=== PATIENT | female | born 1940 | race Caucasian/White ===

== ENCOUNTER 2021-05-01 20:17 | Inpatient (IN) | payer BC ==
[2021-05-01] MEDS ORDERED: CEFTRIAXONE 1000 MG/VIAL ONE (20:39)
[2021-05-01] MEDS ORDERED: NA CHLORIDE 0.9% 50 ML ONE (20:39)
[2021-05-01] MEDS ORDERED: NA CHLORIDE 0.9% 0 ML ONE (20:39)
[2021-05-01] MEDS ORDERED: NA CHLORIDE 0.9% 1,000 ML ONE ×2 (20:39→22:07)
[2021-05-01 20:43] LABS: Urine Blood Negative (Negative); Urine Glucose Negative (Negative); Urine Protein 2+ (Negative); Urine pH 7.5 (5.0-7.0)
[2021-05-01] MEDS ORDERED: ACETAMINOPHEN 650MG/RECT SUPP PR ONE (20:53)
[2021-05-01 20:54] LABS: Protime INR 1.33
[2021-05-01] MEDS ORDERED: ACETAMINOPHEN 325 MG/SUPP PR ONE (20:54)
[2021-05-01 20:59] LABS: Lymphocytes % 14.3 % (15.3-44.8)
[2021-05-01 21:04] LABS: Absolute Lymphocytes (CBC) 2.9 K/uL (0.7-4.9); Hematocrit 29.6 % (36.0-45.0); RBC Red Blood Cell Count 2.79 M/uL (3.86-4.86)
[2021-05-01 21:07] LABS: MPV 9.1 fL (7.6-11.3)
[2021-05-01 21:27] LABS: Platelet Estimate ADEQ
[2021-05-01 21:28] LABS: Blood Morphology Comment NOTED (NOT SEEN); Macrocytosis 1+; Polychromasia SLIGHT
[2021-05-01 21:32] LABS: ALT/SGPT 29 U/L (12-78); AST/SGOT 35 U/L (15-37); Albumin 2.2 g/dL (3.4-5.0); Alkaline Phosphatase 99 U/L (45-117); Amylase 49 U/L (25-115); BUN Blood Urea Nitrogen 70 mg/dL (7-18); Bicarbonate 26 mmol/L (21-32); Bilirubin Direct 0.2 mg/dL (0-0.2); Bilirubin Total 0.5 mg/dL (0.2-1.0); Creatine Phosphokinase 76 U/L (26-192); Glucose Level 99 mg/dL (74-106); Lipase 97 U/L (73-393); Protein, Total 6.4 g/dL (6.4-8.2); Troponin (Emerg Dept Use Only) 0.15 ng/mL (0.0-0.045)
[2021-05-01 21:33] LABS: CKMB Creatine Kinase MB < 1.0 ng/mL (1.0-3.6); Potassium 5.6 mmol/L (3.5-5.1); Sodium Level 173 mmol/L (136-145)
[2021-05-01 21:38] LABS: Urine Amorphous Sediment 3+ /HPF (NONE SEEN); Urine Bacteria <20 /HPF (<20); Urine RBC <5 /HPF (NONE SEEN)
--- NOTE | 2021-05-01 21:39 | RAD REPORT ---
EXAM DESCRIPTION: Manolo Single View05/01/2021 9:15 pm CLINICAL HISTORY: Fever COMPARISON: none FINDINGS: Mild left lung opacities. Right lung appears clear of acute infiltrate. The heart is normal size IMPRESSION: Mild left lung opacities probably mild pneumonia
[2021-05-01 21:46] LABS: SARS-COV-2 RT PCR NEGATIVE (NEGATIVE)
[2021-05-01] MEDS ORDERED: AZITHROMYCIN 500 MG INJ IVPB ONE (22:06)
[2021-05-01] MEDS ORDERED: NA CHLORIDE 0.9% 250 ML ONE ×2 (22:07→23:12)
--- NOTE | 2021-05-01 23:21 | ER ---
Nurse's Notes [facility] Name: Hattie Deras Age: 80 yrs Sex: Female : 1940 Arrival Date: 05/01/2021 Time: 20:22 Bed 4 Private MD: Diagnosis: Sepsis, unspecified organism;Pneumonia, unspecified organism;Dehydration;Hyperosmolality and hypernatremia;Hyperkalemia;Acute kidney failure, unspecified Presentation: 05/01 20:25 Chief complaint: EMS states: " She came from home, family has reported she has had a tw5 temp and for the past several days she has not eating or drinking . Coronavirus screen: Vaccine status: Patient reports being unvaccinated. Ebola Screen: Patient negative for fever greater than or equal to 101.5 degrees Fahrenheit, and additional compatible Ebola Virus Disease symptoms Patient denies exposure to infectious person. Patient denies travel to an Ebola-affected area in the 21 days before illness onset. Initial Sepsis Screen: Does the patient meet any 2 criteria? RR > 20 per min. Temp <36.0*C (96.8*F)) or > 38.3*C (100.9*F). Systolic BP < 90 mmHg. Altered Mental Status. Does the patient have a suspected source of infection? No. Patient's initial sepsis screen is negative. If YES to both, name of provider notified: Nathan Marti MD. Risk Assessment: Do you want to hurt yourself or someone else? Unable to obtain. Onset of symptoms is unknown. 20:25 Method Of Arrival: EMS: [facility] tw5 20:25 Acuity: JOSEP 3 tw5 Triage Assessment: 20:25 General: Appears ill, Behavior is quiet. Pain: Unable to use pain scale. Patient tw5 appears confused, to be moaning, withdrawn. Historical: - Allergies: 20:44 PENICILLINS; tw5 - Home Meds: 20:44 gabapentin 300 mg oral cap 1 cap 3 times per day [Active]; memantine 10 mg oral tab 1 tw5 tab 2 times per day [Active]; donepezil 10 mg oral tab 1 tab once daily [Active]; trazodone 100 mg Oral tab 1 tab 4 x daily [Active]; promethazine 25 mg Oral tab 1 tab once daily [Active]; ondansetron HCl 4 mg Oral tab 1 tab 4 times per day [Active]; sumatriptan succinate 25 mg oral tab 1 tab [Active]; - PMHx: 20:44 Dementia; Irritable bowel syndrome; TIA; Neuropathy; Sleep apnea; GERD; Migraine; tw5 - Immunization history:: Adult Immunizations unknown. - Social history:: Smoking status: unknown. Screenin/20 00:47 Abuse screen: Denies threats or abuse. Denies injuries from another. Nutritional tw5 screening: Difficulty chewing/swallowing? Yes. Tuberculosis screening: Never had TB. Fall Risk Secondary diagnosis (15 points). Assessment: 05/01 20:28 Pain: Noted to be moaning, resistant to movement. Neuro: Level of Consciousness is tw5 lethargic. Cardiovascular:. Respiratory: Airway is patent Trachea midline Respiratory effort is shallow, Respiratory pattern is tachypnea. : Urine is clear. Derm: Skin is fragile, is thin, with poor turgor Skin is dry, Skin is normal, Skin temperature is hot. 20:31 Cardiovascular: Edema is 2+ to right wrist, right hand, right fingers, left wrist, left tw5 hand and left fingers. Musculoskeletal:. 21:36 General: Denny Deras cell- [phone] Shainakurt Deras [phone]. tw5 21:37 Reassessment: Patient states symptoms have improved. tw5 23:18 Reassessment: Patient appears in no apparent distress at this time. No changes from tw5 previously documented assessment. Patient states symptoms have improved. Neuro: Level of Consciousness is lethargic. 05/02 01:03 Reassessment: Patient appears in no apparent distress at this time. No changes from tw5 previously documented assessment. Vital Signs: 05/01 20:24 BP 91 / 54; Pulse 154; Resp 24; Temp 102.2(R); Pulse Ox 94% on R/A; Weight 45.36 kg; tw5 Height 5 ft. 2 in. (157.48 cm); 21:30 BP 118 / 68; Pulse 140; Resp 23 S; Pulse Ox 92% on R/A; as6 21:37 BP 108 / 59; Pulse 137; Resp 21; Pulse Ox 93% on R/A; tw5 23:16 BP 114 / 63; Pulse 128; Resp 28 S; Pulse Ox 95% on R/A; as6 23:18 BP 114 / 63; Pulse 127; Resp 38; Temp 99.3; Pulse Ox 95% on R/A; tw5 05/02 01:03 BP 121 / 75; Pulse 127; Resp 23; Pulse Ox 95% on R/A; tw5 05/01 20:24 Body Mass Index 18.29 (45.36 kg, 157.48 cm) tw5 ED Course: 05/01 20:22 Patient arrived in ED. tt3 20:23 Abran Mata NP is PHCP. pm1 20:23 Nathan Marti MD is Attending Physician. pm1 20:24 Radha Calderón is Primary Nurse. tw5 20:25 Arm band placed on Patient placed in an exam room, on a stretcher, on oxygen, on tw5 quality assurance monitor final, on pulse oximetry. 20:27 Triage completed. tw5 20:28 Patient has correct armband on for positive identification. Placed in gown. Bed in low tw5 position. Call light in reach. Side rails up X 1. equipment monitor phototypesetting on. Pulse ox on. NIBP on. Door closed. Noise minimized. Moved to private room. Verbal reassurance given. 20:28 Cox cath inserted, using sterile technique, 16 Fr., by fl, balloon inflated, to tw5 gravity drainage, urine specimen collected. Inserted saline lock: 22 gauge in right hand, using aseptic technique. Blood collected. 20:49 CBC with Automated Diff Sent. tw 20:49 Blood Culture Sent. 20:49 Basic Metabolic Panel Sent. 20:49 Amylase Sent. tw 20:49 COVID-19/FLU A+B (Document "Date of Onset" if Symptomatic) Sent. tw 20:49 Amylase, Serum Sent. 20:49 Basic Metabolic Panel Sent. tw 20:49 Blood Culture Adult (2) Sent. 20:49 Ckmb Sent. 20:49 LFT's Sent. 20:49 Lactate Sent. 20:50 CBC with Diff Sent. 20:50 Lipase Sent. tw 20:50 Procalcitonin Sent. 20:50 Protime (+inr) Sent. 20:50 Ptt, Activated Sent. 20:50 Troponin (emerg Dept Use Only) Sent. tw5 20:50 Urine Microscopic Only Sent. tw5 20:50 CPK Sent. tw5 21:15 Chest Single View XRAY In Process Unspecified. EDMS 22:45 CT Head Brain wo Cont In Process Unspecified. EDMS 23:18 Wound care: to stage two. Dressing applied over wound. tw5 23:19 Kirby Krueger PA is Hospitalizing Provider. pm1 05/02 00:09 Hospitalizing Provider role handed off by Kirby Krueger PA 00:09 Jose Burrows is Hospitalizing Provider. mw 00:47 No provider procedures requiring assistance completed. Patient admitted, IV remains in tw5 place. Administered Medications: 05/01 20:38 CANCELLED (Physician Discretion): Rocephin (cefTRIAXone) 50 mg/kg IV at calculated rate pm1 once; Given slow IV push per pharmacy instructions 20:43 Drug: NS 0.9% (30 ml/kg) 30 ml/kg Route: IV; Rate: bolus; Site: right hand; tw5 20:49 Drug: Rocephin (cefTRIAXone) 1 grams Route: IV; Rate: calculated rate; Site: right hand;tw5 23:25 Follow up: Response: No adverse reaction; IV Status: Completed infusion tw5 20:59 Drug: Tylenol Suppository 650 mg Route: NV; as6 23:25 Follow up: Response: No adverse reaction; Temperature is decreased tw5 20:59 Drug: Tylenol Suppository 325 mg Route: NV; as6 23:24 Follow up: Response: No adverse reaction; Temperature is decreased tw5 22:14 Drug: AZITHromycin 500 mg Route: IVPB; Infused Over: 1 hrs; Site: right hand; as6 23:26 Follow up: Response: No adverse reaction; IV Status: Completed infusion tw5 Outcome: 23:19 Decision to Hospitalize by Provider. pm1 05/02 00:33 Admitted to ICU Report called to Attempted to call report to Cee was told nurse lucas was currently busy and to call back in 10 min 00:46 Admitted to ICU via stretcher, room 1, on monitor, with chart, Report called to kimberlee Mike RN 00:48 Condition: improved tw5 01:04 Patient left the ED. tw5 Signatures: Dispatcher [employer] Mary Ann Bright RN RN Abran Mata, PLATING ENGINEER PLATING ENGINEER pm1 Dae Kent tt3 Radha Calderón tw5 Igor Forte, DARINEL RN as6
--- NOTE | 2021-05-01 23:21 | EDPHYS ---
Physician Documentation [facility] Name: Hattie Quevedo Age: 80 yrs Sex: Female : 1940 Arrival Date: 05/01/2021 Time: 20:22 Bed 4 Private MD: ED Physician Nathan Marti HPI: 05/01 20:34 This 80 yrs old Female presents to ER via EMS with complaints of Altered Mental Status. pm1 20:34 The patient presents with Decreased appetite. Not eating or drinking for the past two pm1 days. Onset: The symptoms/episode began/occurred 2 day(s) ago. Possible causes: unknown, Family told EMS suspect UTI. 20:34 Associated signs and symptoms: Pertinent positives: Fever. Current symptoms: In the pm1 emergency department the patient's symptoms have worsened. Patient's baseline: Patient bed bound. Per family to EMS patient is close to her baseline mental status but is not wanting to eat or drink. The patient has not recently seen a physician, has moved here from [place] and has been going to urgent care clinics for prescriptions. Historical: - Allergies: 20:44 PENICILLINS; tw5 - Home Meds: 20:44 gabapentin 300 mg oral cap 1 cap 3 times per day [Active]; memantine 10 mg oral tab 1 tw5 tab 2 times per day [Active]; donepezil 10 mg oral tab 1 tab once daily [Active]; trazodone 100 mg Oral tab 1 tab 4 x daily [Active]; promethazine 25 mg Oral tab 1 tab once daily [Active]; ondansetron HCl 4 mg Oral tab 1 tab 4 times per day [Active]; sumatriptan succinate 25 mg oral tab 1 tab [Active]; - PMHx: 20:44 Dementia; Irritable bowel syndrome; TIA; Neuropathy; Sleep apnea; GERD; Migraine; tw5 - Immunization history:: Adult Immunizations unknown. - Social history:: Smoking status: unknown. ROS: 20:34 Neck: Negative for injury, pain, and swelling, Cardiovascular: Negative for chest pain, pm1 palpitations, and edema. 20:34 Respiratory: Negative for shortness of breath, cough, wheezing, and pleuritic chest pain, Abdomen/GI: Negative for abdominal pain, nausea, vomiting, diarrhea, and constipation, Back: Negative for injury and pain. 20:34 MS/Extremity: Negative for injury and deformity, Skin: Negative for injury, rash, and discoloration. 20:34 Constitutional: Positive for fever, poor PO intake. 20:34 : Positive for decreased urination. 20:34 Neuro: Positive for altered mental status. 20:34 All other systems are negative. 20:34 Unable to obtain ROS due to baseline dementia, information obtained from EMS. Exam: 20:34 Head/Face: Normocephalic, atraumatic. pm1 20:34 Skin: Warm, dry with normal turgor. Normal color with no rashes, no lesions, and no evidence of cellulitis. 20:34 Constitutional: The patient appears well developed, well groomed, febrile, obviously ill. 20:34 Eyes: Exam is negative for acute changes, Periorbital structures: no acute changes. 20:34 ENT: Mouth: Lips: dry, Oral mucosa: pink and intact, dry. 20:34 Cardiovascular: Rate: tachycardic, actual rate is 151 bpm, Rhythm: regular, Pulses: no pulse deficits are appreciated, Heart sounds: normal, normal S1and S2, Edema: mild edema present to left hand greater than right. 20:34 Respiratory: Respirations: tachypnea, that is mild, Breath sounds: are clear throughout. 20:34 Abdomen/GI: Palpation: abdomen is soft and non-tender, in all quadrants. 20:34 Skin: Appearance: normal except for affected area, abscess, not appreciated, cellulitis, is not appreciated, lesion(s), located on the stage twobed sore present to coccyx. No cellulitis present. No drainage, discharge, or redness present. Vital Signs: 20:24 BP 91 / 54; Pulse 154; Resp 24; Temp 102.2(R); Pulse Ox 94% on R/A; Weight 45.36 kg; tw5 Height 5 ft. 2 in. (157.48 cm); 21:30 BP 118 / 68; Pulse 140; Resp 23 S; Pulse Ox 92% on R/A; as6 21:37 BP 108 / 59; Pulse 137; Resp 21; Pulse Ox 93% on R/A; tw5 23:16 BP 114 / 63; Pulse 128; Resp 28 S; Pulse Ox 95% on R/A; as6 23:18 BP 114 / 63; Pulse 127; Resp 38; Temp 99.3; Pulse Ox 95% on R/A; tw5 05/02 01:03 BP 121 / 75; Pulse 127; Resp 23; Pulse Ox 95% on R/A; tw5 05/01 20:24 Body Mass Index 18.29 (45.36 kg, 157.48 cm) tw5 MDM: 05/01 20:23 Patient medically screened. pm1 23:17 Physician consultation: Kirby DESOUZA was called at 23:17, regarding admission, pm1 patient's condition, and will see patient in ED, shortly. 05/02 00:20 Data reviewed: vital signs. Data interpreted: Pulse oximetry: on room air is 95 %. pm1 Interpretation: normal. 05/01 20:25 Order name: Amylase, Serum pm1 05/01 20:25 Order name: Basic Metabolic Panel pm1 05/01 20:25 Order name: Blood Culture Adult (2) pm1 05/01 20:25 Order name: CBC with Diff pm1 05/01 20:25 Order name: CPK; Complete Time: 00:45 pm1 05/01 20:25 Order name: Ckmb; Complete Time: 00:45 pm1 05/01 20:25 Order name: LFT's; Complete Time: 00:45 pm1 05/01 20:25 Order name: Lactate; Complete Time: 21:35 pm1 05/01 20:25 Order name: Lipase; Complete Time: 00:45 pm1 05/01 20:25 Order name: Procalcitonin; Complete Time: 23:14 pm1 05/01 20:25 Order name: Protime (+inr); Complete Time: 21:18 pm1 05/01 20:25 Order name: Ptt, Activated; Complete Time: 21:18 pm1 05/01 20:25 Order name: Troponin (emerg Dept Use Only); Complete Time: 00:45 pm1 05/01 20:25 Order name: Urine Microscopic Only; Complete Time: 21:40 pm1 05/01 20:25 Order name: Chest Single View XRAY; Complete Time: 21:40 pm1 05/01 20:25 Order name: COVID-19/FLU A+B (Document "Date of Onset" if Symptomatic); Complete Time: pm1 22:08 05/01 20:25 Order name: Amylase; Complete Time: 00:45 EDMS 05/01 20:25 Order name: Basic Metabolic Panel; Complete Time: 00:45 EDMS 05/01 20:25 Order name: Blood Culture EDMS 05/01 20:25 Order name: CBC with Automated Diff; Complete Time: 21:35 EDMS 05/01 20:43 Order name: Urine Dipstick-Ancillary; Complete Time: 20:47 EDMS 05/01 20:56 Order name: Glucose, Ancillary Testing; Complete Time: 20:57 EDMS 05/01 21:27 Order name: Manual Differential; Complete Time: 21:35 EDMS 05/01 22:09 Order name: CT Head Brain wo Cont pm1 05/02 00:00 Order name: Magnesium EDMS 05/02 00:01 Order name: Phosphorus EDMS 05/02 00:24 Order name: Phosphorus; Complete Time: 00:45 EDMS 05/02 00:24 Order name: Magnesium; Complete Time: 00:45 EDMS 05/02 00:53 Order name: Lactate Sepsis 2 HR Follow-up EDMS 05/01 20:25 Order name: Accucheck; Complete Time: 20:42 pm1 05/01 20:25 Order name: Cardiac monitoring; Complete Time: 20:42 pm1 05/01 20:25 Order name: EKG - Nurse/Tech; Complete Time: 20:43 pm1 05/01 20:25 Order name: IV Saline Lock - Large Bore; Complete Time: 20:42 pm1 05/01 20:25 Order name: Labs collected and sent; Complete Time: 20:42 pm1 05/01 20:25 Order name: O2 Per Protocol; Complete Time: 20:42 pm1 05/01 20:25 Order name: O2 Sat Monitoring; Complete Time: 20:42 pm1 05/01 20:25 Order name: Urine Dipstick-Ancillary (obtain specimen); Complete Time: 20:43 pm1 05/01 23:53 Order name: CONS Physician Consult EDMS Administered Medications: 05/01 20:38 CANCELLED (Physician Discretion): Rocephin (cefTRIAXone) 50 mg/kg IV at calculated rate pm1 once; Given slow IV push per pharmacy instructions 20:43 Drug: NS 0.9% (30 ml/kg) 30 ml/kg Route: IV; Rate: bolus; Site: right hand; tw5 20:49 Drug: Rocephin (cefTRIAXone) 1 grams Route: IV; Rate: calculated rate; Site: right hand;tw5 23:25 Follow up: Response: No adverse reaction; IV Status: Completed infusion tw5 20:59 Drug: Tylenol Suppository 650 mg Route: HI; as6 23:25 Follow up: Response: No adverse reaction; Temperature is decreased tw5 20:59 Drug: Tylenol Suppository 325 mg Route: HI; as6 23:24 Follow up: Response: No adverse reaction; Temperature is decreased tw5 22:14 Drug: AZITHromycin 500 mg Route: IVPB; Infused Over: 1 hrs; Site: right hand; as6 23:26 Follow up: Response: No adverse reaction; IV Status: Completed infusion tw5 Disposition: 05/02 04:02 Co-signature as Attending Physician, Nathan Marti MD. [email or web address] Disposition Summary: 05/01/21 23:19 Hospitalization Ordered Hospitalization Status: Inpatient Admission pm1 Condition: Stable pm1 Problem: new pm1 Symptoms: have improved pm1 Bed/Room Type: Standard pm1 Provider: Jose Brurows(05/02/21 00:09) Location: Intensive Care Unit(05/02/21 00:09) Room Assignment: 1-(05/02/21 00:09) Diagnosis - Sepsis, unspecified organism pm1 - Pneumonia, unspecified organism pm1 - Dehydration pm1 - Hyperosmolality and hypernatremia pm1 - Hyperkalemia pm1 - Acute kidney failure, unspecified pm1 Forms: - Medication Reconciliation Form pm1 - SBAR form pm1 Signatures: Dispatcher [employer] EDDC Mary Ann Stubbs RN RN Abran Mata NP REAMER HAND pm1 Nathan Marti MD MD 7 Radha Calderón 5 Igor Forte RN RN as6 Corrections: (The following items were deleted from the chart) 05/01 20:38 20:37 Rocephin (cefTRIAXone) 50 mg/kg IV at calculated rate once; Given slow IV push pm1 per pharmacy instructions ordered. pm1 23:20 23:19 Intensive Care Unit pm1 pm1 23:20 23:19 pm1 pm1 05/02 00:09 05/01 23:19 Kirby Krueger pm1 05/02 00:05/01 23:20 Telemetry/MedSurg ([facility]) pm1 mw 05/02 00:05/01 23:20 pm1
[2021-05-01] MEDS ORDERED: THIAMINE 200 MG/2 ML INJ IVP ONE (23:56)
--- NOTE | 2021-05-02 00:05 | P.PN ---
Date of Service: 05/01/21 I received phone call on Ms Deras 80F w/ dementia admitted for sepsis 2/2 PNAj w/ GENTRY, hypernatremia, hyperK, & hypercalcemia. Wt. 45.3 kgs. Total body water 20.3L. Free water deficit 4.9L. Insensible water loss 0.5L/d. Urine water loss at least 0.5L/d. Full code. Recs: 1. Give Thiamine 100 mg IV stat 2. Start D5W gtt 90 cc/hr 3. F/u urinalysis, urine chem, upcr, renal us, iPTH, 25OHD, cpk, cultures 4. Indwelling fierro 5. Antibiotics per primary team Full consult tomorrow c/o Dr. Garner.
[2021-05-02 00:23] LABS: Magnesium 3.3 mg/dL (1.8-2.4); Phosphorus 2.2 mg/dL (2.5-4.9)
[2021-05-02] MEDS ORDERED: IPRATROPIUM BROM 0.5MG/2.5ML NEB PRN (01:23)
[2021-05-02] MEDS ORDERED: ALBUTEROL 2.5 MG/3 ML NEB SOL NEB PRN (01:23)
[2021-05-02] MEDS ORDERED: ONDANSETRON 4 MG/2 ML VIAL IV PRN (01:23)
[2021-05-02] MEDS ORDERED: ACETAMINOPHEN 650MG/RECT SUPP PR PRN (01:23)
[2021-05-02 02:00] LABS: Arterial Blood Carboxyhemoglob 1.6 % (0-1.5); Blood Gas Oxyhemoglobin 93.7 % (94-97); Blood O2 Saturation 96.3 % (92-98.5)
[2021-05-02] MEDS ORDERED: VANCOMYCIN 1 GM in NA CHLORIDE 0.9% 500 ML IVPB ONE (02:00)
[2021-05-02] MEDS: D5W 1,000 ML IV SCH ×3 (02:12→16:28)
[2021-05-02] MEDS: HEPARIN 5000 UNIT/ML 1 ML VIAL SQ SCH ×3 (02:14→16:29)
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
[2021-05-02 05:05] LABS: Absolute Lymphocytes (CBC) 1.4 K/uL (0.7-4.9); Hematocrit 26.1 % (36.0-45.0); Lymphocytes % 9.1 % (15.3-44.8); MPV 9.6 fL (7.6-11.3); RBC Red Blood Cell Count 2.44 M/uL (3.86-4.86)
[2021-05-02 05:34] LABS: Albumin 1.8 g/dL (3.4-5.0); Bilirubin Total 0.3 mg/dL (0.2-1.0); Phosphorus 1.6 mg/dL (2.5-4.9); Potassium 5.5 mmol/L (3.5-5.1); Protein, Total 5.4 g/dL (6.4-8.2)
[2021-05-02 05:36] LABS: Troponin I 6.43 ng/mL (0.0-0.045)
[2021-05-02 05:51] LABS: Ferritin 1265.9 ng/mL (8-388)
[2021-05-02] MEDS ORDERED: SODIUM PHOSPHATE 15 MM in NA CHLORIDE 0.9% 250 ML IV ONE (08:00)
--- NOTE | 2021-05-02 08:07 | RAD REPORT ---
EXAM DESCRIPTION: US - Renal Ultrasound-Complete - 05/02/2021 1:02 am CLINICAL HISTORY: arely/CKD, assess for hydronephrosis, CKD changes COMPARISON: No comparisons FINDINGS: Both kidneys are normal in size, shape and echotexture. The right kidney measures 9.3 cm. No hydronephrosis, focal mass or perinephric fluid. The left kidney measures 7.7 cm. No hydronephrosis, focal mass or perinephric fluid. The bladder is decompressed via Cox catheter. IMPRESSION: No evidence of hydronephrosis.
--- NOTE | 2021-05-02 08:10 | EKG ---
Test Date: 2021-05-01 Test Time: 20:44:18 Commercial Maintenance Technician: EMILIA MEASUREMENT RESULTS: Intervals: Rate: 151 TN: 128 QRSD: 72 QT: 256 QTc: 405 [place]: P: 71 TN: 128 QRS: 52 T: 89 INTERPRETIVE STATEMENTS: Sinus tachycardia Nonspecific ST and T wave abnormality Abnormal ECG No previous ECG available for comparison Electronically Signed On 05-02-21 08:08:46 SEAFOOD SPECIALIST by Lee Rose
[2021-05-02] MEDS ORDERED: CEFEPIME 1 GM in NA CHLORIDE 0.9% 100 ML IV SCH (09:00)
--- NOTE | 2021-05-02 10:56 | P.PN ---
Subjective Date of Service: 05/02/21 Chief Complaint: pneumonia Patient is arousable but mute. Blood pressure stable. Sodium level significantly elevated. Afebrile. Physical Examination - Vital Signs Temperature: 97.8 F Blood Pressure: 116/73 Pulse: 99 Respirations: 13 Pulse Ox (%): 99 - Physical Exam General: In no apparent distress, Confused HEENT: PERRLA, Sclerae nonicteric Neck: JVD not distended Respiratory: Clear to auscultation bilaterally, Normal air movement Cardiovascular: Normal S1 S2, Other (Tachycardia), Edema (1+ bilateral lower extremity edema) Capillary refill: <2 Seconds Gastrointestinal: Soft and benign, Non-distended, No tenderness Musculoskeletal: No tenderness, No warmth Integumentary: No cyanosis Neurological: Other (Confused), Dementia - Studies Laboratory Data (last 24 hrs) 05/02/21 00:00: Phosphorus Cancelled, Magnesium Cancelled 05/01/21 20:39: PT 15.3 H, INR 1.33, APTT 34.6 05/01/21 20:39: WBC 20.00 H, Hgb 9.2 L, Hct 29.6 L, Plt Count 161 05/01/21 20:39: Sodium 173 H*, Potassium 5.6 H*, BUN 70 H, Creatinine 4.11 H, Glucose 99, Phosphorus 2.2 L, Magnesium 3.3 H, Total Bilirubin 0.5, AST 35, ALT 29, Alkaline Phosphatase 99, Amylase 49, Lipase 97 Microbiology Data (last 24 hrs): 05/01/21 20:39 Blood - Blood Anaerobic Blood Culture - Final 05/01/21 20:48 Blood - Blood Anaerobic Blood Culture - Final Assessment And Plan - Current Problems (Diagnosis) (1) Acute metabolic encephalopathy Current Visit: Yes Status: Acute (2) Dysphagia Current Visit: Yes Status: Acute (3) Dehydration Current Visit: Yes Status: Acute (4) Hypernatremia Current Visit: Yes Status: Acute (5) Pneumonia Current Visit: Yes Status: Acute Qualifiers: Pneumonia type: due to unspecified organism Laterality: unspecified laterality Lung location: unspecified part of lung Qualified Code(s): J18.9 - Pneumonia, unspecified organism (6) Dementia Current Visit: Yes Status: Chronic Qualifiers: Dementia type: unspecified type Dementia behavioral disturbance: without behavioral disturbance Qualified Code(s): F03.90 - Unspecified dementia without behavioral disturbance (7) Severe sepsis Current Visit: Yes Status: Acute (8) Elevated troponin Current Visit: Yes Status: Acute - Plan Continue to treat hypernatremia with D5 water. I suspect aspiration pneumonia. Will change antibiotics to IV Levaquin and Zosyn. Discontinue vancomycin. UA with no significant evidence of UTI. Follow cultures. Speech therapy to evaluate once patient is more awake and able to obey commands. Drop in hemoglobin is likely dilutional. Patient quite dehydrated from poor oral intake. GENTRY likely prerenal. Serum creatinine is trending down with IV D5 infusion. Monitor BMP Nephrology input appreciated. Elevated troponin could be secondary to sepsis. Troponin continue to trend up. Will cover with heparin drip. Cardiology consult.
--- NOTE | 2021-05-02 11:11 | RAD REPORT ---
EXAM DESCRIPTION: CT - Head Brain Wo Cont - 05/02/2021 6:56 am CLINICAL HISTORY: MENTAL STATUS CHANGE COMPARISON: None. TECHNIQUE: Axial unenhanced CT imaging of the brain. Reformatted coronal and sagittal images obtaine d. This examination was performed according to our departmental dose optimization program, which include s automated exposure control, adjustment of the mA and/or kV according to patient size and/or use of iterative reconstruction technique. FINDINGS: Moderate prominence of the ventricles and sulci due to cortical volume loss. Moderate decr eased attenuation of the white matter due to chronic microvascular ischemic change. No intracranial b leed, edema, mass or midline shift. No evidence of acute large territorial infarction or hyperdense v essel. Unremarkable cerebellum and vermis. Fourth ventricle is midline. Prepontine cisterns are not e ffaced. Normal sella contents. Intraorbital contents appear normal. Clear paranasal sinuses. Mastoid air cells are clear bilaterally . The skull base, imaged facial bones and calvarium are intact. Normal scalp soft tissues. IMPRESSION: Moderate senescent brain changes. No intracranial acute finding. Electronically signed by: Shaila Jimenes DO 05/01/2021 10:55 PM [facility] Due to temporary technical issues with the PACS/Fluency reporting system, reports are being signed by the in house radiologist without review as a courtesy to ensure prompt reporting. The interpreting r adiologist is fully responsible for the content of the report.
[2021-05-02 14:20] LABS: UR PROTEIN 225.3 mg/dL (<11.9); Urine Protein/Creatinine Ratio 1.77 ratio (<0.15)
--- NOTE | 2021-05-02 14:21 | ECHO ---
HEIGHT: 5 ft 2 in WEIGHT: 133 lb 0 oz DATE OF STUDY: 05/02/[address]: Kirby Krueger 2-DIMENSIONAL: YES M.MODE: YES DOPPLER: YES COLOR FLOW: YES TDS: YES PORTABLE: DEFINITY: BUBBLE STUDY: DIAGNOSIS: ELEVATED TROPONIN CARDIAC HISTORY: CATHERIZATION: NO SURGERY: NO PROSTHETIC VALVE: NO PACEMAKER: NO MEASUREMENTS (cm) DIASTOLIC (NORMALS) SYSTOLIC (NORMALS) IVSd 0.8 (0.6-1.2) LA Diam 2.8 (1.9-4.0) LVEF 50-55% LVIDd 4.9 (3.5-5.7) LVIDs 3.4 (2.0-3.5) %FS 32% LVPWd 1.0 (0.6-1.2) Ao Diam 2.6 (2.0-3.7) 2 DIMENSIONAL ASSESSMENT: RIGHT ATRIUM: NORMAL LEFT ATRIUM: NORMAL RIGHT VENTRICLE: NORMAL LEFT VENTRICLE: NORMAL TRICUSPID VALVE: MILD TRICUSPID REGURGITATION MITRAL VALVE: MILD MITRAL REGURGITATION PULMONIC VALVE: NORMAL AORTIC VALVE: NORMAL PERICARDIAL EFFUSION: SMALL AORTIC ROOT: NORMAL LEFT VENTRICULAR WALL MOTION: NORMAL DOPPLER/COLOR FLOW: SEE BELOW COMMENTS: LOW NORMAL LEFT VENTRICULAR EJECTION FRACTION 50-55%. MILD TO MODERATE MITRAL REGURGITATION. MILD TRICUSPID REGURGITATION. SMALL PERICARDIAL EFFUSION. TECHNOLOGIST: PRISCILLA LUNA
[2021-05-02] MEDS ORDERED: levoFLOXacin 750 MG TAB PO ONE (15:00)
[2021-05-02] MEDS ORDERED: Levofloxacin 750mg IV 750 MG/150 ML BAG IV ONE (16:00)
[2021-05-02] MEDS ORDERED: HEPARIN/D5W 25,000 UNIT/500 ML BAG IV SCH (18:00)
[2021-05-02] MEDS: PIPER TAZO 3.375 GM in NA CHLORIDE 0.9% 100 ML IV SCH (21:03)
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
[2021-05-03 05:50] LABS: Absolute Lymphocytes (CBC) 0.9 K/uL (0.7-4.9); Hematocrit 24.3 % (36.0-45.0); Lymphocytes % 15.1 % (15.3-44.8); MPV 9.1 fL (7.6-11.3); RBC Red Blood Cell Count 2.37 M/uL (3.86-4.86)
[2021-05-03 06:11] LABS: Albumin 1.5 g/dL (3.4-5.0); Bilirubin Total 0.3 mg/dL (0.2-1.0); Protein, Total 4.9 g/dL (6.4-8.2); Thyroid Stimulating Hormone 1.15 uIU/mL (0.360-3.740)
--- NOTE | 2021-05-03 06:11 | P.PN ---
Date of Service: 05/03/21 Subjective: Nursing reports no acute events overnight. No significant change in clinical status Patient to verbal stimuli, seems to try to mumble some words, incoherent ROS: unable to be obtained Physical exam GEN: opens eyes to verbal stimuli HEENT: Normal conjunctiva, sclera anicteric CV: Regular rate and rhythm, no edema Pulm: Nonlabored respirations on room air ABD: Soft, nontender, nondistended MSK: No joint tenderness Neuro: confused/dementia, does not follow commands Problem List Acute metabolic encephalopathy secondary to hypernatremia, infection Dysphagia Dehydration severe Hypernatremia Pneumonia, suspect aspiration Dementia Severe sepsis secondary to pneumonia NSTEMI Hypernatremia slowly improving, nephrology managing, continue D5 on Zosyn and Levaquin for suspected aspiration pneumonia source of her infection. UA negative Initial blood culture growing coag negative staph, repeat culture ordered today Speech therapy to evaluate once patient is more awake and able to obey commands. Drop in hemoglobin is likely dilutional. Patient quite dehydrated from poor oral intake. GENTRY likely prerenal, creatinine improving with IV fluids NSTEMI -elevated troponin could be secondary to sepsis, possible IL started on heparin drip 05/02. Cardiology consulted patient listed as full code had brief discussion with son over phone. It seems patient has been deteriorating over the last year or 2 She has not been oriented/without decision-making capacity for at least the last year Briefly reviewed CODE STATUS, and how aggressive family would want to be. If they have thought about PEG tube son will try to leave work early today and discuss further when he visits. Time Spent Managing Pts Care (In Minutes): 35
[2021-05-03] MEDS: PIPER TAZO 3.375 GM in NA CHLORIDE 0.9% 100 ML IV SCH ×2 (08:38→21:12)
[2021-05-03] MEDS: D5W 1,000 ML IV SCH ×2 (08:38→20:13)
--- NOTE | 2021-05-03 11:57 | CON ---
Date of Consultation: 05/03/2021 Reason For Consultation: Elevated troponin. History Of Present Illness: This is a 80-year-old female with advanced dementia, very much has total dependent care, has history of TIA in the past. The patient is not being able to swallow and eat, a nd she has been aspirating and getting weak. Her mental status completely altered, so decided to gwen ng her to the emergency room where she was found to be severely dehydrated with acute renal failure a nd troponin was elevated. The patient is not awake to get further story. Past Medical History: As outlined above in the HPI. Medications: Penicillin. Family History: No premature coronary artery disease or cancer. Social History: No reported smoking. Does not drink or use any drugs. Review of Systems: All systems reviewed and negative except for what mentioned in HPI. Physical Examination: Vital Signs: Reviewed. Head and Neck: Pupils reactive to light. No JVD. Neck: Supple. No thyroid enlargement. Lungs: Clear to auscultation bilaterally. No rhonchi, rales, or crackles. No accessory muscle use. Heart: Regular rate and rhythm. No extra sounds. Abdomen: Soft, nontender. Bowel sounds positive. Extremities: No clubbing or cyanosis. Skin: No rash. Neurologic: She is lethargic and not responding. Lymph Nodes: No cervical or axillary lymphadenopathy. Investigations: Her troponin was 13.2. Creatinine is 2.98 and sodium on arrival was 173. Assessment And Recommendations: Non-ST elevation myocardial infarction in a different setting, thus the patient will need a coronary angiogram; however, the patient has advanced dementia and she is tot co care and she has advanced acute renal failure due to severe dehydration, I had a long discussion w ith her daughter and recommended palliative care and conservative measures only. The daughter agreed . An echo was reviewed and her ejection fraction is normal. Once the blood pressure allows, place t he patient on beta-yong and low-dose KAMLESH inhibitor and start on aspirin. Continue Lovenox for now and also load with 300 mg of Plavix and then 75 mg daily afterwards to keep on aspirin, Plavix, beta -yong, and high-dose statin and we will plan only for a conservative medical management due to adv anced end-stage dementia and acute kidney injury as well. SR/MODL Voice ID: [id number] Report ID: [id number]
--- NOTE | 2021-05-03 15:53 | RAD REPORT ---
EXAM DESCRIPTION: RAD - Chest Single View - 05/03/2021 3:46 pm CLINICAL HISTORY: confirm dobhoff placement COMPARISON: Chest Single View dated 05/01/2021 FINDINGS: Interval placement of a weighted feeding tube. The tip of the tube terminates in the left lung. Nonspecific gaseous distention of the small bowel and colon. IMPRESSION: Weighted feeding tube terminates in the left lung base and and needs to be repositioned prior to use.Communicated with Dr. Ballard by Dr. Rodriguez at [id number] on 05/03/21
[2021-05-03] MEDS: MEDIHONEY 44 ML TOPICAL TUBE TOP SCH (17:06)
[2021-05-03 17:56] LABS: Potassium 3.6 mmol/L (3.5-5.1)
[2021-05-03] MEDS ORDERED: D5W 1,000 ML IV SCH (21:22)
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
[2021-05-04] MEDS ORDERED: VANCOMYCIN 1 GM in NA CHLORIDE 0.9% 250 ML IVPB SCH (02:00)
[2021-05-04 05:43] LABS: Absolute Lymphocytes (CBC) 1.3 K/uL (0.7-4.9); Hematocrit 18.5 % (36.0-45.0); Lymphocytes % 26.5 % (15.3-44.8); MPV 8.8 fL (7.6-11.3); RBC Red Blood Cell Count 1.82 M/uL (3.86-4.86)
[2021-05-04 05:59] LABS: Albumin 1.3 g/dL (3.4-5.0); Bilirubin Total 0.3 mg/dL (0.2-1.0); Magnesium 2.2 mg/dL (1.8-2.4); Potassium 3.2 mmol/L (3.5-5.1); Protein, Total 4.3 g/dL (6.4-8.2)
[2021-05-04] MEDS ORDERED: ACETAMINOPHEN 500 MG TAB PO ONE (06:13)
[2021-05-04] MEDS ORDERED: DIPHENHYDRAMINE 50 MG/ML VIAL IV ONE (06:13)
--- NOTE | 2021-05-04 06:20 | P.PN ---
Date of Service: 05/04/21 Subjective: Patient awake this morning, responded "no" when asked if in pain. Patient tearful and crying Unable to understand what she tried to say Hemoglobin down to 6.0, no evidence of bleeding ROS: unable to be obtained Physical exam GEN: opens eyes to verbal stimuli, tearful HEENT: Normal conjunctiva, sclera anicteric CV: Regular rate and rhythm, no edema Pulm: Nonlabored respirations on room air ABD: Soft, nontender, nondistended Skin: pale, ecchymosis scattered on b/l arms Neuro: confused/dementia, does not follow commands Problem List Acute metabolic encephalopathy secondary to hypernatremia, infection Dysphagia, aspiration Dehydration severe Hypernatremia Severe sepsis secondary to pneumonia Pneumonia, suspect aspiration Dementia NSTEMI Hypernatremia slowly improving, nephrology managing, continue D5 on Zosyn and Levaquin for suspected aspiration pneumonia source of her infection. UA negative Initial blood culture growing coag negative staph, repeat culture pending ID consulted, recommend merrem/vanc Hemoglobin continues to decrease, multifactorial, dilutional, blood draws, GENTRY and poor nutrition. Has been on heparin drip since 05/02 for NSTEMI, increases risk for possible GI bleed, patient without abdominal pain, no bowel movements GENTRY likely prerenal, creatinine improving with IV fluids NSTEMI -cardiology consulted, will need a cardiac catheterization, however pat ient is not a good candidate, recommends palliative care/hospice started on heparin drip 05/02. Cardiology consulted Has been having ongoing conversations with patient's son over the last 2 days. Patient sent state after further discussion with family, patient is to be made DNR She has not been oriented/without decision-making capacity for at least the last year Currently, family want to proceed with blood transfusion, with hopes for more improvement and stability, for potential palliative PEG tube, and possibly home with hospice Time Spent Managing Pts Care (In Minutes): 35
[2021-05-04] MEDS: PIPER TAZO 3.375 GM in NA CHLORIDE 0.9% 100 ML IV SCH ×2 (09:00→09:23)
[2021-05-04] MEDS: MEDIHONEY 44 ML TOPICAL TUBE TOP SCH (09:23)
[2021-05-04] MEDS ORDERED: NA CHLORIDE 0.9% 500 ML ONE (09:28)
[2021-05-04] MEDS ORDERED: ACETAMINOPHEN 650MG/RECT SUPP PR ONE (09:48)
[2021-05-04] MEDS: D5W 1,000 ML IV SCH ×3 (10:45→22:36)
[2021-05-04] MEDS ORDERED: METHYLPREDNISOLONE 125 MG INJ IV ONE (11:00)
--- NOTE | 2021-05-04 11:23 | P.CNS ---
Date of Consult: 05/04/21 Chief Complaint: pneumonia History of Present Illness: The patient is a 80-year-old female with a past medical history of end-stage dementia, irritable bowel syndrome, history of TIA, and kidney disease who is brought into the emergency department secondary to fever, decreased food and fluid intake, and altered mental status. Patient severely altered at bedside, as such all history obtained via chart review and patient's daughter who was present at bedside. Per the daughter the patient has been declining i condition with inability to swallow. States that a few days prior to admission the patient vomited and in inhaled some of her vomit. Infectious disease has been consulted to monitor the patient's antibiotic regimen. Blood cultures obtained on 05/01 growing Staph hominis in both aerobic bottles, repeat blood cultures obtained on 05/03 show no growth at @24hr. Patient with severe sepsis on admission with a T-max of 102.2, lactic acidosis, tachycardia, leukocytosis, and soft blood pressures. WBC now down trending, patient empirically placed on Zosyn and Levaquin. Antibiotics adjusted due to blood culture reports. Allergies Penicillins Adverse Reaction (Verified 05/02/21 00:34) Hives/Rash Home Medications: Donepezil HCl [Aricept] 10 mg PO DAILY 05/02/21 Gabapentin 300 mg PO TID 05/02/21 Memantine HCl [Namenda] 10 mg PO BID 05/02/21 Ondansetron HCl [Zofran] 4 mg PO QID 05/02/21 Promethazine Tab [Phenergan] 25 mg PO DAILY 05/02/21 SUMAtriptan succinate [Sumatriptan Succinate] 25 mg PO DAILY 05/02/21 Trazodone HCl 100 mg PO QID 05/02/21 - Past Medical/Surgical History Diabetic: No -: end stage dementia -: gerd -: tia -: neuropathy -: IBS -: migraine - Social History Smoking Status: Unknown if ever smoked Alcohol use: No CD- Drugs: No Caffeine use: No Place of Residence: Home Review of Systems 10-point ROS is otherwise unremarkable Physical Examination Temp Pulse Resp BP Pulse Ox 97.4 F 85 18 111/58 L 96 05/04/21 08:00 05/04/21 08:00 05/04/21 08:00 05/04/21 08:00 05/04/21 08:00 General: Other (Altered mental status) HEENT: Other (Dry mucosal membrane) Neck: JVD not distended Respiratory: Other (Diminished) Cardiovascular: No edema, Normal S1 S2 Gastrointestinal: Normal bowel sounds, Soft and benign, Non-distended Integumentary: Pressure ulcer (Sacral stage II in) Conclusions/Impression: Antibiotics: Vancomycin Start: 05/04 Indication: Bacteremia Meropenem start: 05/04 Indication: Aspiration pneumonia Assessment/plan Bacteremia Blood cultures obtained on 05/01 growing methicillin-resistant Staph hominis in both a aerobic bottles. Repeat cultures obtained on 05/03 show no growth @24hr. Recommend treating with IV vancomycin for 2 weeks following negative blood culture report. Vancomycin trough goal 12-17. Patient has a KI, continue to monitor renal function closely. Recommend daily BMPs. Aspiration pneumonia Patient has possible aspiration event she a few days prior to admission. Chest x-ray showed left lung pneumonia. Continue meropenem. Stage II sacral ulcer Continue current wound care, currently utilizing [facility]. Protein caloric malnutrition Severe malnutrition, recommend supplemental protein intake. Anemia Continue to monitor H&H. -medical management per primary team Plan of care discussed with Dr. Downing Thank you for consultation
--- NOTE | 2021-05-04 12:10 | P.PN ---
Subjective Date of Service: 05/04/21 Chief Complaint: pneumonia Patient is a 80-year-old woman with end-stage dementia, history of TIA. She was brought to the emergency room because of fever, decreased p.o. intake, decline in mental status, although she has underlying dementia. Nephrology follows for GENTRY , and hypernatremia Today Na and cr slowly improving Hb down to 6.0 , pt had transfusion reaction PRBC transfusion aborted and heparin stopped overall poor prognosis \ Physical Examination: General: Lethargic , NAD , thin ,pale neck: supple, no elevated JVD Heart: RRR, normal S1,2 no murmur or rub chest CTAB, no rales or whezes Abdomen: soft , NT ext : no edema Ap GENTRY due to dehydration cr slowly improving cont IVF Hypernatremia due to dehydration Cont D5W Acute anemia heparin on hold pt had transfusion reaction PRBC transfusion aborted and heparin stopped NSTMI heparin on hold due to acute anemia Advanced dementia Cont supportive care Pt with overall poor prognosis Physical Examination - Vital Signs Temperature: 97.4 F Blood Pressure: 111/58 Pulse: 85 Respirations: 18 Pulse Ox (%): 96 - Studies Microbiology Data (last 24 hrs): 05/01/21 20:39 Blood - Blood Aerobic Blood Culture - Final Staphylococcus Hominis 05/01/21 20:39 Blood - Blood Blood Culture Gram Stain - Final 05/01/21 20:39 Blood - Blood Anaerobic Blood Culture - Final
[2021-05-04] MEDS: Meropenem 500 MG in NA CHLORIDE 0.9% 100 ML IV SCH ×2 (12:35→23:30)
[2021-05-04] MEDS: VANCOMYCIN 1.25 GM in NA CHLORIDE 0.9% 250 ML IVPB SCH (12:36)
[2021-05-04] MEDS ORDERED: NA CHLORIDE 0.9% 500 ML IV ONE (13:00)
[2021-05-04] MEDS ORDERED: levoFLOXacin 500 MG TAB PO SCH (15:00)
[2021-05-04] MEDS ORDERED: Levofloxacin500mg IV 500 MG/100 ML BAG IV SCH (16:00)
[2021-05-05] MEDS ORDERED: KCL 20 MEQ/100 mL IVPB 20 MEQ/100 ML BAG IV ONE ×2 (01:00→06:00)
[2021-05-05 04:10] LABS: MPV 8.7 fL (7.6-11.3); RBC Red Blood Cell Count 1.94 M/uL (3.86-4.86)
[2021-05-05 04:26] LABS: Hematocrit 19.2 % (36.0-45.0)
[2021-05-05 04:30] LABS: Potassium 3.2 mmol/L (3.5-5.1)
--- NOTE | 2021-05-05 05:56 | P.PN ---
Date of Service: 05/05/21 Subjective: More awake this morning, able to understand few words she is saying But with much difficulty understanding what she is trying to say. Denies pain ROS: unable to be obtained Physical exam GEN: opens eyes to verbal stimuli, mumbles HEENT: Normal conjunctiva, sclera anicteric CV: Regular rate and rhythm, no edema Pulm: Nonlabored respirations on room air ABD: Soft, nontender, nondistended Skin: pale, ecchymosis scattered on b/l arms Neuro: confused/dementia, does not follow commands Problem List Acute metabolic encephalopathy secondary to hypernatremia, infection Dysphagia, aspiration Dehydration severe Hypernatremia Severe sepsis secondary to pneumonia Pneumonia, suspect aspiration Chronic moderate-severe Dementia NSTEMI Hypernatremia slowly improving, nephrology managing, continue D5 Initially was treated with Zosyn and Levaquin for suspected aspiration pneumonia source of her infection. UA was negative. Blood cultures grew coag negative staph Potential sources being her decubitus ulcer, and she takes Indocin to her skin ID consulted, recommend merrem/vanc - started 03/04 Hemoglobin decreased, multifactorial, dilutional, blood draws, GENTRY and poor nutrition. stable since yesterday Unable to give blood yesterday due to hypotension within 10 minutes of transfusion initiation Steroids given, patient was premedicated with Tylenol/Benadryl yesterday. Will premedicate with Tylenol and steroids again today, will avoid Benadryl this time We will give 250 cc bolus of normal saline to help with blood pressure prior to blood transfusion Heparin drip started on 05/02 for NSTEMI, this was discontinued the morning of 05/04 due to significant anemia, concern for possible bleed GENTRY prerenal, creatinine improving with IV fluids, nephrology following NSTEMI -cardiology consulted, would need a cardiac catheterization, however patient is not a good candidate, recommends palliative care/hospice Has been having ongoing conversations with patient's son over the last 3 days. Patient sent state after further discussion with family, patient made DNR in 05/04 She has not been oriented/without decision-making capacity for at least the last year Currently, family want to proceed with blood transfusion, with hopes for more improvement and stability, for potential palliative PEG tube, and possibly home with hospice Son at the bedside this morning states she spoke few words to him, this was the most he has heard her speak in many months Time Spent Managing Pts Care (In Minutes): 35
[2021-05-05] MEDS: MEDIHONEY 44 ML TOPICAL TUBE TOP SCH (08:55)
[2021-05-05] MEDS ORDERED: METHYLPRED NA SUC 1,000 MG in NA CHLORIDE 0.9% 100 ML IV ONE (10:04)
[2021-05-05] MEDS ORDERED: METHYLPREDNISOLONE 40 MG INJ IV ONE (10:30)
[2021-05-05] MEDS: D5W 1,000 ML IV SCH (10:35)
[2021-05-05] MEDS ORDERED: NA CHLORIDE 0.9% 250 ML IV ONE (11:00)
--- NOTE | 2021-05-05 11:12 | P.PN ---
Subjective Date of Service: 05/05/21 Chief Complaint: pneumonia Patient seen examined at bedside, resting comfortably. Review of Systems 10-point ROS is otherwise unremarkable Physical Examination - Vital Signs Temperature: 97.1 F Blood Pressure: 92/37 Pulse: 83 Respirations: 20 Pulse Ox (%): 96 - Studies Laboratory Last Values WBC 20.00 K/uL (4.3-10.9) H 05/01/21 20:39 RBC 2.79 M/uL (3.86-4.86) L 05/01/21 20:39 Hgb 9.2 g/dL (12.0-15.0) L 05/01/21 20:39 Hct 29.6 % (36.0-45.0) L 05/01/21 20:39 MCV 106.1 fL (80-100) H 05/01/21 20:39 MCH 33.0 pg (27.0-35.0) 05/01/21 20:39 MCHC 31.1 g/dL (32.0-36.0) L 05/01/21 20:39 RDW 16.5 % (12.1-15.2) H 05/01/21 20:39 Plt Count 161 K/uL (152-406) 05/01/21 20:39 MPV 9.1 fL (7.6-11.3) 05/01/21 20:39 Neutrophils % 80.0 % (41.7-73.7) H 05/01/21 20:39 Lymphocytes % 14.3 % (15.3-44.8) L 05/01/21 20:39 Monocytes % 4.9 % (3.3-12.3) 05/01/21 20:39 Eosinophils % 0.4 % (0-4.4) 05/01/21 20:39 Basophils % 0.4 % (0-1.3) 05/01/21 20:39 Absolute Neutrophils 16.0 K/uL (1.8-8.0) H 05/01/21 20:39 Segmented Neutrophils 81 % (40-80) H 05/01/21 20:39 Band Neutrophils 2 % (0-1) H 05/01/21 20:39 Absolute Lymphocytes 2.9 K/uL (0.7-4.9) 05/01/21 20:39 Lymphocytes 15 % (15-42) 05/01/21 20:39 Monocytes 1 % (0-10) 05/01/21 20:39 Absolute Monocytes 1.0 K/uL (0.1-1.3) 05/01/21 20:39 Eosinophils 0 % (0-3) 05/01/21 20:39 Absolute Eosinophils 0.1 K/uL (0-0.5) 05/01/21 20:39 Basophils 1 % (0-1) 05/01/21 20:39 Absolute Basophils 0.1 K/uL (0-0.5) 05/01/21 20:39 Platelet Estimate Adeq 05/01/21 20:39 Clumped Platelets Few 05/01/21 20:39 Polychromasia Slight 05/01/21 20:39 Macrocytosis 1+ 05/01/21 20:39 Morphology Comment Noted (NOT SEEN) 05/01/21 20:39 PT 15.3 SECONDS (9.5-12.5) H 05/01/21 20:39 INR 1.33 05/01/21 20:39 APTT 34.6 SECONDS (24.3-36.9) 05/01/21 20:39 Sodium 173 mmol/L (136-145) H* 05/01/21 20:39 Potassium 5.6 mmol/L (3.5-5.1) H* 05/01/21 20:39 Chloride 143 mmol/L (98-107) H* 05/01/21 20:39 Carbon Dioxide 26 mmol/L (21-32) 05/01/21 20:39 BUN 70 mg/dL (7-18) H 05/01/21 20:39 Creatinine 4.11 mg/dL (0.55-1.3) H 05/01/21 20:39 Estimated GFR 10 mL/min (=/>90) L 05/01/21 20:39 Glucose 99 mg/dL (74-106) 05/01/21 20:39 POC Glucose 83 mg/dL (65-120) 05/01/21 20:38 Lactic Acid 2.0 mmol/L (0.4-2.0) 05/01/21 23:52 Calcium 12.4 mg/dL (8.5-10.1) H* 05/01/21 20:39 Phosphorus Cancelled 05/02/21 00:00 Magnesium Cancelled 05/02/21 00:00 Total Bilirubin 0.5 mg/dL (0.2-1.0) 05/01/21 20:39 Direct Bilirubin 0.2 mg/dL (0-0.2) 05/01/21 20:39 AST 35 U/L (15-37) 05/01/21 20:39 ALT 29 U/L (12-78) 05/01/21 20:39 Alkaline Phosphatase 99 U/L (45-117) 05/01/21 20:39 Creatine Kinase 76 U/L (26-192) 05/01/21 20:39 CK-MB (CK-2) < 1.0 ng/mL (1.0-3.6) L 05/01/21 20:39 Rapid Troponin I 0.15 ng/mL (0.0-0.045) H 05/01/21 20:39 Serum Total Protein 6.4 g/dL (6.4-8.2) 05/01/21 20:39 Albumin 2.2 g/dL (3.4-5.0) L 05/01/21 20:39 Globulin 4.2 g/dL (2.3-3.5) H 05/01/21 20:39 Albumin/Globulin Ratio 0.5 (1.1-1.8) L 05/01/21 20:39 Amylase 49 U/L (25-115) 05/01/21 20:39 Lipase 97 U/L (73-393) 05/01/21 20:39 Procalcitonin 0.91 ng/mL (<0.050) H 05/01/21 20:39 Urine pH 7.5 (5.0-7.0) H 05/01/21 20:40 Ur Specific [place] 1.020 (1.005-1.030) 05/01/21 20:40 Glucose (UA)(Auto) Negative (Negative) 05/01/21 20:40 Urine Ketones Negative (Negative) 05/01/21 20:40 Urine Blood Negative (Negative) 05/01/21 20:40 Urine Nitrite Negative (Negative) 05/01/21 20:40 Ur Leukocyte Esterase Negative (Negative) 05/01/21 20:40 Urine RBC <5 /HPF (NONE SEEN) 05/01/21 20:38 Urine WBC <5 /HPF (<5) 05/01/21 20:38 Ur Squamous Epith Cells <5 /HPF (NONE SEEN) 05/01/21 20:38 Amorphous Sediment 3+ /HPF (NONE SEEN) H 05/01/21 20:38 Urine Bacteria <20 /HPF (<20) 05/01/21 20:38 Urine Culture Reflexed Not needed 05/01/21 20:38 Urine Total Protein 2+ (Negative) H 05/01/21 20:40 Influenza Type A RNA Negative (NEGATIVE) 05/01/21 20:37 Influenza Type B RNA Negative (NEGATIVE) 05/01/21 20:37 SARS-CoV-2 RNA (RT-PCR) Negative (NEGATIVE) 05/01/21 20:37 Microbiology Data (last 24 hrs): 05/01/21 20:48 Blood - Blood Anaerobic Blood Culture - Final 05/01/21 20:39 Blood - Blood Aerobic Blood Culture - Final Staphylococcus Hominis 05/01/21 20:39 Blood - Blood Blood Culture Gram Stain - Final 05/01/21 20:39 Blood - Blood Anaerobic Blood Culture - Final Assessment And Plan - Plan Physical exam: General: Other (Altered mental status) HEENT: Other (Dry mucosal membrane) Neck: JVD not distended Respiratory: Other (Diminished) Cardiovascular: No edema, Normal S1 S2 Gastrointestinal: Normal bowel sounds, Soft and benign, Non-distended Integumentary: Pressure ulcer (Sacral stage II in) Conclusions/Impression: Antibiotics: Vancomycin Start: 05/04 Indication: Bacteremia Meropenem start: 05/04 Indication: Aspiration pneumonia Assessment/plan Bacteremia Blood cultures obtained on 05/01 growing methicillin-resistant Staph hominis in both aerobic bottles. Repeat cultures obtained on 05/03 show no growth @24hr. Recommend treating with IV vancomycin for 2 weeks following negative blood culture report. Vancomycin trough goal 12-17. Patient has GENTRY, continue to monitor renal function closely. Recommend daily BMPs. Aspiration pneumonia Patient has possible aspiration event she a few days prior to admission. Chest x-ray showed left lung pneumonia. Continue meropenem. Stage II sacral ulcer Continue current wound care, currently utilizing [facility]. Avoid direct pressure, reposition patient bed every 2 hr during waking hr. Protein caloric malnutrition Severe malnutrition, recommend supplemental protein intake. Anemia Continue to monitor H&H. -medical management per primary team Plan of care discussed with Dr. Downing Thank you for consultation
[2021-05-05] MEDS: Meropenem 500 MG in NA CHLORIDE 0.9% 100 ML IV SCH (11:48)
[2021-05-05] MEDS ORDERED: NA CHLORIDE 0.9% 250 ML ONE (11:52)
--- NOTE | 2021-05-05 15:32 | P.PN ---
Subjective Date of Service: 05/05/21 Chief Complaint: pneumonia Patient is a 80-year-old woman with end-stage dementia, history of TIA. She was brought to the emergency room because of fever, decreased p.o. intake, decline in mental status, although she has underlying dementia. Nephrology follows for GENTRY , and hypernatremia Today Na and cr slowly improving Hb 6.3 , plan for PRBC hypokalemia , will add KCL to D5W monitor for fluid overload Physical Examination: General: open eyes , not alert or oriented neck: supple, no elevated JVD Heart: RRR, normal S1,2 no murmur or rub chest CTAB, no rales or whezes Abdomen: soft , NT ext : trace uppr extremity edema Ap GENTRY due to dehydration cr slowly improving cont IVF Hypernatremia due to dehydration Cont D5W Hypokalmeia Acute anemia heparin on hold pt had transfusion reaction PRBC transfusion aborted and heparin stopped NSTMI heparin on hold due to acute anemia Advanced dementia Cont supportive care Pt with overall poor prognosis Physical Examination - Vital Signs Temperature: 97.8 F Blood Pressure: 153/65 Pulse: 84 Respirations: 18 Pulse Ox (%): 92 - Studies Microbiology Data (last 24 hrs): 05/01/21 20:48 Blood - Blood Anaerobic Blood Culture - Final
[2021-05-05] MEDS: D5W IV SCH (17:25)
[2021-05-05] MEDS: KCL IV SCH (17:25)
[2021-05-06] MEDS: KCL IV SCH ×2 (02:00→12:21)
[2021-05-06] MEDS: D5W IV SCH ×2 (02:00→12:21)
--- NOTE | 2021-05-06 06:04 | P.PN ---
Date of Service: 05/06/21 Subjective: Patient more awake and alert today. Able to understand her speech much more clearly today, intermittently answers appropriately ROS: Reports some discomfort in her lower back/buttocks Physical exam GEN: Awake, alert, oriented to self only, demented HEENT: Normal conjunctiva, sclera anicteric CV: Regular rate and rhythm, no edema Pulm: Nonlabored respirations on room air ABD: Soft, nontender, nondistended Skin: pale, ecchymosis scattered on b/l arms Neuro: confused/dementia, moves extremities Problem List Acute metabolic encephalopathy secondary to hypernatremia, infection Dysphagia, aspiration Dehydration severe Hypernatremia Severe sepsis secondary to pneumonia Pneumonia, suspect aspiration Chronic moderate-severe Dementia NSTEMI Hypernatremia slowly improving, nephrology managing, continue D5 Initially was treated with Zosyn and Levaquin for suspected aspiration pneumonia source of her infection. UA was negative. Blood cultures grew coag negative staph Potential sources being her decubitus ulcer, and she digs her nails into her skin ID consulted, recommend merrem/vanc - started 03/04 Hemoglobin decreased, multifactorial, dilutional, blood draws, GENTRY and poor nutrition. Initial attempt of blood transfusion led to significant hypotension, drop of SBP by 20-30 mmHg within 10 minutes of initiation Patient was given steroids, and a second attempt was done on 05/05 with good results. Hemoglobin up Patient more awake and alert Heparin drip started on 05/02 for NSTEMI, this was discontinued the morning of 05/04 due to significant anemia, concern for possible bleed GENTRY prerenal, creatinine improving with IV fluids, nephrology following NSTEMI -cardiology consulted, would need a cardiac catheterization, however patient is not a good candidate, recommends palliative care/hospice Has been having ongoing conversations with patient's son Patient made DNR in 05/04 Family stated she has not been oriented/without decision-making capacity for at least the last year Currently, family want to proceed with blood transfusion, with hopes for more improvement and stability, for potential palliative PEG tube, and possibly home with hospice Son at the bedside yesterday - states she spoke few words to him, this was the most he has heard her speak in many months Currently unsure/unlikely of having a surgeon or GI that would perform a PEG tube placement Time Spent Managing Pts Care (In Minutes): 35
[2021-05-06 06:27] LABS: Hematocrit 24.8 % (36.0-45.0); MPV 8.5 fL (7.6-11.3); RBC Red Blood Cell Count 2.62 M/uL (3.86-4.86)
[2021-05-06 06:40] LABS: Potassium 3.3 mmol/L (3.5-5.1)
[2021-05-06] MEDS: KCL 20 MEQ/100 mL IVPB 20 MEQ/100 ML BAG IV SCH ×2 (09:00→11:00)
[2021-05-06] MEDS: MEDIHONEY 44 ML TOPICAL TUBE TOP SCH (09:55)
--- NOTE | 2021-05-06 12:14 | P.PN ---
Subjective Date of Service: 05/06/21 Chief Complaint: pneumonia Patient seen examined at bedside, hemoglobin in kidney function improving. WBC within normal range. Vancomycin trough pending. Afebrile. Review of Systems 10-point ROS is otherwise unremarkable Physical Examination - Vital Signs Temperature: 97.5 F Blood Pressure: 98/58 Pulse: 81 Respirations: 20 Pulse Ox (%): 97 - Studies Laboratory Tests 05/01/21 05/01/21 05/01/21 20:37 20:38 20:38 WBC RBC Hgb Hct MCV MCH MCHC RDW Plt Count MPV Neutrophils % Lymphocytes % Monocytes % Eosinophils % Basophils % Absolute Neutrophils Segmented Neutrophils Band Neutrophils Absolute Lymphocytes Lymphocytes Monocytes Absolute Monocytes Eosinophils Absolute Eosinophils Basophils Absolute Basophils Platelet Estimate Clumped Platelets Polychromasia Macrocytosis Morphology Comment PT INR APTT Sodium Potassium Chloride Carbon Dioxide BUN Creatinine Estimated GFR Glucose POC Glucose 83 Lactic Acid Calcium Phosphorus Magnesium Total Bilirubin Direct Bilirubin AST ALT Alkaline Phosphatase Creatine Kinase CK-MB (CK-2) Rapid Troponin I Serum Total Protein Albumin Globulin Albumin/Globulin Ratio Amylase Lipase Procalcitonin Urine pH Ur Specific [place] Glucose (UA)(Auto) Urine Ketones Urine Blood Urine Nitrite Ur Leukocyte Esterase Urine RBC <5 Urine WBC <5 Ur Squamous Epith Cells <5 Amorphous Sediment 3+ H Urine Bacteria <20 Urine Culture Reflexed Not needed Urine Total Protein Influenza Type A RNA Negative Influenza Type B RNA Negative SARS-CoV-2 RNA (RT-PCR) Negative 05/01/21 05/01/21 05/01/21 20:39 20:39 20:39 WBC 20.00 H RBC 2.79 L Hgb 9.2 L Hct 29.6 L MCV 106.1 H MCH 33.0 MCHC 31.1 L RDW 16.5 H Plt Count 161 MPV 9.1 Neutrophils % 80.0 H Lymphocytes % 14.3 L Monocytes % 4.9 Eosinophils % 0.4 Basophils % 0.4 Absolute Neutrophils 16.0 H Segmented Neutrophils 81 H Band Neutrophils 2 H Absolute Lymphocytes 2.9 Lymphocytes 15 Monocytes 1 Absolute Monocytes 1.0 Eosinophils 0 Absolute Eosinophils 0.1 Basophils 1 Absolute Basophils 0.1 Platelet Estimate Adeq Clumped Platelets Few Polychromasia Slight Macrocytosis 1+ Morphology Comment Noted PT INR APTT Sodium 173 H* Potassium 5.6 H* Chloride 143 H* Carbon Dioxide 26 BUN 70 H Creatinine 4.11 H Estimated GFR 10 L Glucose 99 POC Glucose Lactic Acid 3.4 H Calcium 12.4 H* Phosphorus 2.2 L Magnesium 3.3 H Total Bilirubin 0.5 Direct Bilirubin 0.2 AST 35 ALT 29 Alkaline Phosphatase 99 Creatine Kinase 76 CK-MB (CK-2) < 1.0 L Rapid Troponin I 0.15 H Serum Total Protein 6.4 Albumin 2.2 L Globulin 4.2 H Albumin/Globulin Ratio 0.5 L Amylase 49 Lipase 97 Procalcitonin Urine pH Ur Specific [place] Glucose (UA)(Auto) Urine Ketones Urine Blood Urine Nitrite Ur Leukocyte Esterase Urine RBC Urine WBC Ur Squamous Epith Cells Amorphous Sediment Urine Bacteria Urine Culture Reflexed Urine Total Protein Influenza Type A RNA Influenza Type B RNA SARS-CoV-2 RNA (RT-PCR) 05/01/21 05/01/21 05/01/21 20:39 20:39 20:40 WBC RBC Hgb Hct MCV MCH MCHC RDW Plt Count MPV Neutrophils % Lymphocytes % Monocytes % Eosinophils % Basophils % Absolute Neutrophils Segmented Neutrophils Band Neutrophils Absolute Lymphocytes Lymphocytes Monocytes Absolute Monocytes Eosinophils Absolute Eosinophils Basophils Absolute Basophils Platelet Estimate Clumped Platelets Polychromasia Macrocytosis Morphology Comment PT 15.3 H INR 1.33 APTT 34.6 Sodium Potassium Chloride Carbon Dioxide BUN Creatinine Estimated GFR Glucose POC Glucose Lactic Acid Calcium Phosphorus Magnesium Total Bilirubin Direct Bilirubin AST ALT Alkaline Phosphatase Creatine Kinase CK-MB (CK-2) Rapid Troponin I Serum Total Protein Albumin Globulin Albumin/Globulin Ratio Amylase Lipase Procalcitonin 0.91 H Urine pH 7.5 H Ur Specific [place] 1.020 Glucose (UA)(Auto) Negative Urine Ketones Negative Urine Blood Negative Urine Nitrite Negative Ur Leukocyte Esterase Negative Urine RBC Urine WBC Ur Squamous Epith Cells Amorphous Sediment Urine Bacteria Urine Culture Reflexed Urine Total Protein 2+ H Influenza Type A RNA Influenza Type B RNA SARS-CoV-2 RNA (RT-PCR) 05/01/21 05/02/21 23:52 00:00 WBC RBC Hgb Hct MCV MCH MCHC RDW Plt Count MPV Neutrophils % Lymphocytes % Monocytes % Eosinophils % Basophils % Absolute Neutrophils Segmented Neutrophils Band Neutrophils Absolute Lymphocytes Lymphocytes Monocytes Absolute Monocytes Eosinophils Absolute Eosinophils Basophils Absolute Basophils Platelet Estimate Clumped Platelets Polychromasia Macrocytosis Morphology Comment PT INR APTT Sodium Potassium Chloride Carbon Dioxide BUN Creatinine Estimated GFR Glucose POC Glucose Lactic Acid 2.0 Calcium Phosphorus Cancelled Magnesium Cancelled Total Bilirubin Direct Bilirubin AST ALT Alkaline Phosphatase Creatine Kinase CK-MB (CK-2) Rapid Troponin I Serum Total Protein Albumin Globulin Albumin/Globulin Ratio Amylase Lipase Procalcitonin Urine pH Ur Specific [place] Glucose (UA)(Auto) Urine Ketones Urine Blood Urine Nitrite Ur Leukocyte Esterase Urine RBC Urine WBC Ur Squamous Epith Cells Amorphous Sediment Urine Bacteria Urine Culture Reflexed Urine Total Protein Influenza Type A RNA Influenza Type B RNA SARS-CoV-2 RNA (RT-PCR) Microbiology Data (last 24 hrs): 05/01/21 20:48 Blood - Blood Anaerobic Blood Culture - Final Assessment And Plan - Plan Physical exam: General: Other (Altered mental status) HEENT: Other (Dry mucosal membrane) Neck: JVD not distended Respiratory: Other (Diminished) Cardiovascular: No edema, Normal S1 S2 Gastrointestinal: Normal bowel sounds, Soft and benign, Non-distended Integumentary: Pressure ulcer (Sacral stage II in) Conclusions/Impression: Antibiotics: Vancomycin Start: 05/04 Indication: Bacteremia Meropenem start: 05/04 Indication: Aspiration pneumonia Assessment/plan Bacteremia Blood cultures obtained on 05/01 growing methicillin-resistant Staph hominis in both aerobic bottles. Repeat cultures obtained on 05/03 show no growth @24hr. Recommend treating with IV vancomycin for 2 weeks following negative blood culture report. Vancomycin trough goal 12-17. Patient has GENTRY, continue to monitor renal function closely. Recommend daily BMPs. Aspiration pneumonia Patient has possible aspiration event she a few days prior to admission. Chest x-ray showed left lung pneumonia. Continue meropenem. Stage II sacral ulcer Continue current wound care, currently utilizing [facility]. Avoid direct pressure, reposition patient bed every 2 hr during waking hr. Protein caloric malnutrition Severe malnutrition, recommend supplemental protein intake. Anemia Continue to monitor H&H. -medical management per primary team Plan of care discussed with Dr. Downing Thank you for consultation
[2021-05-06] MEDS: VANCOMYCIN 1.25 GM in NA CHLORIDE 0.9% 250 ML IVPB SCH (12:21)
[2021-05-06] MEDS: Meropenem 500 MG in NA CHLORIDE 0.9% 100 ML IV SCH ×3 (12:22)
[2021-05-06] MEDS ORDERED: NA CHLORIDE 0.9% 250 ML ONE (12:24)
[2021-05-06] MEDS ORDERED: D5W IV SCH (12:45)
[2021-05-06] MEDS ORDERED: KCL IV SCH (12:45)
--- NOTE | 2021-05-06 12:46 | P.PN ---
Subjective Date of Service: 05/06/21 Chief Complaint: pneumonia Patient is a 80-year-old woman with end-stage dementia, history of TIA. She was brought to the emergency room because of fever, decreased p.o. intake, decline in mental status, although she has underlying dementia. Nephrology follows for GENTRY , and hypernatremia Today Na and cr slowly improving more alert will reduce IVF rate K replaced Physical Examination: General: open eyes , alert neck: supple, no elevated JVD Heart: RRR, normal S1,2 no murmur or rub chest CTAB, no rales or whezes Abdomen: soft , NT ext : trace uppr extremity edema Ap GENTRY due to dehydration cr slowly improving cont IVF Hypernatremia due to dehydration Cont D5W Hypokalmeia Acute anemia heparin on hold pt had transfusion reaction PRBC transfusion aborted and heparin stopped NSTMI heparin on hold due to acute anemia Advanced dementia Cont supportive care Staph epidermidis bacteremia started on vacnomycin monitor level Pt with overall poor prognosis Physical Examination - Vital Signs Temperature: 97.5 F Blood Pressure: 98/58 Pulse: 81 Respirations: 20 Pulse Ox (%): 97 - Studies Microbiology Data (last 24 hrs): 05/01/21 20:48 Blood - Blood Anaerobic Blood Culture - Final
[2021-05-06] MEDS ORDERED: ACETAMINOPHEN 500 MG TAB PO ONE (20:34)
[2021-05-07] MEDS: Meropenem 500 MG in NA CHLORIDE 0.9% 100 ML IV SCH (00:52)
[2021-05-07 06:08] LABS: Absolute Lymphocytes (CBC) 1.3 K/uL (0.7-4.9); Hematocrit 25.8 % (36.0-45.0); Lymphocytes % 18.7 % (15.3-44.8); MPV 8.4 fL (7.6-11.3)
[2021-05-07 06:21] LABS: Potassium 3.2 mmol/L (3.5-5.1)
[2021-05-07] MEDS ORDERED: POTASSIUM 25 MEQ EFFERV TAB PO ONE (09:00)
[2021-05-07 09:41] LABS: Platelet Estimate ADEQ
[2021-05-07 09:42] LABS: Anisocytosis 1+; Blood Morphology Comment NOTED (NOT SEEN)
--- NOTE | 2021-05-07 10:16 | P.PN ---
Subjective Date of Service: 05/07/21 Chief Complaint: Severe hypernatremia with non-STEMI Subjective: Improving (Patient is improving alert otherwise nonverbal) Review of Systems is unable to be obtained Physical Examination - Vital Signs Temperature: 98.4 F Blood Pressure: 124/65 Pulse: 92 Respirations: 15 Pulse Ox (%): 97 - Physical Exam General: Alert, Confused, Other Respiratory: Clear to auscultation bilaterally Cardiovascular: No edema, Normal S1 S2 - Studies Microbiology Data (last 24 hrs): 05/01/21 20:48 Blood - Blood Aerobic Blood Culture - Final Staph Epidermidis 05/01/21 20:48 Blood - Blood Blood Culture Gram Stain - Final 05/01/21 20:48 Blood - Blood Anaerobic Blood Culture - Final Assessment & Plan - Problems (Diagnosis) (1) Hypernatremia Current Visit: Yes Status: Acute Plan: Patient is 80 years of age admitted with severe hypernatremia she has now resolved discussed with the patient has end-stage dementia progressively declining not eating and drinking admitted with non-STEMI during admission she is clinically stable currently DNR will request a GI consult for PEG tube vital signs all stable patient was anemic hemoglobin stable DC antibiotic chest x-ray possible aspiration patient has severe microcytic anemia on admission and was transfused will he has underlying GI bleed echocardiogram reviewed low normal ejection fraction consult GI for a PEG tube resume IV fluids patient has been evaluated by speech therapist evidence of active sepsis antibiotics DC'd
[2021-05-07] MEDS ORDERED: D5W 1,000 ML IV SCH (11:00)
--- NOTE | 2021-05-07 13:30 | P.PN ---
Subjective Date of Service: 05/07/21 Chief Complaint: Severe hypernatremia with non-STEMI Patient is a 80-year-old woman with end-stage dementia, history of TIA. She was brought to the emergency room because of fever, decreased p.o. intake, decline in mental status, although she has underlying dementia. Nephrology follows for GENTRY , and hypernatremia Today Na down to 145 K replaced Will add more potassium to IVF Physical Examination: General: open eyes , alert neck: supple, no elevated JVD Heart: RRR, normal S1,2 no murmur or rub chest CTAB, no rales or whezes Abdomen: soft , NT ext : trace uppr extremity edema Ap GENTRY due to dehydration cr slowly improving cont IVF Hypernatremia due to dehydration Cont D5W Hypokalmeia Acute anemia heparin on hold pt had transfusion reaction PRBC transfusion aborted and heparin stopped NSTMI heparin on hold due to acute anemia Advanced dementia with failure to thrive Cont supportive care plan for PEG placement Staph epidermidis bacteremia started on vacnomycin monitor level Pt with overall poor prognosis Physical Examination - Vital Signs Temperature: 98.3 F Blood Pressure: 109/55 Pulse: 94 Respirations: 16 Pulse Ox (%): 97 - Studies Microbiology Data (last 24 hrs): 05/01/21 20:48 Blood - Blood Aerobic Blood Culture - Final Staph Epidermidis 05/01/21 20:48 Blood - Blood Blood Culture Gram Stain - Final 05/01/21 20:48 Blood - Blood Anaerobic Blood Culture - Final
[2021-05-07] MEDS ORDERED: KCL IV SCH ×2 (14:00→15:00)
[2021-05-07] MEDS ORDERED: D5W IV SCH ×2 (14:00→15:00)
[2021-05-07] MEDS ORDERED: FLEET ENEMA ADULT PR ONE (15:18)
[2021-05-07] MEDS: MEDIHONEY 44 ML TOPICAL TUBE TOP SCH (15:35)
[2021-05-08] MEDS: MEDIHONEY 44 ML TOPICAL TUBE TOP SCH (08:25)
[2021-05-08] MEDS ORDERED: FLEET ENEMA ADULT PR PRN (12:52)
--- NOTE | 2021-05-08 12:52 | P.PN ---
Subjective Date of Service: 05/08/21 Chief Complaint: Hyponatremia Subjective: Improving (Patient is improving eating a little bit family members at the bedside) Review of Systems is unable to be obtained Physical Examination - Vital Signs Temperature: 97.4 F Blood Pressure: 126/61 Pulse: 88 Respirations: 22 Pulse Ox (%): 97 - Physical Exam General: Alert Neck: Supple Cardiovascular: No edema, Regular rate/rhythm - Studies Microbiology Data (last 24 hrs): 05/01/21 20:48 Blood - Blood Aerobic Blood Culture - Final Staph Epidermidis 05/01/21 20:48 Blood - Blood Blood Culture Gram Stain - Final 05/01/21 20:48 Blood - Blood Anaerobic Blood Culture - Final Assessment & Plan - Problems (Diagnosis) (1) Dementia Current Visit: Yes Status: Chronic Plan: Patient has end-stage dementia barely eats or drinks GI has been consulted for a PEG tube placement renal function improving continue with IV fluids potassium replacement patient has some fecal impaction yesterday had to use some enemas mi ldly anemic Qualifiers: Dementia type: unspecified type Dementia behavioral disturbance: without behavioral disturbance Qualified Code(s): F03.90 - Unspecified dementia without behavioral disturbance Discharge Plan: Home Plan to discharge in: 48 Hours
[2021-05-08] MEDS: Levofloxacin 750mg IV 750 MG/150 ML BAG IV SCH (16:06)
--- NOTE | 2021-05-09 06:26 | P.PN ---
Date of Service: 05/09/21 Subjective: No acute events overnight. Patient awake/alert, saying few words Still difficult to understand most of the time Scheduled for PEG tube placement today ROS: as noted above, otherwise negative. Difficult to obtain full review of systems Physical exam GEN: Awake, alert, oriented to self only, demented HEENT: Normal conjunctiva, sclera anicteric CV: Regular rate and rhythm, no edema Pulm: Nonlabored respirations on room air ABD: Soft, nontender, nondistended Skin: pale, ecchymosis scattered on b/l arms Neuro: confused/dementia, moves extremities Problem List Acute metabolic encephalopathy secondary to hypernatremia, infection Dysphagia, aspiration Dehydration severe Hypernatremia, resolved Severe sepsis secondary to pneumonia, resolved Acute on chronic anemia Pneumonia, suspect aspiration Chronic moderate-severe Dementia NSTEMI Hypernatremia slowly corrected with D5 and nephrology's assistance Initially was treated with Zosyn and Levaquin for suspected aspiration pneumonia source of her infection. UA negative. Blood cultures grew coag negative staph Potential sources being her decubitus ulcer, and she digs her nails into her skin ID consulted, recommend merrem/vanc - started 03/04, deescalated to Levaquin on 05/08; will discuss again with ID, initial plan is to treat for gram-positive bacteremia. Still waiting on PICC line Hemoglobin now stable, but originally dropped, suspect multifactorial, dilutional, blood draws, GENTRY and poor nutrition. Initial attempt of blood transfusion led to significant hypotension, drop of SBP by 20-30 mmHg within 10 minutes of initiation Patient was given steroids, and a second attempt was done on 05/05 with good results. Patient more awake and alert Heparin drip started on 05/02 for NSTEMI, this was discontinued the morning of 05/04 due to significant anemia, concern for possible bleed GENTRY prerenal, creatinine improving with IV fluids, nephrology following NSTEMI -cardiology consulted, would need a cardiac catheterization, however patient is not a good candidate, recommends palliative care/hospice Patient improving, and scheduled for PEG tube placement today. Consider antiplatelet therapy via PEG tube in the next 1-2 days pending results/functioning PEG tube Dispo: Patient has improved over the last few days, now much more alert and responsive. Speaking few words at a time, which she has not done in many months -1 year according to family Patient made DNR on 05/04. Family stated she has not been oriented/without decision-making capacity for at least the last year Family with hopes for more improvement and stability, for PEG tube placement. Currently planning for home health [id number] insurance, family state no current coverage for home health/palliative care/hospice Will need IV antibiotics and PICC line Time Spent Managing Pts Care (In Minutes): 35
[2021-05-09 06:47] LABS: Phosphorus 2.8 mg/dL (2.5-4.9); Potassium 3.3 mmol/L (3.5-5.1)
[2021-05-09 06:52] LABS: MPV 8.4 fL (7.6-11.3)
[2021-05-09] MEDS ORDERED: propofoL 200 MG/20 ML VIAL IV ONE (07:03)
[2021-05-09] MEDS ORDERED: LIDOCAINE 1% MPF 5 ML VIAL ONE (07:03)
[2021-05-09] MEDS ORDERED: Ringers Lactate 1,000 ML IV ONE (07:06)
--- NOTE | 2021-05-09 07:56 | P.PN ---
Subjective Date of Service: 05/10/21 Chief Complaint: Hyponatremia Subjective: No new changes, Other (Had PEG tube placed today.) Physical Examination - Vital Signs Temperature: 97.3 F Blood Pressure: 127/67 Pulse: 94 Respirations: 17 Pulse Ox (%): 96 - Physical Exam General: Other (appears as her stated age) HEENT: Atraumatic, Normocephalic Neck: Supple, JVD not distended Respiratory: Other (symmetric chest expansion) Cardiovascular: No rubs, No murmurs Gastrointestinal: Soft and benign, No guarding, Other (+PEG) Musculoskeletal: No clubbing Integumentary: No warmth Neurological: Other (nonfocal) Urinary: Other (no bladder distention) External genitalia: Deferred Rectal: Deferred Assessment And Plan - Plan GENTRY due to dehydration serum creatinine improved to 0.9 today plan to remove Cox when she can get out of bed cont IVF Hypernatremia improved Wt. 45.3 kgs. Total body water 20.3L. Free water deficit 4.9L. Insensible water loss 0.5L/d. Urine water loss at least 0.5L/d. Hydration via PEG. needs volume intake 1.5-2 L per day via PEG to maintain normonatremia. Hypokalemia Monitor/replete when necessary Acute anemia S/p pRBC transfusion Monitor H/H NSTEMI Per Cardiology Advanced dementia with failure to thrive Cont supportive care plan for PEG placement Staph epidermidis bacteremia Received abx
[2021-05-09] MEDS: KCL 20 MEQ/100 mL IVPB 20 MEQ/100 ML BAG IV SCH ×2 (08:00→10:34)
--- NOTE | 2021-05-09 08:18 | ENDO RPT ---
[address], [address] EGD WITH PEG PROCEDURE REPORT EXAM DATE: 05/09/2021 PATIENT NAME: Hattie Deras MR #: [id number] BIRTHDATE: 1940 ATTENDING: Andrea Rosado Dr STATUS: inpatient - 7 GREEN ME[employer] GRADER: Octavia Morejon RN and Mana EMERSON INDICATIONS: The patient is a 80 yr old Female here for an EGD with PEG due to malnutrition PROCEDURE PERFORMED: EGD-PEG MEDICATIONS: Per Anesthesia. TOPICAL ANESTHETIC: none CONSENT: The patient understands the risks and benefits of the procedure and understands that these risks include, but are not limited to: sedation, allergic reaction, infection, perforation and/or bleeding. Alternative means of evaluation and treatment include, among others: physical exam, x-rays, and/or surgical intervention. The patient elects to proceed with this endoscopic procedure. DESCRIPTION OF PROCEDURE: During intra-op preparation period all mechanical medical equipment was checked for proper function. Hand hygiene and appropriate measures for infection prevention was taken. After the risks, benefits and alternatives of the procedure were thoroughly explained, Informed consent was verified, confirmed and timeout was successfully executed by the treatment team. The patient was anesthetized with topical anesthesia and the EG-[id number] ([id number]) endoscope was introduced through the mouth and advanced to the second portion of the duodenum. The instrument was slowly withdrawn as the mucosa was fully examined. The upper, middle, and distal third of the esophagus were carefully inspected and no abnormalities were noted. The z-line was well seen at the GEJ. The endoscope was pushed into the fundus which was normal including a retroflexed view. The antrum, first and second part of the duodenum were unremarkable. The stomach was then inflated with air, and by a combination of transillumination and manual palpation, the site for the gastrostomy tube placement was selected and marked on the anterior abdominal wall. The skin of the anterior abdomen was surgically prepped and draped with sterile towels. Utilizing strict sterile technique, the selected site was then anesthetized with 1% xylocaine by injection into the skin and subcutaneous tissue. A 1 cm incision was made through the skin and subcutaneous tissue, and the needle/cannula assembly was then passed through the abdominal wall and through the anterior wall of the stomach, maintaining visualization with the endoscope. A snare device previously placed through the instrument channel was then opened and placed around the cannula, the needle was removed, and the insertion wire was passed through the cannula and into the stomach lumen. The snare was then loosened from the cannula, and repositioned to snare the insertion wire. The snare was then pulled up to the endoscope distal tip, and the scope was then withdrawn bringing with it the snare and insertion wire. The insertion wire was then released from the snare, and the PEG PUSH gastrostomy tube placed over the guidewire. Using the push technique, the tube was then pushed into place over the insertion wire at the abdominal wall end. The tube insertion site was then cleansed once again, and the external bolster was placed over the tube to secure it to the abdominal wall. A sterile dressing was then applied, and the procedure terminated. Retroflexed views revealed no abnormalities. The gastroscope was then slowly withdrawn and removed. ADVERSE EVENT: There were no complications. IMPRESSIONS: 1. Status post 20 Fr percutaneous endoscopic gastrostomy tube 2. Normal EGD RECOMMENDATIONS: begin PEG use in 3 hours REPEAT EXAM: Andrea Rosado Dr eSigned: Andrea Rosado Dr 05/09/2021 8:18 AM cc: Aguila Bedolla CPT CODES: ICD9 CODES: PATIENT NAME: Hattie Deras MR#: [id number]
[2021-05-09] MEDS: MEDIHONEY 44 ML TOPICAL TUBE TOP SCH (08:25)
[2021-05-09] MEDS ORDERED: ACETAMINOPHEN 500 MG TAB FT PRN (11:50)
--- NOTE | 2021-05-09 11:59 | P.PN ---
Subjective Date of Service: 05/09/21 Chief Complaint: Hyponatremia Patient seen examined at bedside, vancomycin and meropenem discontinued over the weekend. Patient was placed on monotherapy Levaquin. Will restart vancomycin, will need to extended 1 additional day as was stopped during the weekend. Patient has tentative end date is 05/19. Review of Systems 10-point ROS is otherwise unremarkable Physical Examination - Vital Signs Temperature: 97.8 F Blood Pressure: 124/58 Pulse: 90 Respirations: 16 Pulse Ox (%): 98 - Studies Laboratory Last Values WBC 20.00 K/uL (4.3-10.9) H 05/01/21 20:39 RBC 2.79 M/uL (3.86-4.86) L 05/01/21 20:39 Hgb 9.2 g/dL (12.0-15.0) L 05/01/21 20:39 Hct 29.6 % (36.0-45.0) L 05/01/21 20:39 MCV 106.1 fL (80-100) H 05/01/21 20:39 MCH 33.0 pg (27.0-35.0) 05/01/21 20:39 MCHC 31.1 g/dL (32.0-36.0) L 05/01/21 20:39 RDW 16.5 % (12.1-15.2) H 05/01/21 20:39 Plt Count 161 K/uL (152-406) 05/01/21 20:39 MPV 9.1 fL (7.6-11.3) 05/01/21 20:39 Neutrophils % 80.0 % (41.7-73.7) H 05/01/21 20:39 Lymphocytes % 14.3 % (15.3-44.8) L 05/01/21 20:39 Monocytes % 4.9 % (3.3-12.3) 05/01/21 20:39 Eosinophils % 0.4 % (0-4.4) 05/01/21 20:39 Basophils % 0.4 % (0-1.3) 05/01/21 20:39 Absolute Neutrophils 16.0 K/uL (1.8-8.0) H 05/01/21 20:39 Segmented Neutrophils 81 % (40-80) H 05/01/21 20:39 Band Neutrophils 2 % (0-1) H 05/01/21 20:39 Absolute Lymphocytes 2.9 K/uL (0.7-4.9) 05/01/21 20:39 Lymphocytes 15 % (15-42) 05/01/21 20:39 Monocytes 1 % (0-10) 05/01/21 20:39 Absolute Monocytes 1.0 K/uL (0.1-1.3) 05/01/21 20:39 Eosinophils 0 % (0-3) 05/01/21 20:39 Absolute Eosinophils 0.1 K/uL (0-0.5) 05/01/21 20:39 Basophils 1 % (0-1) 05/01/21 20:39 Absolute Basophils 0.1 K/uL (0-0.5) 05/01/21 20:39 Platelet Estimate Adeq 05/01/21 20:39 Clumped Platelets Few 05/01/21 20:39 Polychromasia Slight 05/01/21 20:39 Macrocytosis 1+ 05/01/21 20:39 Morphology Comment Noted (NOT SEEN) 05/01/21 20:39 PT 15.3 SECONDS (9.5-12.5) H 05/01/21 20:39 INR 1.33 05/01/21 20:39 APTT 34.6 SECONDS (24.3-36.9) 05/01/21 20:39 Sodium 173 mmol/L (136-145) H* 05/01/21 20:39 Potassium 5.6 mmol/L (3.5-5.1) H* 05/01/21 20:39 Chloride 143 mmol/L (98-107) H* 05/01/21 20:39 Carbon Dioxide 26 mmol/L (21-32) 05/01/21 20:39 BUN 70 mg/dL (7-18) H 05/01/21 20:39 Creatinine 4.11 mg/dL (0.55-1.3) H 05/01/21 20:39 Estimated GFR 10 mL/min (=/>90) L 05/01/21 20:39 Glucose 99 mg/dL (74-106) 05/01/21 20:39 POC Glucose 83 mg/dL (65-120) 05/01/21 20:38 Lactic Acid 2.0 mmol/L (0.4-2.0) 05/01/21 23:52 Calcium 12.4 mg/dL (8.5-10.1) H* 05/01/21 20:39 Phosphorus Cancelled 05/02/21 00:00 Magnesium Cancelled 05/02/21 00:00 Total Bilirubin 0.5 mg/dL (0.2-1.0) 05/01/21 20:39 Direct Bilirubin 0.2 mg/dL (0-0.2) 05/01/21 20:39 AST 35 U/L (15-37) 05/01/21 20:39 ALT 29 U/L (12-78) 05/01/21 20:39 Alkaline Phosphatase 99 U/L (45-117) 05/01/21 20:39 Creatine Kinase 76 U/L (26-192) 05/01/21 20:39 CK-MB (CK-2) < 1.0 ng/mL (1.0-3.6) L 05/01/21 20:39 Rapid Troponin I 0.15 ng/mL (0.0-0.045) H 05/01/21 20:39 Serum Total Protein 6.4 g/dL (6.4-8.2) 05/01/21 20:39 Albumin 2.2 g/dL (3.4-5.0) L 05/01/21 20:39 Globulin 4.2 g/dL (2.3-3.5) H 05/01/21 20:39 Albumin/Globulin Ratio 0.5 (1.1-1.8) L 05/01/21 20:39 Amylase 49 U/L (25-115) 05/01/21 20:39 Lipase 97 U/L (73-393) 05/01/21 20:39 Procalcitonin 0.91 ng/mL (<0.050) H 05/01/21 20:39 Urine pH 7.5 (5.0-7.0) H 05/01/21 20:40 Ur Specific [place] 1.020 (1.005-1.030) 05/01/21 20:40 Glucose (UA)(Auto) Negative (Negative) 05/01/21 20:40 Urine Ketones Negative (Negative) 05/01/21 20:40 Urine Blood Negative (Negative) 12/19/21 20:40 Urine Nitrite Negative (Negative) 05/01/21 20:40 Ur Leukocyte Esterase Negative (Negative) 05/01/21 20:40 Urine RBC <5 /HPF (NONE SEEN) 05/01/21 20:38 Urine WBC <5 /HPF (<5) 05/01/21 20:38 Ur Squamous Epith Cells <5 /HPF (NONE SEEN) 05/01/21 20:38 Amorphous Sediment 3+ /HPF (NONE SEEN) H 05/01/21 20:38 Urine Bacteria <20 /HPF (<20) 05/01/21 20:38 Urine Culture Reflexed Not needed 05/01/21 20:38 Urine Total Protein 2+ (Negative) H 05/01/21 20:40 Influenza Type A RNA Negative (NEGATIVE) 05/01/21 20:37 Influenza Type B RNA Negative (NEGATIVE) 05/01/21 20:37 SARS-CoV-2 RNA (RT-PCR) Negative (NEGATIVE) 05/01/21 20:37 Assessment And Plan - Plan Physical exam: General: Other (Altered mental status) HEENT: Other (Dry mucosal membrane) Neck: JVD not distended Respiratory: Other (Diminished) Cardiovascular: No edema, Normal S1 S2 Gastrointestinal: Normal bowel sounds, Soft and benign, Non-distended Integumentary: Pressure ulcer (Sacral stage II in) Conclusions/Impression: Antibiotics: Vancomycin Start: 05/04 Indication: Bacteremia Meropenem start: 05/04 stop: 05/08 Indication: Aspiration pneumonia Levaquin Start: 05/08 Indication: Pneumonia Assessment/plan Bacteremia Blood cultures obtained on 05/01 growing methicillin-resistant Staph hominis in both aerobic bottles. Repeat cultures obtained on 05/03 show no growth @24hr. Recommend treating with IV vancomycin for 2 weeks following negative blood culture report. Vancomycin trough goal 12-17. Patient has GENTRY, continue to monitor renal function closely. Recommend daily BMPs. PICC line ordered. Aspiration pneumonia Patient has possible aspiration event she a few days prior to admission. Chest x-ray showed left lung pneumonia. Meropenem de escalated to oral Levaquin. Patient without white count/fever. Stage II sacral ulcer Continue current wound care, currently utilizing [facility]. Avoid direct pressure, reposition patient bed every 2 hr during waking hr. Protein caloric malnutrition Severe malnutrition, recommend supplemental protein intake. Anemia Continue to monitor H&H. -medical management per primary team Plan of care discussed with Dr. Downing Thank you for consultation
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
[2021-05-09] MEDS: TRAMADOL HCL 50 MG TAB FT PRN ×2 (12:54→21:58)
[2021-05-09] MEDS ORDERED: JEVITY 1.2 CAL LIQUID 1,000 ML BOT RTH SCH (13:00)
[2021-05-09] MEDS: VANCOMYCIN 1.25 GM in NA CHLORIDE 0.9% 250 ML IVPB SCH (14:41)
[2021-05-09] MEDS ORDERED: DIPHENHYDRAMINE 50 MG/ML VIAL IV STA (16:46)
[2021-05-10 04:12] LABS: Hematocrit 25.8 % (36.0-45.0); MPV 8.7 fL (7.6-11.3)
[2021-05-10 04:32] LABS: Magnesium 2.1 mg/dL (1.8-2.4); Phosphorus 2.6 mg/dL (2.5-4.9); Potassium 3.4 mmol/L (3.5-5.1)
--- NOTE | 2021-05-10 06:49 | P.PN ---
Subjective Date of Service: 05/10/21 Chief Complaint: Hyponatremia Subjective: No new changes, Other (continues to receive PEG tube feeding.) Physical Examination - Vital Signs Temperature: 99 F Blood Pressure: 114/56 Pulse: 99 Respirations: 18 Pulse Ox (%): 95 - Physical Exam General: Other (appears chronically ill) HEENT: Atraumatic, Normocephalic Neck: Supple Respiratory: Diminished, Other (symmetric chest expansion) Cardiovascular: No rubs, No murmurs Gastrointestinal: Soft and benign, Other (PEG tube) Musculoskeletal: No clubbing Integumentary: No warmth Neurological: Normal tone Urinary: Other (no bladder distention) External genitalia: Deferred Rectal: Deferred Assessment And Plan - Plan GENTRY due to dehydration Resolved, serum creatinine 0.8 today Discussed w/ family. They decided to keep indwelling fierro rather than switch to CIC bid. Hydration/nutrition via PEG Monitor renal panel Hypernatremia Resolved Wt. 45.3 kgs. Total body water 20.3L. Free water deficit 4.9L. Insensible water loss 0.5L/d. Urine water loss at least 0.5L/d. Hydration via PEG. needs volume intake 1.5-2 L per day via PEG to maintain normonatremia. Hypokalemia Monitor/replete when necessary Acute anemia S/p pRBC transfusion Monitor H/H NSTEMI Per Cardiology Advanced dementia with failure to thrive Cont supportive care plan for PEG placement Staph epidermidis bacteremia Received abx
[2021-05-10] MEDS ORDERED: POTASSIUM 25 MEQ EFFERV TAB PO ONE (09:00)
[2021-05-10] MEDS: MEDIHONEY 44 ML TOPICAL TUBE TOP SCH (10:18)
--- NOTE | 2021-05-10 11:06 | P.PN ---
Subjective Date of Service: 05/10/21 Chief Complaint: Hyponatremia Patient seen examined at bedside, vancomycin trough pending. Review of Systems 10-point ROS is otherwise unremarkable Physical Examination - Vital Signs Temperature: 98.4 F Blood Pressure: 104/54 Pulse: 91 Respirations: 14 Pulse Ox (%): 98 - Studies Laboratory Last Values WBC 20.00 K/uL (4.3-10.9) H 05/01/21 20:39 RBC 2.79 M/uL (3.86-4.86) L 05/01/21 20:39 Hgb 9.2 g/dL (12.0-15.0) L 05/01/21 20:39 Hct 29.6 % (36.0-45.0) L 05/01/21 20:39 MCV 106.1 fL (80-100) H 05/01/21 20:39 MCH 33.0 pg (27.0-35.0) 05/01/21 20:39 MCHC 31.1 g/dL (32.0-36.0) L 05/01/21 20:39 RDW 16.5 % (12.1-15.2) H 05/01/21 20:39 Plt Count 161 K/uL (152-406) 05/01/21 20:39 MPV 9.1 fL (7.6-11.3) 05/01/21 20:39 Neutrophils % 80.0 % (41.7-73.7) H 05/01/21 20:39 Lymphocytes % 14.3 % (15.3-44.8) L 05/01/21 20:39 Monocytes % 4.9 % (3.3-12.3) 05/01/21 20:39 Eosinophils % 0.4 % (0-4.4) 05/01/21 20:39 Basophils % 0.4 % (0-1.3) 05/01/21 20:39 Absolute Neutrophils 16.0 K/uL (1.8-8.0) H 05/01/21 20:39 Segmented Neutrophils 81 % (40-80) H 05/01/21 20:39 Band Neutrophils 2 % (0-1) H 05/01/21 20:39 Absolute Lymphocytes 2.9 K/uL (0.7-4.9) 05/01/21 20:39 Lymphocytes 15 % (15-42) 05/01/21 20:39 Monocytes 1 % (0-10) 05/01/21 20:39 Absolute Monocytes 1.0 K/uL (0.1-1.3) 05/01/21 20:39 Eosinophils 0 % (0-3) 05/01/21 20:39 Absolute Eosinophils 0.1 K/uL (0-0.5) 05/01/21 20:39 Basophils 1 % (0-1) 05/01/21 20:39 Absolute Basophils 0.1 K/uL (0-0.5) 05/01/21 20:39 Platelet Estimate Adeq 05/01/21 20:39 Clumped Platelets Few 05/01/21 20:39 Polychromasia Slight 05/01/21 20:39 Macrocytosis 1+ 05/01/21 20:39 Morphology Comment Noted (NOT SEEN) 05/01/21 20:39 PT 15.3 SECONDS (9.5-12.5) H 05/01/21 20:39 INR 1.33 05/01/21 20:39 APTT 34.6 SECONDS (24.3-36.9) 05/01/21 20:39 Sodium 173 mmol/L (136-145) H* 05/01/21 20:39 Potassium 5.6 mmol/L (3.5-5.1) H* 05/01/21 20:39 Chloride 143 mmol/L (98-107) H* 05/01/21 20:39 Carbon Dioxide 26 mmol/L (21-32) 05/01/21 20:39 BUN 70 mg/dL (7-18) H 05/01/21 20:39 Creatinine 4.11 mg/dL (0.55-1.3) H 05/01/21 20:39 Estimated GFR 10 mL/min (=/>90) L 05/01/21 20:39 Glucose 99 mg/dL (74-106) 05/01/21 20:39 POC Glucose 83 mg/dL (65-120) 05/01/21 20:38 Lactic Acid 2.0 mmol/L (0.4-2.0) 05/01/21 23:52 Calcium 12.4 mg/dL (8.5-10.1) H* 05/01/21 20:39 Phosphorus Cancelled 05/02/21 00:00 Magnesium Cancelled 05/02/21 00:00 Total Bilirubin 0.5 mg/dL (0.2-1.0) 05/01/21 20:39 Direct Bilirubin 0.2 mg/dL (0-0.2) 05/01/21 20:39 AST 35 U/L (15-37) 05/01/21 20:39 ALT 29 U/L (12-78) 05/01/21 20:39 Alkaline Phosphatase 99 U/L (45-117) 05/01/21 20:39 Creatine Kinase 76 U/L (26-192) 05/01/21 20:39 CK-MB (CK-2) < 1.0 ng/mL (1.0-3.6) L 05/01/21 20:39 Rapid Troponin I 0.15 ng/mL (0.0-0.045) H 05/01/21 20:39 Serum Total Protein 6.4 g/dL (6.4-8.2) 05/01/21 20:39 Albumin 2.2 g/dL (3.4-5.0) L 05/01/21 20:39 Globulin 4.2 g/dL (2.3-3.5) H 05/01/21 20:39 Albumin/Globulin Ratio 0.5 (1.1-1.8) L 05/01/21 20:39 Amylase 49 U/L (25-115) 05/01/21 20:39 Lipase 97 U/L (73-393) 05/01/21 20:39 Procalcitonin 0.91 ng/mL (<0.050) H 05/01/21 20:39 Urine pH 7.5 (5.0-7.0) H 05/01/21 20:40 Ur Specific [place] 1.020 (1.005-1.030) 05/01/21 20:40 Glucose (UA)(Auto) Negative (Negative) 05/01/21 20:40 Urine Ketones Negative (Negative) 05/01/21 20:40 Urine Blood Negative (Negative) 05/01/21 20:40 Urine Nitrite Negative (Negative) 05/01/21 20:40 Ur Leukocyte Esterase Negative (Negative) 05/01/21 20:40 Urine RBC <5 /HPF (NONE SEEN) 05/01/21 20:38 Urine WBC <5 /HPF (<5) 05/01/21 20:38 Ur Squamous Epith Cells <5 /HPF (NONE SEEN) 05/01/21 20:38 Amorphous Sediment 3+ /HPF (NONE SEEN) H 05/01/21 20:38 Urine Bacteria <20 /HPF (<20) 05/01/21 20:38 Urine Culture Reflexed Not needed 05/01/21 20:38 Urine Total Protein 2+ (Negative) H 05/01/21 20:40 Influenza Type A RNA Negative (NEGATIVE) 05/01/21 20:37 Influenza Type B RNA Negative (NEGATIVE) 05/01/21 20:37 SARS-CoV-2 RNA (RT-PCR) Negative (NEGATIVE) 05/01/21 20:37 Assessment And Plan - Plan Physical exam: General: Other (Altered mental status) HEENT: Other (Dry mucosal membrane) Neck: JVD not distended Respiratory: Other (Diminished) Cardiovascular: No edema, Normal S1 S2 Gastrointestinal: Normal bowel sounds, Soft and benign, Non-distended Integumentary: Pressure ulcer (Sacral stage II in) Conclusions/Impression: Antibiotics: Vancomycin Start: 05/04 Indication: Bacteremia Meropenem start: 05/04 stop: 05/08 Indication: Aspiration pneumonia Levaquin Start: 05/08 Indication: Pneumonia Assessment/plan Bacteremia Blood cultures obtained on 05/01 growing methicillin-resistant Staph hominis in both aerobic bottles. Repeat cultures obtained on 05/03 show no growth @24hr. Recommend treating with IV vancomycin for 2 weeks following negative blood culture report. Vancomycin trough goal 12-17. Patient has GENTRY, continue to monitor renal function closely. Recommend daily BMPs. PICC line ordered. Aspiration pneumonia Patient has possible aspiration event she a few days prior to admission. Chest x-ray showed left lung pneumonia. Meropenem de escalated to oral Levaquin. Patient without white count/fever. Stage II sacral ulcer Continue current wound care, currently utilizing [facility]. Avoid direct pressure, reposition patient bed every 2 hr during waking hr. Protein caloric malnutrition Severe malnutrition, PEG tube placed. Anemia Continue to monitor H&H. -medical management per primary team Plan of care discussed with Dr. Downing Thank you for consultation
[2021-05-10] MEDS: Levofloxacin 750mg IV 750 MG/150 ML BAG IV SCH (14:39)
[2021-05-10] MEDS: TRAMADOL HCL 50 MG TAB FT PRN (14:39)
--- NOTE | 2021-05-10 16:53 | P.PN ---
Subjective Date of Service: 05/10/21 Chief Complaint: Hyponatremia Patient is awake. She is tolerating the tube feeding. [id number] reports some loose stools today. Physical Examination - Vital Signs Temperature: 97.9 F Blood Pressure: 107/56 Pulse: 86 Respirations: 14 Pulse Ox (%): 97 Assessment And Plan - Current Problems (Diagnosis) (1) Acute metabolic encephalopathy Current Visit: Yes Status: Acute (2) Dysphagia Current Visit: Yes Status: Acute (3) Dehydration Current Visit: Yes Status: Acute (4) Hypernatremia Current Visit: Yes Status: Acute (5) Pneumonia Current Visit: Yes Status: Acute Qualifiers: Pneumonia type: due to unspecified organism Laterality: unspecified laterality Lung location: unspecified part of lung Qualified Code(s): J18.9 - Pneumonia, unspecified organism (6) Dementia Current Visit: Yes Status: Chronic Qualifiers: Dementia type: unspecified type Dementia behavioral disturbance: without behavioral disturbance Qualified Code(s): F03.90 - Unspecified dementia without behavioral disturbance (7) Severe sepsis Current Visit: Yes Status: Acute (8) Elevated troponin Current Visit: Yes Status: Acute - Plan Physical exam GEN: Awake, alert, oriented to self only, demented HEENT: Normal conjunctiva, sclera anicteric CV: Regular rate and rhythm, no edema Pulm: Clear to auscultation bilaterally ABD: Soft, nontender, nondistended Skin: pale, ecchymosis scattered on b/l arms Neuro: confused/dementia, no focal motor deficit. Problem List Acute metabolic encephalopathy secondary to hypernatremia, infection Dysphagia, aspiration Dehydration severe Hypernatremia, resolved Severe sepsis secondary to pneumonia, resolved Acute on chronic anemia Pneumonia, suspect aspiration Chronic moderate-severe Dementia NSTEMI Plan: Hypernatremia corrected. Aspiration pneumonia treated with IV Levaquin and Zosyn. Patient initially on vancomycin which was discontinued. Blood culture grew staph epidermidis and staph hominis. Patient with a history of decubitus ulcer. Patient seen by infectious disease recommend 2 weeks of IV vancomycin and Levaquin. UA with no significant evidence of UTI. Patient will need a PICC line for outpatient IV antibiotics. Seen by speech who initially recommended mechanical soft diet. Patient with poor oral intake. Significant dehydration for poor oral intake. PEG tube placed per family's choice. Patient now tolerating PEG tube feeding Hemoglobin dropped to 6.0. Patient given blood transfusion. GENTRY likely prerenal. Serum creatinine is trending down with IV D5 infusion. GENTRY resolved with IV fluid. Nephrology assisted with management Elevated troponin could be secondary to sepsis. Troponin continued to trend up. Patient briefly treated with heparin drip. Cardiology recommended medical management. Patient has clinically improved. Family is looking at home health for nursing and PT. Continue PEG tube feeding Continue PT. I am told patient insurance will kick in on 05/14/2021. Patient may have only a couple of more doses of vancomycin after 05/14/21.
[2021-05-10] MEDS ORDERED: SUMATRIPTAN SUCCINATE 25 MG PO SCH (19:39)
[2021-05-10] MEDS: SUMATRIPTAN SUCCI 50 MG TAB PO SCH (20:32)
[2021-05-10] MEDS ORDERED: MORPHINE 2 MG/ML SYR IV ONE (21:51)
[2021-05-11] MEDS: VANCOMYCIN 1.25 GM in NA CHLORIDE 0.9% 250 ML IVPB SCH (02:00)
[2021-05-11] MEDS: JEVITY 1.2 CAL LIQUID 1,000 ML BOT RTH PRN (02:01)
[2021-05-11 05:48] LABS: Hematocrit 25.1 % (36.0-45.0); Lymphocytes % 16.5 % (15.3-44.8); MPV 8.3 fL (7.6-11.3); RBC Red Blood Cell Count 2.59 M/uL (3.86-4.86)
[2021-05-11 06:01] LABS: Potassium 3.9 mmol/L (3.5-5.1)
[2021-05-11] MEDS: SUMATRIPTAN SUCCI 50 MG TAB PO SCH (08:21)
[2021-05-11] MEDS: MEDIHONEY 44 ML TOPICAL TUBE TOP SCH (08:21)
[2021-05-11] MEDS ORDERED: POTASSIUM 25 MEQ EFFERV TAB PO ONE (09:00)
[2021-05-11] MEDS: TRAMADOL HCL 50 MG TAB FT PRN ×2 (11:18→19:36)
--- NOTE | 2021-05-11 12:14 | P.PN ---
Subjective Date of Service: 05/11/21 Chief Complaint: Hyponatremia Patient seen examined at bedside, vancomycin trough obtained on 05/10 within therapeutic range at 16.4. Patient has right arm PICC line placed. Review of Systems 10-point ROS is otherwise unremarkable Physical Examination - Vital Signs Temperature: 98.2 F Blood Pressure: 96/44 Pulse: 88 Respirations: 12 Pulse Ox (%): 97 - Studies Laboratory Last Values WBC 20.00 K/uL (4.3-10.9) H 05/01/21 20:39 RBC 2.79 M/uL (3.86-4.86) L 05/01/21 20:39 Hgb 9.2 g/dL (12.0-15.0) L 05/01/21 20:39 Hct 29.6 % (36.0-45.0) L 05/01/21 20:39 MCV 106.1 fL (80-100) H 05/01/21 20:39 MCH 33.0 pg (27.0-35.0) 05/01/21 20:39 MCHC 31.1 g/dL (32.0-36.0) L 05/01/21 20:39 RDW 16.5 % (12.1-15.2) H 05/01/21 20:39 Plt Count 161 K/uL (152-406) 05/01/21 20:39 MPV 9.1 fL (7.6-11.3) 05/01/21 20:39 Neutrophils % 80.0 % (41.7-73.7) H 05/01/21 20:39 Lymphocytes % 14.3 % (15.3-44.8) L 05/01/21 20:39 Monocytes % 4.9 % (3.3-12.3) 05/01/21 20:39 Eosinophils % 0.4 % (0-4.4) 05/01/21 20:39 Basophils % 0.4 % (0-1.3) 05/01/21 20:39 Absolute Neutrophils 16.0 K/uL (1.8-8.0) H 05/01/21 20:39 Segmented Neutrophils 81 % (40-80) H 05/01/21 20:39 Band Neutrophils 2 % (0-1) H 05/01/21 20:39 Absolute Lymphocytes 2.9 K/uL (0.7-4.9) 05/01/21 20:39 Lymphocytes 15 % (15-42) 05/01/21 20:39 Monocytes 1 % (0-10) 05/01/21 20:39 Absolute Monocytes 1.0 K/uL (0.1-1.3) 05/01/21 20:39 Eosinophils 0 % (0-3) 05/01/21 20:39 Absolute Eosinophils 0.1 K/uL (0-0.5) 05/01/21 20:39 Basophils 1 % (0-1) 05/01/21 20:39 Absolute Basophils 0.1 K/uL (0-0.5) 05/01/21 20:39 Platelet Estimate Adeq 05/01/21 20:39 Clumped Platelets Few 05/01/21 20:39 Polychromasia Slight 05/01/21 20:39 Macrocytosis 1+ 05/01/21 20:39 Morphology Comment Noted (NOT SEEN) 05/01/21 20:39 PT 15.3 SECONDS (9.5-12.5) H 05/01/21 20:39 INR 1.33 05/01/21 20:39 APTT 34.6 SECONDS (24.3-36.9) 05/01/21 20:39 Sodium 173 mmol/L (136-145) H* 05/01/21 20:39 Potassium 5.6 mmol/L (3.5-5.1) H* 05/01/21 20:39 Chloride 143 mmol/L (98-107) H* 05/01/21 20:39 Carbon Dioxide 26 mmol/L (21-32) 05/01/21 20:39 BUN 70 mg/dL (7-18) H 05/01/21 20:39 Creatinine 4.11 mg/dL (0.55-1.3) H 05/01/21 20:39 Estimated GFR 10 mL/min (=/>90) L 05/01/21 20:39 Glucose 99 mg/dL (74-106) 05/01/21 20:39 POC Glucose 83 mg/dL (65-120) 05/01/21 20:38 Lactic Acid 2.0 mmol/L (0.4-2.0) 05/01/21 23:52 Calcium 12.4 mg/dL (8.5-10.1) H* 05/01/21 20:39 Phosphorus Cancelled 05/02/21 00:00 Magnesium Cancelled 05/02/21 00:00 Total Bilirubin 0.5 mg/dL (0.2-1.0) 05/01/21 20:39 Direct Bilirubin 0.2 mg/dL (0-0.2) 05/01/21 20:39 AST 35 U/L (15-37) 05/01/21 20:39 ALT 29 U/L (12-78) 05/01/21 20:39 Alkaline Phosphatase 99 U/L (45-117) 05/01/21 20:39 Creatine Kinase 76 U/L (26-192) 05/01/21 20:39 CK-MB (CK-2) < 1.0 ng/mL (1.0-3.6) L 05/01/21 20:39 Rapid Troponin I 0.15 ng/mL (0.0-0.045) H 05/01/21 20:39 Serum Total Protein 6.4 g/dL (6.4-8.2) 05/01/21 20:39 Albumin 2.2 g/dL (3.4-5.0) L 05/01/21 20:39 Globulin 4.2 g/dL (2.3-3.5) H 05/01/21 20:39 Albumin/Globulin Ratio 0.5 (1.1-1.8) L 05/01/21 20:39 Amylase 49 U/L (25-115) 05/01/21 20:39 Lipase 97 U/L (73-393) 05/01/21 20:39 Procalcitonin 0.91 ng/mL (<0.050) H 05/01/21 20:39 Urine pH 7.5 (5.0-7.0) H 05/01/21 20:40 Ur Specific [place] 1.020 (1.005-1.030) 05/01/21 20:40 Glucose (UA)(Auto) Negative (Negative) 05/01/21 20:40 Urine Ketones Negative (Negative) 05/01/21 20:40 Urine Blood Negative (Negative) 05/01/21 20:40 Urine Nitrite Negative (Negative) 05/01/21 20:40 Ur Leukocyte Esterase Negative (Negative) 05/01/21 20:40 Urine RBC <5 /HPF (NONE SEEN) 05/01/21 20:38 Urine WBC <5 /HPF (<5) 05/01/21 20:38 Ur Squamous Epith Cells <5 /HPF (NONE SEEN) 05/01/21 20:38 Amorphous Sediment 3+ /HPF (NONE SEEN) H 05/01/21 20:38 Urine Bacteria <20 /HPF (<20) 05/01/21 20:38 Urine Culture Reflexed Not needed 05/01/21 20:38 Urine Total Protein 2+ (Negative) H 05/01/21 20:40 Influenza Type A RNA Negative (NEGATIVE) 05/01/21 20:37 Influenza Type B RNA Negative (NEGATIVE) 05/01/21 20:37 SARS-CoV-2 RNA (RT-PCR) Negative (NEGATIVE) 05/01/21 20:37 Assessment And Plan - Plan Physical exam: General: Other (Altered mental status) HEENT: Other (Dry mucosal membrane) Neck: JVD not distended Respiratory: Other (Diminished) Cardiovascular: No edema, Normal S1 S2 Gastrointestinal: Normal bowel sounds, Soft and benign, Non-distended Integumentary: Pressure ulcer (Sacral stage II in) Conclusions/Impression: Antibiotics: Vancomycin Start: 05/04 Indication: Bacteremia Meropenem start: 05/04 stop: 05/08 Indication: Aspiration pneumonia Levaquin Start: 05/08 stop: 05/10 Indication: Pneumonia Assessment/plan Bacteremia Blood cultures obtained on 05/01 growing methicillin-resistant Staph hominis in both aerobic bottles. Repeat cultures obtained on 05/03 show no growth @24hr. Recommend treating with IV vancomycin for 2 weeks following negative blood culture report. Vancomycin trough goal 12-17. Patient has GENTRY, continue to monitor renal function closely. Recommend daily BMPs. PICC line placed to right arm. Aspiration pneumonia Patient has possible aspiration event she a few days prior to admission. Chest x-ray showed left lung pneumonia. Meropenem de escalated to oral Levaquin. Patient has completed course of antibiotics. Stage II sacral ulcer Continue current wound care, currently utilizing [facility]. Avoid direct pressure, reposition patient bed every 2 hr during waking hr. Protein caloric malnutrition Severe malnutrition, PEG tube placed. Anemia Continue to monitor H&H. -medical management per primary team Plan of care discussed with Dr. Downing Thank you for consultation
--- NOTE | 2021-05-11 13:14 | P.PN ---
Subjective Date of Service: 05/11/21 Chief Complaint: Hyponatremia Patient is awake. She is tolerating the tube feeding. No issues overnight. Physical Examination - Vital Signs Temperature: 98.2 F Blood Pressure: 96/44 Pulse: 88 Respirations: 12 Pulse Ox (%): 97 Assessment And Plan - Current Problems (Diagnosis) (1) Acute metabolic encephalopathy Current Visit: Yes Status: Acute (2) Dysphagia Current Visit: Yes Status: Acute (3) Dehydration Current Visit: Yes Status: Acute (4) Hypernatremia Current Visit: Yes Status: Acute (5) Pneumonia Current Visit: Yes Status: Acute Qualifiers: Pneumonia type: due to unspecified organism Laterality: unspecified laterality Lung location: unspecified part of lung Qualified Code(s): J18.9 - Pneumonia, unspecified organism (6) Dementia Current Visit: Yes Status: Chronic Qualifiers: Dementia type: unspecified type Dementia behavioral disturbance: without behavioral disturbance Qualified Code(s): F03.90 - Unspecified dementia without behavioral disturbance (7) Severe sepsis Current Visit: Yes Status: Acute (8) Elevated troponin Current Visit: Yes Status: Acute - Plan Physical exam GEN: Awake, oriented to self only. HEENT: Sclera is anicteric CV: Regular rate and rhythm, no edema Pulm: Clear to auscultation bilaterally ABD: Soft, nontender, nondistended. + PEG Skin: pale, ecchymosis scattered on b/l arms Neuro: dementia, no focal motor deficit. Problem List Acute metabolic encephalopathy secondary to hypernatremia, infection Dysphagia, aspiration Dehydration severe Hypernatremia, resolved Severe sepsis secondary to pneumonia, resolved Acute on chronic anemia Pneumonia, suspect aspiration Chronic moderate-severe Dementia NSTEMI Plan: Hypernatremia corrected. Aspiration pneumonia treated with IV Levaquin and Zosyn. Patient initially on vancomycin which was discontinued. Blood culture grew staph epidermidis and staph hominis. Patient with a history of decubitus ulcer. Patient seen by infectious disease recommend 2 weeks of IV vancomycin and Levaquin. UA with no significant evidence of UTI. PICC line placed for outpatient IV antibiotics. Seen by speech who initially recommended mechanical soft diet. Patient with poor oral intake. Significant dehydration for poor oral intake. PEG tube placed per family's choice. Patient tolerating PEG tube feeding. Consulted dietitian for outpatient tube feeding management Hemoglobin dropped to 6.0. Patient given blood transfusion. GENTRY likely prerenal. Serum creatinine trended down with IV D5 infusion. GENTRY resolved with IV fluid. Nephrology assisted with management Elevated troponin could be secondary to sepsis. Troponin continued to trend up. NSTEMI suspected. Patient briefly treated with heparin drip. Cardiology recommended medical management. Continue aspirin. Patient has clinically improved. Family is looking at home health for nursing and PT. Continue PEG tube feeding Continue PT. I am told patient insurance will kick in on 05/14/2021. Family for now states they are not able to afford the IV antibiotics or the PEG tube feeding. Patient may have only a couple of more doses of vancomycin before 05/14/21. Continue inpatient care. Social service working with family and discussing possibility of discharge before 05/14/2021 if t they cannot afford the antibiotics and PEG tube [id number].
[2021-05-11] MEDS ORDERED: BISACODYL 10 MG RECTAL SUPP PR PRN (13:17)
--- NOTE | 2021-05-11 13:37 | P.PN ---
Subjective Date of Service: 05/11/21 Chief Complaint: Hyponatremia Subjective: No new changes Physical Examination - Vital Signs Temperature: 98.2 F Blood Pressure: 96/44 Pulse: 88 Respirations: 12 Pulse Ox (%): 97 - Physical Exam General: Other (appears chronically ill) HEENT: Atraumatic, Normocephalic Neck: Supple Respiratory: Other (symmetric chest expansion) Cardiovascular: No rubs, No murmurs Gastrointestinal: Soft and benign, Other (+PEG) Musculoskeletal: No clubbing Integumentary: No warmth Neurological: Normal tone Urinary: Fierro catheter External genitalia: Deferred Rectal: Deferred Assessment And Plan - Plan GENTRY due to dehydration Resolved Discussed w/ family. They decided to keep indwelling fierro rather than switch to CIC bid. Hydration/nutrition via PEG Monitor renal panel Hypernatremia Resolved Wt. 45.3 kgs. Total body water 20.3L. Free water deficit 4.9L. Insensible water loss 0.5L/d. Urine water loss at least 0.5L/d. Hydration via PEG. needs volume intake 1.5-2 L per day via PEG to maintain normonatremia. Hypokalemia Improved Monitor/replete when necessary Acute anemia S/p pRBC transfusion Monitor H/H NSTEMI Per Cardiology Advanced dementia with failure to thrive Cont supportive care plan for PEG placement Staph epidermidis bacteremia Received abx
--- NOTE | 2021-05-11 15:22 | RAD REPORT ---
EXAM DESCRIPTION: RAD - Chest Single View - 05/10/2021 10:52 pm CLINICAL HISTORY: Picc placement COMPARISON: None. FINDINGS: Single frontal view of the chest. Tubes and lines: Right arm PICC with tip in the SVC. Leads overlie the chest. Cardiomediastinal silhouette: Atherosclerotic calcification of the thoracic aorta. Heart is not enlar ged. Lungs: Multifocal bilateral airspace opacities. Possible small left pleural effusion. No pneumothorax . Bones: Degenerative change of the spine and shoulders. Upper abdomen: No acute abnormalities. IMPRESSION: 1. Right arm PICC with tip in the SVC. 2. Bilateral airspace opacities. 3. Small left pleural effusion. Electronically signed by: Kevin Bo 05/11/2021 2:50 AM [employer] Due to temporary technical issues with the PACS/Fluency reporting system, reports are being signed by the in house radiologists without review as a courtesy to insure prompt reporting. The interpreting radiologist is fully responsible for the content of the report.
[2021-05-12 04:39] LABS: Potassium 4.2 mmol/L (3.5-5.1)
[2021-05-12 05:47] LABS: Magnesium 2.1 mg/dL (1.8-2.4); Phosphorus 3.1 mg/dL (2.5-4.9)
[2021-05-12] MEDS ORDERED: BISACODYL 10 MG RECTAL SUPP PR ONE (09:26)
[2021-05-12] MEDS: SUMATRIPTAN SUCCI 50 MG TAB PO SCH (10:39)
[2021-05-12] MEDS: MEDIHONEY 44 ML TOPICAL TUBE TOP SCH (10:41)
--- NOTE | 2021-05-12 10:48 | P.PN ---
Subjective Date of Service: 05/12/21 Chief Complaint: Hyponatremia Patient seen examined at bedside, sacral wound dressing being changed by nurse. Review of Systems 10-point ROS is otherwise unremarkable Physical Examination - Vital Signs Temperature: 98.1 F Blood Pressure: 116/59 Pulse: 86 Respirations: 18 Pulse Ox (%): 96 - Studies Laboratory Last Values WBC 20.00 K/uL (4.3-10.9) H 05/01/21 20:39 RBC 2.79 M/uL (3.86-4.86) L 05/01/21 20:39 Hgb 9.2 g/dL (12.0-15.0) L 05/01/21 20:39 Hct 29.6 % (36.0-45.0) L 05/01/21 20:39 MCV 106.1 fL (80-100) H 05/01/21 20:39 MCH 33.0 pg (27.0-35.0) 05/01/21 20:39 MCHC 31.1 g/dL (32.0-36.0) L 05/01/21 20:39 RDW 16.5 % (12.1-15.2) H 05/01/21 20:39 Plt Count 161 K/uL (152-406) 05/01/21 20:39 MPV 9.1 fL (7.6-11.3) 05/01/21 20:39 Neutrophils % 80.0 % (41.7-73.7) H 05/01/21 20:39 Lymphocytes % 14.3 % (15.3-44.8) L 05/01/21 20:39 Monocytes % 4.9 % (3.3-12.3) 05/01/21 20:39 Eosinophils % 0.4 % (0-4.4) 05/01/21 20:39 Basophils % 0.4 % (0-1.3) 05/01/21 20:39 Absolute Neutrophils 16.0 K/uL (1.8-8.0) H 05/01/21 20:39 Segmented Neutrophils 81 % (40-80) H 05/01/21 20:39 Band Neutrophils 2 % (0-1) H 05/01/21 20:39 Absolute Lymphocytes 2.9 K/uL (0.7-4.9) 05/01/21 20:39 Lymphocytes 15 % (15-42) 05/01/21 20:39 Monocytes 1 % (0-10) 05/01/21 20:39 Absolute Monocytes 1.0 K/uL (0.1-1.3) 05/01/21 20:39 Eosinophils 0 % (0-3) 05/01/21 20:39 Absolute Eosinophils 0.1 K/uL (0-0.5) 05/01/21 20:39 Basophils 1 % (0-1) 05/01/21 20:39 Absolute Basophils 0.1 K/uL (0-0.5) 05/01/21 20:39 Platelet Estimate Adeq 05/01/21 20:39 Clumped Platelets Few 05/01/21 20:39 Polychromasia Slight 05/01/21 20:39 Macrocytosis 1+ 05/01/21 20:39 Morphology Comment Noted (NOT SEEN) 05/01/21 20:39 PT 15.3 SECONDS (9.5-12.5) H 05/01/21 20:39 INR 1.33 05/01/21 20:39 APTT 34.6 SECONDS (24.3-36.9) 05/01/21 20:39 Sodium 173 mmol/L (136-145) H* 05/01/21 20:39 Potassium 5.6 mmol/L (3.5-5.1) H* 05/01/21 20:39 Chloride 143 mmol/L (98-107) H* 05/01/21 20:39 Carbon Dioxide 26 mmol/L (21-32) 05/01/21 20:39 BUN 70 mg/dL (7-18) H 05/01/21 20:39 Creatinine 4.11 mg/dL (0.55-1.3) H 05/01/21 20:39 Estimated GFR 10 mL/min (=/>90) L 05/01/21 20:39 Glucose 99 mg/dL (74-106) 05/01/21 20:39 POC Glucose 83 mg/dL (65-120) 05/01/21 20:38 Lactic Acid 2.0 mmol/L (0.4-2.0) 05/01/21 23:52 Calcium 12.4 mg/dL (8.5-10.1) H* 05/01/21 20:39 Phosphorus Cancelled 05/02/21 00:00 Magnesium Cancelled 05/02/21 00:00 Total Bilirubin 0.5 mg/dL (0.2-1.0) 05/01/21 20:39 Direct Bilirubin 0.2 mg/dL (0-0.2) 05/01/21 20:39 AST 35 U/L (15-37) 05/01/21 20:39 ALT 29 U/L (12-78) 05/01/21 20:39 Alkaline Phosphatase 99 U/L (45-117) 05/01/21 20:39 Creatine Kinase 76 U/L (26-192) 05/01/21 20:39 CK-MB (CK-2) < 1.0 ng/mL (1.0-3.6) L 05/01/21 20:39 Rapid Troponin I 0.15 ng/mL (0.0-0.045) H 05/01/21 20:39 Serum Total Protein 6.4 g/dL (6.4-8.2) 05/01/21 20:39 Albumin 2.2 g/dL (3.4-5.0) L 05/01/21 20:39 Globulin 4.2 g/dL (2.3-3.5) H 05/01/21 20:39 Albumin/Globulin Ratio 0.5 (1.1-1.8) L 05/01/21 20:39 Amylase 49 U/L (25-115) 05/01/21 20:39 Lipase 97 U/L (73-393) 05/01/21 20:39 Procalcitonin 0.91 ng/mL (<0.050) H 05/01/21 20:39 Urine pH 7.5 (5.0-7.0) H 05/01/21 20:40 Ur Specific [place] 1.020 (1.005-1.030) 05/01/21 20:40 Glucose (UA)(Auto) Negative (Negative) 05/01/21 20:40 Urine Ketones Negative (Negative) 05/01/21 20:40 Urine Blood Negative (Negative) 05/01/21 20:40 Urine Nitrite Negative (Negative) 05/01/21 20:40 Ur Leukocyte Esterase Negative (Negative) 05/01/21 20:40 Urine RBC <5 /HPF (NONE SEEN) 05/01/21 20:38 Urine WBC <5 /HPF (<5) 05/01/21 20:38 Ur Squamous Epith Cells <5 /HPF (NONE SEEN) 05/01/21 20:38 Amorphous Sediment 3+ /HPF (NONE SEEN) H 05/01/21 20:38 Urine Bacteria <20 /HPF (<20) 05/01/21 20:38 Urine Culture Reflexed Not needed 05/01/21 20:38 Urine Total Protein 2+ (Negative) H 05/01/21 20:40 Influenza Type A RNA Negative (NEGATIVE) 05/01/21 20:37 Influenza Type B RNA Negative (NEGATIVE) 05/01/21 20:37 SARS-CoV-2 RNA (RT-PCR) Negative (NEGATIVE) 05/01/21 20:37 Assessment And Plan - Plan Physical exam: General: Other (Altered mental status) HEENT: Other (Dry mucosal membrane) Neck: JVD not distended Respiratory: Other (Diminished) Cardiovascular: No edema, Normal S1 S2 Gastrointestinal: Normal bowel sounds, Soft and benign, Non-distended Integumentary: Pressure ulcer (Sacral stage II in) Conclusions/Impression: Antibiotics: Vancomycin Start: 05/04 Indication: Bacteremia Meropenem start: 05/04 stop: 05/08 Indication: Aspiration pneumonia Levaquin Start: 05/08 stop: 05/10 Indication: Pneumonia Assessment/plan Bacteremia Blood cultures obtained on 05/01 growing methicillin-resistant Staph hominis in both aerobic bottles. Repeat cultures obtained on 05/03 show no growth @24hr. Recommend treating with IV vancomycin for 2 weeks following negative blood culture report. Vancomycin trough goal 12-17. Patient has GENTRY, continue to monitor renal function closely. Recommend daily BMPs. PICC line placed to right arm. Aspiration pneumonia Patient has possible aspiration event she a few days prior to admission. Chest x-ray showed left lung pneumonia. Meropenem de escalated to oral Levaquin. Patient has completed course of antibiotics. Stage II sacral ulcer Continue current wound care, currently utilizing [employer]. Avoid direct pressure, reposition patient bed every 2 hr during waking hr. Protein caloric malnutrition Severe malnutrition, PEG tube placed. Anemia Continue to monitor H&H. -medical management per primary team Plan of care discussed with Dr. Downing Thank you for consultation
[2021-05-12] MEDS: TRAMADOL HCL 50 MG TAB FT PRN ×2 (11:07→23:02)
[2021-05-12] MEDS: VANCOMYCIN 1.25 GM in NA CHLORIDE 0.9% 250 ML IVPB SCH (12:00)
--- NOTE | 2021-05-12 12:13 | P.PN ---
Subjective Date of Service: 05/12/21 Chief Complaint: Hyponatremia Changes from yesterday She is tolerating the tube feeding. Family reports no bowel movement for 2 days. Physical Examination - Vital Signs Temperature: 98.1 F Blood Pressure: 116/59 Pulse: 86 Respirations: 18 Pulse Ox (%): 96 Assessment And Plan - Current Problems (Diagnosis) (1) Acute metabolic encephalopathy Current Visit: Yes Status: Acute (2) Dysphagia Current Visit: Yes Status: Acute (3) Dehydration Current Visit: Yes Status: Acute (4) Hypernatremia Current Visit: Yes Status: Acute (5) Pneumonia Current Visit: Yes Status: Acute Qualifiers: Pneumonia type: due to unspecified organism Laterality: unspecified laterality Lung location: unspecified part of lung Qualified Code(s): J18.9 - Pneumonia, unspecified organism (6) Dementia Current Visit: Yes Status: Chronic Qualifiers: Dementia type: unspecified type Dementia behavioral disturbance: without behavioral disturbance Qualified Code(s): F03.90 - Unspecified dementia without behavioral disturbance (7) Severe sepsis Current Visit: Yes Status: Acute (8) Elevated troponin Current Visit: Yes Status: Acute - Plan Physical exam GEN: Awake, oriented to self only. HEENT: Sclera is anicteric CV: Regular rate and rhythm, no edema Pulm: Clear to auscultation bilaterally ABD: Soft, nontender, nondistended. + PEG, bowel sounds normal. Neuro: dementia, no focal motor deficit. Problem List Acute metabolic encephalopathy secondary to hypernatremia, infection Dysphagia, aspiration Dehydration severe Hypernatremia, resolved Severe sepsis secondary to pneumonia, resolved Acute on chronic anemia Pneumonia, suspect aspiration Chronic moderate-severe Dementia NSTEMI Plan: Hypernatremia corrected. Aspiration pneumonia treated with IV Levaquin and Zosyn. Patient initially on vancomycin which was discontinued. Blood culture grew staph epidermidis and staph hominis. Patient with a history of decubitus ulcer. Patient seen by infectious disease recommend 2 weeks of IV vancomycin and Levaquin. UA with no significant evidence of UTI. PICC line placed for outpatient IV antibiotics. Seen by speech who initially recommended mechanical soft diet. Patient with poor oral intake. Significant dehydration for poor oral intake. PEG tube placed. Patient tolerating PEG tube feeding. Dietitian input appreciated. Tube feeding goal of 65 mls per hour. Hemoglobin dropped to 6.0. Patient given blood transfusion. GENTRY likely prerenal. Serum creatinine trended down with IV D5 infusion. GENTRY resolved with IV fluid. Nephrology assisted with management Elevated troponin could be secondary to sepsis. Troponin continued to trend up. NSTEMI suspected. Patient briefly treated with heparin drip. Cardiology recommended medical management. Continue aspirin. Patient has clinically improved. Family is looking at [facility] for nursing and PT. Continue PEG tube feeding Continue PT. I am told patient insurance will kick in on 05/14/2021. Family for now states they are not able to afford the IV antibiotics or the PEG tube feeding. Patient may have only a couple of more doses of vancomycin before 05/14/21. Continue inpatient care. Social service working with family and discussing possibility of discharge before 05/14/2021 if they can afford the antibiotics and feeding formula [id number].
[2021-05-12] MEDS: VANCOMYCIN 1 GM in NA CHLORIDE 0.9% 250 ML IVPB SCH (14:06)
[2021-05-12] MEDS: Levofloxacin 750mg IV 750 MG/150 ML BAG IV SCH (15:40)
--- NOTE | 2021-05-13 04:47 | P.PN ---
Subjective Date of Service: 05/13/21 Chief Complaint: Hyponatremia Subjective: No new changes Physical Examination - Vital Signs Temperature: 98 F Blood Pressure: 127/58 Pulse: 99 Respirations: 16 Pulse Ox (%): 97 - Physical Exam General: Other (chronically ill appearing) HEENT: Atraumatic, Normocephalic Neck: Supple, JVD not distended Respiratory: Diminished Cardiovascular: No rubs, No murmurs Gastrointestinal: Soft and benign, No guarding Musculoskeletal: No clubbing Integumentary: No warmth Neurological: Normal tone Urinary: Other (No bladder distention) External genitalia: Deferred Rectal: Deferred Assessment And Plan - Plan GENTRY due to dehydration Resolved Discussed w/ family. They decided to keep indwelling fierro rather than switch to CIC bid. Hydration/nutrition via PEG Monitor renal panel Hypernatremia Resolved Wt. 45.3 kgs. Total body water 20.3L. Free water deficit 4.9L. Insensible water loss 0.5L/d. Urine water loss at least 0.5L/d. Hydration via PEG. needs volume intake 1.5-2 L per day via PEG to maintain normonatremia. Hypokalemia Improved Monitor/replete when necessary Acute anemia S/p pRBC transfusion Monitor H/H NSTEMI Per Cardiology Advanced dementia with failure to thrive Cont supportive care plan for PEG placement Staph epidermidis bacteremia Received abx Dispo Dc to snf/memory care facility
[2021-05-13] MEDS: SUMATRIPTAN SUCCI 50 MG TAB PO SCH (10:37)
[2021-05-13] MEDS: MEDIHONEY 44 ML TOPICAL TUBE TOP SCH (10:38)
--- NOTE | 2021-05-13 10:54 | P.PN ---
Subjective Date of Service: 05/13/21 Chief Complaint: Hyponatremia Patient seen examined at bedside, resting comfortably. Review of Systems 10-point ROS is otherwise unremarkable Physical Examination - Vital Signs Temperature: 97.8 F Blood Pressure: 119/54 Pulse: 94 Respirations: 18 Pulse Ox (%): 97 Assessment And Plan - Plan Physical exam: General: Other (Altered mental status) HEENT: Other (Dry mucosal membrane) Neck: JVD not distended Respiratory: Other (Diminished) Cardiovascular: No edema, Normal S1 S2 Gastrointestinal: Normal bowel sounds, Soft and benign, Non-distended Integumentary: Pressure ulcer (Sacral stage II in) Conclusions/Impression: Antibiotics: Vancomycin Start: 05/04 Indication: Bacteremia Meropenem start: 05/04 stop: 05/08 Indication: Aspiration pneumonia Levaquin Start: 05/08 stop: 05/10 Indication: Pneumonia Assessment/plan Bacteremia Blood cultures obtained on 05/01 growing methicillin-resistant Staph hominis in both aerobic bottles. Repeat cultures obtained on 05/03 show no growth @24hr. Recommend treating with IV vancomycin for 2 weeks following negative blood culture report. Vancomycin trough goal 12-17. Vanco trough on 05/12 within therapeutic range at 17.1 Continue current dose. Patient has GENTRY, continue to monitor renal function closely. Recommend daily BMPs. PICC line placed to right arm. Aspiration pneumonia Patient has possible aspiration event she a few days prior to admission. Chest x-ray showed left lung pneumonia. Meropenem de escalated to oral Levaquin. Patient has completed course of antibiotics. Stage II sacral ulcer Continue current wound care, currently utilizing [employer]. Avoid direct pressure, reposition patient bed every 2 hr during waking hr. Protein caloric malnutrition Severe malnutrition, PEG tube placed. Anemia Continue to monitor H&H. -medical management per primary team Plan of care discussed with Dr. Downing Thank you for consultation
--- NOTE | 2021-05-13 11:55 | P.PN ---
Subjective Date of Service: 05/13/21 Chief Complaint: Hyponatremia Nursing staff report patient had a large bowel movement yesterday. BM described as loose. She is tolerating the tube feeding. Physical Examination - Vital Signs Temperature: 97.8 F Blood Pressure: 119/54 Pulse: 94 Respirations: 18 Pulse Ox (%): 97 Assessment And Plan - Current Problems (Diagnosis) (1) Acute metabolic encephalopathy Current Visit: Yes Status: Acute (2) Dysphagia Current Visit: Yes Status: Acute (3) Dehydration Current Visit: Yes Status: Acute (4) Hypernatremia Current Visit: Yes Status: Acute (5) Pneumonia Current Visit: Yes Status: Acute Qualifiers: Pneumonia type: due to unspecified organism Laterality: unspecified late rality Lung location: unspecified part of lung Qualified Code(s): J18.9 - Pneumonia, unspecified organism (6) Dementia Current Visit: Yes Status: Chronic Qualifiers: Dementia type: unspecified type Dementia behavioral disturbance: without behavioral disturbance Qualified Code(s): F03.90 - Unspecified dementia without behavioral disturbance (7) Severe sepsis Current Visit: Yes Status: Acute (8) Elevated troponin Current Visit: Yes Status: Acute - Plan Physical exam GEN: Awake, oriented to self only. HEENT: Sclera is anicteric CV: Regular rate and rhythm, no edema Pulm: Clear to auscultation bilaterally ABD: Soft, nontender, nondistended. + PEG, bowel sounds normal. Neuro: dementia, no focal motor deficit. Problem List Acute metabolic encephalopathy secondary to hypernatremia, infection Dysphagia, aspiration Dehydration severe Hypernatremia, resolved Severe sepsis secondary to pneumonia, resolved Acute on chronic anemia Pneumonia, suspect aspiration Chronic moderate-severe Dementia NSTEMI Plan: Hypernatremia corrected. Aspiration pneumonia treated with IV Levaquin and Zosyn. Patient initially on vancomycin which was discontinued. Blood culture grew staph epidermidis and staph hominis. Patient with a history of decubitus ulcer. Patient seen by infectious disease recommend 2 weeks of IV vancomycin and Levaquin. Patient to complete antibiotics on May 16. UA with no significant evidence of UTI. PICC line placed for outpatient IV antibiotics. Seen by speech who initially recommended mechanical soft diet. Patient with poor oral intake. Significant dehydration for poor oral intake. PEG tube placed. Patient tolerating PEG tube feeding. Dietitian input appreciated. Tube feeding goal of 65 mls per hour. Hemoglobin dropped to 6.0. Patient given blood transfusion. Posttransfusion hemoglobin is stable at 8. GENTRY likely prerenal. Serum creatinine trended down with IV D5 infusion. GENTRY resolved with IV fluid. Nephrology assisted with management Elevated troponin could be secondary to sepsis. Troponin continued to trend up. NSTEMI suspected. Patient briefly treated with heparin drip. Cardiology recommended medical management. Continue aspirin. Patient has clinically improved. Family is looking at [facility] for nursing and PT. Continue PEG tube feeding Continue PT. I am told patient insurance will kick in on 05/14/2021. Family for now states they are not able to afford the IV antibiotics or the PEG tube feeding. Patient may have only a couple of more doses of vancomycin before 05/14/21. Continue inpatient care.
[2021-05-13] MEDS: Levofloxacin 750mg IV 750 MG/150 ML BAG IV SCH (14:43)
[2021-05-13] MEDS: TRAMADOL HCL 50 MG TAB FT PRN (14:43)
[2021-05-13] MEDS: VANCOMYCIN 1 GM in NA CHLORIDE 0.9% 250 ML IVPB SCH (14:55)
[2021-05-13] MEDS: JEVITY 1.2 CAL LIQUID 1,000 ML BOT RTH PRN (23:47)
--- NOTE | 2021-05-14 06:03 | P.PN ---
Subjective Date of Service: 05/13/21 Chief Complaint: Hyponatremia Subjective: No new changes Physical Examination - Vital Signs Temperature: 97.3 F Blood Pressure: 139/55 Pulse: 100 Respirations: 18 Pulse Ox (%): 98 - Physical Exam General: Other (frail looking) HEENT: Atraumatic, Normocephalic Neck: Supple Respiratory: Clear to auscultation bilaterally Cardiovascular: No rubs, No murmurs Gastrointestinal: Soft and benign, No guarding Musculoskeletal: No clubbing Integumentary: No warmth Neurological: Normal tone Urinary: Fierro catheter External genitalia: Deferred Rectal: Deferred Assessment And Plan - Plan GENTRY due to dehydration Resolved Discussed w/ family. They decided to keep indwelling fierro rather than switch to CIC bid. Hydration/nutrition via PEG Monitor renal panel Hypernatremia Resolved Wt. 45.3 kgs. Total body water 20.3L. Free water deficit 4.9L. Insensible water loss 0.5L/d. Urine water loss at least 0.5L/d. Hydration via PEG. needs volume intake 1.5-2 L per day via PEG to maintain normonatremia. Hypokalemia Resolved Monitor/replete when necessary Acute anemia S/p pRBC transfusion Monitor H/H NSTEMI Per Cardiology Advanced dementia with failure to thrive Cont supportive care Nutrition via PEG feeding Staph epidermidis bacteremia Received abx Dispo Anticipate dc tomorrow to memory care facility
[2021-05-14] MEDS: SUMATRIPTAN SUCCI 50 MG TAB PO SCH (10:59)
[2021-05-14] MEDS: MEDIHONEY 44 ML TOPICAL TUBE TOP SCH (11:00)
--- NOTE | 2021-05-14 11:30 | P.PN ---
Subjective Date of Service: 05/14/21 Chief Complaint: Hyponatremia No issues overnight. Patient is sleeping all the time but easily arousable and occasionally respond appropriately. She is tolerating the tube feeding at goal feeding rate. Physical Examination - Vital Signs Temperature: 97.6 F Blood Pressure: 146/56 Pulse: 118 Respirations: 18 Pulse Ox (%): 97 Assessment And Plan - Current Problems (Diagnosis) (1) Acute metabolic encephalopathy Current Visit: Yes Status: Acute (2) Dysphagia Current Visit: Yes Status: Acute (3) Dehydration Current Visit: Yes Status: Acute (4) Hypernatremia Current Visit: Yes Status: Acute (5) Pneumonia Current Visit: Yes Status: Acute Qualifiers: Pneumonia type: due to unspecified organism Laterality: unspecified laterality Lung location: unspecified part of lung Qualified Code(s): J18.9 - Pneumonia, unspecified organism (6) Dementia Current Visit: Yes Status: Chronic Qualifiers: Dementia type: unspecified type Dementia behavioral disturbance: without behavioral disturbance Qualified Code(s): F03.90 - Unspecified dementia without behavioral disturbance (7) Severe sepsis Current Visit: Yes Status: Acute (8) Elevated troponin Current Visit: Yes Status: Acute - Plan Physical exam GEN: Awake. HEENT: Sclera is anicteric CV: Regular rate and rhythm, no edema Pulm: Clear to auscultation bilaterally ABD: Soft, nontender, nondistended. + PEG, bowel sounds normal. Neuro: dementia, no focal motor deficit. Problem List Acute metabolic encephalopathy secondary to hypernatremia, infection Dysphagia, aspiration Dehydration severe Hypernatremia, resolved Severe sepsis secondary to pneumonia, resolved Acute on chronic anemia Pneumonia, suspect aspiration Chronic moderate-severe Dementia NSTEMI Plan: Hypernatremia corrected. Aspiration pneumonia treated with IV Levaquin and Zosyn. Patient initially on vancomycin which was discontinued. Blood culture grew staph epidermidis and staph hominis. Patient with a history of decubitus ulcer. Patient seen by infectious disease recommend 2 weeks of IV vancomycin and Levaquin. Patient to complete antibiotics on May 16. UA with no significant evidence of UTI. PICC line placed for outpatient IV antibiotics. Continue PEG tube feeding. Patient tolerating PEG tube feeding. Dietitian input appreciated. Currently at tube feeding goal of 65 mls per hour. Hemoglobin dropped to 6.0. Patient given blood transfusion. Posttransfusion hemoglobin is stable at 8. GENTRY likely prerenal. Serum creatinine trended down with IV D5 infusion. GENTRY resolved with IV fluid. Nephrology assisted with management Elevated troponin could be secondary to sepsis. Troponin continued to trend up. NSTEMI suspected. Patient briefly treated with heparin drip. Cardiology recommended medical management. Continue aspirin. Patient has clinically improved. Family is looking at [facility] for nursing and PT. Continue PT. I am told patient insurance will kick in on 05/14/2021. Family for now states they are not able to afford the IV antibiotics or the PEG tube feeding. Continue inpatient care. Possible discharge on Sunday05/16/21.
--- NOTE | 2021-05-14 15:17 | P.PN ---
Subjective Date of Service: 05/14/21 Chief Complaint: Hyponatremia Subjective: No new changes Physical Examination - Vital Signs Temperature: 97.6 F Blood Pressure: 146/56 Pulse: 118 Respirations: 18 Pulse Ox (%): 97 - Physical Exam General: Other (chronically ill appearing) HEENT: Atraumatic, Normocephalic Neck: Supple, JVD not distended Respiratory: Diminished Cardiovascular: No rubs, No murmurs Gastrointestinal: Soft and benign, No guarding Musculoskeletal: No clubbing Integumentary: No warmth Neurological: Normal tone Urinary: Other (no bladder distention) External genitalia: Deferred Rectal: Deferred Assessment And Plan - Plan GENTRY due to dehydration Resolved Cont fierro. Discussed w/ family. They decided to keep indwelling fierro rather than switch to CIC bid. Hydration/nutrition via PEG Monitor renal panel Hypernatremia Resolved Wt. 45.3 kgs. Total body water 20.3L. Free water deficit 4.9L. Insensible water loss 0.5L/d. Urine water loss at least 0.5L/d. Hydration via PEG. Needs volume intake 1.5-2 L per day via PEG to maintain normonatremia. Hypokalemia Resolved Monitor/replete when necessary Acute anemia S/p pRBC transfusion Monitor H/H NSTEMI Per Cardiology Advanced dementia with failure to thrive Cont supportive care Nutrition via PEG feeding Staph epidermidis bacteremia Received abx Dispo Dc plan to memory care facility ongoing
[2021-05-15] MEDS ORDERED: NA CHLORIDE 0.9% 0 ML ONE (02:56)
[2021-05-15] MEDS: VANCOMYCIN 1 GM in NA CHLORIDE 0.9% 250 ML IVPB SCH (03:01)
[2021-05-15 05:40] LABS: Absolute Lymphocytes (CBC) 0.9 K/uL (0.7-4.9); Lymphocytes % 15.5 % (15.3-44.8); MPV 8.4 fL (7.6-11.3); RBC Red Blood Cell Count 2.18 M/uL (3.86-4.86)
[2021-05-15] MEDS: TRAMADOL HCL 50 MG TAB FT PRN (06:26)
--- NOTE | 2021-05-15 08:36 | P.PN ---
Subjective Date of Service: 05/15/21 Chief Complaint: Hyponatremia Subjective: No new changes Physical Examination - Vital Signs Temperature: 98 F Blood Pressure: 127/54 Pulse: 91 Respirations: 18 Pulse Ox (%): 91 - Physical Exam General: Other (frail looking) HEENT: Atraumatic, Normocephalic Neck: Supple Respiratory: Diminished Cardiovascular: No rubs, No murmurs Gastrointestinal: Soft and benign, No guarding Musculoskeletal: No clubbing Integumentary: No warmth Neurological: Normal tone, Dementia Urinary: Other (no bladder distention) External genitalia: Deferred Rectal: Deferred Assessment And Plan - Plan GENTRY due to dehydration Resolved Discussed w/ family. They decided to keep indwelling fierro rather than switch to CIC bid. Hydration/nutrition via PEG Monitor renal panel Hypernatremia Resolved Wt. 45.3 kgs. Total body water 20.3L. Free water deficit 4.9L. Insensible water loss 0.5L/d. Urine water loss at least 0.5L/d. Hydration via PEG. Needs volume intake 1.5-2 L per day via PEG to maintain normonatremia. Hypokalemia KCl po repletion today Acute anemia S/p pRBC transfusion Monitor H/H NSTEMI Per Cardiology Advanced dementia with failure to thrive Cont supportive care plan for PEG placement Staph epidermidis bacteremia Received abx Dispo Dc to snf/memory care facility
[2021-05-15] MEDS ORDERED: POTASSIUM 25 MEQ EFFERV TAB PO ONE (08:37)
[2021-05-15] MEDS: MEDIHONEY 44 ML TOPICAL TUBE TOP SCH (09:00)
[2021-05-15] MEDS: SUMATRIPTAN SUCCI 50 MG TAB PO SCH (10:14)
[2021-05-15] MEDS: JEVITY 1.2 CAL LIQUID 1,000 ML BOT RTH PRN (10:22)
--- NOTE | 2021-05-15 11:17 | P.PN ---
Subjective Date of Service: 05/15/21 Chief Complaint: Hyponatremia No issues overnight. Patient has no complaint. She is awake and appears comfortable. She is tolerating the tube feeding at goal feeding rate. Physical Examination - Vital Signs Temperature: 98 F Blood Pressure: 127/54 Pulse: 91 Respirations: 18 Pulse Ox (%): 91 Assessment And Plan - Current Problems (Diagnosis) (1) Acute metabolic encephalopathy Current Visit: Yes Status: Acute (2) Dysphagia Current Visit: Yes Status: Acute (3) Dehydration Current Visit: Yes Status: Acute (4) Hypernatremia Current Visit: Yes Status: Acute (5) Pneumonia Current Visit: Yes Status: Acute Qualifiers: Pneumonia type: due to unspecified organism Laterality: unspecified laterality Lung location: unspecified part of lung Qualified Code(s): J18.9 - Pneumonia, unspecified organism (6) Dementia Current Visit: Yes Status: Chronic Qualifiers: Dementia type: unspecified type Dementia behavioral disturbance: without behavioral disturbance Qualified Code(s): F03.90 - Unspecified dementia without behavioral disturbance (7) Severe sepsis Current Visit: Yes Status: Acute (8) Elevated troponin Current Visit: Yes Status: Acute - Plan Physical exam GEN: Awake. HEENT: Sclera is anicteric CV: Regular rate and rhythm, no edema Pulm: Clear to auscultation bilaterally ABD: Soft, nontender, nondistended. + PEG, bowel sounds normal. Neuro: dementia, no focal motor deficit. Problem List Acute metabolic encephalopathy secondary to hypernatremia, infection Dysphagia, aspiration Dehydration severe Hypernatremia, resolved Severe sepsis secondary to pneumonia, resolved Acute on chronic anemia Pneumonia, suspect aspiration Chronic moderate-severe Dementia NSTEMI Plan: Hypernatremia corrected. BMP has been stable and unremarkable. Aspiration pneumonia treated with IV Levaquin and Zosyn. Patient initially on vancomycin which was discontinued. Blood culture grew staph epidermidis and staph hominis. Patient with a history of decubitus ulcer. Patient seen by infectious disease recommend 2 weeks of IV vancomycin and Levaquin. Patient to complete antibiotics tomorrow. UA with no significant evidence of UTI. Continue PEG tube feeding. Patient tolerating PEG tube feeding. Dietitian input appreciated. Currently at tube feeding goal of 65 mls per hour. Hemoglobin dropped to 6.0. Patient given blood transfusion. Hemoglobin dropped to 7.1 today. We will repeat H&H today make sure this not spurious. GENTRY likely prerenal. Serum creatinine trended down with IV D5 infusion. GENTRY resolved with IV fluid. IV fluid discontinued. Nephrology assisted with management Elevated troponin could be secondary to sepsis. Troponin continued to trend up. NSTEMI suspected. Patient briefly treated with heparin drip. Cardiology recommended medical management. Continue aspirin. Patient has clinically improved. Family is looking at home health for nursing and PT. Continue PT. I am told patient insurance will kick in on 05/14/2021. Possible discharge in a.m.
[2021-05-15 12:53] LABS: Hematocrit 23.2 % (36.0-45.0)
[2021-05-16] MEDS: JEVITY 1.2 CAL LIQUID 1,000 ML BOT RTH PRN ×2 (04:30→19:44)
[2021-05-16 05:22] LABS: Absolute Lymphocytes (CBC) 0.8 K/uL (0.7-4.9); Lymphocytes % 13.5 % (15.3-44.8); MPV 8.3 fL (7.6-11.3); RBC Red Blood Cell Count 2.27 M/uL (3.86-4.86)
[2021-05-16] MEDS ORDERED: NA CHLORIDE 0.9% 250 ML IV SCH (09:00)
[2021-05-16] MEDS: SUMATRIPTAN SUCCI 50 MG TAB PO SCH (09:22)
[2021-05-16] MEDS: MEDIHONEY 44 ML TOPICAL TUBE TOP SCH (09:23)
--- NOTE | 2021-05-16 10:23 | P.PN ---
Subjective Date of Service: 05/16/21 Chief Complaint: Hyponatremia Patient seen examined at bedside. Vancomycin trough obtained on 05/14 above therapeutic range at 25.9, dose adjusted via pharmacy to Q 36. Repeat trough on 05/15 17.0, additional repeat trough today pending. Review of Systems 10-point ROS is otherwise unremarkable Physical Examination - Vital Signs Temperature: 97.5 F Blood Pressure: 146/71 Pulse: 85 Respirations: 18 Pulse Ox (%): 94 - Studies Laboratory Last Values WBC 20.00 K/uL (4.3-10.9) H 05/01/21 20:39 RBC 2.79 M/uL (3.86-4.86) L 05/01/21 20:39 Hgb 9.2 g/dL (12.0-15.0) L 05/01/21 20:39 Hct 29.6 % (36.0-45.0) L 05/01/21 20:39 MCV 106.1 fL (80-100) H 05/01/21 20:39 MCH 33.0 pg (27.0-35.0) 05/01/21 20:39 MCHC 31.1 g/dL (32.0-36.0) L 05/01/21 20:39 RDW 16.5 % (12.1-15.2) H 05/01/21 20:39 Plt Count 161 K/uL (152-406) 05/01/21 20:39 MPV 9.1 fL (7.6-11.3) 05/01/21 20:39 Neutrophils % 80.0 % (41.7-73.7) H 05/01/21 20:39 Lymphocytes % 14.3 % (15.3-44.8) L 05/01/21 20:39 Monocytes % 4.9 % (3.3-12.3) 05/01/21 20:39 Eosinophils % 0.4 % (0-4.4) 05/01/21 20:39 Basophils % 0.4 % (0-1.3) 05/01/21 20:39 Absolute Neutrophils 16.0 K/uL (1.8-8.0) H 05/01/21 20:39 Segmented Neutrophils 81 % (40-80) H 05/01/21 20:39 Band Neutrophils 2 % (0-1) H 05/01/21 20:39 Absolute Lymphocytes 2.9 K/uL (0.7-4.9) 05/01/21 20:39 Lymphocytes 15 % (15-42) 05/01/21 20:39 Monocytes 1 % (0-10) 05/01/21 20:39 Absolute Monocytes 1.0 K/uL (0.1-1.3) 05/01/21 20:39 Eosinophils 0 % (0-3) 05/01/21 20:39 Absolute Eosinophils 0.1 K/uL (0-0.5) 05/01/21 20:39 Basophils 1 % (0-1) 05/01/21 20:39 Absolute Basophils 0.1 K/uL (0-0.5) 05/01/21 20:39 Platelet Estimate Adeq 05/01/21 20:39 Clumped Platelets Few 05/01/21 20:39 Polychromasia Slight 05/01/21 20:39 Macrocytosis 1+ 05/01/21 20:39 Morphology Comment Noted (NOT SEEN) 05/01/21 20:39 PT 15.3 SECONDS (9.5-12.5) H 05/01/21 20:39 INR 1.33 05/01/21 20:39 APTT 34.6 SECONDS (24.3-36.9) 05/01/21 20:39 Sodium 173 mmol/L (136-145) H* 05/01/21 20:39 Potassium 5.6 mmol/L (3.5-5.1) H* 05/01/21 20:39 Chloride 143 mmol/L (98-107) H* 05/01/21 20:39 Carbon Dioxide 26 mmol/L (21-32) 05/01/21 20:39 BUN 70 mg/dL (7-18) H 05/01/21 20:39 Creatinine 4.11 mg/dL (0.55-1.3) H 05/01/21 20:39 Estimated GFR 10 mL/min (=/>90) L 05/01/21 20:39 Glucose 99 mg/dL (74-106) 05/01/21 20:39 POC Glucose 83 mg/dL (65-120) 05/01/21 20:38 Lactic Acid 2.0 mmol/L (0.4-2.0) 05/01/21 23:52 Calcium 12.4 mg/dL (8.5-10.1) H* 05/01/21 20:39 Phosphorus Cancelled 05/02/21 00:00 Magnesium Cancelled 05/02/21 00:00 Total Bilirubin 0.5 mg/dL (0.2-1.0) 05/01/21 20:39 Direct Bilirubin 0.2 mg/dL (0-0.2) 05/01/21 20:39 AST 35 U/L (15-37) 05/01/21 20:39 ALT 29 U/L (12-78) 05/01/21 20:39 Alkaline Phosphatase 99 U/L (45-117) 05/01/21 20:39 Creatine Kinase 76 U/L (26-192) 05/01/21 20:39 CK-MB (CK-2) < 1.0 ng/mL (1.0-3.6) L 05/01/21 20:39 Rapid Troponin I 0.15 ng/mL (0.0-0.045) H 05/01/21 20:39 Serum Total Protein 6.4 g/dL (6.4-8.2) 05/01/21 20:39 Albumin 2.2 g/dL (3.4-5.0) L 05/01/21 20:39 Globulin 4.2 g/dL (2.3-3.5) H 05/01/21 20:39 Albumin/Globulin Ratio 0.5 (1.1-1.8) L 05/01/21 20:39 Amylase 49 U/L (25-115) 05/01/21 20:39 Lipase 97 U/L (73-393) 05/01/21 20:39 Procalcitonin 0.91 ng/mL (<0.050) H 05/01/21 20:39 Urine pH 7.5 (5.0-7.0) H 05/01/21 20:40 Ur Specific [place] 1.020 (1.005-1.030) 05/01/21 20:40 Glucose (UA)(Auto) Negative (Negative) 05/01/21 20:40 Urine Ketones Negative (Negative) 05/01/21 20:40 Urine Blood Negative (Negative) 05/01/21 20:40 Urine Nitrite Negative (Negative) 05/01/21 20:40 Ur Leukocyte Esterase Negative (Negative) 05/01/21 20:40 Urine RBC <5 /HPF (NONE SEEN) 05/01/21 20:38 Urine WBC <5 /HPF (<5) 05/01/21 20:38 Ur Squamous Epith Cells <5 /HPF (NONE SEEN) 05/01/21 20:38 Amorphous Sediment 3+ /HPF (NONE SEEN) H 05/01/21 20:38 Urine Bacteria <20 /HPF (<20) 05/01/21 20:38 Urine Culture Reflexed Not needed 05/01/21 20:38 Urine Total Protein 2+ (Negative) H 05/01/21 20:40 Influenza Type A RNA Negative (NEGATIVE) 05/01/21 20:37 Influenza Type B RNA Negative (NEGATIVE) 05/01/21 20:37 SARS-CoV-2 RNA (RT-PCR) Negative (NEGATIVE) 05/01/21 20:37 Assessment And Plan - Plan Physical exam: General: Other (Altered mental status) HEENT: Other (Dry mucosal membrane) Neck: JVD not distended Respiratory: Other (Diminished) Cardiovascular: No edema, Normal S1 S2 Gastrointestinal: Normal bowel sounds, Soft and benign, Non-distended Integumentary: Pressure ulcer (Sacral stage II in) Conclusions/Impression: Antibiotics: Vancomycin Start: 05/04 Indication: Bacteremia Meropenem start: 05/04 stop: 05/08 Indication: Aspiration pneumonia Levaquin Start: 05/08 stop: 05/16 Indication: Pneumonia Assessment/plan Bacteremia Blood cultures obtained on 05/01 growing methicillin-resistant Staph hominis and Staph epi in both aerobic bottles. Repeat cultures obtained on 05/03 show no growth @24hr. Recommend treating with IV vancomycin for 2 weeks following negative blood culture report. Vancomycin trough goal 12-17. Vanco trough on 05/15 within therapeutic range at 17.0. Patient has GENTRY, continue to monitor renal function closely. Recommend daily BMPs. PICC line placed to right arm. Aspiration pneumonia Patient has possible aspiration event she a few days prior to admission. Chest x-ray showed left lung pneumonia. Meropenem de escalated to oral Levaquin. Patient has completed course of antibiotics. Antibiotic was restarted for unknown reason, discontinued on 05/16. Stage II sacral ulcer Continue current wound care, currently utilizing Medihoney. Avoid direct pressure, reposition patient bed every 2 hr during waking hr. Protein caloric malnutrition Severe malnutrition, PEG tube placed. Anemia Continue to monitor H&H. -medical management per primary team Plan of care discussed with Dr. Downing Thank you for consultation
[2021-05-16] MEDS ORDERED: NA CHLORIDE 0.9% 250 ML ONE (11:58)
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
[2021-05-16] MEDS: VANCOMYCIN 1 GM in NA CHLORIDE 0.9% 250 ML IVPB SCH (15:47)
--- NOTE | 2021-05-16 17:16 | P.PN ---
Subjective Date of Service: 05/16/21 Chief Complaint: Hyponatremia Subjective: Other (Received bld transfusion today.) Physical Examination - Vital Signs Temperature: 98.8 F Blood Pressure: 138/56 Pulse: 78 Respirations: 18 Pulse Ox (%): 97 - Physical Exam General: Other (Chronically ill appearing) HEENT: Atraumatic, Normocephalic Neck: Supple, JVD not distended Respiratory: Diminished Cardiovascular: No rubs, No murmurs Gastrointestinal: Soft and benign, Other (+PEG) Musculoskeletal: No clubbing Integumentary: No warmth Neurological: Dementia Urinary: Other (No bladder distention) External genitalia: Deferred Rectal: Deferred Assessment And Plan - Plan GENTRY due to dehydration Resolved Discussed w/ family. They decided to keep indwelling fierro rather than switch to CIC bid. Hydration/nutrition via PEG Monitor renal panel Hypernatremia Resolved Wt. 45.3 kgs. Total body water 20.3L. Free water deficit 4.9L. Insensible water loss 0.5L/d. Urine water loss at least 0.5L/d. Hydration via PEG. Needs volume intake 1.5-2 L per day via PEG to maintain normonatremia. Hypokalemia Improved Monitor/replete prn Acute anemia S/p pRBC transfusion; received another pRBC on 05/16/21 Monitor H/H NSTEMI Per Cardiology Advanced dementia with failure to thrive Cont supportive care plan for PEG placement Staph epidermidis bacteremia Received abx Dispo Anticipate dc to home tomorrow
--- NOTE | 2021-05-16 17:24 | P.PN ---
Subjective Date of Service: 05/16/21 Chief Complaint: Hyponatremia Patient has no complaint. She is awake and appears comfortable. She is tolerating the tube feeding at goal feeding rate. Physical Examination - Vital Signs Temperature: 98.8 F Blood Pressure: 138/56 Pulse: 78 Respirations: 18 Pulse Ox (%): 97 Assessment And Plan - Current Problems (Diagnosis) (1) Acute metabolic encephalopathy Current Visit: Yes Status: Acute (2) Dysphagia Current Visit: Yes Status: Acute (3) Dehydration Current Visit: Yes Status: Acute (4) Hypernatremia Current Visit: Yes Status: Acute (5) Pneumonia Current Visit: Yes Status: Acute Qualifiers: Pneumonia type: due to unspecified organism Laterality: unspecified laterality Lung location: unspecified part of lung Qualified Code(s): J18.9 - Pneumonia, unspecified organism (6) Dementia Current Visit: Yes Status: Chronic Qualifiers: Dementia type: unspecified type Dementia behavioral disturbance: without behavioral disturbance Qualified Code(s): F03.90 - Unspecified dementia without behavioral disturbance (7) Severe sepsis Current Visit: Yes Status: Acute (8) Elevated troponin Current Visit: Yes Status: Acute - Plan Physical exam GEN: Awake. HEENT: Sclera is anicteric CV: Regular rate and rhythm, no edema Pulm: Clear to auscultation bilaterally ABD: Soft, nontender, nondistended. + PEG, bowel sounds normal. Neuro: dementia, no focal motor deficit. Problem List Acute metabolic encephalopathy secondary to hypernatremia, infection Dysphagia, aspiration Dehydration severe Hypernatremia, resolved Severe sepsis secondary to pneumonia, resolved Acute on chronic anemia Pneumonia, suspect aspiration Chronic moderate-severe Dementia NSTEMI Plan: Hypernatremia corrected. BMP has been stable and unremarkable. Aspiration pneumonia treated with IV Levaquin and Zosyn. Patient initially on vancomycin which was discontinued. Blood culture grew staph epidermidis and staph hominis. Patient with a history of decubitus ulcer. Patient seen by infectious disease recommend 2 weeks of IV vancomycin and Levaquin. Patient to complete antibiotics tomorrow. UA with no significant evidence of UTI. Continue PEG tube feeding. Patient tolerating PEG tube feeding. Dietitian recommendation noted. Currently at tube feeding goal of 65 mls per hour. Hemoglobin dropped to 6.0. Patient given blood transfusion. Hemoglobin now 7.3 today. Transfuse 1 more unit PRBC. GENTRY likely prerenal. Serum creatinine trended down with IV D5 infusion. GENTRY resolved with IV fluid. IV fluid discontinued. Nephrology assisted with management Elevated troponin could be secondary to sepsis. Troponin continued to trend up. NSTEMI suspected. Patient briefly treated with heparin drip. Cardiology recommended medical management. Continue aspirin. Patient has clinically improved. Family is looking at home health for nursing and PT. Continue PT. Awaiting for feeding formula to be available at home for discharge.
[2021-05-16 19:13] LABS: Hematocrit 25.9 % (36.0-45.0)
[2021-05-17 05:08] LABS: MPV 7.9 fL (7.6-11.3); RBC Red Blood Cell Count 2.96 M/uL (3.86-4.86)
--- NOTE | 2021-05-17 06:05 | P.PN ---
Date of Service: 05/17/21 Subjective: no acute events overnight patient reports some occasional discomfort but unable to elaborate further no nausea/vomiting tolerating tube feeds ROS: as noted above, otherwise negative. Difficult to obtain full review of systems Physical exam GEN: Awake, alert, oriented to self only, demented HEENT: Normal conjunctiva, sclera anicteric CV: Regular rate and rhythm, no edema Pulm: Nonlabored respirations on room air ABD: Soft, nontender, nondistended, PEG tube in place Skin: a few ecchymosis scattered on b/l arms Neuro: confused/dementia, moves extremities Problem List Acute metabolic encephalopathy secondary to hypernatremia, infection; improved Dysphagia, aspiration Dehydration severe Hypernatremia, resolved Severe sepsis secondary to pneumonia, resolved Acute on chronic anemia Pneumonia, suspect aspiration Chronic moderate-severe Dementia NSTEMI Hypernatremia corrected. BMP has been stable and unremarkable. Aspiration pneumonia treated with IV Levaquin and Zosyn. Patient initially on vancomycin which was discontinued. Blood culture grew staph epidermidis and staph hominis. Patient with a history of decubitus ulcer. Patient seen by infectious disease recommend 2 weeks of IV vancomycin and Levaquin. Completed levaquin IV Vanc end date: 05/19, patient did miss 24hrs of antibiotics after ~1 week UA with no significant evidence of UTI Continue PEG tube feeding. Patient tolerating PEG tube feeding. Dietitian recommendation noted. Currently at tube feeding goal of 65 mls per hour. Hemoglobin dropped to 6.0. Patient given blood transfusion. transfused additional 1uPRBC on 05/16 for hgb: 7.3 GENTRY likely prerenal. Serum creatinine trended down with IV D5 infusion. GENTRY resolved with IV fluid. IV fluid discontinued. Nephrology assisted with management Elevated troponin could be secondary to sepsis. Troponin continued to trend up. NSTEMI suspected. Patient briefly treated with heparin drip. Cardiology recommended medical management. hypertensive and tachycardic at times, start beta yong Patient has clinically improved. Family is looking at home health for nursing and PT. Continue PT. Awaiting for feeding formula to be available at home for discharge. last antibiotic dose tomorrow Dispo: dc with home health tomorrow Time Spent Managing Pts Care (In Minutes): 35
[2021-05-17 06:55] VITALS: BMI 27.1
[2021-05-17] MEDS: SUMATRIPTAN SUCCI 50 MG TAB PO SCH (08:52)
[2021-05-17] MEDS: MEDIHONEY 44 ML TOPICAL TUBE TOP SCH (08:52)
[2021-05-17] MEDS: JEVITY 1.2 CAL LIQUID 1,000 ML BOT RTH PRN (08:57)
--- NOTE | 2021-05-17 10:55 | P.PN ---
Subjective Date of Service: 05/17/21 Chief Complaint: Hyponatremia Patient seen examined at bedside. Having watery bowel movements. Dressing to sacral wound changed by me and the nurse. Review of Systems 10-point ROS is otherwise unremarkable Physical Examination - Vital Signs Temperature: 98.7 F Blood Pressure: 161/70 Pulse: 111 Respirations: 16 Pulse Ox (%): 97 - Studies Active Medications Acetaminophen (Acetaminophen 650mg/Rect Supp) 650 mg DC Q6HP PRN PRN Reason: TEMP > 100' F Acetaminophen (Acetaminophen 500 Mg Tab) 500 mg FT Q6H PRN PRN Reason: Pain scale 2-4 (Mild) Bisacodyl (Bisacodyl 10 Mg Rectal Supp) 10 mg DC DAILY PRN PRN Reason: CONSTIPATION Emollient Gel (Medihoney 44 Ml Topical Tube) 1 appl TOP DAILY COUNT INCLUDES THE [facility] Last Admin: 05/17/21 08:52 Dose: 1 hailee Documented by: Potassium Chloride 40 meq/ (Dextrose/Water) 1,100 mls @ 71.739 mls/hr IV .Q10H COUNT INCLUDES THE [facility] Last Admin: 05/09/21 10:36 Dose: 1,100 mls Documented by: Vancomycin HCl 1 gm/ Sodium (Chloride) 250 mls @ 250 mls/hr IVPB Q36H COUNT INCLUDES THE [facility] Stop: 05/19/21 02:01 Last Admin: 05/16/21 15:47 Dose: 250 mls Documented by: Sodium Chloride (Sodium Chloride) 250 mls @ 0 mls/hr IV .Q0M COUNT INCLUDES THE [facility] Metoprolol Tartrate (Metoprolol Tar 25 Mg Tab) 12.5 mg FT BID 6AM 6PM COUNT INCLUDES THE [facility] Ondansetron HCl (Ondansetron 4 Mg/2 Ml Vial) 4 mg IV Q6HP PRN PRN Reason: NAUSEA / VOMITING Sodium Chloride (Flush Normal Saline 10 Ml) 10 ml IV BID COUNT INCLUDES THE [facility] Last Admin: 05/17/21 08:52 Dose: 10 ml Documented by: Sumatriptan Succinate (Sumatriptan Succi 50 Mg Tab) 25 mg PO DAILY COUNT INCLUDES THE [facility] Last Admin: 05/17/21 08:52 Dose: 25 mg Documented by: Tramadol HCl (Tramadol Hcl 50 Mg Tab) 25 mg FT Q8H PRN PRN Reason: Pain scale 5-7 (Moderate) Last Admin: 05/15/21 06:26 Dose: 25 mg Documented by: Assessment And Plan - Plan Physical exam: General: Other (Altered mental status) HEENT: Other (Dry mucosal membrane) Neck: JVD not distended Respiratory: Other (Diminished) Cardiovascular: No edema, Normal S1 S2 Gastrointestinal: Normal bowel sounds, Soft and benign, Non-distended, PEG tube Integumentary: Pressure ulcer (Sacral stage II in) Conclusions/Impression: Antibiotics: Vancomycin Start: 05/04 Indication: Bacteremia Meropenem start: 05/04 stop: 05/08 Indication: Aspiration pneumonia Levaquin Start: 05/08 stop: 05/16 Indication: Pneumonia Assessment/plan Bacteremia Blood cultures obtained on 05/01 growing methicillin-resistant Staph hominis and Staph epi in both aerobic bottles. Repeat cultures obtained on 05/03 show no growth @24hr. Recommend treating with IV vancomycin for 2 weeks following negative blood culture report. Vancomycin trough goal 12-17. Vanco trough on 05/15 within therapeutic range at 17.0. Patient has GENTRY, continue to monitor renal function closely. Recommend daily BMPs. PICC line placed to right arm. Aspiration pneumonia Patient has possible aspiration event she a few days prior to admission. Chest x-ray showed left lung pneumonia. Meropenem de escalated to oral Levaquin. Patient has completed course of antibiotics. Antibiotic was restarted for unknown reason, discontinued on 05/16. Stage II sacral ulcer Continue current wound care, currently utilizing Medihoney. Avoid direct pressure, reposition patient bed every 2 hr during waking hr. Protein caloric malnutrition Severe malnutrition, PEG tube placed. Anemia Continue to monitor H&H. -medical management per primary team Plan of care discussed with Dr. Downing Thank you for consultation
[2021-05-17] MEDS: METOPROLOL TAR 25 MG TAB FT SCH ×2 (11:15→18:15)
--- NOTE | 2021-05-17 11:36 | PN ---
Date of Progress Note: 05/17/2021 Subjective: The patient was admitted with acute kidney injury secondary to prerenal with hypernatrem ia. The patient's after hydration kidney function has been normalized. Physical Examination: Vital Signs: Blood pressure 161/70, pulse of 100, afebrile. Chest: Clear to auscultation. Heart: S1, S2. Regular. Systolic murmur. Abdomen: Soft, nontender. Extremity: No edema. Neuro: No focality. Laboratory Data: WBC 6.6, H and H 9.4/28. Sodium 139, potassium 4, bicarb 27, BUN 16, creatinine 0. 7, calcium 8.2. Assessment And Plan: 1.Acute kidney injury secondary to prerenal/toxic ATN, recovered, resolved. Off IV fluid. We will continue to monitor the patient. 2.Hypernatremia secondary to poor intake. Continue PEG tube feeding. 3.Hypokalemia, has been resolved. 4.Non-ST elevation myocardial infarction as by primary. 5.Advanced dementia. Continue supportive care. The patient planned to be transferred to [facility]. 6.Sacral ulcer, bacteremia, aspiration pneumonia as by ID. We will follow up. The patient started on vancomycin. MADONNA/MADDY Voice ID: [id number] Report ID: [id number]
[2021-05-18] MEDS: VANCOMYCIN 1 GM in NA CHLORIDE 0.9% 250 ML IVPB SCH (02:25)
[2021-05-18] MEDS: METOPROLOL TAR 25 MG TAB FT SCH (05:29)
[2021-05-18] MEDS: JEVITY 1.2 CAL LIQUID 1,000 ML BOT RTH PRN (07:23)
[2021-05-18 09:05] VITALS: BP 160/89; TEMP 97.7
[2021-05-18 09:18] VITALS: O2SAT 97
[2021-05-18] MEDS: SUMATRIPTAN SUCCI 50 MG TAB PO SCH (09:52)
[2021-05-18] MEDS: MEDIHONEY 44 ML TOPICAL TUBE TOP SCH (09:54)
--- NOTE | 2021-05-18 10:33 | PN ---
Date of Progress Note: 05/18/2021 Subjective: The patient was admitted with acute kidney injury, hypernatremia secondary to prerenal d ehydration. The patient had PEG tube placement and started tube feeding. The patient recovered very well. Physical Examination: Vital Signs: Blood pressure 160/89, pulse of 98, afebrile. The patient had good urine output of 250 0. Chest: Clear to auscultation. Heart: S1, S2. Regular. Systolic murmur. Abdomen: Soft. PEG tube. Extremities: No edema. Neuro: The patient confused. No focality. Laboratory Data: WBC 6.6, H and H 9.2/28. Sodium 139, potassium 4, bicarb 27, BUN 16, creatinine 0. 7, GFR 72, calcium 8.2, phosphorus 3.1. Current Medications: The patient on include; 1.Tylenol. 2.Vancomycin. 3.Sumatriptan. 4.Zofran. 5.KCl. Assessment And Plan: 1.Acute kidney injury secondary to prerenal, recovered, resolved. 2.Hypernatremia secondary to depletional poor intake. Currently on PEG tube, recovered, resolved. 3.Hypokalemia, status post supplement, resolved. 4.Non-ST elevation myocardial infarction as by Cardiology and Primary. 5.Advanced dementia, failure to thrive. Continue PEG tube feeding. 6.Sacral ulcer with bacteremia, status post treatment. Continue vancomycin. We will follow up nelli moss MA/MADDY Voice ID: [id number] Report ID: [id number]
--- NOTE | 2021-05-18 11:02 | P.PN ---
Subjective Date of Service: 05/18/21 Chief Complaint: Hyponatremia Patient seen examined at bedside. Resting comfortably. Review of Systems 10-point ROS is otherwise unremarkable Physical Examination - Vital Signs Temperature: 97.7 F Blood Pressure: 160/89 Pulse: 98 Respirations: 20 Pulse Ox (%): 92 - Studies Laboratory Last Values WBC 20.00 K/uL (4.3-10.9) H 05/01/21 20:39 RBC 2.79 M/uL (3.86-4.86) L 05/01/21 20:39 Hgb 9.2 g/dL (12.0-15.0) L 05/01/21 20:39 Hct 29.6 % (36.0-45.0) L 05/01/21 20:39 MCV 106.1 fL (80-100) H 05/01/21 20:39 MCH 33.0 pg (27.0-35.0) 05/01/21 20:39 MCHC 31.1 g/dL (32.0-36.0) L 05/01/21 20:39 RDW 16.5 % (12.1-15.2) H 05/01/21 20:39 Plt Count 161 K/uL (152-406) 05/01/21 20:39 MPV 9.1 fL (7.6-11.3) 05/01/21 20:39 Neutrophils % 80.0 % (41.7-73.7) H 05/01/21 20:39 Lymphocytes % 14.3 % (15.3-44.8) L 05/01/21 20:39 Monocytes % 4.9 % (3.3-12.3) 05/01/21 20:39 Eosinophils % 0.4 % (0-4.4) 05/01/21 20:39 Basophils % 0.4 % (0-1.3) 05/01/21 20:39 Absolute Neutrophils 16.0 K/uL (1.8-8.0) H 05/01/21 20:39 Segmented Neutrophils 81 % (40-80) H 05/01/21 20:39 Band Neutrophils 2 % (0-1) H 05/01/21 20:39 Absolute Lymphocytes 2.9 K/uL (0.7-4.9) 05/01/21 20:39 Lymphocytes 15 % (15-42) 05/01/21 20:39 Monocytes 1 % (0-10) 05/01/21 20:39 Absolute Monocytes 1.0 K/uL (0.1-1.3) 05/01/21 20:39 Eosinophils 0 % (0-3) 05/01/21 20:39 Absolute Eosinophils 0.1 K/uL (0-0.5) 05/01/21 20:39 Basophils 1 % (0-1) 05/01/21 20:39 Absolute Basophils 0.1 K/uL (0-0.5) 05/01/21 20:39 Platelet Estimate Adeq 05/01/21 20:39 Clumped Platelets Few 05/01/21 20:39 Polychromasia Slight 05/01/21 20:39 Macrocytosis 1+ 05/01/21 20:39 Morphology Comment Noted (NOT SEEN) 05/01/21 20:39 PT 15.3 SECONDS (9.5-12.5) H 05/01/21 20:39 INR 1.33 05/01/21 20:39 APTT 34.6 SECONDS (24.3-36.9) 05/01/21 20:39 Sodium 173 mmol/L (136-145) H* 05/01/21 20:39 Potassium 5.6 mmol/L (3.5-5.1) H* 05/01/21 20:39 Chloride 143 mmol/L (98-107) H* 05/01/21 20:39 Carbon Dioxide 26 mmol/L (21-32) 05/01/21 20:39 BUN 70 mg/dL (7-18) H 05/01/21 20:39 Creatinine 4.11 mg/dL (0.55-1.3) H 05/01/21 20:39 Estimated GFR 10 mL/min (=/>90) L 05/01/21 20:39 Glucose 99 mg/dL (74-106) 05/01/21 20:39 POC Glucose 83 mg/dL (65-120) 05/01/21 20:38 Lactic Acid 2.0 mmol/L (0.4-2.0) 05/01/21 23:52 Calcium 12.4 mg/dL (8.5-10.1) H* 05/01/21 20:39 Phosphorus Cancelled 05/02/21 00:00 Magnesium Cancelled 05/02/21 00:00 Total Bilirubin 0.5 mg/dL (0.2-1.0) 05/01/21 20:39 Direct Bilirubin 0.2 mg/dL (0-0.2) 05/01/21 20:39 AST 35 U/L (15-37) 05/01/21 20:39 ALT 29 U/L (12-78) 05/01/21 20:39 Alkaline Phosphatase 99 U/L (45-117) 05/01/21 20:39 Creatine Kinase 76 U/L (26-192) 05/01/21 20:39 CK-MB (CK-2) < 1.0 ng/mL (1.0-3.6) L 05/01/21 20:39 Rapid Troponin I 0.15 ng/mL (0.0-0.045) H 05/01/21 20:39 Serum Total Protein 6.4 g/dL (6.4-8.2) 05/01/21 20:39 Albumin 2.2 g/dL (3.4-5.0) L 05/01/21 20:39 Globulin 4.2 g/dL (2.3-3.5) H 05/01/21 20:39 Albumin/Globulin Ratio 0.5 (1.1-1.8) L 05/01/21 20:39 Amylase 49 U/L (25-115) 05/01/21 20:39 Lipase 97 U/L (73-393) 05/01/21 20:39 Procalcitonin 0.91 ng/mL (<0.050) H 05/01/21 20:39 Urine pH 7.5 (5.0-7.0) H 05/01/21 20:40 Ur Specific [place] 1.020 (1.005-1.030) 05/01/21 20:40 Glucose (UA)(Auto) Negative (Negative) 05/01/21 20:40 Urine Ketones Negative (Negative) 05/01/21 20:40 Urine Blood Negative (Negative) 05/01/21 20:40 Urine Nitrite Negative (Negative) 05/01/21 20:40 Ur Leukocyte Esterase Negative (Negative) 05/01/21 20:40 Urine RBC <5 /HPF (NONE SEEN) 05/01/21 20:38 Urine WBC <5 /HPF (<5) 05/01/21 20:38 Ur Squamous Epith Cells <5 /HPF (NONE SEEN) 05/01/21 20:38 Amorphous Sediment 3+ /HPF (NONE SEEN) H 05/01/21 20:38 Urine Bacteria <20 /HPF (<20) 05/01/21 20:38 Urine Culture Reflexed Not needed 05/01/21 20:38 Urine Total Protein 2+ (Negative) H 05/01/21 20:40 Influenza Type A RNA Negative (NEGATIVE) 05/01/21 20:37 Influenza Type B RNA Negative (NEGATIVE) 05/01/21 20:37 SARS-CoV-2 RNA (RT-PCR) Negative (NEGATIVE) 05/01/21 20:37 Assessment And Plan - Plan Physical exam: General: Other (Altered mental status) HEENT: Other (Dry mucosal membrane) Neck: JVD not distended Respiratory: Other (Diminished) Cardiovascular: No edema, Normal S1 S2 Gastrointestinal: Normal bowel sounds, Soft and benign, Non-distended, PEG tube Integumentary: Pressure ulcer (Sacral stage II in) Conclusions/Impression: Antibiotics: Vancomycin Start: 05/04 Indication: Bacteremia Meropenem start: 05/04 stop: 05/08 Indication: Aspiration pneumonia Levaquin Start: 05/08 stop: 05/16 Indication: Pneumonia Assessment/plan Bacteremia Blood cultures obtained on 05/01 growing methicillin-resistant Staph hominis and Staph epi in both aerobic bottles. Repeat cultures obtained on 05/03 show no growth @24hr. Recommend treating with IV vancomycin for 2 weeks following negative blood culture report. Vancomycin trough goal 12-17. Vanco trough on 05/15 within therapeutic range at 17.0. Patient has GENTRY, continue to monitor renal function closely. Recommend daily BMPs. PICC line placed to right arm. Aspiration pneumonia Patient has possible aspiration event she a few days prior to admission. Chest x-ray showed left lung pneumonia. Meropenem de escalated to oral Levaquin. P atient has completed course of antibiotics. Antibiotic was restarted for unknown reason, discontinued on 05/16. Stage II sacral ulcer Continue current wound care, currently utilizing Medihoney. Avoid direct pressure, reposition patient bed every 2 hr during waking hr. Protein caloric malnutrition Severe malnutrition, PEG tube placed. Anemia Continue to monitor H&H. -medical management per primary team Plan of care discussed with Dr. Downing Thank you for consultation
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
== END 2021-05-18 11:35 | disposition home health service (06) | DRG 871 ==
LOC: ER 20:17 → ERHOLD 05-02 00:03 → 3RD-ICU 05-02 00:53 → 2ND 05-02 13:10
PROVIDERS: ADMIT Internal Medicine; ATTEND Hospitalist
PROC: 30233N1 Transfusion of Nonautologous Red Blood Cells into Peripheral Vein, Percutaneous Approach (ICD-10-PCS; 2021-05-04)
PROC: 0DH63UZ Insertion of Feeding Device into Stomach, Percutaneous Approach (ICD-10-PCS; principal; 2021-05-09 07:30)
PROC: 02HV33Z Insertion of Infusion Device into Superior Vena Cava, Percutaneous Approach (ICD-10-PCS; 2021-05-10)
DX: A41.9 Sepsis, unspecified organism (principal); L89.153 Pressure ulcer of sacral region, stage 3; G93.41 Metabolic encephalopathy; N17.0 Acute kidney failure with tubular necrosis; I21.4 Non-ST elevation (NSTEMI) myocardial infarction; J69.0 Pneumonitis due to inhalation of food and vomit; E43 Unspecified severe protein-calorie malnutrition; E87.0 Hyperosmolality and hypernatremia; K21.9 Gastro-esophageal reflux disease without esophagitis; E86.0 Dehydration; E87.5 Hyperkalemia; F03.90 Unspecified dementia, unspecified severity, without behavioral disturbance, psychotic disturbance, mood disturbance, and anxiety; E83.52 Hypercalcemia; E87.6 Hypokalemia; E83.39 Other disorders of phosphorus metabolism; D64.9 Anemia, unspecified; R13.10 Dysphagia, unspecified; R77.8 Other specified abnormalities of plasma proteins; R62.7 Adult failure to thrive; R65.20 Severe sepsis without septic shock; Z79.899 Other long term (current) drug therapy; Z86.73 Personal history of transient ischemic attack (TIA), and cerebral infarction without residual deficits; Z88.0 Allergy status to penicillin; Z68.27 Body mass index [BMI] 27.0-27.9, adult
CPT/HCPCS: 0240U; 36415; 36430; 36569; 51702; 70450; 71045; 76770; 80048; 80053; 80061; 80076; 80202; 81003; 81015; 82150; 82306; 82550; 82553; 82570; 82607; 82728; 82747; 82805; 82947; 83540; 83605; 83690; 83735; 83880; 83930; 83935; 83970; 84100; 84132; 84134; 84145; 84156; 84295; 84300; 84439; 84443; 84466; 84484; 85014; 85018; 85025; 85027; 85610; 85730; 86850; 86900; 86901; 86922; 87040; 87077; 87186; 87205; 92610; 93005; 93306; 96365; 96366; 96375; 97161; 97164; 99251; 99285; J0456; J0692; J1200; J1644; J2270; J2543; J2704; J2920; J2930; J3370; J3411; J3480; J7030; J7040; J7050; J7120; P9016

== ENCOUNTER 2022-02-17 04:59 | Inpatient (IN) | payer BC, OTHER ==
[2022-02-17] MEDS ORDERED: PANTOPRAZOLE 40 MG INJ ONE (06:39)
[2022-02-17] MEDS ORDERED: ONDANSETRON 4 MG/2 ML VIAL ONE (06:39)
[2022-02-17 06:44] LABS: Absolute Lymphocytes (CBC) 1.3 K/uL (0.7-4.9); Hematocrit 28.1 % (36.0-45.0); Lymphocytes % 9.3 % (15.3-44.8); MCV 96.5 fL (80-100); MPV 7.4 fL (7.6-11.3); RBC Red Blood Cell Count 2.92 M/uL (3.86-4.86)
[2022-02-17 07:06] LABS: Albumin 2.8 g/dL (3.4-5.0); Potassium 4.4 mmol/L (3.5-5.1); Protein, Total 6.6 g/dL (6.4-8.2)
--- NOTE | 2022-02-17 08:05 | EDPHYS ---
Physician Documentation [facility] Name: Hattie Quevedo Age: 81 yrs Sex: Female : 1940 Arrival Date: 02/17/2022 Time: 05:01 Bed 24 Private MD: ED Physician Juanjo Napoles HPI: 02/17 06:04 This 81 yrs old Female presents to ER via EMS with complaints of Hematemesis. ms3 06:04 81-year-old female with past medical history of dementia, GERD, irritable bowel ms3 syndrome, migraine, neuropathy presents via [facility] after family called for patient having 2 episodes of hematemesis. Patient's son states patient is typically alert and oriented x1. Patient is nonverbal during examination and unable to obtain HPI from patient. Patient son states patient is at her baseline.. Historical: - Allergies: 05:09 PENICILLINS; lg3 - Home Meds: 05:23 sumatriptan succinate 25 mg Oral tab 1 tab every 6 hours [Active]; gabapentin 300 mg lg3 Oral cap 1 cap 3 times per day [Active]; carisoprodol 250 mg Oral tab [Active]; promethazine 25 mg Oral tab 1 tab every 4-6 hours [Active]; memantine 10 mg Oral tab 1 tab 2 times per day [Active]; trazodone 50 mg oral tab 1 tab four times a day [Active]; valganciclovir oral [Active]; metoprolol tartrate 25 mg Oral tab 1 tab once daily [Active]; donepezil 10 mg Oral tab 1 tab once daily [Active]; Dulcolax Stool Softener (dss) 100 mg Oral cap [Active]; ondansetron HCl 4 mg Oral tab 1 tab 4 times per day [Active]; - PMHx: 05:09 Dementia; GERD; Irritable bowel syndrome; Migraine; neuropathy; Sleep Apnea; TIA; GI lg3 Bleed; - PSHx: 05:09 g tube; lg3 - Immunization history:: Adult Immunizations unknown. - Social history:: Smoking status: unknown. ROS: 06:04 Unable to obtain ROS due to baseline dementia. ms3 09:10 Constitutional: Negative for fever, chills, and weight loss. kdr Exam: 06:04 Constitutional: This is a well developed, well nourished patient who is awake, alert, ms3 and in no acute distress. Neck: Trachea midline, no cervical lymphadenopathy. Supple, full range of motion without nuchal rigidity, or vertebral point tenderness. No Meningismus. Chest/axilla: Normal chest wall appearance and motion. Nontender with no deformity. Cardiovascular: Regular rate and rhythm with a normal S1 and S2. No gallops, murmurs, or rubs. Normal PMI, no JVD. No pulse deficits. Respiratory: Lungs have equal breath sounds bilaterally, clear to auscultation and percussion. No rales, rhonchi or wheezes noted. No increased work of breathing, no retractions or nasal flaring. Abdomen/GI: Soft, non-tender, with normal bowel sounds. No distension or tympany. No guarding or rebound. No evidence of tenderness throughout. PEG without drainage or surrounding erythema Skin: Warm, dry with normal turgor. Normal color with no rashes, no lesions, and no evidence of cellulitis. Vital Signs: 05:07 BP 132 / 77; Pulse 94; Resp 16 S; Temp 98.7(O); Pulse Ox 98% on R/A; Weight 81.65 kg lg3 (R); Height 5 ft. 6 in. (167.64 cm) (R); 07:00 BP 123 / 71; Pulse 98; Resp 17 S; Pulse Ox 99% on R/A; lg3 05:07 Body Mass Index 29.05 (81.65 kg, 167.64 cm) lg3 MDM: 05:32 Patient medically screened. ms3 06:04 Differential diagnosis: Nonspecific abd pain, gastritis, PUD. ms3 07:13 Transition of care: After a detail discussion of the patient's case, care is ms3 transferred to Juanjo Napoles MD. 08:04 Data reviewed: vital signs, nurses notes, lab test result(s), radiologic studies. kdr Counseling: I had a detailed discussion with the patient and/or guardian regarding: the historical points, exam findings, and any diagnostic results supporting the discharge/admit diagnosis, lab results, radiology results, the need for outpatient follow up. 02/17 05:32 Order name: CBC with Diff ms3 02/17 05:32 Order name: CMP ms3 02/17 05:32 Order name: Urine Microscopic Only ms3 02/17 05:32 Order name: Type And Screen ms3 02/17 06:45 Order name: CBC with Automated Diff; Complete Time: 07:13 EDMS 02/17 07:07 Order name: Comprehensive Metabolic Panel; Complete Time: 07:13 EDMS 02/17 05:32 Order name: IV Saline Lock; Complete Time: 06:37 ms3 02/17 07:55 Order name: Type and Screen; Complete Time: 07:56 EDMS 02/17 07:56 Order name: CT Abd/Pelvis - IV Contrast Only kdr 02/17 08:49 Order name: CT EDMS 02/17 09:51 Order name: SARS RAPID eb 02/17 10:21 Order name: SARS-COV-2 Antigen Rapid EDMS 02/17 05:32 Order name: Labs collected and sent; Complete Time: 06:37 ms3 02/17 06:59 Order name: Cox; Complete Time: 10:21 lg3 Administered Medications: 06:47 Drug: Zofran (Ondansetron) 4 mg Route: IVP; Site: right upper arm; lg3 06:56 Follow up: Response: No adverse reaction lg3 06:47 Drug: ProTONIX (pantoprazole) 40 mg Route: IVP; Site: right upper arm; lg3 06:56 Follow up: Response: No adverse reaction lg3 Disposition Summary: 02/17/22 08:04 Hospitalization Ordered Hospitalization Status: Inpatient Admission kdr Provider: Diomedes Grover kdr Condition: Fair kdr Problem: new kdr Symptoms: are unchanged kdr Bed/Room Type: Standard kdr Location: Telemetry/MedSurg (Inpatient)(02/17/22 12:15) dw Room Assignment: [facility](02/17/22 12:15) dw Diagnosis - Hematemesis kdr Forms: - Medication Reconciliation Form kdr - SBAR form kdr Signatures: Dispatcher [employer] Avis Kaur RN RN Juanjo Crocker MD MD kdr Botello, Elizabeth eb Gibson, Lacie RN RN lg3 Glenn Gann DO DO ms3 Corrections: (The following items were deleted from the chart) 10:05 08:04 Telemetry/MedSurg (Inpatient) kdr eb 10:05 08:04 kdr eb 12:15 10:05 [facility] ER HOLD eb dw 12:15 10:05 ERHOLD- eb dw
--- NOTE | 2022-02-17 08:05 | ER ---
Nurse's Notes [facility] Name: Hattie Quevedo Age: 81 yrs Sex: Female : 1940 Arrival Date: 02/17/2022 Time: 05:01 Bed 24 Private MD: Diagnosis: Hematemesis Presentation: 02/17 05:07 Chief complaint: EMS states: toned out by family for dark coffee ground like emesis. pt lg3 vomited twice around 0400 and had not vomited since. Coronavirus screen: Client denies travel out of the [place] in the last 14 days. At this time, the client does not indicate any symptoms associated with coronavirus-19. Ebola Screen: No symptoms or risks identified at this time. Initial Sepsis Screen: Does the patient meet any 2 criteria? No. Patient's initial sepsis screen is negative. Does the patient have a suspected source of infection? No. Patient's initial sepsis screen is negative. Risk Assessment: Do you want to hurt yourself or someone else? Patient reports no desire to harm self or others. Onset of symptoms was February 17, 2022. 05:07 Method Of Arrival: EMS: [facility] lg3 05:07 Acuity: JOSEP 3 lg3 Triage Assessment: 05:09 General: Appears in no apparent distress. comfortable, Behavior is calm, quiet. Pain: lg3 Denies pain. EENT: blood tinged emesis noted in and around mouth . Neuro: Gutierrez Agitation-Sedation Scale (RASS): 0 - Alert and Calm Level of Consciousness is awake. Cardiovascular: No deficits noted. Denies chest pain, shortness of breath, Capillary refill < 3 seconds Clubbing of nail beds is absent JVD is absent Patient's skin is warm and dry. Respiratory: No deficits noted. Airway is patent Trachea midline Respiratory effort is even, unlabored, Respiratory pattern is regular, symmetrical, Breath sounds are clear bilaterally. GI: Abdomen is round non-distended, g tube noted to center abdomen no oral intake. : No deficits noted. No signs and/or symptoms were reported regarding the genitourinary system. Cox in place to gravity drainage Urine is clear. Derm: No deficits noted. No signs and/or symptoms reported regarding the dermatologic system. Skin is intact, is thin, Skin is dry, Skin is normal, Skin temperature is warm. Musculoskeletal: No deficits noted. Circulation, motion, and sensation intact. Range of motion: limited in all extremities. Historical: - Allergies: 05:09 PENICILLINS; lg3 - Home Meds: 05:23 sumatriptan succinate 25 mg Oral tab 1 tab every 6 hours [Active]; gabapentin 300 mg lg3 Oral cap 1 cap 3 times per day [Active]; carisoprodol 250 mg Oral tab [Active]; promethazine 25 mg Oral tab 1 tab every 4-6 hours [Active]; memantine 10 mg Oral tab 1 tab 2 times per day [Active]; trazodone 50 mg oral tab 1 tab four times a day [Active]; valganciclovir oral [Active]; metoprolol tartrate 25 mg Oral tab 1 tab once daily [Active]; donepezil 10 mg Oral tab 1 tab once daily [Active]; Dulcolax Stool Softener (dss) 100 mg Oral cap [Active]; ondansetron HCl 4 mg Oral tab 1 tab 4 times per day [Active]; - PMHx: 05:09 Dementia; GERD; Irritable bowel syndrome; Migraine; neuropathy; Sleep Apnea; TIA; GI lg3 Bleed; - PSHx: 05:09 g tube; lg3 - Immunization history:: Adult Immunizations unknown. - Social history:: Smoking status: unknown. Screenin:17 Abuse screen: Denies threats or abuse. Denies injuries from another. Nutritional lg3 screening: On NPO diet, jevity 1.2 4X daily. Tuberculosis screening: No symptoms or risk factors identified. Fall Risk No fall in past 12 months (0 pts). Secondary diagnosis (15 points) dementia, impaired mobility, No IV (0 pts). Ambulatory Aid- None/Bed Rest/Nurse Assist (0 pts). Gait- Normal/Bed Rest/Wheelchair (0 pts) Mental Status- Overestimates/Forgets Limitations (15 pts.). Total Beltrán Fall Scale indicates Low Risk Score (25-44 pts). Side Rails Up X 2 Frequent Obs/Assesments occuring Family Present and informed to notify staff if they need to leave bedside As available Patient and Family Educated on Fall Prevention Program and strategies. Assessment: 05:17 General: see triage assessment . lg3 06:47 Reassessment: Patient appears in no apparent distress at this time. No changes from lg3 previously documented assessment. Patient and/or family updated on plan of care and expected duration. Pain level reassessed. Patient is alert, oriented x 3, equal unlabored respirations, skin warm/dry/pink. pt quietly resting with son at bedside. 06:48 General: son: Denny [phone] . lg3 06:48 General: daughter in law: Rosa Isela [phone]. lg3 07:00 Reassessment: RECD REPORT FROM DEANA TENA. 81YO WF P/W HEMATEMESIS AT HOME. CATH bp REPLACEMENT PENDING. Vital Signs: 05:07 BP 132 / 77; Pulse 94; Resp 16 S; Temp 98.7(O); Pulse Ox 98% on R/A; Weight 81.65 kg lg3 (R); Height 5 ft. 6 in. (167.64 cm) (R); 07:00 BP 123 / 71; Pulse 98; Resp 17 S; Pulse Ox 99% on R/A; lg3 05:07 Body Mass Index 29.05 (81.65 kg, 167.64 cm) lg3 ED Course: 05:01 Patient arrived in ED. lg3 05:04 Deana Silver, RN is Primary Nurse. lg3 05:07 Glenn Gann DO is Attending Physician. ms3 05:09 Triage completed. lg3 05:09 Arm band placed on left wrist. lg3 05:17 Patient has correct armband on for positive identification. Placed in gown. Bed in low lg3 position. Call light in reach. Side rails up X2. Client placed on continuous cardiac and pulse oximetry monitoring. NIBP monitoring applied. Door closed. Noise minimized. Warm blanket given. Family accompanied patient. 06:35 Inserted saline lock: 22 gauge in right upper arm, using aseptic technique. ,using kl aseptic technique. 22 diffusic Blood collected. 06:37 Type And Screen Sent. lg3 06:37 CBC with Diff Sent. lg3 06:37 CMP Sent. lg3 07:14 Attending Physician role handed off by Glenn Gann DO ms3 07:14 Juanjo Napoles MD is Attending Physician. ms3 08:03 Diomedes Grover MD is Hospitalizing Provider. kdr 10:19 Cox cath removed intact, balloon deflated. jw7 10:20 Cox cath inserted, using sterile technique, 16 Fr., by vt, balloon inflated, to jw7 gravity drainage, clamped. Administered Medications: 06:47 Drug: Zofran (Ondansetron) 4 mg Route: IVP; Site: right upper arm; lg3 06:56 Follow up: Response: No adverse reaction lg3 06:47 Drug: ProTONIX (pantoprazole) 40 mg Route: IVP; Site: right upper arm; lg3 06:56 Follow up: Response: No adverse reaction lg3 Outcome: 08:04 Decision to Hospitalize by Provider. kdr 14:03 Patient left the ED. zm Signatures: Sabrina Jamison RN DARINEL Juanjo Napoles MD MD kdr Peltier, Brian, RN RN bp Gibson, Lacie, RN RN lg3 Glenn Gann DO DO ms3 Cindy Klein jw7 Katya Grubbs Corrections: (The following items were deleted from the chart) 05:22 05:07 Chief complaint: EMS states: toned out by family for dark coffee ground like lg3 emesis. pt vomited twice around 0400 and had not vomited since. lg3 08:06 07:00 Reassessment: bp bp
--- NOTE | 2022-02-17 08:49 | RAD REPORT ---
EXAM DESCRIPTION: CT - Abdomen Pelvis W Contrast - 02/17/2022 8:29 am CLINICAL HISTORY: Vomiting blood, abdominal pain COMPARISON: No comparisons TECHNIQUE: Biphasic, helical CT imaging of the abdomen and pelvis was performed following 100 ml non -ionic IV contrast. No oral contrast administered. All CT scans are performed using dose optimization technique as appropriate and may include automated exposure control or mA/KV adjustment according to patient size. FINDINGS: Small bilateral pleural effusions are present with partial atelectasis along the posterior aspects of each lower lobe. Distal esophageal wall thickening present but only partially imaged. Asy mmetric mass is not identified. Numerous contrast opacified superficial vessels are on the right shou lder noted. Patient had limited access site in this pattern is believed to be due to the upper arm or chest location of the IV access. Minimal pericardial effusion. The liver, spleen, and pancreas show no suspicious findings. Well filled gallbladder shows slight thi ckening of the wall. Gallstones can be occult. Intrahepatic and extrahepatic biliary tree dilatation are present. Common bile duct is 9 mm. There is some heterogeneity of the bile within the common duct which could indicate the presence of a duct stone. No pancreatic or duodenal mass identified. Symmetric renal function is seen with no hydronephrosis or suspicious renal mass. No pyelonephritis o r acute parenchymal process. Incidental small left renal cyst. No adrenal abnormalities. Urinary blad norman is fully contracted around a Cox catheter. The GE junction is normal in appearance. No abnormal varices seen. There may be a very slight hiatal hernia. Stomach is decompressed. PEG tube is in place. No suspicious findings along the course of the tubing. The gastric wall is not thickened or edematous. Duodenum is unremarkable. No acute small bow el findings. No appendicitis. A large amount of stool is present dilating the rectum to 8.5 cm. There is a large stool volume throughout the entirety of the tortuous colon. A colon mass is not seen. No free air, free fluid or inflammatory stranding. No hernia, mass or bulky lymphadenopathy. Disc and bone degenerative changes are present most notable at T12-L1. No acute finding seen in the s pine. IMPRESSION: Circumferential wall thickening and edema of the distal esophagus only partially imaged. At the GE junction the leger do not appear abnormally thickened and no acute gastric finding seen. PEG tube is in place with no abnormality of the adjacent gastric wall or tissues along the course of the tubing. Intrahepatic and extrahepatic biliary tree dilatation with questionable duct stone. Gallbladder leger appear slightly thickened. Gallstones can be occult on CT imaging. No duodenal or pancreatic obstruc ting mass identifiable. Small bilateral pleural effusions with partial atelectasis of each lower lobe. Large stool volume dilates the rectum to 8.5 cm with a large stool volume filling the entirety of the tortuous and redundant colon.
[2022-02-17 10:21] LABS: SARS-CoV-2 Antigen Rapid Res Negative (Negative)
[2022-02-17] MEDS ORDERED: SODIUM CHLORIDE 0.9% 10ML INJ IV PRN (11:31)
--- NOTE | 2022-02-17 11:39 | P.HP ---
Certification for Inpatient Patient admitted to: Inpatient With expected LOS: >2 Midnights Patient will require the following post-hospital care: None Practitioner: I am a practitioner with admitting privileges, knowledge of patient current condition, hospital course, and medical plan of care. Services: Services provided to patient in accordance with Admission requirements found in Title 42 Section 412.3 of the Code of Federal Regulations Patient History Date of Service: 02/17/22 Primary Care Provider: Lenore Reason for admission: Upper GI Bleed History of Present Illness: Patient was brought to the ER due to 1 episode of coffee ground emesis. The patient is a bedbound [facility] patient. She is non verbal and has a peg tube. Have called the patients son. She has been throwing up for the past few days. However mostly clear fluid. The patient had an episode of coffee grounds last night and he called EMS. She is a dnr/DNI. However the son said he is willing to have blood transfusions and EGD's Allergies Penicillins Adverse Reaction (Verified 05/02/21 00:34) Hives/Rash Home Medications: Donepezil HCl [Aricept] 10 mg PO DAILY 05/02/21 Memantine HCl [Namenda*] 10 mg PO BID 05/02/21 SUMAtriptan succinate [Sumatriptan Succinate] 25 mg PO DAILY 05/02/21 Bisacodyl [Dulcolax*] 10 mg NJ DAILY PRN #30 supp 05/16/21 Jevity 1.2 Sander Liquid 0 ml RTH CONT PRN bot 05/16/21 Medihoney [Medihoney Woundcare Gel*] 1 appl TOP DAILY #1 tube 05/16/21 traMADol HCL [Ultram*] 25 mg FT Q8H PRN #20 tab 05/16/21 Metoprolol Tartrate [Lopressor*] 0.5 tab FT BID 30 Days #30 tab 05/18/21 Tramadol HCl [Ultram] 0.5 tab FT Q8H PRN #20 tablet 05/18/21 - Past Medical/Surgical History Diabetic: No -: end stage dementia -: gerd -: tia -: neuropathy -: IBS -: migraine - Social History Alcohol use: No CD- Drugs: No Caffeine use: No Review of Systems is unable to be obtained Physical Examination - Physical Exam General: Alert, In no apparent distress HEENT: Atraumatic, PERRLA, Mucous membr. moist/pink, EOMI, Sclerae nonicteric Neck: Supple, 2+ carotid pulse no bruit, No LAD, Without JVD or thyroid abnormality Respiratory: Clear to auscultation bilaterally, Normal air movement Cardiovascular: Regular rate/rhythm, Normal S1 S2 Gastrointestinal: Normal bowel sounds, No tenderness Musculoskeletal: No tenderness Integumentary: No rashes Neurological: Normal gait, Normal speech, Normal strength at 5/5 x4 extr, Normal tone, Normal affect Lymphatics: No axilla or inguinal lymphadenopathy - Studies Laboratory Data (last 24 hrs) 02/17/22 06:25: Sodium 138, Potassium 4.4, BUN 42 H, Creatinine 1.15, Glucose 127 H, Total Bilirubin 1.0, AST 202 H, ALT 205 H, Alkaline Phosphatase 108 02/17/22 06:25: WBC 13.90 H, Hgb 9.8 L, Hct 28.1 L, Plt Count 319 Assessment and Plan - Problems (Diagnosis) (1) Upper GI bleed Current Visit: Yes Status: Acute Plan: Have discussed the patient with Dr. Doan. Possible EGD today. Will keep her in house 72 hours. Will monitor her HB daily. Start IV protonix. The son agrees to blood transfusion and egd. (2) Anemia Current Visit: No Status: Acute Plan: monitor her hct and will transfuse as necessary Qualifiers: Anemia type: iron deficiency Iron deficiency anemia type: chronic blood loss Qualified Code(s): D50.0 - Iron deficiency anemia secondary to blood loss (chronic) (3) Dementia Current Visit: No Status: Chronic Plan: Patient is at her baseline. She is mostly peg feeding. Will keep her npo. Will keep her on fall precautions. Qualifiers: Dementia type: unspecified type Dementia severity: severe Dementia behavioral or psychological symptom: without behavioral, psychotic, or mood disturbance or anxiety Qualified Code(s): F03.C0 - Unspecified dementia, severe, without behavioral disturbance, psychotic disturbance, mood disturbance, and anxiety Discharge Plan: Home Plan to discharge in: Greater than 2 days - Advance Directives Does patient have a Living Will: No Does patient have a Durable POA for Healthcare: Yes - Code Status/Comfort Care Code Status Assessed: Yes Code Status: Do Not Attempt Resuscitat Critical Care: No Time Spent Managing Pts Care (In Minutes): 75
[2022-02-17] MEDS ORDERED: Ringers Lactate 1,000 ML IV ONE (13:18)
[2022-02-17] MEDS ORDERED: EPINEPHRINE/PF 1 MG/ML AMP ONE (13:19)
[2022-02-17] MEDS ORDERED: LIDOCAINE 1% MPF 5 ML VIAL ONE (13:44)
[2022-02-17] MEDS ORDERED: ETOMIDATE 20 MG/10 ML VIAL IV ONE (13:44)
[2022-02-17] MEDS ORDERED: propofoL 200 MG/20 ML VIAL IV ONE (13:44)
--- NOTE | 2022-02-17 14:24 | ENDO RPT ---
[address], [address] EGD PROCEDURE REPORT EXAM DATE: 02/17/2022 PATIENT NAME: Hattie Deras MR#: [id number] BIRTHDATE: 1940 ATTENDING: Andrea Rosado Dr STATUS: inpatient - 7 DISC RULER OPERATOR: Akua Jaimes RN, Winnie Elizalde CST, and Rosy Patel RN INDICATIONS: The patient is a 81 yr old Female here for an EGD due to upper G.I. bleeding, hematemesis, and anemia (hgb 9.8) PROCEDURE PERFORMED: EGD with biopsy MEDICATIONS: Per Anesthesia. TOPICAL ANESTHETIC: none CONSENT: The patient understands the risks and benefits of the procedure and understands that these risks include, but are not limited to: sedation, allergic reaction, infection, perforation and/or bleeding. Alternative means of evaluation and treatment include, among others: physical exam, x-rays, and/or surgical intervention. The patient elects to proceed with this endoscopic procedure. DESCRIPTION OF PROCEDURE: During intra-op preparation period all mechanical medical equipment was checked for proper function. Hand hygiene and appropriate measures for infection prevention was taken. Procedure, possible complications, and alternatives including but not limited to the possibility of bleeding, perforation, tear, infection, sepsis, need for surgery, need for blood transfusion, and anesthesia related complications were explained to the patient. After the risks, benefits and alternatives of the procedure were thoroughly explained, Informed consent was verified, confirmed and timeout was successfully executed by the treatment team. The patient was placed in the left lateral position. The patient was anesthetized with topical anesthesia. Through the anesthetized oropharyngeal area, the scope was passed without any difficulty. The [id number] ([id number]) endoscope was introduced through the mouth and advanced to the third portion of the duodenum. Retroflexed views revealed a small hiatal hernia. The gastroscope was then slowly withdrawn and removed. Moderate amount of bile reflux was found in the mid esophagus - suctioned out with endoscope. LA Class D hemorrhagic esophagitis was found in the lower esophagus (tip at 24 cm, GEJ at 37 cm from the gums). Mild stenosis secondary to severe esophagitis was found in the lower esophagus. Old PEG tube bumper was found in the body of the stomach. Nodular mucosa / mild gastritis was found in the body and the antrum of the stomach. Multiple biopsies were obtained and sent to pathology. ADVERSE EVENTS: There were no complications. IMPRESSIONS: 1. Moderate amount of bile reflux to the mid esophagus - suctioned out with endoscope 2. LA class D hemorrhagic esophagitis in the lower esophagus (tip at 24 cm, GEJ at 37 cm from the gums) 3. Mild stenosis secondary to severe esophagitis in the lower esophagus 4. Old PEG tube bumper in the body of the stomach 5. Nodular mucosa / mild gastritis in the body and the antrum of the stomach, s/p biopsies RECOMMENDATIONS: 1. await biopsy results 2. acid suppression therapy (increase PPI to bid dosing) 3. Carafate 1 gm po tid ac 4. anti-reflux regimen REPEAT EXAM: Andrea Rosado Dr eSigned: Andrea Rosado Dr 02/17/2022 2:23 PM cc: Diomedes Grover M.D. CPT CODES: ICD9 CODES: PATIENT NAME: Hattie Deras MR#: [id number]
[2022-02-17 15:34] LABS: RBC Red Blood Cell Count 3.06 M/uL (3.86-4.86)
[2022-02-17] MEDS ORDERED: FLEET ENEMA ADULT PR ONE (16:00)
[2022-02-17 16:15] VITALS: BMI 29.0
[2022-02-17] MEDS: SUCRALFATE 1GM/10ML UCUP PO SCH ×2 (16:52→22:10)
[2022-02-17] MEDS ORDERED: INFLUENZA VACCINE (for 6+ mo) 0.5 ML DOSE IMVAC ONE (18:00)
[2022-02-17] MEDS: D5 0.45 NS 1,000 ML IV SCH (18:52)
--- NOTE | 2022-02-17 21:28 | CON ---
Date of Consultation: 02/17/2022 Reason For Consultation: Upper GI bleed with coffee-ground emesis and anemia. History Of Present Illness: Patient is an 81-year-old white female with history of end-stage dementia, Alzheimer disease, GERD, TIA, neuropathy, irritable bowel syndrome, migraine headaches. Patient presented to the hospital after 1 episode of coffee-ground emesis. In the emergency room, found to be anemic with hemoglobin of 9.8 with MCV of 97. There is only 1 reported episode of coffee- ground emesis as per chart review. The patient is DNR/DNI from group home. Son says she is willing to have blood transfusion and upper endoscopies or any type of endoscopic procedure to assess the source of the bleeding. Past Medical History: Significant for end-stage dementia/Alzheimer disease, gastroesophageal reflux disease, TIA, neuropathy, irritable bowel syndrome, migraine headaches. Medications: Include Aricept, Namenda, Sumatriptan, Dulcolax, Jevity tube feeds, Blanchard, tramadol, metoprolol, Ultram. Allergies: PENICILLIN. Social History: She lives at group home. No tobacco. No alcohol. Family History: Not obtainable from the patient. Physical Examination: Vital Signs: Patient is afebrile, pulse 98, respirations 18, blood pressure 115/55, O2 saturation 100%. General: Elderly female, lying in bed, in no acute distress. HEENT: Normocephalic, atraumatic. Anicteric. Pupils equal, round, and reactive to light. Neck: Supple, though patient has kyphosis with neck protruding forward. Cardiac: Regular rate and rhythm. No gallops or rubs. Abdomen: Positive bowel sounds. Soft, nontender, nondistended. No hepatosplenomegaly. Extremities: No clubbing, cyanosis or edema, though some contracture. The patient has limited movement in bed. Severe dementia prevents her from following commands or answering questions appropriately. Laboratory Data: Patient has a white count of 13.9, hemoglobin 9.8, hematocrit 28.1, MCV of 97, platelet count of 319, polys of 86%, lymphocytes 9%, monocytes 4%. The patient's sodium 138, potassium 4.4, chloride 103, bicarb 29, BUN of 42, creatinine of 1.15, glucose 127, calcium 10.6, total bilirubin 1.0, AST of 202, ALT of 205, alkaline phosphatase 108, total protein 6.6, albumin 2.8. Pre- albumin pending. Serology: COVID-[address] abdomen and pelvis revealed PEG tube in place. Circumferential wall thickening edema of the distal esophagus on the partially image. GE junction leger that appear normal with thickening. Intra and extrahepatic biliary stent shows questionable bile duct dilatation. No duodenal ulcer. Small bilateral pleural effusions and partial atelectasis. Large volume stool, dilated rectum is 8.5 cm, and a tortuous redundant colon. Gallbladder wall appears slightly thickened. Impression: 1. Upper gastrointestinal bleed, coffee-ground emesis, needs investigated with EGD. 2. Anemia secondary to coffee-ground emesis, probably hemoglobin at . 3. Possible esophagitis with circumferential wall thickening in the distal esophagus noted. 4. Possible gallbladder disease with gallbladder wall appearing slightly thickened. There is a questionable duct stone with intra and extrahepatic biliary dilatation noted. 5. A large amount of stool in the rectum dilates to 8.5 cm, large stool volume and a tortuous redundant colon noted. Recommendations: 1. Proceed with EGD to evaluate upper GI bleed. 2. Serial H and H and transfuse p.r.n. 3. PPI therapy. 4. Check HIDA scan. 5. Check MRCP. 6. Enemas & Miralax. KELTON/MADDY Voice ID: [id number] Report ID: [id number] [facility]
[2022-02-17] MEDS: DONEPEZIL HCL 5 MG TAB PO SCH (22:10)
[2022-02-17] MEDS: MEMANTINE HCL 10 MG TABLET PO SCH (22:10)
[2022-02-17] MEDS: POLYETHYL GLY 3350 17 GM/DOSE PO SCH (22:10)
[2022-02-18 06:02] LABS: Absolute Lymphocytes (CBC) 1.1 K/uL (0.7-4.9); Hematocrit 24.3 % (36.0-45.0); Lymphocytes % 12.6 % (15.3-44.8); MCV 96.3 fL (80-100); MPV 7.2 fL (7.6-11.3); RBC Red Blood Cell Count 2.52 M/uL (3.86-4.86)
[2022-02-18 06:27] LABS: Albumin 2.4 g/dL (3.4-5.0); Bilirubin Total 0.4 mg/dL (0.2-1.0); Potassium 3.1 mmol/L (3.5-5.1); Protein, Total 5.7 g/dL (6.4-8.2); Thyroid Stimulating Hormone 1.78 uIU/mL (0.360-3.740)
[2022-02-18] MEDS: D5 0.45 NS 1,000 ML IV SCH ×2 (06:35→18:55)
[2022-02-18] MEDS: SUCRALFATE 1GM/10ML UCUP PO SCH ×4 (07:46→22:19)
[2022-02-18] MEDS: POLYETHYL GLY 3350 17 GM/DOSE PO SCH ×3 (08:09→22:19)
[2022-02-18] MEDS: MEMANTINE HCL 10 MG TABLET PO SCH ×2 (08:09→22:20)
[2022-02-18] MEDS ORDERED: HOME MED 1 EA UNK (Donepezil Hcl [Aricept] 10 MG Tablet) PO SCH (09:00)
[2022-02-18] MEDS: PANTOPRAZOLE 40 MG INJ IVP SCH ×2 (09:00→22:20)
[2022-02-18] MEDS ORDERED: PANTOPRAZOLE 40 MG INJ IVP SCH (09:00)
[2022-02-18] MEDS: JEVITY 1.2 CAL LIQUID 1,000 ML BOT RTH SCH (10:33)
--- NOTE | 2022-02-18 14:44 | P.PN ---
Subjective Date of Service: 02/18/22 Primary Care Provider: Lenore Chief Complaint: Upper GI Bleed Subjective: No new changes Review of Systems is unable to be obtained Physical Examination - Vital Signs Temperature: 97.1 F Blood Pressure: 137/65 Pulse: 86 Respirations: 16 Pulse Ox (%): 98 - Physical Exam General: Demented HEENT: Atraumatic, PERRLA, EOMI Neck: Supple, JVD not distended Respiratory: Clear to auscultation bilaterally, Normal air movement Cardiovascular: Regular rate/rhythm, Normal S1 S2 Gastrointestinal: Normal bowel sounds, No tenderness Musculoskeletal: No tenderness Integumentary: No rashes Neurological: Normal speech, Normal tone, Normal affect Lymphatics: No axilla or inguinal lymphadenopathy Assessment And Plan - Current Problems (Diagnosis) (1) Upper GI bleed Current Visit: Yes Status: Acute Plan: Have discussed the patient with Dr. Doan. Possible EGD today. Will keep her in house 72 hours. Will monitor her HB daily. Start IV protonix. The son agrees to blood transfusion and egd. 02/18 esophagitis with hemorage. Will continue PPI and carfate. ok to feed per Dr. Doan (2) Anemia Current Visit: No Status: Acute Plan: monitor her hct and will transfuse as necessary 10 Has fallen. Will continue to monitor. If continues to fall. Will transfuse Qualifiers: Anemia type: iron deficiency Iron deficiency anemia type: chronic blood loss Qualified Code(s): D50.0 - Iron deficiency anemia secondary to blood loss (chronic) (3) Dementia Current Visit: No Status: Chronic Plan: Patient is at her baseline. She is mostly peg feeding. Will keep her npo. Will keep her on fall precautions. Qualifiers: Dementia type: unspecified type Dementia severity: severe Dementia behavioral or psychological symptom: without behavioral, psychotic, or mood disturbance or anxiety Qualified Code(s): F03.C0 - Unspecified dementia, severe, without behavioral disturbance, psychotic disturbance, mood disturbance, and anxiety Discharge Plan: Home Plan to discharge in: 48 Hours - Code Status/Comfort Care Code Status Assessed: No Physician Review: Patient Assessed, Agree with Above Assessment and Plan Critical Care: No Time Spent Managing PTS Care (In Minutes): 25
[2022-02-18] MEDS: DONEPEZIL HCL 5 MG TAB PO SCH (22:20)
[2022-02-19] MEDS: D5 0.45 NS 1,000 ML IV SCH (05:45)
[2022-02-19] MEDS: JEVITY 1.2 CAL LIQUID 1,000 ML BOT RTH SCH ×2 (05:47→22:38)
[2022-02-19 06:58] LABS: Absolute Lymphocytes (CBC) 0.9 K/uL (0.7-4.9); Hematocrit 26.8 % (36.0-45.0); Lymphocytes % 9.7 % (15.3-44.8); MCV 97.1 fL (80-100); MPV 7.9 fL (7.6-11.3); RBC Red Blood Cell Count 2.76 M/uL (3.86-4.86)
[2022-02-19 07:04] LABS: Albumin 2.5 g/dL (3.4-5.0); Bilirubin Total 0.3 mg/dL (0.2-1.0)
[2022-02-19] MEDS: SUCRALFATE 1GM/10ML UCUP PO SCH ×4 (07:42→22:36)
[2022-02-19] MEDS: MEMANTINE HCL 10 MG TABLET PO SCH ×2 (08:32→22:37)
[2022-02-19] MEDS: POLYETHYL GLY 3350 17 GM/DOSE PO SCH ×3 (08:32→22:36)
[2022-02-19] MEDS: PANTOPRAZOLE 40 MG INJ IVP SCH ×2 (08:52→22:36)
--- NOTE | 2022-02-19 11:16 | P.PN ---
Subjective Date of Service: 02/19/22 Primary Care Provider: Lenore Chief Complaint: Upper GI Bleed Subjective: No new changes Review of Systems is unable to be obtained Physical Examination - Vital Signs Temperature: 97.5 F Blood Pressure: 125/57 Pulse: 106 Respirations: 16 Pulse Ox (%): 99 - Physical Exam General: Demented HEENT: Atraumatic, PERRLA, EOMI Neck: Supple, JVD not distended Respiratory: Clear to auscultation bilaterally, Normal air movement Cardiovascular: Regular rate/rhythm, Normal S1 S2 Gastrointestinal: Normal bowel sounds, No tenderness Musculoskeletal: No tenderness Integumentary: No rashes Neurological: Normal speech, Normal tone, Normal affect Lymphatics: No axilla or inguinal lymphadenopathy Assessment And Plan - Current Problems (Diagnosis) (1) Upper GI bleed Current Visit: Yes Status: Acute Plan: Have discussed the patient with Dr. Doan. Possible EGD today. Will keep her in house 72 hours. Will monitor her HB daily. Start IV protonix. The son agrees to blood transfusion and egd. 02/19 Patient hb is stable improved to 9.2 Will continue monitoring hb. Have discussed with son and daughter in law for 15 min (2) Anemia Current Visit: No Status: Acute Plan: monitor her hct and will transfuse as necessary 02/19 improving Qualifiers: Anemia type: iron deficiency Iron deficiency anemia type: chronic blood loss Qualified Code(s): D50.0 - Iron deficiency anemia secondary to blood loss (chronic) (3) Dementia Current Visit: No Status: Chronic Plan: Patient is at her baseline. She is mostly peg feeding. Will keep her npo. Will keep her on fall precautions. Qualifiers: Dementia type: unspecified type Dementia severity: severe Dementia behavioral or psychological symptom: without behavioral, psychotic, or mood disturbance or anxiety Qualified Code(s): F03.C0 - Unspecified dementia, severe, without behavioral disturbance, psychotic disturbance, mood disturbance, and anxiety Discharge Plan: Home Plan to discharge in: 24 Hours - Code Status/Comfort Care Code Status Assessed: No Physician Review: Patient Assessed, Agree with Above Assessment and Plan Critical Care: No Time Spent Managing PTS Care (In Minutes): 30
[2022-02-19] MEDS ORDERED: POTASSIUM 25 MEQ EFFERV TAB PO ONE (13:00)
[2022-02-19] MEDS: DONEPEZIL HCL 5 MG TAB PO SCH (22:37)
[2022-02-20 06:48] LABS: Hematocrit 25.4 % (36.0-45.0); Lymphocytes % 11.7 % (15.3-44.8); MCV 96.9 fL (80-100); MPV 7.5 fL (7.6-11.3); RBC Red Blood Cell Count 2.62 M/uL (3.86-4.86)
[2022-02-20 07:02] LABS: Albumin 2.6 g/dL (3.4-5.0); Bilirubin Total 0.3 mg/dL (0.2-1.0); Potassium 3.4 mmol/L (3.5-5.1); Protein, Total 6.1 g/dL (6.4-8.2)
[2022-02-20] MEDS ORDERED: POTASSIUM 25 MEQ EFFERV TAB PO ONE (07:27)
[2022-02-20] MEDS: SUCRALFATE 1GM/10ML UCUP PO SCH ×2 (08:45→11:44)
[2022-02-20] MEDS: MEMANTINE HCL 10 MG TABLET PO SCH (08:45)
[2022-02-20] MEDS: PANTOPRAZOLE 40 MG INJ IVP SCH (08:45)
[2022-02-20] MEDS: POLYETHYL GLY 3350 17 GM/DOSE PO SCH ×2 (08:45→14:00)
[2022-02-20 10:01] VITALS: O2SAT 98
--- NOTE | 2022-02-20 12:05 | P.DS ---
Admission Date: 02/17/22 Discharge Date: 02/20/22 Primary Care Provider: Lenore Disposition: ROUTINE DISCHARGE Discharge Condition: GOOD Reason for Admission: Upper GI Bleed - Problems (1) Upper GI bleed Current Visit: Yes Status: Acute (2) Anemia Current Visit: No Status: Acute Qualifiers: Anemia type: iron deficiency Iron deficiency anemia type: chronic blood loss Qualified Code(s): D50.0 - Iron deficiency anemia secondary to blood loss (chronic) (3) Dementia Current Visit: No Status: Chronic Qualifiers: Dementia type: unspecified type Dementia severity: severe Dementia behavioral or psychological symptom: without behavioral, psychotic, or mood disturbance or anxiety Qualified Code(s): F03.C0 - Unspecified dementia, severe, without behavioral disturbance, psychotic disturbance, mood disturbance, and anxiety Brief History of Present Illness: Patient was brought to the ER due to 1 episode of coffee ground emesis. The patient is a bedbound [facility] patient. She is non verbal and has a peg tube. Have called the patients son. She has been throwing up for the past few days. However mostly clear fluid. The patient had an episode of coffee grounds last night and he called EMS. She is a dnr/DNI. However the son said he is willing to have blood transfusions and EGD's Hospital Course: Patient was admitted and had a scope done. She has esophageal ulcer. Dr. Doan did the procedure She was not able to sit still for an MRCP. The patient HB was stable for the last 3 days. Will discharge her home. She can follow up with Dr. Doan for follow up care and if they want the peg tube replaced. Thank you for allowing me to take part in her care. Vital Signs/Physical Exam: Temp Pulse Resp BP Pulse Ox 97.1 F 100 H 16 120/62 98 02/20/22 08:00 02/20/22 08:00 02/20/22 08:00 02/20/22 08:00 02/20/22 08:00 General: Demented HEENT: Atraumatic, PERRLA, EOMI Neck: Supple, JVD not distended Respiratory: Clear to auscultation bilaterally, Normal air movement Cardiovascular: Regular rate/rhythm, Normal S1 S2 Gastrointestinal: Normal bowel sounds, No tenderness Musculoskeletal: No tenderness Integumentary: No rashes Neurological: Normal speech, Normal tone, Normal affect Lymphatics: No axilla or inguinal lymphadenopathy Laboratory Data at Discharge: WBC 8.10 K/uL (4.3-10.9) 02/20/22 06:20 Hgb 8.9 g/dL (12.0-15.0) L 02/20/22 06:20 Hct 25.4 % (36.0-45.0) L 02/20/22 06:20 Plt Count 315 K/uL (152-406) 02/20/22 06:20 Sodium 142 mmol/L (136-145) 02/20/22 06:20 Potassium 3.4 mmol/L (3.5-5.1) L 02/20/22 06:20 BUN 23 mg/dL (7-18) H 02/20/22 06:20 Creatinine 0.86 mg/dL (0.55-1.3) 02/20/22 06:20 Glucose 126 mg/dL (74-106) H 02/20/22 06:20 Total Bilirubin 0.3 mg/dL (0.2-1.0) 02/20/22 06:20 AST 51 U/L (15-37) H 02/20/22 06:20 ALT 126 U/L (12-78) H 02/20/22 06:20 Alkaline Phosphatase 102 U/L (45-117) 02/20/22 06:20 Home Medications: Donepezil HCl [Aricept] 10 mg PO DAILY 05/02/21 Memantine HCl [Namenda*] 10 mg PO BID 05/02/21 SUMAtriptan succinate [Sumatriptan Succinate] 25 mg PO DAILY 05/02/21 Bisacodyl [Dulcolax*] 10 mg [place] DAILY PRN #30 supp 05/16/21 Jevity 1.2 Sander Liquid 0 ml RTH CONT PRN bot 05/16/21 Medihoney [Medihoney Woundcare Gel*] 1 appl TOP DAILY #1 tube 05/16/21 traMADol HCL [Ultram*] 25 mg FT Q8H PRN #20 tab 05/16/21 Metoprolol Tartrate [Lopressor*] 0.5 tab FT BID 30 Days #30 tab 05/18/21 Tramadol HCl [Ultram] 0.5 tab FT Q8H PRN #20 tablet 05/18/21 Pantoprazole Sodium [Protonix] 40 mg PO DAILY 90 Days #90 tab 02/20/22 Sucralfate [Carafate*] 1 ml PO TID* 30 Days #900 ml 02/20/22 New Medications: Sucralfate [Carafate*] 1 ml PO TID* 30 Days #900 ml Pantoprazole Sodium [Protonix] 40 mg PO DAILY 90 Days #90 tab Activity: Fall precautions Followup: Andrea Rosado MD [ASSOCIATE-ACTIVE - CAN ADMIT] - 1-2 Weeks Diomedes Grover MD [Primary Care Provider] - 1 Week Physician Review: Patient Assessed, Agree with Above Assessment and Plan Time spent managing pt's care (in minutes): 30
[2022-02-20 13:28] VITALS: BP 139/61; TEMP 98.5
== END 2022-02-20 15:21 | disposition home or self-care (01) | DRG 382 ==
LOC: SUPCPDRO 04:59 → ER 04:59 → ERHOLD 09:55 → 4TH 13:47
PROVIDERS: ADMIT Internal Medicine; ATTEND Internal Medicine
PROC: 0DB78ZX Excision of Stomach, Pylorus, Via Natural or Artificial Opening Endoscopic, Diagnostic (ICD-10-PCS; principal; 2022-02-17 14:00)
DX: K22.11 Ulcer of esophagus with bleeding (principal); K21.01 Gastro-esophageal reflux disease with esophagitis, with bleeding; K29.70 Gastritis, unspecified, without bleeding; D50.0 Iron deficiency anemia secondary to blood loss (chronic); G30.9 Alzheimer's disease, unspecified; F02.80 Dementia in other diseases classified elsewhere, unspecified severity, without behavioral disturbance, psychotic disturbance, mood disturbance, and anxiety; Z66 Do not resuscitate; Z88.0 Allergy status to penicillin; Z74.01 Bed confinement status; Z86.73 Personal history of transient ischemic attack (TIA), and cerebral infarction without residual deficits; Z79.899 Other long term (current) drug therapy; Z20.822 Contact with and (suspected) exposure to COVID-19
CPT/HCPCS: 36415; 51702; 74177; 80053; 82947; 84132; 84134; 84443; 85014; 85025; 85044; 86850; 86900; 86901; 87811; 88305; 88312; 96374; 96375; 99284; C9113; J0171; J2001; J2405; J2704; J7120; J7799; Q9967

== ENCOUNTER 2022-06-05 19:12 | Inpatient (IN) | payer OTHER ==
[2022-06-05 20:09] LABS: Urine Blood 3+ (Negative); Urine Glucose Negative (Negative); Urine Protein 2+ (Negative); Urine Specific Gravity 1.015 (1.005-1.030); Urine pH 7.5 (5.0-7.0)
[2022-06-05 20:17] LABS: Calcium Oxalate Crystals- Ur Few /HPF (None Seen); Urine Bacteria 20-50 /HPF (<20); Urine Mucus Slight /HPF (None Seen); Urine RBC >50 /HPF (None Seen); Urine WBC Clump Occasional /HPF (None Seen)
[2022-06-05 21:11] LABS: Absolute Lymphocytes (CBC) 1.6 K/uL (0.7-4.9); Hematocrit 27.6 % (36.0-45.0); Lymphocytes % 12.3 % (15.3-44.8); MCV 90.2 fL (80-100); MPV 7.4 fL (7.6-11.3); Protime INR 1.46; RBC Red Blood Cell Count 3.07 M/uL (3.86-4.86)
[2022-06-05 21:21] LABS: SARS-COV-2 RT PCR NEGATIVE (NEGATIVE)
[2022-06-05 21:30] LABS: Magnesium 2.5 mg/dL (1.6-2.4); Potassium 4.3 mmol/L (3.5-5.1)
--- NOTE | 2022-06-05 21:38 | RAD REPORT ---
EXAM DESCRIPTION: RAD - Chest Single View - 06/05/2022 8:17 pm CLINICAL HISTORY: COUGH COMPARISON: Portable 03/10/2021 TECHNIQUE: AP portable chest image was obtained 06/05/2022 8:17 pm . FINDINGS: Lungs are parotid, accentuated by shallow inspiration. No peripheral mass or consolidation . Chronic lung pattern could mask interstitial edema or infiltrate. Heart and vasculature are normal. No measurable pleural effusion and no pneumothorax. No acute bony abnormality seen. No acute aortic findings suspected. IMPRESSION: Chronic interstitial lung pattern. Severity of chronic pattern could mask superimposed edema or infiltrate.
[2022-06-05] MEDS ORDERED: NA CHLORIDE 0.9% 500 ML ONE ×3 (21:48→23:54)
--- NOTE | 2022-06-05 22:38 | ER ---
Nurse's Notes [facility] Name: Hattie Quevedo Age: 81 yrs Sex: Female : 1940 Arrival Date: 06/05/2022 Time: 19:14 Bed 16 Private MD: Diagnosis: UTI/ Urinary tract infection, site not specified;Severe sepsis with septic shock Presentation: 06/05 19:15 Chief complaint: EMS states: called out for cough, fever, decreased urine output. pt as6 has hx of uti. Onset of symptoms was June 04, 2022. 19:15 Method Of Arrival: EMS: [facility] as6 19:25 Coronavirus screen: At this time, the client does not indicate any symptoms associated as6 with coronavirus-19. Ebola Screen: No symptoms or risks identified at this time. Initial Sepsis Screen: Does the patient meet any 2 criteria? No. Patient's initial sepsis screen is negative. Does the patient have a suspected source of infection? No. Patient's initial sepsis screen is negative. Risk Assessment: Do you want to hurt yourself or someone else? Patient reports no desire to harm self or others. 19:25 Acuity: JOSEP 3 as6 Historical: - Allergies: 20:47 PENICILLINS; as6 - Home Meds: 20:47 trazodone 50 mg Oral tab 1 tab four times a day [Active]; promethazine 25 mg Oral tab 1 as6 tab once daily [Active]; donepezil 10 mg Oral tab 1 tab once daily [Active]; memantine 10 mg Oral tab 1 tab 2 times per day [Active]; metoprolol tartrate 25 mg Oral tab 1 tab once daily [Active]; gabapentin 300 mg Oral cap 1 cap 3 times per day [Active]; pantoprazole 40 mg oral grps 1 packet once daily [Active]; - PMHx: 20:47 Dementia; TIA; Sleep Apnea; neuropathy; Migraine; Irritable bowel syndrome; GI Bleed; as6 GERD; - PSHx: 20:47 g tube; as6 - Immunization history:: Adult Immunizations up to date. - Social history:: Smoking status: Patient denies any tobacco usage or history of. Screenin:27 [facility] ED Fall Risk Assessment (Adult) Score/Fall Risk Level 0 - 2 = Low Risk. Abuse as6 screen: Denies threats or abuse. Denies injuries from another. Nutritional screening: No deficits noted. Tuberculosis screening: No symptoms or risk factors identified. Assessment: 19:20 General: Appears unkempt, Behavior is calm, quiet. General: Reports fever for. Pain: as6 Unable to use pain scale. Patient is disoriented. FLACC scale score is 1 out of 10. Neuro: Level of Consciousness is awake, Oriented to none pt opens eyes to verbal stimuli. family reports pt is at baseline . Respiratory: Respiratory effort is even, unlabored, Respiratory pattern is regular, symmetrical, Parent/caregiver reports the patient having cough that is. GI: PEG tube. : Cox in place. Musculoskeletal: pt contracted. 21:33 General: family at bedside . as6 21:45 General: provider aware of low BP. as6 Vital Signs: 19:24 BP 102 / 51; Pulse 87; Resp 18 S; Temp 98.8(A); Pulse Ox 100% on R/A; Weight 81.65 kg; as6 20:30 BP 111 / 85; Pulse 70; Resp 17 S; Pulse Ox 99% on R/A; as6 21:33 BP 95 / 39; Pulse 64; Resp 18 S; Temp 97.6(A); Pulse Ox 100% on R/A; as6 22:00 BP 120 / 42; Pulse 70; Resp 17 S; Pulse Ox 100% on R/A; as6 22:30 BP 81 / 42; Pulse 56; Resp 20 S; Pulse Ox 99% on R/A; as6 22:58 BP 82 / 45; Pulse 54; Resp 21 S; Pulse Ox 99% on R/A; as6 23:07 BP 96 / 56; Pulse 76; Resp 14 S; Pulse Ox 100% on R/A; as6 24 00:00 BP 109 / 59; Pulse 78; Resp 12 S; Pulse Ox 100% on R/A; as6 00:45 BP 106 / 47; Pulse 71; Resp 21 S; Pulse Ox 99% on R/A; as6 02:00 BP 119 / 52; Pulse 82; Resp 14 S; Pulse Ox 100% on R/A; as6 ED Course: 06/05 19:14 Patient arrived in ED. mw2 19:15 Igor Forte, RN is Primary Nurse. as6 19:15 Arm band placed on. as6 19:16 Krish Bennett PA is PHCP. cp 19:16 Javi Ballard MD is Attending Physician. cp 19:25 Triage completed. as6 19:40 Inserted saline lock: 22 gauge in right hand, using aseptic technique. Maintain EMS IV. as6 Dressing intact. Site clean \T\ dry. Gauge \T\ site: 18g right forearm . 20:19 XRAY Chest (1 view) In Process Unspecified. EDMS 21:27 Placed in gown. Bed in low position. Call light in reach. Side rails up X2. Client as6 placed on continuous cardiac and pulse oximetry monitoring. NIBP monitoring applied. 22:38 Diomedes Grover MD is Hospitalizing Provider. cp 06/06 02:24 No provider procedures requiring assistance completed. Patient admitted, IV remains in as6 place. Administered Medications: 06/05 21:50 Drug: NS 0.9% 500 ml Route: IV; Rate: bolus; Site: right forearm; as6 06/06 02:25 Follow up: Response: No adverse reaction; IV Status: Completed infusion; IV Intake: as6 500ml 06/05 23:06 Drug: Rocephin (cefTRIAXone) 1 grams Route: IV; Rate: calculated rate; Site: right as6 forearm; 06/06 02:25 Follow up: Response: No adverse reaction; IV Status: Completed infusion; IV Intake: [id number] 06/05 23:06 Drug: NS 0.9% 500 ml Route: IV; Rate: bolus; Site: right forearm; as6 06/06 02:26 Follow up: Response: No adverse reaction; IV Status: Completed infusion; IV Intake: as6 500ml 06/05 23:55 Drug: NS 0.9% 620 ml Route: IV; Rate: bolus; Site: right forearm; as6 06/06 02:26 Follow up: Response: No adverse reaction; IV Status: Completed infusion; IV Intake: as6 620ml Medication: 06/05 21:27 VIS not applicable for this client. as6 Intake: 06/06 02:25 IV: 500ml; Total: 500ml. 02:25 IV: 50ml; Total: 550ml. 02:26 IV: 500ml; Total: 1050ml. as6 02:26 IV: 620ml; Total: 1670ml. as6 Outcome: 06/05 22:38 Decision to Hospitalize by Provider. jermain 06/06 02:25 Admitted to ER Hold. Please see [facility] for further documentation. as6 Condition: stable Instructed on the need for admit. 14:34 Patient left the ED. db Signatures: Dispatcher [employer] EDMS Krish Bennett PA PA cp Gatti, MyKena mw2 Igor Forte RN RN as6 Rocio Bustillo RN RN db
--- NOTE | 2022-06-05 22:38 | EDPHYS ---
Physician Documentation [facility] Name: Hattie Quevedo Age: 81 yrs Sex: Female : 1940 Arrival Date: 06/05/2022 Time: 19:14 Bed 16 Private MD: ED Physician Javi Ballard HPI: 06/05 19:30 This 81 yrs old Female presents to ER via EMS with complaints of Cough, Fever. cp 19:30 The patient reports fever, not measured (subjective). cp 19:30 Onset: The symptoms/episode began/occurred today. Associated signs and symptoms: cp Pertinent positives: cough, Pertinent negatives: altered mental status, diarrhea, vomiting. Severity of symptoms: in the emergency department the symptoms are unchanged despite home interventions. Unable to obtain HPI due to baseline dementia. Patient lives at home with son who called EMS due to concern for fever, cough and possible UTI. Historical: - Allergies: 20:47 PENICILLINS; as6 - Home Meds: 20:47 trazodone 50 mg Oral tab 1 tab four times a day [Active]; promethazine 25 mg Oral tab 1 as6 tab once daily [Active]; donepezil 10 mg Oral tab 1 tab once daily [Active]; memantine 10 mg Oral tab 1 tab 2 times per day [Active]; metoprolol tartrate 25 mg Oral tab 1 tab once daily [Active]; gabapentin 300 mg Oral cap 1 cap 3 times per day [Active]; pantoprazole 40 mg oral grps 1 packet once daily [Active]; - PMHx: 20:47 Dementia; TIA; Sleep Apnea; neuropathy; Migraine; Irritable bowel syndrome; GI Bleed; as6 GERD; - PSHx: 20:47 g tube; as6 - Immunization history:: Adult Immunizations up to date. - Social history:: Smoking status: Patient denies any tobacco usage or history of. ROS: 19:35 Constitutional: Negative for fever. cp 19:35 Respiratory: Positive for cough. 19:35 Neuro: Negative for altered mental status. 19:35 Unable to obtain ROS due to baseline dementia. Exam: 19:40 Constitutional: The patient appears in no acute distress, non-diaphoretic, non-toxic, cp well developed, well nourished. 19:40 Head/Face: Normocephalic, atraumatic. cp 19:40 Eyes: Pupils: equal, round, and reactive to light and accomodation, Conjunctiva: normal, no exudate, no injection, Sclera: no appreciated abnormality, Lids and lashes: appear normal, bilaterally. 19:40 ENT: External ear(s): are unremarkable, Nose: is normal, Mouth: Lips: dry, Oral mucosa: dry, Posterior pharynx: is normal, airway is patent, no erythema, no exudate. 19:40 Neck: ROM/movement: is normal, is supple, no meningismus, no nuchal rigidity. 19:40 Chest/axilla: Inspection: normal. 19:40 Cardiovascular: Rate: normal, Rhythm: regular, Edema: is not appreciated, JVD: is not appreciated. 19:40 Respiratory: the patient does not display signs of respiratory distress, Respirations: labored breathing, is not present, shallow respirations, that is mild, Breath sounds: bronchial sounds, that are mild, are heard diffusely, stridor, is not appreciated, + upper airway congestion. wheezing: is not appreciated. 19:40 Abdomen/GI: Inspection: abdomen appears normal, Palpation: abdomen is soft and non-tender, in all quadrants. 19:40 Skin: cellulitis, is not appreciated, no rash present. 19:40 Neuro: Orientation: no acute changes, per EMS, Mentation: no acute changes, per EMS, Motor: the patient is contracted. 20:08 ECG was reviewed by the Attending Physician. cp Vital Signs: 19:24 BP 102 / 51; Pulse 87; Resp 18 S; Temp 98.8(A); Pulse Ox 100% on R/A; Weight 81.65 kg; as6 20:30 BP 111 / 85; Pulse 70; Resp 17 S; Pulse Ox 99% on R/A; as6 21:33 BP 95 / 39; Pulse 64; Resp 18 S; Temp 97.6(A); Pulse Ox 100% on R/A; as6 22:00 BP 120 / 42; Pulse 70; Resp 17 S; Pulse Ox 100% on R/A; as6 22:30 BP 81 / 42; Pulse 56; Resp 20 S; Pulse Ox 99% on R/A; as6 22:58 BP 82 / 45; Pulse 54; Resp 21 S; Pulse Ox 99% on R/A; as6 23:07 BP 96 / 56; Pulse 76; Resp 14 S; Pulse Ox 100% on R/A; as6 24 00:00 BP 109 / 59; Pulse 78; Resp 12 S; Pulse Ox 100% on R/A; as6 00:45 BP 106 / 47; Pulse 71; Resp 21 S; Pulse Ox 99% on R/A; as6 02:00 BP 119 / 52; Pulse 82; Resp 14 S; Pulse Ox 100% on R/A; as6 MDM: 06/05 19:18 Patient medically screened. cp 23:49 ED course: Patient meets criteria for severe sepsis with septic shock. A) Infection cp source: urine, SIRS criteria: WBC >13, Respiratory rate of 21, Hypotensive with 2 documented readings of systolic pressure < 90. Due to elevated BNP and concern for CHF will give total fluid of 20 cc/kg. 23:50 Data reviewed: vital signs, nurses notes, lab test result(s), EKG, radiologic studies, cp plain films, I have discussed the patient's presentation/case with the attending Emergency Department Physician;. 23:50 Consideration of Admission/Observation Patient was admitted/placed on observation. cp Management of patient was discussed with the following: Primary Care Provider: DR Grover who will admit after discussing patient. Test considered but Not performed: Other Details CT head. Historians other than the Patient: EMS: provides initial HPI. Daughter/Son: son provides additional HPI. Care significantly affected by the following chronic conditions: dementia. 06/06 00:20 Post IV fluid administration reassessment for Sepsis: Client not prescribed the 30 cp mL/kg IVF due to: Amount of IVF prescribed: 1620 Sepsis focused reassessment complete. Focused Assessment performed: June 06, 2022 at 00:20 Heart: Regular rate/rhythm noted. Lungs: Noted to be clear bilaterally. Current vital signs reviewed: Yes. 06/05 19:25 Order name: Basic Metabolic Panel; Complete Time: 21:38 cp 06/05 21:38 Interpretation: Normal except: NA 131; GLUC 136; BUN 27; CRE 1.33; GFR 40. cp 06/05 19:25 Order name: CBC with Diff; Complete Time: 21:38 cp 06/05 21:38 Interpretation: Normal except: WBC 13.20; RBC 3.07; HGB 9.4; HCT 27.6; MPV 7.4; JEREL% cp 77.8; LYM% 12.3; NEUT A 10.3. 06/05 19:25 Order name: Magnesium; Complete Time: 21:38 cp 06/05 19:25 Order name: NT PRO-BNP; Complete Time: 21:38 cp 06/05 19:25 Order name: PT-INR; Complete Time: 21:38 cp 06/05 19:25 Order name: Troponin HS; Complete Time: 21:38 cp 06/05 19:25 Order name: COVID-19/FLU A+B; Complete Time: 21:38 cp 06/05 19:25 Order name: Strep; Complete Time: 21:38 cp 06/05 19:25 Order name: Urine Microscopic Only; Complete Time: 21:38 06/05 21:40 Interpretation: Normal except: UWBC >50; URBC >50; UBACT 20-50; UWBC Clump Occasional. 06/05 19:25 Order name: Lactate w/ 2H reflex if indic.; Complete Time: 21:38 06/05 20:10 Order name: Urine Dipstick-Ancillary; Complete Time: 21:38 [facility] 06/05 20:20 Order name: Urine Culture [facility] 06/05 21:02 Order name: Throat Culture [facility] 06/05 22:37 Order name: Blood Culture Adult (2) 06/05 19:25 Order name: XRAY Chest (1 view); Complete Time: 21:39 06/05 19:25 Order name: EKG; Complete Time: 19:26 06/05 19:25 Order name: Cardiac monitoring; Complete Time: 20:26 06/05 19:25 Order name: EKG - Nurse/Tech; Complete Time: 20:26 06/05 19:25 Order name: IV Saline Lock; Complete Time: 20:26 06/05 19:25 Order name: Labs collected and sent; Complete Time: 21:06 06/06 01:15 Order name: Basic Metabolic Panel [facility] 06/06 01:15 Order name: Basic Metabolic Panel [facility] 06/06 01:15 Order name: Basic Metabolic Panel [facility] 06/06 01:15 Order name: CBC with Automated Diff [facility] 06/06 01:15 Order name: CBC with Automated Diff [facility] 01/24 01:15 Order name: CBC with Automated Diff [facility] 06/05 19:25 Order name: O2 Per Protocol; Complete Time: 20:26 cp 06/05 19:25 Order name: O2 Sat Monitoring; Complete Time: 20: cp 06/05 19:25 Order name: Urine Dipstick-Ancillary (obtain specimen); Complete Time: 20:26 cp EC/23 20:08 Rate is 71 beats/min. Rhythm is regular. WA interval is normal. QRS interval is normal. cp QT interval is normal. Interpreted by me. Reviewed by me. Administered Medications: 21:50 Drug: NS 0.9% 500 ml Route: IV; Rate: bolus; Site: right forearm; as06/06 02:25 Follow up: Response: No adverse reaction; IV Status: Completed infusion; IV Intake: as6 500ml 06/05 23:06 Drug: Rocephin (cefTRIAXone) 1 grams Route: IV; Rate: calculated rate; Site: right as6 forearm; 06/06 02:25 Follow up: Response: No adverse reaction; IV Status: Completed infusion; IV Intake: [id number] 06/05 23:06 Drug: NS 0.9% 500 ml Route: IV; Rate: bolus; Site: right forearm; as6 06/06 02:26 Follow up: Response: No adverse reaction; IV Status: Completed infusion; IV Intake: as6 500ml 06/05 23:55 Drug: NS 0.9% 620 ml Route: IV; Rate: bolus; Site: right forearm; as6 06/06 02:26 Follow up: Response: No adverse reaction; IV Status: Completed infusion; IV Intake: as6 620ml Disposition: 22:23 Co-signature as Attending Physician, Javi Ballard MD I reviewed the patient's care rn provided by the Advanced Practice Provider and agree with the diagnosis and treatment plan. Disposition Summary: 06/05/22 22:38 Hospitalization Ordered Provider: Diomedes Grover cp Condition: Stable cp Problem: new cp Symptoms: have improved cp Bed/Room Type: Standard cp Hospitalization Status: Inpatient Admission(06/05/22 23:49) cp Location: Telemetry/MedSurg (Inpatient)(06/06/22 13:39) bd Room Assignment: 428(06/06/22 14:20) ss Diagnosis - UTI/ Urinary tract infection, site not specified cp - Severe sepsis with septic shock cp Forms: - Medication Reconciliation Form cp - SBAR form cp Signatures: Dispatcher [employer] EDMS Meredith Bird bd Javi Ballard MD MD rn Smirch, Shelby, RN RN Krish Egan PA PA cp Rhonda Alvarenga RN RN cg Igor Forte RN RN as6 Corrections: (The following items were deleted from the chart) 06/05 23:49 22:38 Observation cp cp 23:49 22:38 Telemetry/MedSurg (observation) cp cp 23:49 22:38 cp cp 06/06 01:32 06/05 23:49 Telemetry/MedSurg (Inpatient) cp cg 06/06 01:32 06/05 23:49 cp cg 06/06 03:06 06/05 19:50 This 81 yrs old Female presents to ER via EMS with complaints of Cough, cp Fever. cp 06/06 13:39 01:32 [facility] ER HOLD cg bd 13:39 01:32 ERHOLD- cg bd 14:20 13:39 422 bd ss 06/07 05:19 05:17 Constitutional: Negative for fever, cp cp 05:19 05:17 Respiratory: Positive for cough, cp cp 05:19 05:17 Neuro: Negative for altered mental status, cp cp 05:19 05:17 Unable to obtain ROS due to baseline dementia, cp cp 05:30 06/06 00:20 Post IV fluid administration reassessment for Sepsis: Client not prescribed cp the 30 mL/kg IVF due to: Amount of IVF prescribed: 1620 Sepsis focused reassessment complete. Focused Assessment performed: June 06, 2022 at 00:20 Current vital signs reviewed: Yes. Neuro: Neurological examination improved from previous exam. cp
[2022-06-05] MEDS ORDERED: CEFTRIAXONE 1000 MG/VIAL ONE (22:46)
[2022-06-05] MEDS ORDERED: NA CHLORIDE 0.9% 50 ML IV ONE (22:47)
[2022-06-05] MEDS ORDERED: NA CHLORIDE 0.9% 100 ML IV ONE (23:54)
[2022-06-06] MEDS ORDERED: ONDANSETRON 4 MG/2 ML VIAL IV PRN (01:09)
[2022-06-06] MEDS: NA CHLORIDE 0.9% 1,000 ML IV SCH ×3 (02:00→20:42)
[2022-06-06 02:20] VITALS: BMI 29.9
[2022-06-06 03:27] LABS: Absolute Lymphocytes (CBC) 0.9 K/uL (0.7-4.9); Hematocrit 32.7 % (36.0-45.0); Lymphocytes % 10.6 % (15.3-44.8); MCV 90.6 fL (80-100); MPV 7.2 fL (7.6-11.3); RBC Red Blood Cell Count 3.61 M/uL (3.86-4.86)
[2022-06-06 03:31] LABS: Potassium 4.3 mmol/L (3.5-5.1)
[2022-06-06] MEDS ORDERED: NA CHLORIDE 0.9% 1,000 ML ONE (04:53)
[2022-06-06] MEDS: CEFTRIAXONE 1,000 MG in NA CHLORIDE 0.9% 50 ML IVPB SCH ×2 (09:00→21:39)
--- NOTE | 2022-06-06 09:01 | P.HP ---
Certification for Inpatient Patient admitted to: Inpatient With expected LOS: <2 Midnights Patient will require the following post-hospital care: Home Health Services Practitioner: I am a practitioner with admitting privileges, knowledge of patient current condition, hospital course, and medical plan of care. Services: Services provided to patient in accordance with Admission requirements found in Title 42 Section 412.3 of the Code of Federal Regulations Patient History Date of Service: 06/06/22 Primary Care Provider: Lenore Reason for admission: uti, delirium History of Present Illness: Patient is a homebound patient of mine. She has severe dementia and is bed bound. Patient was becoming more confused. her son brought her to the ER. Was found to have a uti. She was kept for safety. She is non verbal and the family is not at the bedside. Allergies Penicillins Adverse Reaction (Verified 05/02/21 00:34) Hives/Rash Home Medications: Donepezil HCl [Aricept] 10 mg PO DAILY 05/02/21 Memantine HCl [Namenda*] 10 mg PO BID 05/02/21 SUMAtriptan succinate [Sumatriptan Succinate] 25 mg PO PRN PRN 05/02/21 Pantoprazole Sodium [Protonix] 40 mg PO DAILY 90 Days #90 tab 02/20/22 Sucralfate [Carafate*] 1 ml PO TID* 30 Days #900 ml 02/20/22 Gabapentin 300 mg PO TID 06/06/22 Metoprolol Tartrate [Lopressor*] 1 tab FT DAILY 06/06/22 Promethazine HCl 25 mg FT BEDTIME 06/06/22 Trazodone [Desyrel*] 1 tab .ROUTE QID 06/06/22 - Past Medical/Surgical History Diabetic: No -: TIA -: [place] -: GERD -: IBS -: DVT -: DEMENTIA -: - Social History Smoking Status: Never smoker Alcohol use: No CD- Drugs: No Caffeine use: No Review of Systems is unable to be obtained Physical Examination - Vital Signs Temperature: 98.3 F Blood Pressure: 143/62 Pulse: 92 Respirations: 13 Pulse Ox (%): 100 - Physical Exam General: Alert, In no apparent distress HEENT: Atraumatic, PERRLA, Mucous membr. moist/pink, EOMI, Sclerae nonicteric Neck: Supple, 2+ carotid pulse no bruit, No LAD, Without JVD or thyroid abnormality Respiratory: Clear to auscultation bilaterally, Normal air movement Cardiovascular: Regular rate/rhythm, Normal S1 S2 Gastrointestinal: Normal bowel sounds, No tenderness Musculoskeletal: No tenderness Integumentary: No rashes Neurological: Normal gait, Normal speech, Normal strength at 5/5 x4 extr, Normal tone, Normal affect Lymphatics: No axilla or inguinal lymphadenopathy - Studies Laboratory Data (last 24 hrs) 06/05/22 20:52: PT 16.1 H, INR 1.46 06/05/22 20:52: WBC 13.20 H, Hgb 9.4 L, Hct 27.6 L, Plt Count 199 06/05/22 20:52: Sodium 131 L, Potassium 4.3, BUN 27 H, Creatinine 1.33 H, Glucose 136 H, Magnesium 2.5 H Microbiology Data (last 24 hrs): 06/05/22 23:43 Blood - Blood Anaerobic Blood Culture - Final 06/05/22 23:03 Blood - Blood Anaerobic Blood Culture - Final 06/05/22 20:25 Throat Group A Streptococcus Rapid Screen - Final Assessment and Plan - Problems (Diagnosis) (1) UTI (urinary tract infection) Current Visit: Yes Status: Acute Plan: will continue ceftriaxone. Keep her for cultures pending. We most likely will get those in 48hrs and we can discharge her on the appropriate antibiotics. Qualifiers: Urinary tract infection type: acute cystitis Hematuria presence: without hematuria Qualified Code(s): N30.00 - Acute cystitis without hematuria (2) Dementia Current Visit: No Status: Chronic Plan: Patient is bed bound. I believe she is on peg feeding. Will restart her medications. Qualifiers: Dementia type: Alzheimer's Alzheimer's disease onset: late onset Dementia severity: severe Dementia behavioral or psychological symptom: without behavioral, psychotic, or mood disturbance or anxiety Qualified Code(s): G30.1 - Alzheimer's disease with late onset; F02.C0 - Dementia in other diseases classified elsewhere, severe, without behavioral disturbance, psychotic disturbance, mood disturbance, and anxiety Discharge Plan: Home Plan to discharge in: 48 Hours - Advance Directives Does patient have a Living Will: No Does patient have a Durable POA for Healthcare: No - Code Status/Comfort Care Code Status Assessed: No Physician Review: Patient Assessed, Agree with Above Assessment and Plan Critical Care: No Time Spent Managing Pts Care (In Minutes): 40
[2022-06-06] MEDS ORDERED: NA CHLORIDE 0.9% 50 ML IV ONE (09:11)
[2022-06-06] MEDS ORDERED: CEFTRIAXONE 1000 MG/VIAL ONE (09:11)
--- NOTE | 2022-06-06 12:26 | EKG ---
Test Date: 2022-06-05 Test Time: 20:02:48 Lead Database Developer: MEASUREMENT RESULTS: Intervals: Rate: 71 WI: 158 QRSD: 82 QT: 376 QTc: 408 [place]: P: 41 WI: 158 QRS: 1 T: 26 INTERPRETIVE STATEMENTS: Normal sinus rhythm Cannot rule out Anterior infarct, age undetermined Abnormal ECG Compared to ECG 05/01/2021 20:44:18 Myocardial infarct finding now present Sinus tachycardia no longer present ST (T wave) deviation no longer present Electronically Signed On 06-06-22 12:24:48 PATTERNATOR by Jesús Akbar
[2022-06-06] MEDS: JEVITY 1.2 CAL LIQUID 1,000 ML BOT FT PRN (13:33)
[2022-06-06] MEDS: TRAZODONE 50 MG TABLET FT SCH ×3 (15:09→21:39)
[2022-06-06] MEDS: GABAPENTIN 300 MG CAP PO SCH ×2 (15:09→21:39)
[2022-06-06] MEDS: DONEPEZIL HCL 5 MG TAB PO SCH (21:39)
[2022-06-06] MEDS: PROMETHAZINE 25 MG TABLET FT SCH (21:39)
[2022-06-06] MEDS: MEMANTINE HCL 10 MG TABLET PO SCH (21:39)
[2022-06-07 04:15] LABS: Absolute Lymphocytes (CBC) 0.9 K/uL (0.7-4.9); Hematocrit 28.3 % (36.0-45.0); Lymphocytes % 12.4 % (15.3-44.8); MCV 90.3 fL (80-100); MPV 7.4 fL (7.6-11.3); RBC Red Blood Cell Count 3.13 M/uL (3.86-4.86)
[2022-06-07 04:36] LABS: Potassium 3.6 mmol/L (3.5-5.1)
[2022-06-07] MEDS: CEFTRIAXONE 1,000 MG in NA CHLORIDE 0.9% 50 ML IVPB SCH ×2 (07:51→21:43)
[2022-06-07] MEDS: TRAZODONE 50 MG TABLET FT SCH ×4 (07:52→21:43)
[2022-06-07] MEDS: PANTOPRAZOLE 40MG TABLET PO SCH (07:52)
[2022-06-07] MEDS: MEMANTINE HCL 10 MG TABLET PO SCH ×2 (07:52→21:43)
[2022-06-07] MEDS: GABAPENTIN 300 MG CAP PO SCH ×3 (07:52→21:43)
[2022-06-07] MEDS: METOPROLOL TAR 25 MG TAB FT SCH (07:52)
--- NOTE | 2022-06-07 08:23 | P.PN ---
Subjective Date of Service: 06/07/22 Primary Care Provider: Lenore Chief Complaint: uti, delirium Subjective: Improving (resting comfortable.) Review of Systems is unable to be obtained Physical Examination - Vital Signs Temperature: 97.1 F Blood Pressure: 135/60 Pulse: 109 Respirations: 17 Pulse Ox (%): 97 - Physical Exam General: Alert, In no apparent distress HEENT: Atraumatic, PERRLA, EOMI Neck: Supple, JVD not distended Respiratory: Clear to auscultation bilaterally, Normal air movement Cardiovascular: Regular rate/rhythm, Normal S1 S2 Gastrointestinal: Normal bowel sounds, No tenderness Musculoskeletal: No tenderness Integumentary: No rashes Neurological: Normal speech, Normal tone, Normal affect Lymphatics: No axilla or inguinal lymphadenopathy - Studies Microbiology Data (last 24 hrs): 06/05/22 23:43 Blood - Blood Anaerobic Blood Culture - Final 06/05/22 23:03 Blood - Blood Anaerobic Blood Culture - Final Assessment And Plan - Current Problems (Diagnosis) (1) UTI (urinary tract infection) Current Visit: Yes Status: Acute Plan: will continue ceftriaxone. Keep her for cultures pending. We most likely will get those in 48hrs and we can discharge her on the appropriate antibiotics. 06/07 awaiting culture report so we can send her home on the appropriate antibiotic Qualifiers: Urinary tract infection type: acute cystitis Hematuria presence: without hematuria Qualified Code(s): N30.00 - Acute cystitis without hematuria (2) Dementia Current Visit: No Status: Chronic Plan: Patient is bed bound. I believe she is on peg feeding. Will restart her medications. Qualifiers: Dementia type: Alzheimer's Alzheimer's disease onset: late onset Dementia severity: severe Dementia behavioral or psychological symptom: without behavioral, psychotic, or mood disturbance or anxiety Qualified Code(s): G30.1 - Alzheimer's disease with late onset; F02.C0 - Dementia in other diseases classified elsewhere, severe, without behavioral disturbance, psychotic disturbance, mood disturbance, and anxiety Discharge Plan: Home Plan to discharge in: 24 Hours - Code Status/Comfort Care Code Status Assessed: No Physician Review: Patient Assessed, Agree with Above Assessment and Plan Critical Care: No Time Spent Managing PTS Care (In Minutes): 20
[2022-06-07] MEDS: NA CHLORIDE 0.9% 1,000 ML IV SCH ×2 (11:41→18:00)
[2022-06-07] MEDS: JEVITY 1.2 CAL LIQUID 1,000 ML BOT FT PRN (12:25)
[2022-06-07] MEDS: DONEPEZIL HCL 5 MG TAB PO SCH (21:43)
[2022-06-07] MEDS: PROMETHAZINE 25 MG TABLET FT SCH (21:43)
[2022-06-08] MEDS: NA CHLORIDE 0.9% 1,000 ML IV SCH ×3 (02:02→17:07)
[2022-06-08] MEDS: JEVITY 1.2 CAL LIQUID 1,000 ML BOT FT PRN ×2 (04:05→17:37)
[2022-06-08] MEDS: GABAPENTIN 300 MG CAP PO SCH ×3 (08:05→21:07)
[2022-06-08] MEDS: CEFTRIAXONE 1,000 MG in NA CHLORIDE 0.9% 50 ML IVPB SCH (08:05)
[2022-06-08] MEDS: PANTOPRAZOLE 40MG TABLET PO SCH (08:06)
[2022-06-08] MEDS: TRAZODONE 50 MG TABLET FT SCH ×4 (08:06→21:07)
[2022-06-08] MEDS: METOPROLOL TAR 25 MG TAB FT SCH (08:06)
[2022-06-08] MEDS: MEMANTINE HCL 10 MG TABLET PO SCH ×2 (08:06→21:07)
--- NOTE | 2022-06-08 08:58 | P.PN ---
Subjective Date of Service: 06/08/22 Primary Care Provider: Lenore Chief Complaint: uti, delirium Subjective: No new changes Review of Systems is unable to be obtained Physical Examination - Vital Signs Temperature: 97.1 F Blood Pressure: 150/65 Pulse: 102 Respirations: 19 Pulse Ox (%): 97 - Physical Exam General: Demented HEENT: Atraumatic, PERRLA, EOMI Neck: Supple, JVD not distended Respiratory: Clear to auscultation bilaterally, Normal air movement Cardiovascular: Regular rate/rhythm, Normal S1 S2 Gastrointestinal: Normal bowel sounds, No tenderness Musculoskeletal: No tenderness Integumentary: No rashes Neurological: Normal speech, Normal tone, Normal affect Lymphatics: No axilla or inguinal lymphadenopathy - Studies Microbiology Data (last 24 hrs): 06/05/22 20:00 Clean Catch Urine [place] Count - Final >100,000 CFU/ML. 06/05/22 20:00 Clean Catch Urine - Final Pseudomonas Aeruginosa 06/05/22 20:25 Throat Culture & Sensitivity - Final NORMAL UPPER RESPIRATORY AMINA GROWN. Assessment And Plan - Current Problems (Diagnosis) (1) UTI (urinary tract infection) Current Visit: Yes Status: Acute Plan: will continue ceftriaxone. Keep her for cultures pending. We most likely will get those in 48hrs and we can discharge her on the appropriate antibiotics. 06/08 Has MDR pseudomonoas. Will need a picc line and 5 days of antibiotics. She was on ceftriaxone. Qualifiers: Urinary tract infection type: acute cystitis Hematuria presence: without hematuria Qualified Code(s): N30.00 - Acute cystitis without hematuria (2) Dementia Current Visit: No Status: Chronic Plan: Patient is bed bound. I believe she is on peg feeding. Will restart her medications. Qualifiers: Dementia type: Alzheimer's Alzheimer's disease onset: late onset Dementia severity: severe Dementia behavioral or psychological symptom: without behavioral, psychotic, or mood disturbance or anxiety Qualified Code(s): G30.1 - Alzheimer's disease with late onset; F02.C0 - Dementia in other diseases classified elsewhere, severe, without behavioral disturbance, psychotic disturbance, mood disturbance, and anxiety Discharge Plan: Home Plan to discharge in: 24 Hours - Code Status/Comfort Care Code Status Assessed: No Physician Review: Patient Assessed, Agree with Above Assessment and Plan Critical Care: No Time Spent Managing PTS Care (In Minutes): 25
[2022-06-08] MEDS: CEFEPIME 2 GM in NA CHLORIDE 0.9% 100 ML IV SCH ×2 (10:19→21:09)
[2022-06-08] MEDS: DONEPEZIL HCL 5 MG TAB PO SCH (21:08)
[2022-06-08] MEDS: PROMETHAZINE 25 MG TABLET FT SCH (21:08)
--- NOTE | 2022-06-09 08:13 | P.PN ---
Subjective Date of Service: 06/09/22 Primary Care Provider: Lenore Chief Complaint: uti, delirium Subjective: No new changes Review of Systems is unable to be obtained Physical Examination - Vital Signs Temperature: 97.4 F Blood Pressure: 112/58 Pulse: 114 Respirations: 18 Pulse Ox (%): 97 - Physical Exam General: Alert, In no apparent distress HEENT: Atraumatic, PERRLA, EOMI Neck: Supple, JVD not distended Respiratory: Clear to auscultation bilaterally, Normal air movement Cardiovascular: Regular rate/rhythm, Normal S1 S2 Gastrointestinal: Normal bowel sounds, No tenderness Musculoskeletal: No tenderness Integumentary: No rashes Neurological: Normal speech, Normal tone, Normal affect Lymphatics: No axilla or inguinal lymphadenopathy - Studies Microbiology Data (last 24 hrs): 06/05/22 20:00 Clean Catch Urine [place] Count - Final >100,000 CFU/ML. 06/05/22 20:00 Clean Catch Urine - Final Pseudomonas Aeruginosa Assessment And Plan - Current Problems (Diagnosis) (1) UTI (urinary tract infection) Current Visit: Yes Status: Acute Plan: will continue ceftriaxone. Keep her for cultures pending. We most likely will get those in 48hrs and we can discharge her on the appropriate antibiotics. 06/09 Has MDR pseudomonoas. Will need a picc line and 5 days of antibiotics. She is on cefepime Qualifiers: Urinary tract infection type: acute cystitis Hematuria presence: without hematuria Qualified Code(s): N30.00 - Acute cystitis without hematuria (2) Dementia Current Visit: No Status: Chronic Plan: Patient is bed bound. I believe she is on peg feeding. Will restart her medications. Qualifiers: Dementia type: Alzheimer's Alzheimer's disease onset: late onset Dementia severity: severe Dementia behavioral or psychological symptom: without behavioral, psychotic, or mood disturbance or anxiety Qualified Code(s): G30.1 - Alzheimer's disease with late onset; F02.C0 - Dementia in other diseases classified elsewhere, severe, without behavioral disturbance, psychotic disturbance, mood disturbance, and anxiety Discharge Plan: Home Plan to discharge in: 24 Hours - Code Status/Comfort Care Code Status Assessed: No Physician Review: Patient Assessed, Agree with Above Assessment and Plan Critical Care: No Time Spent Managing PTS Care (In Minutes): 20
[2022-06-09] MEDS: TRAZODONE 50 MG TABLET FT SCH ×4 (08:55→20:40)
[2022-06-09] MEDS: CEFEPIME 2 GM in NA CHLORIDE 0.9% 100 ML IV SCH ×2 (08:55→20:39)
[2022-06-09] MEDS: GABAPENTIN 300 MG CAP PO SCH ×3 (08:55→20:40)
[2022-06-09] MEDS: MEMANTINE HCL 10 MG TABLET PO SCH ×2 (08:55→20:40)
[2022-06-09] MEDS: PANTOPRAZOLE 40MG TABLET PO SCH (08:56)
[2022-06-09] MEDS: NA CHLORIDE 0.9% 1,000 ML IV SCH ×2 (08:58→10:00)
[2022-06-09] MEDS: JEVITY 1.2 CAL LIQUID 1,000 ML BOT FT PRN (13:44)
[2022-06-09] MEDS: PROMETHAZINE 25 MG TABLET FT SCH (20:40)
[2022-06-09] MEDS: DONEPEZIL HCL 5 MG TAB PO SCH (20:40)
[2022-06-10] MEDS: NA CHLORIDE 0.9% 1,000 ML IV SCH ×2 (01:07→12:09)
[2022-06-10] MEDS ORDERED: METOPROLOL XL 25 MG TAB PO SCH (06:00)
[2022-06-10] MEDS: JEVITY 1.2 CAL LIQUID 1,000 ML BOT RTH SCH (06:08)
[2022-06-10] MEDS: GABAPENTIN 300 MG CAP PO SCH ×3 (08:25→20:18)
[2022-06-10] MEDS: TRAZODONE 50 MG TABLET FT SCH ×4 (08:25→20:18)
[2022-06-10] MEDS: METOPROLOL TAR 50 MG TAB PO SCH (08:25)
[2022-06-10] MEDS: MEMANTINE HCL 10 MG TABLET PO SCH ×2 (08:25→20:18)
[2022-06-10] MEDS: PANTOPRAZOLE 40MG TABLET PO SCH (08:26)
[2022-06-10] MEDS: CEFEPIME 2 GM in NA CHLORIDE 0.9% 100 ML IV SCH ×2 (08:30→20:16)
--- NOTE | 2022-06-10 10:22 | P.PN ---
Subjective Date of Service: 06/10/22 Primary Care Provider: Lenore Chief Complaint: uti, delirium Subjective: No new changes Review of Systems is unable to be obtained Physical Examination - Vital Signs Temperature: 98 F Blood Pressure: 139/90 Pulse: 120 Respirations: 20 Pulse Ox (%): 98 - Physical Exam General: Alert, In no apparent distress HEENT: Atraumatic, PERRLA, EOMI Neck: Supple, JVD not distended Respiratory: Clear to auscultation bilaterally, Normal air movement Cardiovascular: Regular rate/rhythm, Normal S1 S2 Gastrointestinal: Normal bowel sounds, No tenderness Musculoskeletal: No tenderness Integumentary: No rashes Neurological: Normal speech, Normal tone, Normal affect Lymphatics: No axilla or inguinal lymphadenopathy Assessment And Plan - Current Problems (Diagnosis) (1) UTI (urinary tract infection) Current Visit: Yes Status: Acute Plan: will continue ceftriaxone. Keep her for cultures pending. We most likely will get those in 48hrs and we can discharge her on the appropriate antibiotics. 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 Will need a picc line and 5 days of antibiotics. She is on cefepime would be on till Qualifiers: Urinary tract infection type: acute cystitis Hematuria presence: without hematuria Qualified Code(s): N30.00 - Acute cystitis without hematuria (2) Dementia Current Visit: No Status: Chronic Plan: Patient is bed bound. I believe she is on peg feeding. Will restart her medications. Qualifiers: Dementia type: Alzheimer's Alzheimer's disease onset: late onset Dementia severity: severe Dementia behavioral or psychological symptom: without behavioral, psychotic, or mood disturbance or anxiety Qualified Code(s): G30.1 - Alzheimer's disease with late onset; F02.C0 - Dementia in other diseases classified elsewhere, severe, without behavioral disturbance, psychotic disturbance, mood disturbance, and anxiety Discharge Plan: Home Plan to discharge in: 24 Hours - Code Status/Comfort Care Code Status Assessed: No Physician Review: Patient Assessed, Agree with Above Assessment and Plan Critical Care: No Time Spent Managing PTS Care (In Minutes): 20
[2022-06-10] MEDS: PROMETHAZINE 25 MG TABLET FT SCH (20:18)
[2022-06-10] MEDS: DONEPEZIL HCL 5 MG TAB PO SCH (20:18)
[2022-06-11] MEDS: JEVITY 1.2 CAL LIQUID 1,000 ML BOT RTH SCH (01:07)
[2022-06-11] MEDS: NA CHLORIDE 0.9% 1,000 ML IV SCH ×2 (03:25→15:20)
[2022-06-11] MEDS: TRAZODONE 50 MG TABLET FT SCH ×4 (08:38→21:09)
[2022-06-11] MEDS: METOPROLOL TAR 50 MG TAB PO SCH (08:38)
[2022-06-11] MEDS: GABAPENTIN 300 MG CAP PO SCH ×3 (08:38→21:10)
[2022-06-11] MEDS: CEFEPIME 2 GM in NA CHLORIDE 0.9% 100 ML IV SCH ×2 (08:38→21:08)
[2022-06-11] MEDS: MEMANTINE HCL 10 MG TABLET PO SCH ×2 (08:38→21:09)
[2022-06-11] MEDS: PANTOPRAZOLE 40MG TABLET PO SCH (08:53)
--- NOTE | 2022-06-11 12:14 | P.PN ---
Subjective Date of Service: 06/11/22 Primary Care Provider: Lenore Chief Complaint: uti, delirium Subjective: No new changes Review of Systems is unable to be obtained Physical Examination - Vital Signs Temperature: 97.7 F Blood Pressure: 117/55 Pulse: 102 Respirations: 20 Pulse Ox (%): 98 - Physical Exam General: Demented HEENT: Atraumatic, PERRLA, EOMI Neck: Supple, JVD not distended Respiratory: Clear to auscultation bilaterally, Normal air movement Cardiovascular: Regular rate/rhythm, Normal S1 S2 Gastrointestinal: Normal bowel sounds, No tenderness Musculoskeletal: No tenderness Integumentary: No rashes Neurological: Normal speech, Normal tone, Normal affect Lymphatics: No axilla or inguinal lymphadenopathy - Studies Microbiology Data (last 24 hrs): 06/05/22 23:43 Blood - Blood Aerobic Blood Culture - Final No growth in 5 days. 06/05/22 23:43 Blood - Blood Anaerobic Blood Culture - Final 06/05/22 23:03 Blood - Blood Aerobic Blood Culture - Final No growth in 5 days. 06/05/22 23:03 Blood - Blood Anaerobic Blood Culture - Final Assessment And Plan - Current Problems (Diagnosis) (1) UTI (urinary tract infection) Current Visit: Yes Status: Acute Plan: will continue ceftriaxone. Keep her for cultures pending. We most likely will get those in 48hrs and we can discharge her on the appropriate antibiotics. 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 Will need a picc line and 5 days of antibiotics. She is on cefepime would be on till Qualifiers: Urinary tract infection type: acute cystitis Hematuria presence: without hematuria Qualified Code(s): N30.00 - Acute cystitis without hematuria (2) Dementia Current Visit: No Status: Chronic Plan: Patient is bed bound. I believe she is on peg feeding. Will restart her medications. Qualifiers: Dementia type: Alzheimer's Alzheimer's disease onset: late onset Dementia severity: severe Dementia behavioral or psychological symptom: without behavioral, psychotic, or mood disturbance or anxiety Qualified Code(s): G30.1 - Alzheimer's disease with late onset; F02.C0 - Dementia in other diseases classified elsewhere, severe, without behavioral disturbance, psychotic disturbance, mood disturbance, and anxiety Discharge Plan: Home Plan to discharge in: 48 Hours - Code Status/Comfort Care Code Status Assessed: No Physician Review: Patient Assessed, Agree with Above Assessment and Plan Critical Care: No Time Spent Managing PTS Care (In Minutes): 20
--- NOTE | 2022-06-11 20:19 | RAD REPORT ---
EXAM DESCRIPTION: RAD - Chest Single View - 06/10/2022 12:45 am CLINICAL HISTORY: The patient is 81 years old and is Female; PICC placement TECHNIQUE: Frontal view of the chest. COMPARISON: No relevant prior studies available. FINDINGS: Lungs: Prominent interstitial markings suggestive of interstitial edema. Left hemidiaphr agm is obscured which can be seen with left pleural effusion, as well as left lower lobe consolidatio n or atelectasis. Pleural space: Blunting of the left costophrenic angle which may indicate left pleural effusion. Heart: Unremarkable. Mediastinum: Unremarkable. Bones/joints: Osteopenia. Tubes, lines and devices: Right PICC with tip in the SVC. IMPRESSION: 1. Prominent interstitial markings suggestive of interstitial edema. Left hemidiaphrag m is obscured which can be seen with left pleural effusion, as well as left lower lobe consolidation or atelectasis. 2. Blunting of the left costophrenic angle which may indicate left pleural effusion. Electronically signed by: Suresh Joshi MD 06/10/2022 1:11 AM BROADCAST CHECKER Due to temporary technical issues with the PACS/Fluency reporting system, reports are being signed by the in house radiologists without review as a courtesy to insure prompt reporting. The interpreting radiologist is fully responsible for the content of the report.
[2022-06-11] MEDS: DONEPEZIL HCL 5 MG TAB PO SCH (21:10)
[2022-06-11] MEDS: PROMETHAZINE 25 MG TABLET FT SCH (21:10)
--- NOTE | 2022-06-12 08:13 | P.PN ---
Subjective Date of Service: 06/12/22 Primary Care Provider: Lenore Chief Complaint: uti, delirium Subjective: No new changes Review of Systems is unable to be obtained Physical Examination - Vital Signs Temperature: 97 F Blood Pressure: 140/72 Pulse: 101 Respirations: 18 Pulse Ox (%): 96 - Physical Exam General: Alert, In no apparent distress HEENT: Atraumatic, PERRLA, EOMI Neck: Supple, JVD not distended Respiratory: Clear to auscultation bilaterally, Normal air movement Cardiovascular: Regular rate/rhythm, Normal S1 S2 Gastrointestinal: Normal bowel sounds, No tenderness Musculoskeletal: No tenderness Integumentary: No rashes Neurological: Normal speech, Normal tone, Normal affect Lymphatics: No axilla or inguinal lymphadenopathy Assessment And Plan - Current Problems (Diagnosis) (1) UTI (urinary tract infection) Current Visit: Yes Status: Acute Plan: will continue ceftriaxone. Keep her for cultures pending. We most likely will get those in 48hrs and we can discharge her on the appropriate antibiotics. 06/12 Has MDR pseudomonoas. Will need a picc line and 5 days of antibiotics. She is on cefepime would be on till , which is tomorrow Qualifiers: Urinary tract infection type: acute cystitis Hematuria presence: without hematuria Qualified Code(s): N30.00 - Acute cystitis without hematuria (2) Dementia Current Visit: No Status: Chronic Plan: Patient is bed bound. I believe she is on peg feeding. Will restart her medications. Qualifiers: Dementia type: Alzheimer's Alzheimer's disease onset: late onset Dementia severity: severe Dementia behavioral or psychological symptom: without behavioral, psychotic, or mood disturbance or anxiety Qualified Code(s): G30.1 - Alzheimer's disease with late onset; F02.C0 - Dementia in other diseases classified elsewhere, severe, without behavioral disturbance, psychotic disturbance, mood disturbance, and anxiety Discharge Plan: Home Plan to discharge in: 24 Hours - Code Status/Comfort Care Code Status Assessed: No Physician Review: Patient Assessed, Agree with Above Assessment and Plan Critical Care: No Time Spent Managing PTS Care (In Minutes): 20
[2022-06-12] MEDS: CEFEPIME 2 GM in NA CHLORIDE 0.9% 100 ML IV SCH ×2 (09:00→21:24)
[2022-06-12] MEDS: PANTOPRAZOLE 40MG TABLET PO SCH (10:15)
[2022-06-12] MEDS: METOPROLOL TAR 50 MG TAB PO SCH (10:15)
[2022-06-12] MEDS: TRAZODONE 50 MG TABLET FT SCH ×4 (10:15→21:25)
[2022-06-12] MEDS: GABAPENTIN 300 MG CAP PO SCH ×3 (10:15→21:25)
[2022-06-12] MEDS: MEMANTINE HCL 10 MG TABLET PO SCH ×2 (10:16→21:25)
[2022-06-12] MEDS: NA CHLORIDE 0.9% 1,000 ML IV SCH (18:00)
[2022-06-12] MEDS: PROMETHAZINE 25 MG TABLET FT SCH (21:25)
[2022-06-12] MEDS: DONEPEZIL HCL 5 MG TAB PO SCH (21:25)
[2022-06-13] MEDS: NA CHLORIDE 0.9% 1,000 ML IV SCH (05:10)
[2022-06-13 06:01] VITALS: O2SAT 98
--- NOTE | 2022-06-13 08:09 | P.DS ---
Admission Date: 06/06/22 Discharge Date: 06/13/22 Primary Care Provider: Lenore Disposition: ROUTINE DISCHARGE Discharge Condition: GOOD Reason for Admission: uti, delirium - Problems (1) UTI (urinary tract infection) Current Visit: Yes Status: Acute Qualifiers: Urinary tract infection type: acute cystitis Hematuria presence: without hematuria Qualified Code(s): N30.00 - Acute cystitis without hematuria (2) Dementia Current Visit: No Status: Chronic Qualifiers: Dementia type: Alzheimer's Alzheimer's disease onset: late onset Dementia severity: severe Dementia behavioral or psychological symptom: without behavioral, psychotic, or mood disturbance or anxiety Qualified Code(s): G30.1 - Alzheimer's disease with late onset; F02.C0 - Dementia in other diseases classified elsewhere, severe, without behavioral disturbance, psychotic disturbance, mood disturbance, and anxiety Brief History of Present Illness: Patient is a homebound patient of mine. She has severe dementia and is bed bound. Patient was becoming more confused. her son brought her to the ER. Was found to have a uti. She was kept for safety. She is non verbal and the family is not at the bedside. Hospital Course: Patient presented with uti. Micro showed pseudomonas which was multidrug resistant. We put in a picc line. Gave her 5 days of iv meropenem. The patient has no clinical signs of uti or confusion. She will discharged home without antibiotics. Follow up in a week. Vital Signs/Physical Exam: Temp Pulse Resp BP Pulse Ox 98.2 F 96 H 18 156/69 H 99 06/13/22 04:00 06/13/22 04:00 06/13/22 04:00 06/13/22 04:00 06/13/22 04:00 General: Alert, In no apparent distress HEENT: Atraumatic, PERRLA, EOMI Neck: Supple, JVD not distended Respiratory: Clear to auscultation bilaterally, Normal air movement Cardiovascular: Regular rate/rhythm, Normal S1 S2 Gastrointestinal: Normal bowel sounds, No tenderness Musculoskeletal: No tenderness Integumentary: No rashes Neurological: Normal speech, Normal tone, Normal affect Lymphatics: No axilla or inguinal lymphadenopathy Laboratory Data at Discharge: WBC 6.90 K/uL (4.3-10.9) 06/07/22 03:40 Hgb 9.7 g/dL (12.0-15.0) L D 06/07/22 03:40 Hct 28.3 % (36.0-45.0) L 06/07/22 03:40 Plt Count 203 K/uL (152-406) D 06/07/22 03:40 PT 16.1 SECONDS (9.5-12.5) H 06/05/22 20:52 INR 1.46 06/05/22 20:52 Sodium 143 mmol/L (136-145) D 06/07/22 03:40 Potassium 3.6 mmol/L (3.5-5.1) D 06/07/22 03:40 BUN 20 mg/dL (7-18) H 06/07/22 03:40 Creatinine 0.80 mg/dL (0.55-1.02) 06/07/22 03:40 Glucose 169 mg/dL (74-106) H 06/07/22 03:40 Magnesium 2.5 mg/dL (1.6-2.4) H 06/05/22 20:52 Home Medications: Donepezil HCl [Aricept] 10 mg PO DAILY 05/02/21 Memantine HCl [Namenda*] 10 mg PO BID 05/02/21 SUMAtriptan succinate [Sumatriptan Succinate] 25 mg PO PRN PRN 05/02/21 Pantoprazole Sodium [Protonix] 40 mg PO DAILY 90 Days #90 tab 02/20/22 Sucralfate [Carafate*] 1 ml PO TID* 30 Days #900 ml 02/20/22 Gabapentin 300 mg PO TID 06/06/22 Metoprolol Tartrate [Lopressor*] 1 tab FT DAILY 06/06/22 Promethazine HCl 25 mg FT BEDTIME 06/06/22 Trazodone [Desyrel*] 1 tab .ROUTE QID 06/06/22 Diet: feeding Followup: Diomedes Grover MD [Primary Care Provider] - 1 Week (telehealth) Time spent managing pt's care (in minutes): 20
[2022-06-13] MEDS ORDERED: CEFEPIME 2 GM in NA CHLORIDE 0.9% 100 ML IV SCH (09:00)
[2022-06-13 09:09] VITALS: BP 133/63; TEMP 97.2
[2022-06-13] MEDS: TRAZODONE 50 MG TABLET FT SCH (09:27)
[2022-06-13] MEDS: METOPROLOL TAR 50 MG TAB PO SCH (09:27)
[2022-06-13] MEDS: GABAPENTIN 300 MG CAP PO SCH (09:27)
[2022-06-13] MEDS: PANTOPRAZOLE 40MG TABLET PO SCH (09:27)
[2022-06-13] MEDS: MEMANTINE HCL 10 MG TABLET PO SCH (09:27)
== END 2022-06-13 10:56 | disposition home or self-care (01) | DRG 690 ==
LOC: ER 19:12 → ERHOLD 06-06 01:00 → 4TH 06-06 14:13
PROVIDERS: ADMIT Internal Medicine; ATTEND Internal Medicine
PROC: 02HV33Z Insertion of Infusion Device into Superior Vena Cava, Percutaneous Approach (ICD-10-PCS; principal; 2022-06-10)
DX: N30.90 Cystitis, unspecified without hematuria (principal); R65.10 Systemic inflammatory response syndrome (SIRS) of non-infectious origin without acute organ dysfunction; F05 Delirium due to known physiological condition; Z16.30 Resistance to unspecified antimicrobial drugs; K21.9 Gastro-esophageal reflux disease without esophagitis; G30.1 Alzheimer's disease with late onset; F02.80 Dementia in other diseases classified elsewhere, unspecified severity, without behavioral disturbance, psychotic disturbance, mood disturbance, and anxiety; B96.5 Pseudomonas (aeruginosa) (mallei) (pseudomallei) as the cause of diseases classified elsewhere; I25.2 Old myocardial infarction; Z88.0 Allergy status to penicillin; Z74.01 Bed confinement status; Z86.73 Personal history of transient ischemic attack (TIA), and cerebral infarction without residual deficits; Z79.899 Other long term (current) drug therapy; Z20.822 Contact with and (suspected) exposure to COVID-19
CPT/HCPCS: 0240U; 36415; 71045; 80048; 81003; 81015; 83605; 83735; 83880; 84484; 85025; 85610; 87040; 87070; 87077; 87081; 87086; 87088; 87186; 93005; 96361; 96365; 96366; 99285; J0692; J7030; J7040; Q0169

== ENCOUNTER 2024-04-06 15:59 | Inpatient (IN) | payer OTHER ==
--- NOTE | 2024-04-06 16:57 | RAD REPORT ---
EXAMINATION: ONE VIEW CHEST XR CLINICAL INDICATION: COUGH TECHNIQUE: Frontal chest projection is submitted. Examination is limited by patient positioning and t echnique. COMPARISON: 06/10/2022 FINDINGS: The lungs are well inflated and clear. The heart is upper limit of normal in size. Lung apices obscur ed by the patient's chin.
[2024-04-06 17:12] LABS: SARS-CoV-2 Antigen CONTROL BLUE LINE VIS/BG OK; SARS-CoV-2 Antigen Rapid Res Negative (Negative)
[2024-04-06 17:17] LABS: Albumin 1.8 g/dL (3.4-5.0); Albumin/Globulin Ratio 0.6 (1.1-1.8); Alkaline Phosphatase 64 U/L (45-117); Anion Gap 11.5 mEq/L (5.0-15.0); BUN Blood Urea Nitrogen 27 mg/dL (7-18); Bicarbonate 20 mEq/L (21-32); Bilirubin Total 0.8 mg/dL (0.2-1.0); Globulin 3.1 g/dL (2.3-3.5); Glomerular Filtration Rate 46 ml/min (=/>90); Glucose Level 110 mg/dL (74-106); Protein, Total 4.9 g/dL (6.4-8.2)
[2024-04-06 17:25] LABS: PT Prothrombin Time 13.8 SECONDS (9.4-12.5); PTT, Activated Partial Thromb 28.4 SECONDS (24.3-36.9); Protime INR 1.24
[2024-04-06 17:38] LABS: ALT/SGPT < 14 U/L (13-56); AST/SGOT 20 U/L (15-37)
[2024-04-06] MEDS ORDERED: CEFTRIAXONE 1000 MG/VIAL ONE (17:38)
[2024-04-06] MEDS ORDERED: NA CHLORIDE 0.9% 2,000 ML ONE (17:39)
[2024-04-06] MEDS ORDERED: ACETAMINOPHEN 160 MG/5 ML UCUP ONE (17:39)
[2024-04-06 17:40] LABS: Sodium Level 114 mEq/L (136-145)
[2024-04-06 17:44] LABS: Absolute Lymphocytes (CBC) 0.9 K/uL (0.7-4.9); Absolute Monocytes 1.5 K/uL (0.1-1.3); Absolute Neutrophil 32.6 K/uL (1.8-8.0); Basophils % 0.1 % (0-1.3); Hematocrit 29.7 % (36.0-45.0); Lymphocytes % 2.5 % (15.3-44.8); MCH 32.2 pg (27.0-35.0); MCHC 33.6 g/dL (32.0-36.0); MCV 95.9 fL (80-100); MPV 7.3 fL (7.6-11.3); Monocytes % 4.2 % (3.3-12.3); Neutrophils % 93.2 % (41.7-73.7); Platelets 226 thou/uL (152-406); Red Cell Distribution Width 14.1 % (12.1-15.2)
[2024-04-06] MEDS ORDERED: OSELTAMIVIR 75 MG CAP PO ONE (17:48)
[2024-04-06 18:28] LABS: Platelet Estimate ADEQ; White Blood Cell Scan OK (OK)
[2024-04-06 18:29] LABS: Blood Morphology Comment NOT SEEN (NOT SEEN)
[2024-04-06 19:02] LABS: Specific Gravity 1.011 (1.005-1.030); Sqamous Epithelial <5 /HPF (None Seen); Urine Bacteria <20 /HPF (<20); Urine Bilirubin NEGATIVE (Negative); Urine Blood 2+ (Negative); Urine Clarity Extremely Turbid (Clear); Urine Color Yellow (Yellow); Urine Crystals Unidentified Few /HPF (None Seen); Urine Culture Reflex Order REFLEXED; Urine Glucose NEGATIVE (Negative); Urine Ketones NEGATIVE (Negative); Urine Microscopic Reflex YN ORDER UMIC; Urine Nitrite NEGATIVE (Negative); Urine Protein 1+ (Negative); Urine RBC 21-50 /HPF (None Seen); Urine Urobilinogen Normal (Normal); Urine WBC >50 /HPF (<5); Urine WBC Clump Moderate /HPF (None Seen); Urine Yeast (Budding) Moderate /HPF (None Seen); Urine pH 6.5 (5.0-7.0)
--- NOTE | 2024-04-06 19:03 | RAD REPORT ---
EXAMINATION: CT ABDOMEN AND PELVIS WITH CONTRAST CLINICAL INDICATION: ABD PAIN TECHNIQUE: CT abdomen and pelvis was performed, after the administration of IV contrast[facility] Axial, sagittal and coronal reconstructions were obtained. One or more of the following dose reduction techniques were used: Automated exposure control, adjustment of the mA and k V according to patient size, and iterative reconstruction. Unless otherwise specified, incidental findings do not require dedicated imaging follow-up. COMPARISON: 02/17/2022 FINDINGS: LOWER CHEST: Mild atelectasis in the left lower lobe with small left pleural effusion. LIVER: Normal in size and contour. No focal lesion. Grossly unremarkable gallbladder. SPLEEN: Normal size. No focal lesion. PANCREAS: No mass, ductal dilation, or phi-pancreatic fluid. ADRENALS: Normal; no mass. KIDNEYS: There is a urinary catheter in the urinary bladder. The catheter appears to extend into the distal left ureter resulting in mild to moderate left-sided hydronephrosis. The urinary bladder is thickened with mild air noted. GASTROINTESTINAL TRACT: No evidence of free air, significant intra-abdominal free fluid, bowel obstru ction or abscess. APPENDIX: Appendix not visualized, but no inflammatory changes in region of appendix. LYMPH NODES: No lymphadenopathy. MUSCULOSKELETAL: Mild degenerative change T12-L1. ADDITIONAL FINDINGS: Gastrostomy tube. IMPRESSION: The urinary catheter traverses the bladder and its tip is in the distal left ureter. This appears to result in a mild left-sided obstructive uropathy. Recommend repositioning. Mild atelectasis/infiltrate left base with small left pleural effusion.
--- NOTE | 2024-04-06 19:09 | RAD REPORT ---
EXAMINATION: CT CHEST WITHOUT CONTRAST CLINICAL INDICATION: FLU TECHNIQUE: Routine CT scan of the chest without intravenous contrast. One or more of the following do se reduction techniques were used: Automated exposure control, adjustment of the mA and/or kV according to patient size, and/or iterative reconstruction. Unless otherwise specified, incidental fi ndings do not require dedicated imaging follow-up. COMPARISON: No prior exam. FINDINGS: LOWER NECK: Visualized thyroid gland and soft tissues are normal. LUNGS: Mild atelectasis/infiltrate in the left lung base. The lungs are otherwise clear. PLEURA: No pleural effusion. No pneumothorax. . MEDIASTINUM AND LYMPH NODES: No mediastinal mass or fluid collection. Normal size mediastinal, hilar, and axillary lymph nodes. OSSEOUS STRUCTURES AND CHEST WALL: Intact. UPPER ABDOMEN: No significant abnormalities. IMPRESSION: Small left pleural effusion with mild atelectasis or infiltrate in the left base. Examination limited by lack of IV contrast.
--- NOTE | 2024-04-06 19:21 | ER ---
Nurse's Notes [facility] Name: Hattie Quevedo Age: 83 yrs Sex: Female : 1940 Arrival Date: 04/06/2024 Time: 15:59 Bed 2 Private MD: Diagnosis: Severe sepsis without septic shock;UTI/ Urinary tract infection, site not specified;Influenza due to identified novel influenza A virus Presentation: 04/06 16:17 Chief complaint: EMS states: toned out for difficulty breathing. Crackles to bilateral me1 lung bases. Son reports poor urinary output for the past 24 hours. Patient does have a fierro with about 150 ml in the drainage bag that is the past 24 hours output per son. Coronavirus screen: Vaccine status: Patient reports being unvaccinated. Ebola Screen: No symptoms or risks identified at this time. Initial Sepsis Screen: Does the patient meet any 2 criteria?. Risk Assessment: Do you want to hurt yourself or someone else? Patient reports no desire to harm self or others. Onset of symptoms was April 06, 2024. 16:17 Method Of Arrival: EMS: [facility] 16:17 Acuity: JOSEP 3 me1 23:26 Initial Sepsis Screen: Does the patient have a suspected source of infection?. dd2 Triage Assessment: 16:21 General: Appears ill, well groomed, well developed, well nourished, Behavior is calm, me1 cooperative, appropriate for age. Pain: Unable to use pain scale. Does not appear to understand pain scale. EENT: No signs and/or symptoms were reported regarding the EENT system. Neuro: Level of Consciousness is awake, alert, confused, Oriented to unable to determine as patient is nonverbal at this time. Cardiovascular: Patient's skin is warm and dry. Respiratory: Reports shortness of breath at rest on exertion Airway is patent Respiratory effort is even, unlabored, Respiratory pattern is regular, symmetrical, Breath sounds with crackles bilaterally. Onset: The symptoms/episode began/occurred yesterday, the patient has moderate shortness of breath. GI: No signs and/or symptoms were reported involving the gastrointestinal system. : No signs and/or symptoms were reported regarding the genitourinary system. Derm: Skin is fragile, is thin, Skin is pale. Musculoskeletal: Range of motion: limited in all extremities, contractures to all extremities. Historical: - Allergies: 16:21 PENICILLINS; me1 - PMHx: 16:21 Dementia; GERD; GI Bleed; Irritable bowel syndrome; Migraine; neuropathy; Sleep Apnea; me1 TIA; - PSHx: 16:21 g tube; me1 - Immunization history:: Adult Immunizations up to date. - Infectious Disease History:: Denies. - Social history:: Smoking status: Patient denies any tobacco usage or history of. Screenin:24 [facility] ED Fall Risk Assessment (Adult) History of falling in the last 3 months, me1 including since admission No falls in past 3 months (0 pts) Confusion or Disorientation Yes (5 pts) Intoxicated or Sedated No (0 pts) Impaired Gait Yes (1 pt) Mobility Assist Device Used Yes (1 pt) Altered Elimination Yes (1 pt) Score/Fall Risk Level 0 - 2 = Low Risk Maintained a safe environment, Provided non-skid footwear, Hourly rounding (assess needs \T\ fall precautionary measures) done. Abuse screen: Denies threats or abuse. Nutritional screening: No deficits noted. Tuberculosis screening: No symptoms or risk factors identified. Assessment: 16:24 General: See triage assessment. . Cardiovascular:. me1 20:00 Reassessment: BP 78/41, MD Yudi notified. Continue to pressure bag IV fluids and dd2 recheck BP per MD. 22:23 Reassessment: REPORT CALLED TO [facility] ICU. dd2 23:25 Cardiovascular:. dd2 Vital Signs: 16:17 BP 95 / 61; Pulse 77; Resp 18; Temp 100.4(A); Pulse Ox 99% ; Weight 64.86 kg; Height 5 me1 ft. 3 in. ; 16:53 BP 106 / 46; ec2 17:00 BP 98 / 51; Pulse 78; Resp 18; Pulse Ox 100% on R/A; me1 17:11 BP 98 / 51; ec2 18:00 BP 111 / 55; Pulse 93; Resp 17; Pulse Ox 100% on R/A; me1 18:20 BP 111 / 55; Pulse 97; ec2 19:04 Temp 99.2(A); me1 19:23 BP 91 / 42; Pulse 80; Resp 15; Pulse Ox 100% on R/A; dd2 19:54 BP 78 / 41; Pulse 75; Resp 16; Pulse Ox 99% on R/A; dd2 20:00 BP 103 / 74; Pulse 92; Resp 16; Pulse Ox 98% ; dd2 20:06 BP 105 / 53; ec2 20:55 BP 82 / 41; Pulse 85; Resp 15; Pulse Ox 99% ; dd2 21:19 BP 78 / 38; Pulse 78; Resp 15; Pulse Ox 99% ; dd2 21:30 BP 121 / 79; Pulse 84; Resp 16; Temp 98.8; Pulse Ox 100% ; dd2 22:00 BP 138 / 58; Pulse 94; Resp 16; Pulse Ox 100% on R/A; dd2 22:30 BP 128 / 73; Pulse 89; Resp 16; Pulse Ox 100% ; dd2 16:17 Body Mass Index 25.33 (64.86 kg, 160.02 cm) ok1 ED Course: 16:12 Patient arrived in ED. eb 16:12 Manish Bagley MD is Attending Physician. ec2 16:17 Ayanna Michel, DARINEL is Primary Nurse. me1 16:21 Triage completed. me1 16:21 Arm band placed on Patient placed in an exam room. me1 16:24 Patient has correct armband on for positive identification. Bed in low position. Call ok1 light in reach. Side rails up X2. Provided Education on: POC. Verbalized understanding. . Client placed on continuous cardiac and pulse oximetry monitoring. NIBP monitoring applied. pet technologist on. Pulse ox on. NIBP on. 16:24 No provider procedures requiring assistance completed. me1 16:32 SARS RAPID Sent. me1 16:33 Influenza Screen (a \T\ B) Sent. me1 16:33 COVID swab sent to lab. Flu and/or RSV swab sent to lab. me1 16:38 Chest Single View XRAY In Process Unspecified. EDMS 17:15 Lab(s) recollected, by me, sent to lab. Inserted saline lock: 22 gauge in left ,using cm10 aseptic technique. Ankle Blood collected. Flushed with 10 mL NS. 17:20 First set of blood cultures drawn by me, Second set of blood cultures drawn by me. me1 17:21 Blood Culture Adult (2) Sent. me1 17:21 CBC with Diff Sent. me1 17:21 CMP Sent. me1 17:21 Lactate w/ 2H reflex if indic. Sent. me1 17:21 Protime (+inr) Sent. me1 17:21 Ptt, Activated Sent. me1 17:25 Warm blanket given. am7 17:45 Inserted saline lock: 22 gauge in right upper arm, using aseptic technique. me1 18:44 CT Abd/Pelvis - IV Contrast Only In Process Unspecified. EDMS 18:47 Thorax Wo Con In Process Unspecified. EDMS 18:54 Urinalysis w/ reflexes Sent. me1 18:55 Urine collected: Fierro catheter specimen, cloudy, fierro changed by home health on me1 Sunday. Changed drainage bag before collecting specimen per Dr Bagley's instruction. 19:20 Prince Mcnamara MD is Hospitalizing Provider. ec2 19:53 Osmolality, Serum Sent. dd2 20:34 Fierro cath inserted, using sterile technique, 16 Fr., by ok, balloon inflated. dd2 20:58 Inserted saline lock: 22 gauge in right forearm, using aseptic technique. Blood dd2 collected. Flushed with 10 mL NS. 21:07 Inserted saline lock: 22 gauge in right antecubital area, using aseptic technique. vc1 Blood collected. Flushed with 10 mL NS. 21:31 Attending Physician role handed off by Manish Bagley MD rt 21:31 Benny Chaves MD is Attending Physician. rt 22:12 Assisted provider with central line placement. Set up central line tray. Triple lumen dd2 line placed in right femoral. Line placed by Benny Chaves MD Placement verified by blood return, Dressed with Tegaderm, Patient tolerated well. 23:24 Patient admitted, IV remains in place. dd2 Administered Medications: 17:45 Drug: NS 0.9% IV (30 ml/kg) 30 ml/kg IV at bolus once; Sepsis Protocol; to be given as me1 a bolus over 90 minutes {Note: left ankle.} Route: IV; Rate: bolus; Site: Other; 19:15 Follow up: IV Status: Completed infusion; IV Intake: 2000ml dd2 18:00 CANCELLED (not availabee): tamiflususpension 60 mg PO once me1 18:00 Drug: Oseltamivir PO 75 mg PO once; per peg Route: Feeding Tube; me1 18:49 Follow up: Response: No adverse reaction me1 18:01 Drug: Rocephin IV 1 grams IV at calculated rate once; Given slow IV push per pharmacy me1 instructions {Note: left ankle.} Route: IV; Rate: calculated rate; Site: Other; 18:03 Follow up: Response: No adverse reaction; IV Status: Completed infusion me1 18:01 Drug: Tylenol Feeding Tube 15 mg/kg Feeding Tube once; not to exceed 1,000 milligrams me1 Route: Feeding Tube; 20:58 Drug: NS 0.9% IV 1000 ml IV at 125 ml/hr continuous Route: IV; Rate: 125 ml/hr; Site: dd2 right forearm; 21:13 Follow up: Response: No adverse reaction dd2 22:54 Follow up: IV Status: Infusion continued upon admission dd2 Medication: 16:24 VIS not applicable for this client. me1 Intake: 19:15 IV: 2000ml; Total: 2000ml. dd2 Outcome: 19:20 Decision to Hospitalize by Provider. ec2 23:24 Admitted to ICU dd2 23:24 Admitted to ICU accompanied by nurse, accompanied by tech, via stretcher, room 8, on monitor, with chart, 23:24 Condition: stable 23:24 Instructed on the need for admit, 23:31 Patient left the ED. dd2 Signatures: Dispatcher [employer] Jaylin Lazar Vanessa, RN RN vc1 Benny Chaves MD MD rt Niya Grubbs RN RN cm10 Ayanna Michel RN RN me1 Manish Bagley MD MD ec2 FRANCIS MOISE RN RN dd2 Martha Amaya am7
--- NOTE | 2024-04-06 19:21 | EDPHYS ---
Physician Documentation [facility] Name: Hattie Quevedo Age: 83 yrs Sex: Female : 1940 Arrival Date: 04/06/2024 Time: 15:59 Bed 2 Private MD: ED Physician Benny Chaves HPI: 04/06 16:13 This 83 yrs old Female presents to ER via Unassigned with complaints of AMS. ec2 16:13 Patient with history of dementia arrives today with decline in mental status. Patient ec2 is minimally active and has been worsening the past several days. . Historical: - Allergies: 16:21 PENICILLINS; me1 - PMHx: 16:21 Dementia; GERD; GI Bleed; Irritable bowel syndrome; Migraine; neuropathy; Sleep Apnea; me1 TIA; - PSHx: 16:21 g tube; me1 - Immunization history:: Adult Immunizations up to date. - Infectious Disease History:: Denies. - Social history:: Smoking status: Patient denies any tobacco usage or history of. ROS: 16:14 Constitutional: as per hpi ec2 Exam: 16:14 Constitutional: GEN: NAD Head: atraumatic Eyes: EOMI Ears: External ears are ec2 normal. CV: regular rate LUNGS: no respiratory distress, rales throughout multiple lung reese. ABD: non-distended, soft, not guarding, not rigid SKIN: Skin breakdown multiple areas. MSK: no evidence of trauma Vital Signs: 16:17 BP 95 / 61; Pulse 77; Resp 18; Temp 100.4(A); Pulse Ox 99% ; Weight 64.86 kg; Height 5 me1 ft. 3 in. ; 16:53 BP 106 / 46; ec2 17:00 BP 98 / 51; Pulse 78; Resp 18; Pulse Ox 100% on R/A; me1 17:11 BP 98 / 51; ec2 18:00 BP 111 / 55; Pulse 93; Resp 17; Pulse Ox 100% on R/A; me1 18:20 BP 111 / 55; Pulse 97; ec2 19:04 Temp 99.2(A); me1 19:23 BP 91 / 42; Pulse 80; Resp 15; Pulse Ox 100% on R/A; dd2 19:54 BP 78 / 41; Pulse 75; Resp 16; Pulse Ox 99% on R/A; dd2 20:00 BP 103 / 74; Pulse 92; Resp 16; Pulse Ox 98% ; dd2 20:06 BP 105 / 53; ec2 20:55 BP 82 / 41; Pulse 85; Resp 15; Pulse Ox 99% ; dd2 21:19 BP 78 / 38; Pulse 78; Resp 15; Pulse Ox 99% ; dd2 21:30 BP 121 / 79; Pulse 84; Resp 16; Temp 98.8; Pulse Ox 100% ; dd2 22:00 BP 138 / 58; Pulse 94; Resp 16; Pulse Ox 100% on R/A; dd2 22:30 BP 128 / 73; Pulse 89; Resp 16; Pulse Ox 100% ; dd2 16:17 Body Mass Index 25.33 (64.86 kg, 160.02 cm) me1 Procedures: 04/07 02:52 Central Line: the site was prepped with Chlorhexidine, a triple lumen catheter was rt inserted, in the right femoral vein, in 1 attempts. placement was verified, Blood returned, ultrasound confirm wire in vein, the site was dressed with Chlorhexidine impregnated Tegaderm, the patient tolerated the procedure, well. MDM: 04/06 16:13 Medical Screening Exam initiated ec2 16:14 Data reviewed: vital signs, nurses notes. ED course: Patient arrives today for altered ec2 mental status in the setting of dementia. Examination is revealing for rales in lung reese. Will obtain septic workup, give the patient crystalloid and further assess.. 17:28 ED course: EKG independently reviewed and interpreted by me, shows normal sinus rhythm, ec2 rate of 81, no acute ST segment elevations, intervals are nonactionable.. 17:46 ED course: Metabolic profile shows hyponatremia with a serum of 114, hyperkalemia with ec2 hemolysis noted. Renal dysfunction identified. Patient is positive for flu. Chest x-ray shows no acute intrathoracic process.. 19:19 ED course: CT imaging shows concern for effusion, urine infectious appearing, patient ec2 already received ceftriaxone. Presentation intolerable consistent with sepsis secondary to UTI, influenza, possible concurrent pneumonia. Patient admitted for continued management. Discussed w/ hospitalist, pending admission . 20:07 ED course: I discussed case with nephrology as well per hospitalist request, agree with ec2 continued fluid resuscitation. Will admit.. 04/07 02:52 Differential Diagnosis Sepsis, pneumonia, UTI. I considered the following discharge rt prescriptions or medication management in the emergency department Medications were administered in the Emergency Department. See MAR. Care significantly affected by the following chronic conditions: Dementia. Response to treatment: the patient's symptoms have mildly improved after treatment. 04/06 16:13 Order name: Blood Culture Adult (2) ec2 04/06 16:13 Order name: CBC with Diff ec2 04/06 16:13 Order name: CMP; Complete Time: 17:45 2 04/06 16:13 Order name: Lactate w/ 2H reflex if indic.; Complete Time: 18:04 2 04/06 16:13 Order name: Protime (+inr); Complete Time: 17:45 2 04/06 16:13 Order name: Ptt, Activated; Complete Time: 17:45 2 04/06 16:13 Order name: Urinalysis w/ reflexes; Complete Time: 19:10 2 04/06 16:13 Order name: Influenza Screen (a \T\ B); Complete Time: 17:14 2 04/06 16:13 Order name: SARS RAPID; Complete Time: 17:14 ec2 04/06 18:29 Order name: CBC Smear Scan EDAZ 04/06 19:09 Order name: Urine Culture [facility] 04/06 19:25 Order name: Osmolality, Serum 2 04/06 19:25 Order name: Urine Creatinine 2 04/06 19:25 Order name: Urine Osmolality 2 04/06 19:25 Order name: Urine Sodium Random 2 04/06 20:27 Order name: Basic Metabolic Panel [facility] 04/06 20:27 Order name: Basic Metabolic Panel [facility] 04/06 20:27 Order name: Basic Metabolic Panel EDMS 04/06 20:27 Order name: Basic Metabolic Panel [facility] 04/06 20:27 Order name: Lactate w/ 2H reflex if indic. EDMS 04/06 20:27 Order name: CBC with Automated Diff EDMS 04/06 20:28 Order name: CBC with Automated Diff EDMS 04/06 20:28 Order name: CBC with Automated Diff EDMS 04/06 20:28 Order name: CBC with Automated Diff EDMS 04/06 20:28 Order name: Lipid Profile EDMS 04/06 20:28 Order name: Lipid Profile [facility] 04/06 20:33 Order name: Basic Metabolic Panel [facility] 04/06 20:35 Order name: Procalcitonin [facility] 04/06 21:01 Order name: Phosphorus [facility] 04/06 21:01 Order name: Magnesium [facility] 04/06 23:23 Order name: Ghost Lactate-NO COLLECT Timer [facility] 04/06 16:13 Order name: Chest Single View XRAY; Complete Time: 17:01 ec2 04/06 18:05 Order name: CT Abd/Pelvis - IV Contrast Only; Complete Time: 19:10 ec2 04/06 18:41 Order name: Thorax Wo Con; Complete Time: 19:10 EDAZ 04/06 16:13 Order name: EKG; Complete Time: 16:14 ec2 04/06 20:27 Order name: CONS Physician Consult [facility] 04/06 16:13 Order name: Accucheck; Complete Time: 18:01 ec2 04/06 16:13 Order name: Cardiac monitoring; Complete Time: 18:01 ec2 04/06 16:13 Order name: EKG - Nurse/Tech; Complete Time: 17:25 ec2 04/06 16:13 Order name: IV Saline Lock - Large Bore; Complete Time: 17:21 ec2 04/06 16:13 Order name: Labs collected and sent; Complete Time: 17:21 ec2 04/06 16:13 Order name: O2 Per Protocol; Complete Time: 17:02 ec2 04/06 16:13 Order name: O2 Sat Monitoring; Complete Time: 17:02 ec2 04/06 16:13 Order name: Vital Signs; Complete Time: 17:02 ec2 04/06 16:55 Order name: Labs - recollect needed: recollect blue top/ under filled; Complete Time: eb 17:20 04/06 17:04 Order name: Labs - recollect needed: recollect all the blood; Complete Time: 17:20 eb 04/06 19:10 Order name: Brooke; Complete Time: 20:34 ec2 Administered Medications: 04/06 17:45 Drug: NS 0.9% IV (30 ml/kg) 30 ml/kg IV at bolus once; Sepsis Protocol; to be given as me1 a bolus over 90 minutes {Note: left ankle.} Route: IV; Rate: bolus; Site: Other; 19:15 Follow up: IV Status: Completed infusion; IV Intake: 2000ml dd2 18:00 CANCELLED (not availabee): tamiflususpension 60 mg PO once me1 18:00 Drug: Oseltamivir PO 75 mg PO once; per peg Route: Feeding Tube; me1 18:49 Follow up: Response: No adverse reaction me1 18:01 Drug: Rocephin IV 1 grams IV at calculated rate once; Given slow IV push per pharmacy me1 instructions {Note: left ankle.} Route: IV; Rate: calculated rate; Site: Other; 18:03 Follow up: Response: No adverse reaction; IV Status: Completed infusion me1 18:01 Drug: Tylenol Feeding Tube 15 mg/kg Feeding Tube once; not to exceed 1,000 milligrams me1 Route: Feeding Tube; 20:58 Drug: NS 0.9% IV 1000 ml IV at 125 ml/hr continuous Route: IV; Rate: 125 ml/hr; Site: dd2 right forearm; 21:13 Follow up: Response: No adverse reaction dd2 22:54 Follow up: IV Status: Infusion continued upon admission dd2 Disposition Summary: 04/06/24 19:20 Hospitalization Ordered Notes: Hospitalization Status: Inpatient Admission ec2 Provider: Prince Anders ec2 Condition: Stable ec2 Problem: new ec2 Symptoms: have improved ec2 Bed/Room Type: Standard ec2 Location: Intensive Care Unit(04/06/24 19:22) ec2 Room Assignment: 2-(04/06/24 20:33) rv1 Diagnosis - Severe sepsis without septic shock ec2 - UTI/ Urinary tract infection, site not specified ec2 - Influenza due to identified novel influenza A virus ec2 Forms: - Medication Reconciliation Form ec2 - SBAR form ec2 - Leadership Thank You Letter ec2 Critical care time excluding procedures: 19:20 Critical care time: Bedside Care: 30 minutes, Consultation: 5 minutes. Total time: 35 ec2 minutes Signatures: Dispatcher [employer] EDMS Jaylin Marshall Ryan, MD MD rt Abril Silvestre rv1 Ayanna Michel RN RN me1 Manish Bagley MD MD ec2 FRANCIS MOISE RN RN dd2 Corrections: (The following items were deleted from the chart) 17:21 16:13 Cox ordered. ec2 me1 18:00 17:14 Tamiflu PO Suspension 60 mg PO once ordered. ec2 me1 18:05 18:05 Abdomen Pelvis W Con+CT.RAD.BRZ ordered. EDMS EDMS 19:22 19:20 Telemetry/MedSurg (Inpatient) ec2 ec2 19:22 19:20 ec2 ec2 19:25 19:25 OSMOLALITY, SERUM+SC.LAB.BRZ ordered. EDMS EDMS 19:25 19:25 URINE CREATININE+CHEM UR.LAB.BRZ ordered. EDMS EDMS 19:25 19:25 Osmolality, Urine ordered. EDMS EDMS 19:25 19:25 URINE SODIUM RANDOM+CHEM UR.LAB.BRZ ordered. EDMS EDMS 20:33 19:22 ec2 rv1 21:02 20:27 Magnesium ordered. EDMS EDMS 21:02 20:27 Phosphorus ordered. EDMS EDMS
--- NOTE | 2024-04-06 20:31 | P.HP ---
Certification for Inpatient Patient admitted to: Inpatient With expected LOS: >2 Midnights Practitioner: I am a practitioner with admitting privileges, knowledge of patient current condition, hospital course, and medical plan of care. Services: Services provided to patient in accordance with Admission requirements found in Title 42 Section 412.3 of the Code of Federal Regulations Patient History Date of Service: 04/07/24 Reason for admission: sepsis History of Present Illness: Patient is a 83-year-old female with a past medical history of Alzheimer's dementia. She is brought into the ER for evaluation of altered mental status. Family has noted decline in her mental status recently. She has been minimally responsive. She was found to have sodium of 114. Patient CT head was unremarkable. Medicine requested nephrology consult for hypertonic saline. Her urine analysis from yesterday is positive for gram-negative rods. Patient also tested positive for influenza. She received ceftriaxone and Tamiflu in the ER. Nephrology, Dr. Avery, was called regarding her sodium of 114. Agreed with IV fluid. Will repeat BMP and monitor. Allergies Penicillins Adverse Reaction (Verified 05/02/21 00:34) Hives/Rash Home Medications: Donepezil HCl [Aricept] 10 mg PO DAILY 05/02/21 Memantine HCl [Namenda*] 10 mg PO BID 05/02/21 SUMAtriptan succinate [Sumatriptan Succinate] 25 mg PO PRN PRN 05/02/21 Pantoprazole Sodium [Protonix] 40 mg PO DAILY 90 Days #90 tab 02/20/22 Sucralfate [Carafate*] 1 ml PO TID* 30 Days #900 ml 02/20/22 Gabapentin 300 mg PO TID 06/06/22 Metoprolol Tartrate [Lopressor*] 1 tab FT DAILY 06/06/22 Promethazine HCl 25 mg FT BEDTIME 06/06/22 Trazodone [Desyrel*] 1 tab .ROUTE QID 06/06/22 - Past Medical/Surgical History Diabetic: No -: TIA -: NV -: GERD -: IBS -: DVT -: DEMENTIA -: - Social History Alcohol use: No CD- Drugs: No Caffeine use: No Physical Examination - Physical Exam General: Other (lethargic, frail, clinically dry) HEENT: Atraumatic, Normocephalic Cardiovascular: No edema, Normal pulses, Regular rate/rhythm, Normal S1 S2 Neurological: Dementia - Studies Laboratory Data (last 24 hrs) 04/06/24 04/06/24 04/06/24 17:34 17:07 16:50 WBC 34.90 H Hgb 10.0 L Hct 29.7 L Plt Count 226 PT 13.8 H INR 1.24 APTT 28.4 Sodium 114 L* Potassium 6.0 H BUN 27 H Creatinine 1.18 H Glucose 110 H Total Bilirubin 0.8 AST 20 ALT < 14 Alkaline Phosphatase 64 Microbiology Data (last 24 hrs): 04/06/24 16:31 Nasopharnyx Influenza Type A Antigen Screen - Final 04/06/24 16:31 Nasopharnyx Influenza Type B Antigen Screen - Final Assessment and Plan - Problems (Diagnosis) (1) Hyponatremia Current Visit: Yes Status: Acute (2) Influenza Current Visit: Yes Status: Acute (3) Acute metabolic encephalopathy Current Visit: No Status: Acute (4) Dehydration Current Visit: No Status: Acute (5) Severe sepsis Current Visit: No Status: Acute (6) UTI (urinary tract infection) Current Visit: No Status: Acute Qualifiers: (7) Dementia Current Visit: No Status: Chronic Qualifiers: (8) Dysphagia Current Visit: No Status: Chronic - Plan Assessment This is a 83-year-old female with Alzheimer's dementia who presented with progressively declining mental status. Patient has been found to have a sodium of 114. Her urine analysis from 1 day S [employer] shows gram-negative rods. Patient also tested positive for influenza. Patient will be admitted to ICU for severe hyponatremia. Patient required an additional IV fluid bolus in the ER as her blood pressure dropped in the 70s. She eventually require vasopressors due to persistent hypotension. Central line placed by ER. Acute metabolic encephalopathy Septic shock/hypotension Hyponatremia Influenza Urinary tract infection Alzheimer dementia Plan: Will admit to ICU Central line requested for frequent blood draws and possible vasopressors/volume repletion Started on Levophed after multiple fluid challenge Check BMP every 4 hours Nephrology consult appreciated. Will defer decision to give hypertonic saline to nephrology Critical care physician consulted Cefepime started for UTI based on urine analysis from 04/05/2024 Tamiflu continued for influenza GI prophylaxis - Advance Directives Does patient have a Living Will: No Does patient have a Durable POA for Healthcare: No
[2024-04-06] MEDS ORDERED: NA CHLORIDE 0.9% 1,000 ML ONE (20:40)
[2024-04-06] MEDS: OSELTAMIVIR 75 MG CAP PO SCH (21:00)
[2024-04-06 21:16] LABS: Potassium 5.5 mEq/L (3.5-5.1)
[2024-04-06 21:18] LABS: Anion Gap 13.5 mEq/L (5.0-15.0); Magnesium 1.6 mg/dL (1.6-2.4)
[2024-04-06] MEDS ORDERED: NOREPINEPHRINE BITARTRATE/D5W 4 MG/250 ML KIT IV ONE (21:18)
[2024-04-06] MEDS: VANCOMYCIN 1.5 GM in NA CHLORIDE 0.9% 500 ML IVPB ONE (22:00)
[2024-04-06] MEDS ORDERED: VANCOMYCIN 1.5 GM in NA CHLORIDE 0.9% 500 ML IVPB ONE (22:00)
[2024-04-06] MEDS: Mupirocin NASAL 2 APPL/1 GM TUBE NAS ONE (23:39)
[2024-04-06] MEDS: CEFEPIME 2 GM VIAL ONE (23:40)
[2024-04-06] MEDS: VANCOMYCIN 1 GM/VIAL ONE (23:40)
[2024-04-06] MEDS: FAMOTIDINE 20 MG/2 ML VIAL IV ONE (23:40)
[2024-04-06] MEDS: NA CHLORIDE 0.9% 100 ML ONE (23:41)
[2024-04-06] MEDS: NA CHLORIDE 0.9% 500 ML ONE (23:41)
[2024-04-07] MEDS: CEFEPIME 2 GM in NA CHLORIDE 0.9% 100 ML IV SCH (00:01)
[2024-04-07] MEDS: Mupirocin NASAL 2 APPL/1 GM TUBE NAS SCH (00:02)
[2024-04-07] MEDS: FAMOTIDINE 20 MG/2 ML VIAL IV SCH ×2 (00:02→20:10)
[2024-04-07] MEDS: NOREPINEPHRINE 4 MG in D5W 250 ML IV SCH (00:08)
[2024-04-07] MEDS: OSELTAMIVIR 75 MG CAP PO ONE (00:13)
[2024-04-07] MEDS ORDERED: SODIUM PHOSPHATE 30 MM in NA CHLORIDE 0.9% 500 ML IV ONE (01:25)
[2024-04-07] MEDS: SODIUM PHOSPHATE 15 MM in NA CHLORIDE 0.9% 250 ML IV SCH ×2 (02:00→08:45)
[2024-04-07 02:31] LABS: Anion Gap 12.2 mEq/L (5.0-15.0); Potassium 5.2 mEq/L (3.5-5.1)
[2024-04-07 04:51] LABS: Absolute Lymphocytes (CBC) 0.7 K/uL (0.7-4.9); Absolute Monocytes 1.3 K/uL (0.1-1.3); Absolute Neutrophil 37.9 K/uL (1.8-8.0); Basophils % 0.1 % (0-1.3); Hematocrit 30.3 % (36.0-45.0); Hemoglobin 10.7 g/dL (12.0-15.0); Lymphocytes % 1.9 % (15.3-44.8); MCH 33.5 pg (27.0-35.0); MCHC 35.3 g/dL (32.0-36.0); MPV 7.1 fL (7.6-11.3); Monocytes % 3.1 % (3.3-12.3); Neutrophils % 94.9 % (41.7-73.7); Platelets 242 thou/uL (152-406); RBC Red Blood Cell Count 3.19 M/uL (3.86-4.86); Red Cell Distribution Width 13.8 % (12.1-15.2)
[2024-04-07] MEDS: NOREPINEPHRINE BITARTRATE/D5W 4 MG/250 ML KIT IV ONE (04:53)
[2024-04-07] MEDS: Meropenem 1,000 MG in NA CHLORIDE 0.9% 100 ML IV SCH ×2 (05:49→17:39)
[2024-04-07] MEDS: FLU (Fluarix Triv) TS24-25(6MOS UP)/PF 45 MCG/0.5 ML Syringe IM ONE (07:30)
[2024-04-07 08:21] LABS: Band Neutrophils 2 % (0-1); Blood Morphology Comment NOT SEEN (NOT SEEN); Differential Total Cells Count 100; Lymphocytes 1 % (15-42); Monocytes 0 % (0-10); Platelet Estimate ADEQ; Segmented Neutrophils 97 % (40-80)
[2024-04-07] MEDS: ENOXAPARIN 40 MG/0.4 ML SQ SCH (08:44)
[2024-04-07] MEDS: OSELTAMIVIR 30 MG CAP PO SCH (08:45)
[2024-04-07] MEDS: NA CHLORIDE 0.9% 1,000 ML IV SCH (08:46)
--- NOTE | 2024-04-07 09:32 | P.CNS ---
Date of Consult: 04/07/24 Reason for Consult: Hyponatremia, hyperkalemia Requesting Physician: Prince Travis Mcnamara Chief Complaint: sepsis History of Present Illness: Patient is a 83-year-old female who is unable to provide a medical history so info is obtained through chart review only and per reports consists of a history of severe Alzheimer's dementia, contractures, care dependent but apparently family members or care status noted a change in mental status where she was minimally responsive. She was found to have sodium of 114. Bp was low on admission. Patient also tested positive for influenza. Allergies Penicillins Adverse Reaction (Verified 05/02/21 00:34) Hives/Rash Home Medications: Donepezil HCl [Aricept] 10 mg PO DAILY 05/02/21 Memantine HCl [Namenda*] 10 mg PO BID 05/02/21 SUMAtriptan succinate [Sumatriptan Succinate] 25 mg PO PRN PRN 05/02/21 Pantoprazole Sodium [Protonix] 40 mg PO DAILY 90 Days #90 tab 02/20/22 Sucralfate [Carafate*] 1 ml PO TID* 30 Days #900 ml 02/20/22 Gabapentin 300 mg PO TID 06/06/22 Metoprolol Tartrate [Lopressor*] 1 tab FT DAILY 06/06/22 Promethazine HCl 25 mg FT BEDTIME 06/06/22 Trazodone [Desyrel*] 1 tab .ROUTE QID 06/06/22 - Past Medical/Surgical History Diabetic: No -: TIA -: NV -: GERD -: IBS -: DVT -: DEMENTIA -: - Social History Smoking Status: Unknown if ever smoked Alcohol use: No CD- Drugs: No Caffeine use: No Review of Systems is unable to be obtained Physical Examination Temp Pulse Resp BP Pulse Ox 98.3 F 101 H 18 116/61 98 04/07/24 08:00 04/07/24 09:15 04/07/24 09:15 04/07/24 09:15 04/07/24 09:15 General: In no apparent distress, Other (awake) HEENT: Atraumatic, Normocephalic Respiratory: Other (Non tachypnec, no distress, no wheezing) Cardiovascular: Other (mild tachy, regular mosmtly) Gastrointestinal: Soft and benign, Non-distended, No tenderness Musculoskeletal: Contractures Integumentary: No rashes Neurological: Other (Awake, non verbal, no tremors noted), Abnormal tone Laboratory Data (last 24 hrs) 04/06/24 04/06/24 04/06/24 20:05 17:34 17:07 WBC 34.90 H Hgb 10.0 L Hct 29.7 L Plt Count 226 PT 13.8 H INR 1.24 APTT 28.4 Sodium 120 L D Potassium 5.5 H BUN 24 H Creatinine 1.17 H Glucose 111 H Phosphorus 2.0 L Magnesium 1.6 Total Bilirubin AST ALT Alkaline Phosphatase 04/06/24 16:50 WBC Hgb Hct Plt Count PT INR APTT Sodium 114 L* Potassium 6.0 H BUN 27 H Creatinine 1.18 H Glucose 110 H Phosphorus Magnesium Total Bilirubin 0.8 AST 20 ALT < 14 Alkaline Phosphatase 64 Conclusions/Impression: A/P) 1. Acute hypotonic hypovolemic hyponatremia in the setting of impaired intake +/- insensible losses, other -Na level has risen more rapidly on isotonic IVF. Will suspend further NS bolus/maintenance IVF, and recheck na level urgently 2. Will switch to hypotonic low rate maintenance ivf and will defer starting TF to primary team, at that time, amount of water bolus needs can be determined 3. Hyperkalemia 2nd to vol depletion, Stage 1 GENTRY -resolved 4. influenza PNA, hypotension, unspecified -BP improved, wean off pressors, cont anti viral/empiric Abx coverage per primary team
[2024-04-07] MEDS: D5 0.45 NS 1,000 ML IV SCH (10:38)
[2024-04-07] MEDS: METOPROLOL TAR 25 MG TAB PO ONE (11:18)
[2024-04-07] MEDS: D5W 1,000 ML IV SCH ×2 (11:18→18:11)
--- NOTE | 2024-04-07 12:46 | P.CNS ---
Date of Consult: 04/07/24 Reason for Consult: Shock with elevated white count Chief Complaint: sepsis History of Present Illness: Patient is 83 years of age end-stage dementia was admitted with altered mental status patient was found to be hyponatremic currently elevated white count from negative rods in the urine patient is currently on Levophed Allergies Penicillins Adverse Reaction (Verified 05/02/21 00:34) Hives/Rash Home Medications: Donepezil HCl [Aricept] 10 mg PO DAILY 05/02/21 Memantine HCl [Namenda*] 10 mg PO BID 05/02/21 SUMAtriptan succinate [Sumatriptan Succinate] 25 mg PO PRN PRN 05/02/21 Pantoprazole Sodium [Protonix] 40 mg PO DAILY 90 Days #90 tab 02/20/22 Sucralfate [Carafate*] 1 ml PO TID* 30 Days #900 ml 02/20/22 Gabapentin 300 mg PO TID 06/06/22 Metoprolol Tartrate [Lopressor*] 1 tab FT DAILY 06/06/22 Promethazine HCl 25 mg FT BEDTIME 06/06/22 Trazodone [Desyrel*] 1 tab .ROUTE QID 06/06/22 - Past Medical/Surgical History Diabetic: No -: TIA -: CO -: GERD -: IBS -: DVT -: DEMENTIA -: - Social History Smoking Status: Unknown if ever smoked Alcohol use: No CD- Drugs: No Caffeine use: No Review of Systems is unable to be obtained Physical Examination Temp Pulse Resp BP Pulse Ox 98.1 F 92 H 18 103/47 L 99 04/07/24 12:00 04/07/24 12:00 04/07/24 12:00 04/07/24 12:00 04/07/24 12:00 General: Unresponsive Respiratory: Clear to auscultation bilaterally Cardiovascular: No edema, Regular rate/rhythm, Normal S1 S2 Gastrointestinal: Other (Patient has a peg tube) Laboratory Data (last 24 hrs) 04/06/24 04/06/24 04/06/24 20:05 17:34 17:07 WBC 34.90 H Hgb 10.0 L Hct 29.7 L Plt Count 226 PT 13.8 H INR 1.24 APTT 28.4 Sodium 120 L D Potassium 5.5 H BUN 24 H Creatinine 1.17 H Glucose 111 H Phosphorus 2.0 L Magnesium 1.6 Total Bilirubin AST ALT Alkaline Phosphatase 04/06/24 16:50 WBC Hgb Hct Plt Count PT INR APTT Sodium 114 L* Potassium 6.0 H BUN 27 H Creatinine 1.18 H Glucose 110 H Phosphorus Magnesium Total Bilirubin 0.8 AST 20 ALT < 14 Alkaline Phosphatase 64 - Problems (1) Shock Current Visit: Yes Status: Acute Plan: Patient is 83 years of age admitted with altered mental status appears to be in septic shock tested positive for influenza we will plan to bolus her on IV fluids hyponatremia is improving white count is 40,000 patient may have underlying urosepsis patient is now on D5 continue with Merrem and vancomycin until cultures are back chest x-ray CT scan reviewed patient has a pleural effusion at the left base
--- NOTE | 2024-04-07 16:26 | P.PN ---
Date of Service: 04/07/24 Subjective Patient with no new changes. Clinically doing well. Physical Examination - Vitals Reviewed - Physical Exam General: Other (lethargic, frail, clinically dry) HEENT: Atraumatic, Normocephalic Cardiovascular: No edema, Normal pulses, Regular rate/rhythm, Normal S1 S2 Lungs: Bilateral crackles Gastroenterology: Abdomen soft nontender nondistended bowel sounds hypoactive Extremities: No clubbing no cyanosis no edema Neurological: Dementia; bedbound and does not really move much at all. Assessment and Plan - Problems (Diagnosis) (1) Hyponatremia Current Visit: Yes Status: Acute (2) Influenza Current Visit: Yes Status: Acute (3) Acute metabolic encephalopathy Current Visit: No Status: Acute (4) Dehydration Current Visit: No Status: Acute (5) Severe sepsis Current Visit: No Status: Acute (6) UTI (urinary tract infection) Current Visit: No Status: Acute Qualifiers: (7) Dementia Current Visit: No Status: Chronic Qualifiers: (8) Dysphagia Current Visit: No Status: Chronic - Plan Assessment This is a 83-year-old female with Alzheimer's dementia who presented with progressively declining mental status. Patient has been found to have a sodium of 114. Her urinanalysis from one day prior to admission shows gram-negative rods. Patient also tested positive for influenza. Patient will be admitted to ICU for severe hyponatremia. Patient required an additional IV fluid bolus in the ER as her blood pressure dropped in the 70s. She eventually require vasopressors due to persistent hypotension. Central line placed by ER. Acute metabolic encephalopathy Septic shock/hypotension Hyponatremia Influenza Urinary tract infection Alzheimer dementia Plan: Will admit to ICU Central line requested for frequent blood draws and possible vasopressors/volume repletion; PEG tube placement pending Check BMP every 4 hours Nephrology consult appreciated. Will defer decision to give hypertonic saline to nephrology Critical care physician consulted Cefepime started for UTI based on urine analysis from 04/05/2024 Tamiflu continued for influenza GI prophylaxis Patient was seen and examined. Events of the last 24 hours have been noted. Spoke with with YARIEL regarding patient's clinical picture after evaluating and examining the patient independently. I performed a substantial part of the MDM during this patient's care today. I personally made or approved the documented management plan and acknowledge its risk of complications. I agree with the findings and documentation provided in the YARIEL's notes. Continue with gentle hydration and monitor labs closely. BP stable. Working on discharge planning.
[2024-04-07] MEDS: METOPROLOL TAR 25 MG TAB PO SCH (17:39)
[2024-04-07] MEDS: VANCOMYCIN 1.25 GM in NA CHLORIDE 0.9% 250 ML IVPB SCH (20:10)
[2024-04-08 04:56] LABS: Absolute Lymphocytes (CBC) 0.4 K/uL (0.7-4.9); Absolute Monocytes 0.7 K/uL (0.1-1.3); Absolute Neutrophil 16.6 K/uL (1.8-8.0); Basophils % 0.3 % (0-1.3); Hematocrit 27.2 % (36.0-45.0); Hemoglobin 9.5 g/dL (12.0-15.0); Lymphocytes % 2.4 % (15.3-44.8); MCH 33.1 pg (27.0-35.0); MCV 94.6 fL (80-100); MPV 6.6 fL (7.6-11.3); Platelets 234 thou/uL (152-406); RBC Red Blood Cell Count 2.87 M/uL (3.86-4.86)
[2024-04-08 04:57] LABS: Neutrophils % 93.3 % (41.7-73.7)
[2024-04-08 05:15] LABS: Anion Gap 12.5 mEq/L (5.0-15.0); Magnesium 1.6 mg/dL (1.6-2.4); Phosphorus 3.2 mg/dL (2.5-4.9); Potassium 3.5 mEq/L (3.5-5.1)
[2024-04-08] MEDS: Magnesium Sulfate 2gm IVPB 2 G/50 ML BAG IV ONE (08:30)
[2024-04-08] MEDS: KCL 20 MEQ/100 mL IVPB 20 MEQ/100 ML BAG IV SCH (08:30)
--- NOTE | 2024-04-08 11:53 | P.PN ---
Subjective Date of Service: 04/08/24 Chief Complaint: sepsis Subjective: Improving (Patient is doing better hemodynamically stable) Review of Systems is unable to be obtained Physical Examination - Vital Signs Temperature: 97.2 F Blood Pressure: 124/72 Pulse: 103 Respirations: 26 Pulse Ox (%): 99 - Physical Exam General: Unresponsive Respiratory: Clear to auscultation bilaterally Gastrointestinal: Normal bowel sounds, Soft and benign - Studies Microbiology Data (last 24 hrs): 04/06/24 17:20 Blood - Blood Anaerobic Blood Culture - Final 04/06/24 17:12 Blood - Blood Anaerobic Blood Culture - Final Assessment And Plan - Current Problems (Diagnosis) (1) Shock Current Visit: Yes Status: Acute Plan: Patient admitted with septic shock she has gram-negative rods in the urine most likely sepsis from urinary origin white count has decreased new with antibiotics until final ID signs oxygenation stable resume tube feeds to transfer to the floor
--- NOTE | 2024-04-08 12:14 | P.PN ---
(S) Pt remains in the ICU, no acute events, off Levophed pressor support, TF initiated. Na level stable (O) Vitals reviewed in the EMR General: In no apparent distress, Other (awake) HEENT: Atraumatic, Normocephalic Respiratory: Other (Non tachypnec, no distress, no wheezing) Cardiovascular: Other (mild tachy, regular mosmtly) Gastrointestinal: Soft and benign, Non-distended, No tenderness Musculoskeletal: Contractures Integumentary: No rashes Neurological: Other (Awake, non verbal, no tremors noted), Abnormal tone Conclusions/Impression: A/P) 1. Acute hypotonic hypovolemic hyponatremia in the setting of impaired intake +/- insensible losses, other -Na level had initially risen more rapidly on isotonic IVF order by the primary team so switched to hypotonic maintenance ivf and slowed further Na level rise 2. Now that she is on TF, will place on maintenance free water flushes and adjust. She is polyuric so will monitor lytes closely 3. Hyperkalemia 2nd to vol depletion, Stage 1 GENTRY -resolved 4. influenza PNA, hypotension, unspecified -BP improved, weaned off pressors, WBC trending down, cont anti viral/empiric Abx coverage per primary team
[2024-04-08] MEDS: ACETAMINOPHEN 500 MG TAB PO PRN (16:27)
[2024-04-09] MEDS: VANCOMYCIN 1.25 GM in NA CHLORIDE 0.9% 250 ML IVPB SCH (03:00)
[2024-04-09 07:05] LABS: Absolute Eosinophils 0.1 K/uL (0-0.5); Absolute Lymphocytes (CBC) 0.4 K/uL (0.7-4.9); Absolute Monocytes 0.9 K/uL (0.1-1.3); Absolute Neutrophil 9.1 K/uL (1.8-8.0); Basophils % 0.3 % (0-1.3); Eosinophils % 1.4 % (0-4.4); Hematocrit 28.4 % (36.0-45.0); Hemoglobin 9.7 g/dL (12.0-15.0); MCH 32.6 pg (27.0-35.0); MCHC 34.2 g/dL (32.0-36.0); MCV 95.4 fL (80-100); Monocytes % 8.1 % (3.3-12.3); Neutrophils % 86.2 % (41.7-73.7); Platelets 217 thou/uL (152-406); RBC Red Blood Cell Count 2.97 M/uL (3.86-4.86); Red Cell Distribution Width 13.8 % (12.1-15.2)
[2024-04-09 07:17] LABS: Anion Gap 10.6 mEq/L (5.0-15.0)
[2024-04-09 07:19] LABS: Potassium 3.6 mEq/L (3.5-5.1)
--- NOTE | 2024-04-09 11:14 | P.PN ---
(S) Pt moved out of the ICU, doing better, BP no longer low, daughter at bedside, feel's pt's alertness back to baseline (O) Vitals reviewed in the EMR General: In no apparent distress, Other (awake) HEENT: Atraumatic, Normocephalic Respiratory: Other (Non tachypnec, no distress, no wheezing) Cardiovascular: Other (mild tachy, regular mostly) Gastrointestinal: Soft and benign, Non-distended, No tenderness Musculoskeletal: Contractures, some swelling of extremities Integumentary: No rashes Neurological: Other (Awake, non verbal, no tremors noted), Abnormal tone Conclusions/Impression: A/P) 1. Acute hypotonic hypovolemic hyponatremia in the setting of impaired intake +/- insensible losses, other -Na level had initially risen more rapidly on isotonic IVF order by the primary team so switched to hypotonic maintenance ivf and slowed further Na level rise 2. Now that she is on TF, did place on maintenance free water flushes and will lower to 200 q6h today 3. Hyperkalemia 2nd to vol depletion, Stage 1 GENTRY -resolved 4. influenza PNA, hypotension, unspecified -BP improved, weaned off pressors, WBC trending down, cont anti viral/empiric Abx coverage per primary team 5. Bacteremia, sepsis possibly 2nd to urinary source. Pyuria on UA -gram neg coverage Abx per primary. Hx of retention of urine unspecified, chronic indwelling bladder catheter exchanged q3 weeks per reports. 6. Chronic labile HTN with hypotension on admission -daughter reports that pt was on clonidine patch at home, explained to daughter that that would not be an ideal agent to use in this elderly pt and currently not indicated
[2024-04-09] MEDS: POTASSIUM PHOS IN 0.9 % NACL 15 MMOL/250 ML BAG IV ONE (11:41)
--- NOTE | 2024-04-09 11:41 | EKG ---
Test Date: 2024-04-06 Test Time: 17:21:14 Glass Cutter Helper: MEASUREMENT RESULTS: Intervals: Rate: 81 ND: 132 QRSD: 68 QT: 342 QTc: 397 [place]: P: 42 ND: 132 QRS: -18 T: 25 INTERPRETIVE STATEMENTS: Normal sinus rhythm Inferior infarct, age undetermined Possible Anterolateral infarct, age undetermined Abnormal ECG Compared to ECG 06/05/2022 20:02:48 No significant changes Electronically Signed On 04-09-24 11:35:04 RUBBER SPLICER by Pineda Gaspar
[2024-04-09] MEDS: ONDANSETRON 4 MG/2 ML VIAL IV PRN (15:42)
[2024-04-10 08:05] LABS: Absolute Basophils 0.1 K/uL (0-0.5); Absolute Eosinophils 0.1 K/uL (0-0.5); Absolute Lymphocytes (CBC) 0.8 K/uL (0.7-4.9); Absolute Monocytes 1.5 K/uL (0.1-1.3); Basophils % 0.6 % (0-1.3); Eosinophils % 1.2 % (0-4.4); Hemoglobin 9.4 g/dL (12.0-15.0); Lymphocytes % 6.7 % (15.3-44.8); MCH 32.4 pg (27.0-35.0); MCHC 33.7 g/dL (32.0-36.0); MCV 96.1 fL (80-100); MPV 6.8 fL (7.6-11.3); Monocytes % 13.2 % (3.3-12.3); Neutrophils % 78.3 % (41.7-73.7); Platelets 229 thou/uL (152-406); RBC Red Blood Cell Count 2.91 M/uL (3.86-4.86)
[2024-04-10 08:18] LABS: Magnesium 1.8 mg/dL (1.6-2.4); Phosphorus 2.3 mg/dL (2.5-4.9)
--- NOTE | 2024-04-10 09:10 | P.PN ---
Subjective Date of Service: 04/10/24 Chief Complaint: sepsis Confused, dementia, transferred out of ICU, tube feeds initiated, sodium stable, <Ligia Pathak - Last Filed: 04/10/24 17:44> Date of Service: 04/10/24 Patient was seen and examined. Events of the last 24 hours have been noted. Spoke with with YARIEL regarding patient's clinical picture after evaluating and examining the patient independently. I performed a substantial part of the MDM during this patient's care today. I personally made or approved the documented management plan and acknowledge its risk of complications. I agree with the findings and documentation provided in the YARIEL's notes. Continue with gentle hydration and monitor labs closely. BP stable. Working on discharge planning once PEG tube is placed. <Davi Tobar - Last Filed: 04/14/24 03:50> Physical Examination - Vital Signs Temperature: 97.7 F Blood Pressure: 150/67 Pulse: 94 Respirations: 18 Pulse Ox (%): 96 - Physical Exam General: In no apparent distress, Cachectic, Demented HEENT: Atraumatic, Normocephalic Respiratory: Clear to auscultation bilaterally, Normal air movement Cardiovascular: Normal pulses, Regular rate/rhythm Capillary refill: <2 Seconds Gastrointestinal: Normal bowel sounds, Soft and benign Musculoskeletal: Other (Moderate generalized weakness) Neurological: Abnormal strength, Dementia - Studies Microbiology Data (last 24 hrs): 04/06/24 17:12 Blood - Blood Anaerobic Blood Culture - Final 04/06/24 18:53 Clean Catch Urine [place] Count - Final >100,000 CFU/ML. 04/06/24 18:53 Clean Catch Urine - Final Klebsiella Oxytoca Enterococcus Faecalis 04/06/24 17:20 Blood - Blood Aerobic Blood Culture - Final Pseudomonas Aeruginosa 04/06/24 17:20 Blood - Blood Blood Culture Gram Stain - Final 04/06/24 17:20 Blood - Blood Anaerobic Blood Culture - Final <Ligia Pathak - Last Filed: 04/10/24 17:44> Assessment And Plan - Plan subjective Confused, eyes open to verbal History of present illness Unable to be obtained due to metabolic encephalopathy Physical Examination - Vitals Reviewed - Physical Exam General: Confused, resting with eyes closed, eyes open to verbal, frail HEENT: Atraumatic, Normocephalic Cardiovascular: No edema, Normal pulses, Regular rate/rhythm, Normal S1 S2 Lungs: Diminished, unlabored, Gastroenterology: Normal active bowel sounds, nontender Extremities: Moderate generalized weakness Neurological: Dementia Assessment and Plan - Problems (Diagnosis) (1) Hyponatremia improving hyperkalemia resolved Current Visit: Yes Status: Acute (2) Influenza Current Visit: Yes Status: Acute (3) Acute metabolic encephalopathy Current Visit: No Status: Acute (4) Dehydration Current Visit: No Status: Acute (5) Severe sepsis secondary to UTI/acute cystitis Current Visit: No Status: Acute (6) UTI (urinary tract infection) Current Visit: No Status: Acute Qualifiers: (7) Dementia Current Visit: No Status: Chronic Qualifiers: (8) Dysphagia Current Visit: No Status: Chronic - Plan Assessment This is a 83-year-old female with Alzheimer's dementia who presented with progressively declining mental status. Patient has been found to have a sodium of 114. Her urine analysis from 1 day TECHNICAL SALES SUPPORT SPECIALIST shows gram-negative rods. Patient also tested positive for influenza. Patient will be admitted to ICU for severe hyponatremia. Patient required an additional IV fluid bolus in the ER as her blood pressure dropped in the 70s. She eventually require vasopressors due to persistent hypotension. Central line placed by ER. Acute metabolic encephalopathy likely secondary to acute cystitis/hyponatremia Septic shock/hypotension improved, transferred out of ICU Hyponatremia-improving Influenza Urinary tract infection IV antibiotic Alzheimer dementia-supportive care fall precaution Plan: admitted to ICU on pressure support, stabilized, downgraded to floor Central line requested for frequent blood draws and possible vasopressors/volume repletion Started on Levophed after multiple fluid challenge-weaned off of pressors, Nephrology consult appreciated. Cefepime started for UTI based on urine analysis from 04/05/2024 Urine culture Klebsiella oxytoca/Pseudomonas-leukocytosis improved-on vancomycin, meropenem Tamiflu continued for influenza GI prophylaxis Time with patient 25 minutes Discharge Plan: Other ([facility] home health) Critical Care: No Time Spent Managing PTS Care (In Minutes): 35 <Ligia Pathak - Last Filed: 04/10/24 17:44>
[2024-04-10 09:59] LABS: Anion Gap 9.4 mEq/L (5.0-15.0); Potassium 3.4 mEq/L (3.5-5.1)
[2024-04-10] MEDS: POTASSIUM PHOS IN 0.9 % NACL 15 MMOL/250 ML BAG IV ONE (11:37)
[2024-04-10] MEDS: MAGNESIUM SULFATE 1 gm IVPB 1 GM/100 ML BAG IV ONE (11:38)
[2024-04-10] MEDS: GABAPENTIN 300 MG CAP PO SCH (15:01)
[2024-04-10] MEDS: VANCOMYCIN 1.25 GM in NA CHLORIDE 0.9% 250 ML IVPB SCH (15:42)
--- NOTE | 2024-04-10 17:54 | P.PN ---
Date of Service: 04/09/24 Subjective Chief Complaint: sepsis Confused, dementia, transferred out of ICU, tube feeds initiated, sodium stable, Physical Examination - Vital Signs Reviewed - Physical Exam General: In no apparent distress, Cachectic, Demented HEENT: Atraumatic, Normocephalic Respiratory: Clear to auscultation bilaterally, Normal air movement Cardiovascular: Normal pulses, Regular rate/rhythm Capillary refill: <2 Seconds Gastrointestinal: Normal bowel sounds, Soft and benign Musculoskeletal: Other (Moderate generalized weakness) Neurological: Abnormal strength, Dementia - Studies Microbiology Data (last 24 hrs): 04/06/24 17:12 Blood - Blood Anaerobic Blood Culture - Final 04/06/24 18:53 Clean Catch Urine [place] Count - Final >100,000 CFU/ML. 04/06/24 18:53 Clean Catch Urine - Final Klebsiella Oxytoca Enterococcus Faecalis 04/06/24 17:20 Blood - Blood Aerobic Blood Culture - Final Pseudomonas Aeruginosa 04/06/24 17:20 Blood - Blood Blood Culture Gram Stain - Final 04/06/24 17:20 Blood - Blood Anaerobic Blood Culture - Final Assessment and Plan - Problems (Diagnosis) (1) Hyponatremia improving hyperkalemia resolved Current Visit: Yes Status: Acute (2) Influenza Current Visit: Yes Status: Acute (3) Acute metabolic encephalopathy Current Visit: No Status: Acute (4) Dehydration Current Visit: No Status: Acute (5) Severe sepsis secondary to UTI/acute cystitis Current Visit: No Status: Acute (6) UTI (urinary tract infection) Current Visit: No Status: Acute Qualifiers: (7) Dementia Current Visit: No Status: Chronic Qualifiers: (8) Dysphagia Current Visit: No Status: Chronic - Plan Assessment This is a 83-year-old female with Alzheimer's dementia who presented with progressively declining mental status. Patient has been found to have a sodium of 114. Her urine analysis from 1 day VOCATIONAL COUNSELOR shows gram-negative rods. Patient also tested positive for influenza. Patient will be admitted to ICU for severe hyponatremia. Patient required an additional IV fluid bolus in the ER as her blood pressure dropped in the 70s. She eventually require vasopressors due to persistent hypotension. Central line placed by ER. Acute metabolic encephalopathy likely secondary to acute cystitis/hyponatremia- Sodium, leukocytosis improved Septic shock/hypotension improved, transferred out of ICU-resolved Influenza, Tamiflu Urinary tract infection IV antibiotic: Vancomycin, meropenem, improved Alzheimer dementia-supportive care fall precaution Plan: admitted to ICU on pressure support, stabilized, downgraded to floor Central line requested for frequent blood draws and possible vasopressors/volume repletion Started on Levophed after multiple fluid challenge-weaned off of pressors, Nephrology consult appreciated. Cefepime started for UTI based on urine analysis from 04/05/2024 Urine culture Klebsiella oxytoca/Pseudomonas-leukocytosis improved-on vancomycin, meropenem Tamiflu continued for influenza GI prophylaxis Time with patient 25 minutes Discharge Plan: Other ([facility] health) Critical Care: No Time Spent Managing PTS Care (In Minutes): 25 <Ligia Pathak - Last Filed: 04/10/24 17:54> Patient was seen and examined. Events of the last 24 hours have been noted. Spoke with with YARIEL regarding patient's clinical picture after evaluating and examining the patient independently. I performed a substantial part of the MDM during this patient's care today. I personally made or approved the documented management plan and acknowledge its risk of complications. I agree with the findings and documentation provided in the YARIEL's notes. Continue with gentle hydration and monitor labs closely. BP stable. Working on discharge planning once PEG tube is placed. <Davi Tobar - Last Filed: 04/14/24 03:50>
[2024-04-10] MEDS: MEMANTINE HCL 10 MG TABLET PO SCH (21:25)
[2024-04-10] MEDS: DONEPEZIL HCL 5 MG TAB PO SCH (21:26)
[2024-04-11 07:47] LABS: Absolute Basophils 0.1 K/uL (0-0.5); Absolute Eosinophils 0.5 K/uL (0-0.5); Absolute Lymphocytes (CBC) 1.3 K/uL (0.7-4.9); Absolute Monocytes 1.5 K/uL (0.1-1.3); Absolute Neutrophil 8.3 K/uL (1.8-8.0); Basophils % 0.9 % (0-1.3); Eosinophils % 4.5 % (0-4.4); Hematocrit 27.6 % (36.0-45.0); Hemoglobin 9.2 g/dL (12.0-15.0); Lymphocytes % 10.9 % (15.3-44.8); MCH 32.2 pg (27.0-35.0); MCHC 33.4 g/dL (32.0-36.0); MCV 96.5 fL (80-100); MPV 7.6 fL (7.6-11.3); Monocytes % 12.6 % (3.3-12.3); Neutrophils % 71.1 % (41.7-73.7); Platelets 264 thou/uL (152-406); RBC Red Blood Cell Count 2.86 M/uL (3.86-4.86)
[2024-04-11] MEDS: METOPROLOL TAR 25 MG TAB FT SCH ×2 (08:08→13:37)
[2024-04-11] MEDS: LOPERAMIDE HCL 2 MG CAPSULE FT SCH (09:00)
[2024-04-11 09:16] LABS: Anion Gap 10.2 mEq/L (5.0-15.0); Potassium 3.2 mEq/L (3.5-5.1)
[2024-04-11 11:53] LABS: Magnesium 1.9 mg/dL (1.6-2.4); Phosphorus 2.4 mg/dL (2.5-4.9)
[2024-04-11] MEDS: POTASSIUM PHOS IN 0.9 % NACL 15 MMOL/250 ML BAG IV ONE (13:36)
--- NOTE | 2024-04-11 17:44 | P.PN ---
Date of Service: 04/11/24 Subjective Chief Complaint: sepsis dementia, tube feeds initiated, sodium stable, Imodium for loose stool Physical Examination - Vital Signs Reviewed - Physical Exam General: In no apparent distress, Cachectic, Demented HEENT: Atraumatic, Normocephalic Respiratory: Clear to auscultation bilaterally, Normal air movement Cardiovascular: Normal pulses, Regular rate/rhythm Capillary refill: <2 Seconds Gastrointestinal: Normal bowel sounds, G-tube feeding, diarrhea Musculoskeletal: Other (Moderate generalized weakness) Neurological: Abnormal strength, Dementia - Studies Microbiology Data (last 24 hrs): 04/06/24 17:12 Blood - Blood Anaerobic Blood Culture - Final 04/06/24 18:53 Clean Catch Urine [place] Count - Final >100,000 CFU/ML. 04/06/24 18:53 Clean Catch Urine - Final Klebsiella Oxytoca Enterococcus Faecalis 04/06/24 17:20 Blood - Blood Aerobic Blood Culture - Final Pseudomonas Aeruginosa 04/06/24 17:20 Blood - Blood Blood Culture Gram Stain - Final 04/06/24 17:20 Blood - Blood Anaerobic Blood Culture - Final Assessment and Plan - Problems (Diagnosis) (1) Hyponatremia improving hyperkalemia resolved Current Visit: Yes Status: Acute (2) Influenza Current Visit: Yes Status: Acute (3) Acute metabolic encephalopathy Current Visit: No Status: Acute (4) Dehydration Current Visit: No Status: Acute (5) Severe sepsis secondary to UTI/acute cystitis Current Visit: No Status: Acute (6) UTI (urinary tract infection) Current Visit: No Status: Acute Qualifiers: (7) Dementia G-tube feeding dependent Current Visit: No Status: Chronic Qualifiers: (8) Dysphagia G-tube feeding dependent Diarrhea from tube feed Current Visit: No Status: Chronic - Plan Assessment This is a 83-year-old female with Alzheimer's dementia who presented with progressively declining mental status. Patient has been found to have a sodium of 114. Her urine analysis from 1 day MANAGER ERP shows gram-negative rods. Patient also tested positive for influenza. Patient will be admitted to ICU for severe hyponatremia. Patient required an additional IV fluid bolus in the ER as her blood pressure dropped in the 70s. She eventually require vasopressors due to persistent hypotension. Central line placed by ER. Acute metabolic encephalopathy likely secondary to acute cystitis/hyponatremia- Sodium, leukocytosis improved Septic shock/hypotension improved, transferred out of ICU-resolved Influenza, Tamiflu Urinary tract infection IV antibiotic: Vancomycin, meropenem, improved Alzheimer dementia-supportive care fall precaution Plan: admitted to ICU on pressure support, stabilized, downgraded to floor Central line requested for frequent blood draws and possible vasopressors/volume repletion Started on Levophed after multiple fluid challenge-weaned off of pressors, Nephrology consult appreciated. Cefepime started for UTI based on urine analysis from 04/05/2024 Urine culture Klebsiella oxytoca/Pseudomonas-leukocytosis improved-on vancomycin, meropenem Tamiflu continued for influenza Diarrhea tube feed, on Imodium as needed GI prophylaxis Time with patient 25 minutes Discharge Plan: Other ([facility] home health) Critical Care: No Time Spent Managing PTS Care (In Minutes): 25 <Ligia Pathak - Last Filed: 04/11/24 17:58> Patient was seen and examined. Events of the last 24 hours have been noted. Spoke with with YARIEL regarding patient's clinical picture after evaluating and examining the patient independently. I performed a substantial part of the MDM during this patient's care today. I personally made or approved the documented management plan and acknowledge its risk of complications. I agree with the findings and documentation provided in the YARIEL's notes. Continue with gentle hydration and monitor labs closely. BP stable. Working on discharge planning once PEG tube is placed. Family has help at home and plan to discharge home with home health therapy. <Davi Tobar - Last Filed: 04/14/24 03:51>
[2024-04-12] MEDS: KCL 20 MEQ/100 mL IVPB 20 MEQ/100 ML BAG IV SCH (01:43)
--- NOTE | 2024-04-12 08:48 | P.PN ---
Date of Service: 04/12/24 Subjective Chief Complaint: sepsis dementia, tube feeds initiated, sodium stable, Imodium for loose stool Daughter at bedside Physical Examination - Vital Signs Reviewed - Physical Exam General: In no apparent distress, Cachectic, Demented HEENT: Atraumatic, Normocephalic Respiratory: Clear to auscultation bilaterally, Normal air movement Cardiovascular: Normal pulses, Regular rate/rhythm Capillary refill: <2 Seconds Gastrointestinal: Normal bowel sounds, G-tube feeding, diarrhea Musculoskeletal: Other (Moderate generalized weakness) Neurological: Abnormal strength, Dementia - Studies Microbiology Data (last 24 hrs): 04/06/24 17:12 Blood - Blood Anaerobic Blood Culture - Final 04/06/24 18:53 Clean Catch Urine [place] Count - Final >100,000 CFU/ML. 04/06/24 18:53 Clean Catch Urine - Final Klebsiella Oxytoca Enterococcus Faecalis 04/06/24 17:20 Blood - Blood Aerobic Blood Culture - Final Pseudomonas Aeruginosa 04/06/24 17:20 Blood - Blood Blood Culture Gram Stain - Final 04/06/24 17:20 Blood - Blood Anaerobic Blood Culture - Final Assessment and Plan - Problems (Diagnosis) Hyponatremia improving hyperkalemia resolved Current Visit: Yes Status: Acute Influenza Current Visit: Yes Status: Acute Acute metabolic encephalopathy Current Visit: No Status: Acute Dehydration improved Current Visit: No Status: Acute Severe sepsis secondary to UTI/acute cystitis improved Current Visit: No Status: Acute UTI (urinary tract infection) Current Visit: No Status: Acute Qualifiers: Dementia chronic G-tube feeding dependent Current Visit: No Status: Chronic Qualifiers: Dysphagia G-tube feeding dependent Diarrhea from tube feed Current Visit: No Status: Chronic - Plan Assessment This is a 83-year-old female with Alzheimer's dementia who presented with progressively declining mental status. Patient has been found to have a sodium of 114. Her urine analysis from 1 day CHIEF ADMINISTRATIVE OFFICER shows gram-negative rods. Patient also tested positive for influenza. Patient will be admitted to ICU for severe hyponatremia. Patient required an additional IV fluid bolus in the ER as her blood pressure dropped in the 70s. She eventually require vasopressors due to persistent hypotension. Central line placed by ER. Acute metabolic encephalopathy likely secondary to acute cystitis/hyponatremia- Sodium, leukocytosis improved Septic shock/hypotension improved, transferred out of ICU-resolved Influenza, Tamiflu Urinary tract infection IV antibiotic: Vancomycin, meropenem, improved Alzheimer dementia-supportive care fall precaution Plan: admitted to ICU on pressure support, stabilized, downgraded to floor Central line requested for frequent blood draws and possible vasopressors/volume repletion Started on Levophed after multiple fluid challenge-weaned off of pressors, Nephrology consult appreciated. Cefepime started for UTI based on urine analysis from 04/05/2024 Urine culture Klebsiella oxytoca/Pseudomonas-leukocytosis improved-on vancomycin, meropenem Tamiflu continued for influenza Diarrhea tube feed, on Imodium as needed GI prophylaxis Time with patient 25 minutes Discharge Plan: Other ([facility] health) Critical Care: No Time Spent Managing PTS Care (In Minutes): 25 <Lgiia Pathak - Last Filed: 04/12/24 08:46> Patient was seen and examined. Events of the last 24 hours have been noted. Spoke with with YARIEL regarding patient's clinical picture after evaluating and examining the patient independently. I performed a substantial part of the MDM during this patient's care today. I personally made or approved the documented management plan and acknowledge its risk of complications. I agree with the findings and documentation provided in the YARIEL's notes. Patient doing well. Hyponatremia corrected. Spoke with general surgery and unable to do PEG tube till Sunday. Once PEG tube completed then anticipate discharge. PEG tube not flushing completely. 18 months since it has been changed. Renal function remains stable. Continue checking sodium level closely. Continue with antibiotic therapy. Arrange for discharge planning in a.m. UTI with Klebsiella, Enterobacter, and Enterococcus faecalis <Davi Tobar - Last Filed: 04/14/24 03:55>
[2024-04-12 09:54] LABS: Absolute Basophils 0.1 K/uL (0-0.5); Absolute Eosinophils 0.4 K/uL (0-0.5); Absolute Lymphocytes (CBC) 1.2 K/uL (0.7-4.9); Absolute Monocytes 1.1 K/uL (0.1-1.3); Absolute Neutrophil 9.5 K/uL (1.8-8.0); Basophils % 1.2 % (0-1.3); Hematocrit 27.7 % (36.0-45.0); Hemoglobin 9.5 g/dL (12.0-15.0); Lymphocytes % 9.4 % (15.3-44.8); MCHC 34.2 g/dL (32.0-36.0); MCV 96.4 fL (80-100); MPV 7.4 fL (7.6-11.3); Monocytes % 9.2 % (3.3-12.3); Neutrophils % 77.2 % (41.7-73.7); Platelets 383 thou/uL (152-406); RBC Red Blood Cell Count 2.87 M/uL (3.86-4.86); Red Cell Distribution Width 14.1 % (12.1-15.2)
[2024-04-12] MEDS: NEBIVOLOL HCL 5 MG TAB PO SCH (10:20)
--- NOTE | 2024-04-12 10:53 | P.PN ---
(S) Pt moved out of the ICU, doing better, BP no longer low, daughter at bedside, feel's pt's alertness back to baseline (O) Vitals reviewed in the EMR General: In no apparent distress, Other (awake) HEENT: Atraumatic, Normocephalic Respiratory: Other (Non tachypnec, no distress, no wheezing) Cardiovascular: Other (mild tachy, regular mostly) Gastrointestinal: Soft and benign, Non-distended, No tenderness Musculoskeletal: Contractures, some swelling of extremities Integumentary: No rashes Neurological: Other (Awake, non verbal, no tremors noted), Abnormal tone Conclusions/Impression: A/P) 1. Acute hypotonic hypovolemic hyponatremia in the setting of impaired intake +/- insensible losses, other -improved 2. Na level over 130, cont current free water flushes 3. Hyperkalemia 2nd to vol depletion, Stage 1 GENTRY -resolved 4. influenza PNA, hypotension, unspecified -improved clinically, not needing O2, will defer to primary team to manage 5. Bacteremia, sepsis possibly 2nd to urinary source. Pyuria on UA -several organism growth, will defer to primary team to see if Abx can be consolidated and when Abx can be transitioned to PO ones. Hx of retention of urine unspecified, chronic indwelling bladder catheter exchanged q3 weeks per reports. 6. Chronic labile HTN with hypotension on admission -home meds resumed by primary team, pt is on regimen of Nebivolol and Clonidine patch but it appears given some tachycardia (which may be physiologic), daughter reports pt had done well on this at home. BP labile here, monitor
[2024-04-12 11:50] LABS: Anion Gap 8.1 mEq/L (5.0-15.0); Potassium 4.1 mEq/L (3.5-5.1)
[2024-04-12] MEDS ORDERED: LOSARTAN POTASSIUM 50 MG TABLET FT SCH (12:00)
[2024-04-12] MEDS: CLONIDINE 0.1 MG/PATCH TD SCH (12:00)
[2024-04-12 22:16] VITALS: BMI 26.3
[2024-04-13 05:51] LABS: Absolute Eosinophils 0.4 K/uL (0-0.5); Absolute Lymphocytes (CBC) 1.6 K/uL (0.7-4.9); Absolute Neutrophil 7.4 K/uL (1.8-8.0); Basophils % 0.2 % (0-1.3); Eosinophils % 4.2 % (0-4.4); Hematocrit 25.8 % (36.0-45.0); Hemoglobin 8.6 g/dL (12.0-15.0); Lymphocytes % 15.2 % (15.3-44.8); MCH 32.2 pg (27.0-35.0); MCHC 33.2 g/dL (32.0-36.0); MCV 97.1 fL (80-100); Monocytes % 9.9 % (3.3-12.3); Neutrophils % 70.5 % (41.7-73.7); Platelets 417 thou/uL (152-406); RBC Red Blood Cell Count 2.66 M/uL (3.86-4.86)
[2024-04-13] MEDS ORDERED: POTASSIUM 25 MEQ EFFERV TAB PO SCH (09:00)
--- NOTE | 2024-04-13 10:17 | P.PN ---
Date of Service: 04/13/24 Subjective Chief Complaint: sepsis total care, B) skin wrist, skin tears nurse to change dressing NPO after MN peg tube rpl in am w surgery Daughter at bedside Physical Examination - Vital Signs Reviewed - Physical Exam General: In no apparent distress, Cachectic, Demented HEENT: Atraumatic, Normocephalic Respiratory: Clear to auscultation bilaterally, Normal air movement Cardiovascular: Normal pulses, Regular rate/rhythm Capillary refill: <2 Seconds Gastrointestinal: Normal bowel sounds, G-tube feeding, diarrhea Musculoskeletal , BUE, BLE contractures, total care Skin: B) wrist skin tears, dry dressing Neurological: Abnormal strength, Dementia - Studies Microbiology Data (last 24 hrs): 04/06/24 17:12 Blood - Blood Anaerobic Blood Culture - Final 04/06/24 18:53 Clean Catch Urine [place] Count - Final >100,000 CFU/ML. 04/06/24 18:53 Clean Catch Urine - Final Klebsiella Oxytoca Enterococcus Faecalis 04/06/24 17:20 Blood - Blood Aerobic Blood Culture - Final Pseudomonas Aeruginosa 04/06/24 17:20 Blood - Blood Blood Culture Gram Stain - Final 04/06/24 17:20 Blood - Blood Anaerobic Blood Culture - Final Assessment and Plan - Problems (Diagnosis) Hyponatremia improving hyperkalemia resolved Current Visit: Yes Status: Acute Influenza Current Visit: Yes Status: Acute Acute metabolic encephalopathy secondarry UTI improving Total care BUE/BLE contractures B) wrist skin tears Current Visit: yes Status: Acute Dehydration improved Current Visit: No Status: Acute Severe sepsis secondary to UTI/acute cystitis improved Current Visit: No Status: Acute UTI (urinary tract infection) secondary to chronic indwelling fierro cath Current Visit: No Status: Acute Qualifiers: Dementia chronic G-tube feeding dependent Current Visit: No Status: Chronic Qualifiers: Dysphagia G-tube feeding dependent Diarrhea from tube feed Current Visit: No Status: Chronic - Plan Assessment This is a 83-year-old female with Alzheimer's dementia who presented with progressively declining mental status. Patient has been found to have a sodium of 114. Her urine analysis from 1 day ELECTRIC DISTRIBUTION CHECKER shows gram-negative rods. Patient also tested positive for influenza. Patient will be admitted to ICU for severe hyponatremia. Patient required an additional IV fluid bolus in the ER as her blood pressure dropped in the 70s. She eventually require vasopressors due to persistent hypotension. Central line placed by ER. Plan: admitted to ICU on pressure support, stabilized, downgraded to floor Central line requested for frequent blood draws and possible vasopressors/volume repletion Started on Levophed after multiple fluid challenge-weaned off of pressors, Nephrology consulted Cefepime started for UTI based on urine analysis from 04/05/2024 Urine culture Klebsiella oxytoca/Pseudomonas-leukocytosis improved-on vancomycin, meropenem Tamiflu continued for influenza Diarrhea tube feed, on Imodium as needed Acute metabolic encephalopathy likely secondary to acute cystitis/hyponatremia- improving Sodium, leukocytosis improved Septic shock/hypotension improved, transferred out of ICU-resolved Tube feeds NPO 04/14 for surg to change peg Influenza, Tamiflu Urinary tract infection IV antibiotic: Vancomycin, meropenem, improved Alzheimer dementia-supportive care fall precaution plane DC home w HHC w tube feeds GI prophylaxis Time with patient 25 minutes Discharge Plan: Other ([facility] health) Critical Care: No Time Spent Managing PTS Care (In Minutes): 25 <Ligia Pathak - Last Filed: 04/14/24 01:13> Patient was seen and examined. Events of the last 24 hours have been noted. Spoke with with YARIEL regarding patient's clinical picture after evaluating and e xamining the patient independently. I performed a substantial part of the MDM during this patient's care today. I personally made or approved the documented management plan and acknowledge its risk of complications. I agree with the findings and documentation provided in the YARIEL's notes. Continue with gentle hydration and monitor labs closely. BP stable. Working on discharge planning once PEG tube is placed. Continue with antibiotics for cultures that are positive. Will continue Levaquin and Augmentin. <Davi Tobar - Last Filed: 04/14/24 03:56>
--- NOTE | 2024-04-14 03:50 | P.PN ---
Date of Service: 04/08/24 Subjective Patient is clinically doing better. Family stated patient almost back to baseline. Will need to get PEG tube placed. Sodium is stable. Talk to the family about the amount of free water to give so patient does not develop hyponatremia once again. Physical Examination - Vitals Reviewed - Physical Exam General: Other (lethargic, frail, clinically dry) HEENT: Atraumatic, Normocephalic Cardiovascular: No edema, Normal pulses, Regular rate/rhythm, Normal S1 S2 Lungs: Bilateral crackles Gastroenterology: Abdomen soft nontender nondistended bowel sounds hypoactive Extremities: No clubbing no cyanosis no edema Neurological: Dementia; bedbound and does not really move much at all. Assessment and Plan - Problems (Diagnosis) (1) Hyponatremia Current Visit: Yes Status: Acute (2) Influenza Current Visit: Yes Status: Acute (3) Acute metabolic encephalopathy Current Visit: No Status: Acute (4) Dehydration Current Visit: No Status: Acute (5) Severe sepsis Current Visit: No Status: Acute (6) UTI (urinary tract infection) Current Visit: No Status: Acute (7) Dementia Current Visit: No Status: Chronic (8) Dysphagia Current Visit: No Status: Chronic - Plan Acute metabolic encephalopathy Septic shock/hypotension Hyponatremia Influenza Urinary tract infection Alzheimer dementia Plan: 1. Acute metabolic encephalopathy secondary to severe hyponatremia; continue with supplement of sodium. Repeat sodium level. Mentation has improved. 2. Septic shock with hypotension; blood pressure stable. Downgrade to general medical floor 3. Influenza; continue with Tamiflu 4. UTI; continue with IV antibiotics 5. Alzheimer's dementia; long-term prognosis poor. Continue with supportive care. PEG tube has been changed in 18 months so we will try to get a change prior to discharge.
[2024-04-14 05:02] LABS: Absolute Basophils 0.1 K/uL (0-0.5); Absolute Eosinophils 0.6 K/uL (0-0.5); Absolute Lymphocytes (CBC) 1.5 K/uL (0.7-4.9); Absolute Monocytes 0.8 K/uL (0.1-1.3); Absolute Neutrophil 8.6 K/uL (1.8-8.0); Basophils % 0.7 % (0-1.3); Eosinophils % 5.2 % (0-4.4); Hematocrit 25.7 % (36.0-45.0); Hemoglobin 8.5 g/dL (12.0-15.0); Lymphocytes % 12.7 % (15.3-44.8); MCH 32.2 pg (27.0-35.0); MCHC 32.9 g/dL (32.0-36.0); MCV 97.9 fL (80-100); MPV 6.7 fL (7.6-11.3); Monocytes % 6.8 % (3.3-12.3); Neutrophils % 74.6 % (41.7-73.7); Platelets 450 thou/uL (152-406); RBC Red Blood Cell Count 2.63 M/uL (3.86-4.86); Red Cell Distribution Width 14.1 % (12.1-15.2)
[2024-04-14 05:28] LABS: Anion Gap 9.1 mEq/L (5.0-15.0); Magnesium 1.9 mg/dL (1.6-2.4); Phosphorus 2.3 mg/dL (2.5-4.9); Potassium 4.1 mEq/L (3.5-5.1)
[2024-04-14] MEDS: Meropenem 1,000 MG in NA CHLORIDE 0.9% 100 ML IV SCH (08:17)
[2024-04-14] MEDS: Ringers Lactate 500 ML IV ONE (11:31)
[2024-04-14] MEDS ORDERED: propofoL 200 MG/20 ML VIAL IV ONE (11:37)
[2024-04-14] MEDS ORDERED: LIDOCAINE 1% MPF 30 ML VIAL ONE (11:37)
--- NOTE | 2024-04-14 18:05 | P.PN ---
Date of Service: 04/14/24 Subjective Chief Complaint: sepsis total care, B) skin wrist, skin tears nurse to change dressing Scheduled for PEG tube replacement today, with surgery Will need to hold tube feeding for 24 hours after PEG placement, Physical Examination - Vital Signs Reviewed - Physical Exam General: Cachectic, Demented, resting with eyes closed HEENT: Atraumatic, Normocephalic Respiratory: Clear to auscultation bilaterally, Normal air movement Cardiovascular: Normal pulses, Regular rate/rhythm Gastrointestinal: Normal bowel sounds, G-tube feeding, diarrhea Musculoskeletal , BUE, BLE contractures, total care Skin: B) wrist skin tears, dry dressing Neurological: Abnormal strength, Dementia - Studies Microbiology Data (last 24 hrs): 04/06/24 17:12 Blood - Blood Anaerobic Blood Culture - Final 04/06/24 18:53 Clean Catch Urine [place] Count - Final >100,000 CFU/ML. 04/06/24 18:53 Clean Catch Urine - Final Klebsiella Oxytoca Enterococcus Faecalis 04/06/24 17:20 Blood - Blood Aerobic Blood Culture - Final Pseudomonas Aeruginosa 04/06/24 17:20 Blood - Blood Blood Culture Gram Stain - Final 04/06/24 17:20 Blood - Blood Anaerobic Blood Culture - Final Assessment and Plan - Problems (Diagnosis) Hyponatremia improving hyperkalemia resolved Current Visit: Yes Status: Acute Influenza Current Visit: Yes Status: Acute Acute metabolic encephalopathy secondarry UTI improving Total care BUE/BLE contractures B) wrist skin tears Current Visit: yes Status: Acute Dehydration improved Current Visit: No Status: Acute Severe sepsis secondary to UTI/acute cystitis improved Current Visit: No Status: Acute UTI (urinary tract infection) secondary to chronic indwelling fierro cath Current Visit: No Status: Acute Qualifiers: Dementia chronic G-tube feeding dependent Current Visit: No Status: Chronic Qualifiers: Dysphagia G-tube feeding dependent Diarrhea from tube feed Current Visit: No Status: Chronic - Plan Assessment This is a 83-year-old female with Alzheimer's dementia who presented with progre ssively declining mental status. Patient has been found to have a sodium of 114. Her urine analysis from 1 day VET ASSISTANT shows gram-negative rods. Patient also tested positive for influenza. Patient will be admitted to ICU for severe hyponatremia. Patient required an additional IV fluid bolus in the ER as her blood pressure dropped in the 70s. She eventually require vasopressors due to persistent hypotension. Central line placed by ER. Plan: admitted to ICU on pressure support, stabilized, downgraded to floor Central line requested for frequent blood draws and possible vasopressors/volume repletion Started on Levophed after multiple fluid challenge-weaned off of pressors, Nephrology consulted Cefepime started for UTI based on urine analysis from 04/05/2024 Urine culture Klebsiella oxytoca/Pseudomonas-leukocytosis improved-on vancomycin, meropenem Tamiflu continued for influenza Diarrhea tube feed, on Imodium as needed Acute metabolic encephalopathy likely secondary to acute cystitis/hyponatremia- improving Sodium, leukocytosis improved Septic shock/hypotension improved, transferred out of ICU-resolved Tube feeds NPO 04/14 for surg to change peg follow-up with surgery after Influenza, Tamiflu Urinary tract infection IV antibiotic: Vancomycin, meropenem, improved Alzheimer dementia-supportive care fall precaution plane DC home w HHC w tube feeds GI prophylaxis Time with patient 25 minutes Discharge Plan: Other ([facility] home health) Critical Care: No Time Spent Managing PTS Care (In Minutes): 25
[2024-04-15 05:42] LABS: Absolute Basophils 0.1 K/uL (0-0.5); Absolute Eosinophils 0.4 K/uL (0-0.5); Absolute Lymphocytes (CBC) 1.2 K/uL (0.7-4.9); Absolute Monocytes 0.8 K/uL (0.1-1.3); Absolute Neutrophil 12.2 K/uL (1.8-8.0); Basophils % 0.9 % (0-1.3); Eosinophils % 2.8 % (0-4.4); Hemoglobin 8.6 g/dL (12.0-15.0); Lymphocytes % 8.3 % (15.3-44.8); MCH 32.2 pg (27.0-35.0); MCV 97.6 fL (80-100); MPV 7.1 fL (7.6-11.3); Monocytes % 5.7 % (3.3-12.3); Neutrophils % 82.3 % (41.7-73.7); Platelets 482 thou/uL (152-406); RBC Red Blood Cell Count 2.67 M/uL (3.86-4.86); Red Cell Distribution Width 14.2 % (12.1-15.2)
[2024-04-15 05:51] LABS: Anion Gap 10.1 mEq/L (5.0-15.0); BUN Blood Urea Nitrogen 11 mg/dL (7-18); Bicarbonate 24 mEq/L (21-32); Glucose Level 88 mg/dL (74-106); Potassium 4.1 mEq/L (3.5-5.1); Sodium Level 141 mEq/L (136-145)
[2024-04-15 05:53] LABS: Glomerular Filtration Rate 111 ml/min (=/>90)
[2024-04-15] MEDS: POTASS/SODIUM PHOSPHATE 1 PKT POWD.PACK FT SCH (12:08)
--- NOTE | 2024-04-15 12:10 | P.PN ---
(S) TF on hold but plan to resume per surgery, lytes mostly stable, no acute distress noted on exam (O) Vitals reviewed in the EMR General: In no apparent distress, Other (awake) HEENT: Atraumatic, Normocephalic Respiratory: Other (Non tachypnec, no distress, no wheezing) Cardiovascular: Other (mild tachy, regular mostly) Gastrointestinal: Soft and benign, Non-distended, No tenderness Musculoskeletal: Severe UE Contractures, some swelling of upper extremities Integumentary: No rashes Neurological: Other (Awake, non verbal, no tremors noted), Abnormal tone Conclusions/Impression: A/P) 1. Acute hypotonic hypovolemic hyponatremia in the setting of impaired intake +/- insensible losses, other -improved 2. Na level over 130, cont free water flushes when TF resumed and if remains on hold will need to ensure water deficit does not develop 3. Hyperkalemia 2nd to vol depletion, Stage 1 GENTRY -resolved 4. influenza PNA POA, hypotension, unspecified -improved clinically, not needing O2 5. Bacteremia, sepsis possibly 2nd to urinary source POA. Pyuria on UA -several organism growth, will defer to primary team to see if Abx can be consolidated and when Abx can be transitioned to PO ones. Hx of retention of urine unspecified, chronic indwelling bladder catheter exchanged q3 weeks per reports. 6. Chronic labile HTN with hypotension on admission -home meds resumed by primary team, pt is on regimen of Nebivolol and Clonidine patch but it appears given some tachycardia (which may be physiologic), daughter reports pt had done well on this at home. BP labile here, monitor
--- NOTE | 2024-04-15 13:30 | P.PN ---
Date of Service: 04/15/24 Date of Service: 04/15/24 Subjective Chief Complaint: sepsis PEG placed per surgery 04/14/24 Will need to hold tube feeding for 24 hours after PEG placement, feedings to start later today Physical Examination - Vital Signs 152/67, HR 122, afebrile (98.3), 17, SpO2 98% RA - Physical Exam General: Demented, catatonic, resting with eyes open HEENT: Atraumatic, Normocephalic Respiratory: Diminished to auscultation bilaterally, Normal air movement Cardiovascular: Normal pulses, tachycardic rate/rhythm Gastrointestinal: Normal bowel sounds, G-tube feeding Musculoskeletal , BUE, BLE contractures, total care Skin: B) wrist skin tears, dry dressing Neurological: Abnormal strength, Dementia - Studies Microbiology Data (last 24 hrs): 04/06/24 18:53 Clean Catch Urine [place] Count - Final >100,000 CFU/ML. 04/06/24 18:53 Clean Catch Urine - Final Klebsiella Oxytoca Enterococcus Faecalis 04/06/24 17:20 Blood - Blood Aerobic Blood Culture - Final Pseudomonas Aeruginosa 04/06/24 17:20 Blood - Blood Blood Culture Gram Stain - Final 04/06/24 17:20 Blood - Blood Anaerobic Blood Culture - Final repeat blood culture prelim + for gram + cocci reported today. Repeat cultures ordered. Pt on Vancomycin and Merrem Assessment and Plan - Problems (Diagnosis) Hyponatremia resolved hyperkalemia resolved Current Visit: Yes Status: Acute Influenza Current Visit: Yes Status: Acute Acute metabolic encephalopathy secondarry UTI improving Total care BUE/BLE contractures B) wrist skin tears Current Visit: yes Status: Acute Dehydration improved Current Visit: No Status: Acute Severe sepsis secondary to UTI/acute cystitis improved Current Visit: No Status: Acute UTI (urinary tract infection) secondary to chronic indwelling fierro cath Current Visit: No Status: Acute Qualifiers: Dementia chronic G-tube feeding dependent Current Visit: No Status: Chronic Qualifiers: Dysphagia G-tube feeding dependent Current Visit: No Status: Chronic - Plan Assessment This is a 83-year-old female with Alzheimer's dementia who presented with progressively declining mental status. Patient has been found to have a sodium of 114. Her urine analysis from 1 day KIER TENDER shows gram-negative rods. Patient also tested positive for influenza. Patient will be admitted to ICU for severe hyponatremia. Patient required an additional IV fluid bolus in the ER as her blood pressure dropped in the 70s. She eventually require vasopressors due to persistent hypotension. Central line placed by ER. Plan: admitted to ICU on pressure support, stabilized, downgraded to floor Central line requested for frequent blood draws and possible vasopressors/volume repletion Started on Levophed after multiple fluid challenge-weaned off of pressors, Nephrology consulted Cefepime started for UTI based on urine analysis from 04/05/2024 Urine culture Klebsiella oxytoca/Pseudomonas-leukocytosis improved-on vancomycin, meropenem Tamiflu continued for influenza Diarrhea tube feed, on Imodium as needed Acute metabolic encephalopathy likely secondary to acute cystitis/hyponatremia- improving Sodium, leukocytosis improved Septic shock/hypotension improved, transferred out of ICU-resolved Tube feeds NPO 04/14 for surg to change peg follow-up with surgery after Influenza, Tamiflu Urinary tract infection IV antibiotic: Vancomycin, meropenem, improved Alzheimer dementia-supportive care fall precaution plan DC home w HHC w tube feeds GI prophylaxis 04/15/24 Will resume tube feedings today. Pt is currently rec'ing Merrem and Vancomycin. She remains tachycardic. Her blood pressure is stable. Electrolytes have stabilized. She was seen per Dr. Phillips today. She lives at home with [facility] care. A preliminary blood culture today has returned with gram + cocci in clusters. Need to await sensitivity. Mental status was told to me to be vegetative. She is awake, eyes open but catatonic. Will reassess tomorrow. 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 Patient has improved after ICU care, currently is not septic, afebrile, however mild leukocytosis after PEG tube placement. I will increase the dosage of Nebivolol for persistent tachycardia and uncontrolled hypertension. <AGA Samson - Last Filed: 04/15/24 16:03>
[2024-04-15] MEDS: NA CHLORIDE 0.9% 100 ML ONE (23:54)
[2024-04-16 06:10] LABS: Anion Gap 10.1 mEq/L (5.0-15.0); Magnesium 2.1 mg/dL (1.6-2.4); Phosphorus 2.5 mg/dL (2.5-4.9); Potassium 4.1 mEq/L (3.5-5.1)
[2024-04-16 06:28] LABS: Absolute Basophils 0.2 K/uL (0-0.5); Absolute Eosinophils 0.5 K/uL (0-0.5); Absolute Lymphocytes (CBC) 1.6 K/uL (0.7-4.9); Absolute Monocytes 1.2 K/uL (0.1-1.3); Absolute Neutrophil 13.5 K/uL (1.8-8.0); Basophils % 1.2 % (0-1.3); Eosinophils % 3.1 % (0-4.4); Hematocrit 26.5 % (36.0-45.0); Hemoglobin 8.5 g/dL (12.0-15.0); Lymphocytes % 9.4 % (15.3-44.8); MCH 31.6 pg (27.0-35.0); MCHC 32.1 g/dL (32.0-36.0); MCV 98.6 fL (80-100); MPV 7.3 fL (7.6-11.3); Monocytes % 6.9 % (3.3-12.3); Neutrophils % 79.4 % (41.7-73.7); Nucleated Red Blood Cells % 0.1 % (0-0); Platelets 552 thou/uL (152-406); RBC Red Blood Cell Count 2.68 M/uL (3.86-4.86); Red Cell Distribution Width 14.3 % (12.1-15.2)
[2024-04-16] MEDS: NEBIVOLOL HCL 5 MG TAB PO SCH (09:05)
--- NOTE | 2024-04-16 13:34 | P.PN ---
Date of Service: 04/16/24 Date of Service: 04/15/24 Subjective Chief Complaint: sepsis PEG placed per surgery 04/14/24 Will need to hold tube feeding for 24 hours after PEG placement, feedings to start later today Physical Examination - Vital Signs 152/67, HR 122, afebrile (98.3), 17, SpO2 98% RA - Physical Exam General: Demented, catatonic, resting with eyes open HEENT: Atraumatic, Normocephalic Respiratory: Diminished to auscultation bilaterally, Normal air movement Cardiovascular: Normal pulses, tachycardic rate/rhythm Gastrointestinal: Normal bowel sounds, G-tube feeding Musculoskeletal , BUE, BLE contractures, total care Skin: B) wrist skin tears, dry dressing Neurological: Abnormal strength, Dementia - Studies Microbiology Data (last 24 hrs): 04/06/24 18:53 Clean Catch Urine [place] Count - Final >100,000 CFU/ML. 04/06/24 18:53 Clean Catch Urine - Final Klebsiella Oxytoca Enterococcus Faecalis 04/06/24 17:20 Blood - Blood Aerobic Blood Culture - Final Pseudomonas Aeruginosa 04/06/24 17:20 Blood - Blood Blood Culture Gram Stain - Final 04/06/24 17:20 Blood - Blood Anaerobic Blood Culture - Final repeat blood culture prelim + for gram + cocci reported today. Repeat cultures ordered. Pt on Vancomycin and Merrem - awaiting final culture results Assessment and Plan - Problems (Diagnosis) Hyponatremia resolved hyperkalemia resolved Current Visit: Yes Status: Acute Influenza Current Visit: Yes Status: Acute Acute metabolic encephalopathy secondarry UTI improving Total care BUE/BLE contractures B) wrist skin tears Current Visit: yes Status: Acute Dehydration improved Current Visit: No Status: Acute Severe sepsis secondary to UTI/acute cystitis improved Current Visit: No Status: Acute UTI (urinary tract infection) secondary to chronic indwelling fierro cath Current Visit: No Status: Acute Qualifiers: changed q 3weeks per report Dementia chronic G-tube feeding dependent Current Visit: No Status: Chronic Qualifiers: G-tube replaced in OR per Dr. Ross on this admission Dysphagia G-tube feeding dependent Current Visit: No Status: Chronic - Plan Assessment This is a 83-year-old female with Alzheimer's dementia who presented with progressively declining mental status. Patient has been found to have a sodium of 114. Her urine analysis from 1 day CURB SETTER HELPER shows gram-negative rods. Patient also tested positive for influenza. Patient will be admitted to ICU for severe hyponatremia. Patient required an additional IV fluid bolus in the ER as her blood pressure dropped in the 70s. She eventually require vasopressors due to persistent hypotension. Central line placed by ER. Plan: admitted to ICU on pressure support, stabilized, downgraded to floor Central line requested for frequent blood draws and possible vasopressors/volume repletion Started on Levophed after multiple fluid challenge-weaned off of pressors, Nephrology following Urine culture Klebsiella oxytoca/Pseudomonas-leukocytosis improved-on vancom ycin, meropenem Acute metabolic encephalopathy likely secondary to acute cystitis/hyponatremia- improving Sodium normal, leukocytosis improved and rebounded to 17 today but pt is not showing symptoms of worsening or bacteremia Septic shock/hypotension improved, transferred out of ICU-resolved Tube feeds in progress Influenza, Tamiflu Urinary tract infection IV antibiotic: Vancomycin, meropenem, improved Alzheimer dementia-supportive care fall precaution plan DC home w HHC w tube feeds GI prophylaxis 04/15/24 Will resume tube feedings today. Pt is currently rec'ing Merrem and Vancomycin. She remains tachycardic. Her blood pressure is stable. Electrolytes have stabilized. She was seen per Dr. Phillips today. She lives at home with [facility] care. A preliminary blood culture today has returned with gram + cocci in clusters. Need to await sensitivity. Mental status was told to me to be vegetative. She is awake, eyes open but catatonic. Will reassess tomorrow. 04/16/24 Awaiting final sensitivity to gram + cocci in clusters, may be contaminant. Continues on Merrem and Vancomycin. Pt seems to be almost back to her baseline. Will await finalization of culture/sensitivities and begin discharge process. Time with patient 25 minutes Discharge Plan: Other ([facility] home health) Critical Care: No Time Spent Managing PTS Care (In Minutes): 25
--- NOTE | 2024-04-16 17:40 | P.DS ---
Admission Date: 04/06/24 Discharge Date: 04/17/24 Disposition: ROUTINE DISCHARGE Discharge Condition: FAIR Reason for Admission: sepsis Consultations: Dr. Ross (revision of G tube) Dr. Phillips, Nephrology Brief History of Present Illness: Assessment This is a 83-year-old female with Alzheimer's dementia who presented with progressively declining mental status. Patient has been found to have a sodium of 114. Her urine analysis from 1 day [employer] shows gram-negative rods. Patient also tested positive for influenza. Patient will be admitted to ICU for severe hyponatremia. Patient required an additional IV fluid bolus in the ER as her blood pressure dropped in the 70s. She eventually require vasopressors due to persistent hypotension. Central line placed by ER. She was admitted to ICU on pressure support, stabilized, downgraded to floor. Central line requested for frequent blood draws and possible vasopressors/volume repletion. Started on Levophed after multiple fluid challenge-weaned off of pressors. Nephrology (Dr. Phillips) following. Dr. Ross replaced the Peg Tube for tube feedings and Ms. Quevedo has been tolerating them well. Urine culture Klebsiella oxytoca/Pseudomonas-leukocytosis improved-on vancomycin, meropenem. Acute metabolic encephalopathy likely secondary to acute cystitis/hyponatremia- improved. Sodium normalized, leukocytosis improved and rebounded to 17 04/16/24 but pt did not show symptoms of worsening or bacteremia. Patient finished 10 days of IV antibiotics including meropenem for possible Pseudomonas erogenous bacteremia, patient received 11 days of IV vancomycin, positive blood culture suggestive of contamination. Positive urine culture suggestive of bacterial colonization associated with indwelling Cox catheter. I will discontinue both antibiotics and clinically observe today and plan to DC home w [facility] w tube feeds tomorrow. Vital Signs/Physical Exam: Temp Pulse Resp BP Pulse Ox 98.3 F 83 18 128/57 L 99 04/16/24 12:00 04/16/24 12:00 04/16/24 12:00 04/16/24 12:00 04/16/24 12:00 General: In no apparent distress, Demented, Obese, Other (contracted and non ambulatory at baseline) HEENT: Atraumatic, Normocephalic Neck: Other (contracted) Respiratory: Normal air movement Cardiovascular: Normal pulses, Other (anasarca) Capillary refill: <2 Seconds Gastrointestinal: Normal bowel sounds, Other (peg tube) Musculoskeletal: Swelling, Contractures Integumentary: Other (skin paper thin, delicate, fragile, multiple padded dressings to forearms from scratching, arms contractured, buttock sore healing well, no infection) Neurological: Dementia Urinary: Cox catheter (changed q 3 weeks) External genitalia: Deferred Rectal: Deferred Other Physical/Emotional Findings: Pt is well cared for at home by Son and DIL Laboratory Data at Discharge: WBC 17.00 thou/uL (4.3-10.9) H 04/16/24 05:44 Hgb 8.5 g/dL (12.0-15.0) L 04/16/24 05:44 Hct 26.5 % (36.0-45.0) L 04/16/24 05:44 Plt Count 552 thou/uL (152-406) H 04/16/24 05:44 PT 13.8 SECONDS (9.4-12.5) H 04/06/24 17:07 INR 1.24 04/06/24 17:07 APTT 28.4 SECONDS (24.3-36.9) 04/06/24 17:07 Sodium 140 mEq/L (136-145) 04/16/24 05:44 Potassium 4.1 mEq/L (3.5-5.1) 04/16/24 05:44 BUN 15 mg/dL (7-18) 04/16/24 05:44 Creatinine 0.41 mg/dL (0.55-1.02) L 04/16/24 05:44 Glucose 129 mg/dL (74-106) H 04/16/24 05:44 Phosphorus 2.5 mg/dL (2.5-4.9) 04/16/24 05:44 Magnesium 2.1 mg/dL (1.6-2.4) 04/16/24 05:44 Total Bilirubin 0.8 mg/dL (0.2-1.0) 04/06/24 16:50 AST 20 U/L (15-37) 04/06/24 16:50 ALT < 14 U/L (13-56) 04/06/24 16:50 Alkaline Phosphatase 64 U/L (45-117) 04/06/24 16:50 Triglycerides 122 mg/dL (<150) 04/07/24 04:10 Cholesterol 132 mg/dL (<200) 04/07/24 04:10 HDL Cholesterol 21 mg/dL (40-60) L 04/07/24 04:10 Cholesterol/HDL Ratio 6.29 04/07/24 04:10 Home Medications: Donepezil HCl [Aricept] 10 mg PO DAILY 05/02/21 Memantine HCl [Namenda*] 10 mg PO BID 05/02/21 SUMAtriptan succinate [Sumatriptan Succinate] 25 mg PO PRN PRN 05/02/21 Pantoprazole Sodium [Protonix] 40 mg PO DAILY 90 Days #90 tab 02/20/22 Sucralfate [Carafate*] 1 ml PO TID* 30 Days #900 ml 02/20/22 Gabapentin 300 mg PO TID 06/06/22 Metoprolol Tartrate [Lopressor*] 1 tab FT DAILY 06/06/22 Promethazine HCl 25 mg FT BEDTIME 06/06/22 Trazodone [Desyrel*] 1 tab .ROUTE QID 06/06/22 Physician Discharge Instructions: Established Home Health: [facility] P:[phone] F:[phone] Central line requested and placed during admission for frequent blood draws and possible vasopressors/volume repletion. Started on Levophed after multiple fluid challenge-weaned off of pressors. Nephrology (Dr. Phillips) following. Dr. Ross replaced the Peg Tube for tube feedings and Ms. Quevedo has been tolerating them well. Urine culture Klebsiella oxytoca/Pseudomonas-leukocytosis improved-on vancomycin, meropenem. Acute metabolic encephalopathy likely secondary to acute cystitis/hyponatremia-improved. Sodium normalized, leukocytosis improved and rebounded to 17 04/16/24 but pt did not show symptoms of worsening or bacteremia. Patient finished 10 days of IV antibiotics including meropenem for possible Pseudomonas erogenous bacteremia, patient received 11 days of IV vancomycin, positive blood culture suggestive of contamination. Positive urine culture suggestive of bacterial colonization associated with indwelling Cox catheter. I will discontinue both antibiotics and clinically observe today and plan to DC home w [facility] w tube feeds tomorrow. Diet: tube Activity: Fall precautions Followup: Dwayne Ross MD [ACTIVE - CAN ADMIT] - Katya Marsh FNP [Primary Care Provider] - 1-2 Weeks
[2024-04-16 22:15] VITALS: O2SAT 98
[2024-04-17 12:22] VITALS: BP 132/54; TEMP 99.9
--- NOTE | 2024-04-17 20:34 | P.PN ---
Date of Service: 04/17/24 Vital Signs Temp Pulse Resp BP Pulse Ox 99.9 F 94 H 16 132/54 L 97 04/17/24 12:00 04/17/24 12:00 04/17/24 12:00 04/17/24 12:00 04/17/24 12:00 Microbiology Results 04/06/24 17:12 Blood - Blood Aerobic Blood Culture - Final Staph Hominis 04/06/24 17:12 Blood - Blood Blood Culture Gram Stain - Final 04/06/24 17:12 Blood - Blood Anaerobic Blood Culture - Final 04/06/24 18:53 Clean Catch Urine Nuevo Count - Final >100,000 CFU/ML. 04/06/24 18:53 Clean Catch Urine - Final Klebsiella Oxytoca Enterobacter Cloacae Enterococcus Faecalis 04/06/24 17:20 Blood - Blood Aerobic Blood Culture - Final Pseudomonas Aeruginosa 04/06/24 17:20 Blood - Blood Blood Culture Gram Stain - Final 04/06/24 17:20 Blood - Blood Anaerobic Blood Culture - Final 04/06/24 16:31 Nasopharnyx Influenza Type A Antigen Screen - Final 04/06/24 16:31 Nasopharnyx Influenza Type B Antigen Screen - Final Assessment/ Plan: Nephrology No dyspnea No chest pain No acute events overnight Vitals, medications, blood work and imaging reviewed in the chart NAD. MMM. NCAT. Normal Respiratory Effort. S1S2. ND Abd. No C/C/E. No rash. AAO. Normal speech. Hyponatemia -Continue tube feeds Hypokalemia -Continue tube feeds Hypophosphatemia -Continue tube feeds HTN -Continue Bystolic Hypoalbuminemia -Continue tube feeds Anemia in chronic illness -Consider iron supplementation Hospitalist note reviewed
== END 2024-04-17 13:22 | disposition home health service (06) | DRG 698 ==
LOC: ER 15:59 → 3RD-ICU 20:23 → 2ND 04-08 16:00
PROVIDERS: ADMIT Internal Medicine; ATTEND Internal Medicine
PROC: 02HV33Z Insertion of Infusion Device into Superior Vena Cava, Percutaneous Approach (ICD-10-PCS; principal; 2024-04-06)
PROC: 3E043XZ Introduction of Vasopressor into Central Vein, Percutaneous Approach (ICD-10-PCS; 2024-04-06)
DX: T83.518A Infection and inflammatory reaction due to other urinary catheter, initial encounter (principal); A41.52 Sepsis due to Pseudomonas; G82.50 Quadriplegia, unspecified; J10.00 Influenza due to other identified influenza virus with unspecified type of pneumonia; G93.41 Metabolic encephalopathy; R65.21 Severe sepsis with septic shock; A41.59 Other Gram-negative sepsis; N30.00 Acute cystitis without hematuria; E87.1 Hypo-osmolality and hyponatremia; N17.9 Acute kidney failure, unspecified; R64 Cachexia; L89.159 Pressure ulcer of sacral region, unspecified stage; E87.5 Hyperkalemia; E86.0 Dehydration; E83.39 Other disorders of phosphorus metabolism; D63.8 Anemia in other chronic diseases classified elsewhere; E86.9 Volume depletion, unspecified; E88.09 Other disorders of plasma-protein metabolism, not elsewhere classified; K21.9 Gastro-esophageal reflux disease without esophagitis; K44.9 Diaphragmatic hernia without obstruction or gangrene; G30.9 Alzheimer's disease, unspecified; F02.80 Dementia in other diseases classified elsewhere, unspecified severity, without behavioral disturbance, psychotic disturbance, mood disturbance, and anxiety; I25.2 Old myocardial infarction; S61.512A Laceration without foreign body of left wrist, initial encounter; S61.511A Laceration without foreign body of right wrist, initial encounter; R13.10 Dysphagia, unspecified; R19.7 Diarrhea, unspecified; Z93.1 Gastrostomy status; Z88.0 Allergy status to penicillin; Z68.26 Body mass index [BMI] 26.0-26.9, adult; Z11.52 Encounter for screening for COVID-19; Z86.73 Personal history of transient ischemic attack (TIA), and cerebral infarction without residual deficits; Z79.899 Other long term (current) drug therapy; Z86.718 Personal history of other venous thrombosis and embolism
CPT/HCPCS: 36415; 36556; 51702; 71045; 71250; 74177; 80048; 80053; 80061; 80202; 81001; 82570; 82947; 83605; 83735; 83930; 83935; 84100; 84132; 84145; 84295; 84300; 85025; 85610; 85730; 87040; 87077; 87086; 87088; 87186; 87205; 87804; 87811; 93005; 96361; 96365; 96375; 99285; J0692; J0696; J1650; J2003; J2185; J2405; J2704; J3475; J3480; J7030; J7040; J7050; J7799; Q9967